=== PATIENT | female | born 1985 | race Caucasian/White ===

== ENCOUNTER 2023-03-20 12:17 | Observation (INO) | payer MEDICAID, SELFPAY ==
[2023-03-20 12:19] VITALS: BP 141/91; PULSE 113; RESP 18; TEMP 37.1; O2SAT 94; BMI 80.4
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
[2023-03-20] MEDS: HYDROmorphone 1 MG/ML Syringe IV (13:03)
[2023-03-20 13:26] LABS: Basophil# 0.07 X10^3/uL; Basophil% 0.7 % (0-1); Eosinophil# 0.31 X10^3/uL; Eosinophils% 3.2 % (0-5); Hematocrit 42.5 % (37-47); Hemoglobin 13.4 g/dL (12.0-15.0); Lymphocyte % 18.7 % (19-41); Mean Corp Hgb Conc 31.5 g/dL (32-36); Mean Corpuscular Hgb 28.8 pg (27.0-32.0); Mean Corpuscular Volume 91.4 fL (81-99); Mean Platelet Vol. 10.4 fl (6.2-12.0); Monocyte# 0.45 X10^3/uL; Monocyte% 4.7 % (0-10); NRBC Flagged by Analyzer 0 % (0-5); Neutrophil # 6.97 X10^3/uL (2.7-7.7); Neutrophil % 72.2 % (47-70); Platelet Count 312 K/mm3 (150-450); RBC Distribution Width CV 13.3 % (11.6-14.6); RBC Distribution Width SD 44.9 fl (35.1-43.9); Red Blood Count 4.65 M/mm3 (4.2-5.4); White Blood Count 9.7 K/mm3 (4.4-11.0)
[2023-03-20 13:42] LABS: Anion Gap 4 (5-15); BUN 17 mg/dL (7-18); BUN/Creat Ratio 20.4 RATIO (10-20); Chloride 105 mmol/L (98-107); Creatinine, Serum 0.83 mg/dL (0.55-1.02); EST Glomerular Filtration Rate 81 mL/min (>60); Est Glom Filt Rate - Afr Amer 98 mL/min (>60); Estimated Creatinine Clearance 81.89 ml/min; Glucose 127 mg/dL (74-106); Potassium 4.2 mmol/L (3.5-5.1); Sodium Level 137 mmol/L (136-145)
[2023-03-20 13:54] VITALS: BP 117/70; PULSE 68; RESP 18; O2SAT 99
--- NOTE | 2023-03-20 16:13 | CT_ITS ---
STUDY: CT LUMBAR SPINE WITHOUT CONTRAST REASON FOR EXAM: Female, 37 years old. pain TECHNIQUE: The patient was scanned in a multi detector CT scanner. High resolution transaxial imaging was performed. Images were obtained from T12 to S1. Sagittal and coronal images were reconstructed. Individualized dose optimization techniques were used for this CT. COMPARISON: None FINDINGS: Normal lumbar lordosis. There is no substantial scoliosis. Normal vertebrae of the lumbar spine. L1-2: There is bilateral facet arthropathy. Loss of intervertebral disc height. There is endplate spondylosis of the vertebral body. Unremarkable central canal. Posterior disc bulge. Narrowing of the bilateral Intervertebral neuroforamina. L2-3: There is bilateral facet arthropathy. Loss of intervertebral disc height. There is endplate spondylosis of the vertebral body. Unremarkable central canal. Posterior disc bulge. Narrowing of the bilateral Intervertebral neuroforamina. L3-4: There is bilateral facet arthropathy. Loss of intervertebral disc height. There is endplate spondylosis of the vertebral body. Unremarkable central canal. Posterior disc bulge. Narrowing of the bilateral Intervertebral neuroforamina. L4-5: There is bilateral facet arthropathy. Loss of intervertebral disc height. There is endplate spondylosis of the vertebral body. Unremarkable central canal. Posterior disc bulge. Narrowing of the bilateral Intervertebral neuroforamina. L5-S1: There is bilateral facet arthropathy. Loss of intervertebral disc height. There is endplate spondylosis of the vertebral body. Unremarkable central canal. Posterior disc bulge. Narrowing of the bilateral Intervertebral neuroforamina. Normal visualized paraspinous soft tissue structures. CT/Spine Lumbar without Contrast IMPRESSION: (NOT LISTED IN ORDER OF SIGNIFICANCE) Multilevel degenerative changes, as described above. Electronically Signed: Shane Veloz MD at 16:55 EDT ,
--- NOTE | 2023-03-20 16:40 | NURSING ---
MED SURG OBS [place] INTRACTABLE BACK PAIN
[2023-03-20] MEDS: Ketorolac 30 MG/ML Syringe IV (16:41)
[2023-03-20] MEDS: HYDROmorphone 0.5 MG/0.5 ML SYRINGE IV (16:41)
--- NOTE | 2023-03-20 16:47 | ED.RN ---
Hospitalist in room with patient.
[2023-03-20 17:14] VITALS: BP 117/90; PULSE 68; RESP 16; TEMP 36.6
--- NOTE | 2023-03-20 17:55 | PCM.HP.STD ---
HPI - General General Date of Admission: 03/20/23 HPI Narrative SHELTON RODRIGEZ, is a 37 F who presents to the hospital with right-sided sciatic back pain. She has a BMI of 80 so this is likely weight related she denies any episodes of trauma. She did have an issue this afternoon where her leg gave out and she fell. She and her boyfriend states that her mobility issues are becoming more significant over time. Unfortunately she is too large to fit in an MRI at our facility and we attempted to find another facility who would potentially have a bigger MRI but they were all of our size. She states that the pain shoots down her right leg on occasion and that nothing has really helped. She denies any incontinence of stool or urine. No fevers or chills. [facility] Medical History Anxiety Diabetes High cholesterol HTN (hypertension) Allergy/AdvReac Type Severity Reaction Status Date / Time Penicillins Allergy Unknown Other Verified 03/20/23 12:22 Family History (Updated 03/20/23 @ 17:[address] Riky Carvalho MD) Other Heart disease Surgical History no surgical history no surgical history Social History Smoking Status: Former smoker ROS Constitutional Constitutional: Denies chills, fatigue, fever(s) or malaise Eyes Eyes: Denies blurry vision ENT HEENT: Denies headache(s) or nasal discharge Cardiovascular Cardiovascular: Denies chest pain, dyspnea on exertion or syncope Respiratory/Chest Respiratory/Chest: Denies cough, shortness of breath at rest or shortness of breath with exertion Gastrointestinal Gastrointestinal: Denies constipation, diarrhea, nausea or vomiting Genitourinary Genitourinary: Denies dysuria Musculoskeletal Musculoskeletal: Reports back pain Neurologic Neurologic: Denies focal weakness, numbness or tremor(s) Psychiatric Psychiatric: Denies anxiety or depression Vital Signs Vital Signs Vital Signs: 03/20/23 12:19 03/20/23 13:54 03/20/23 17:14 Temperature 98.7 F 98 F Temperature Source Temporal Oral Pulse Rate 113 H 68 68 Respiratory Rate 18 18 16 Blood Pressure 141/91 H 117/70 117/90 H Blood Pressure Mean 107 85 99 Pulse Ox 94 99 Oxygen Delivery Method Room Air Room Air Weight Weight: 483 lb Body Mass Index (BMI) 80.4 Physical Exam Narrative General: Alert, Oriented x3, Cooperative, No apparent distress, morbidly obese HEENT: Atraumatic, PERRLA, EOMI, Normocephalic Oral: Moist Mucosa Neck: Supple, No JVD Lungs: Diminished, Normal air movement, No rhonchi, No wheeze, No rales Cardiovascular: Regular rate, Regular Rhythm, Normal S1, Normal S2, No murmurs Abdomen: Soft, Non Tender, Non-Distended, No Hepato-splenomegaly Extremities: No edema, Capillary Refill Less than 3 Seconds Skin: No rashes, No breakdown Musculoskeletal: No significant midline tenderness, straight leg raise is unremarkable Neurological: Motor Exam 5/5 strength throughout, Sensory exam intact to light touch and pain Psych/Mental Status: Normal Affect, Appropriate Results Lab / Micro Data 03/20/23 13:06 03/20/23 13:06 Labs: Laboratory Results - last 24 hr 03/20/23 13:06: WBC 9.7, RBC 4.65, Hgb 13.4, Hct 42.5, MCV 91.4, MCH 28.8, MCHC 31.5 L, RDW Std Deviation 44.9 H, RDW Coeff of Chantal 13.3, Plt Count 312, MPV 10.4, Immature Gran % (Auto) 0.500, Neut % (Auto) 72.2 H, Lymph % (Auto) 18.7 L, [place] % (Auto) 4.7, Eos % (Auto) 3.2, Baso % (Auto) 0.7, Absolute Neuts (auto) 7.0, Absolute Lymphs (auto) 1.80, Nucleated RBC % 0, Sodium 137, Potassium 4.2, Chloride 105, Carbon Dioxide 28.0, Anion Gap 4 L, BUN 17, Creatinine 0.83, Estim Creat Clear Calc 81.89, Est GFR (MDRD) Af Amer 98, Est GFR (MDRD) Non-Af 81, BUN/Creatinine Ratio 20.4 H, Glucose 127 H, Calcium 9.0 Radiology Impression Lumbar Spine CT 03/20/23 16:13 IMPRESSION: (NOT LISTED IN ORDER OF SIGNIFICANCE) Multilevel degenerative changes, as described above. Electronically Signed: Shane Veloz MD at 16:55 EDT , Assessment & Plan Assessment/Plan (1) Intractable back pain: (2) Sciatica: PLAN: Plan 1. Intractable back pain with right-sided sciatica ? CT of the back demonstrates multilevel degenerative changes but nothing obviously significant unfortunately she cannot fit in MRI ? PT/OT ? Consult case management for possible discharge planning may need SNF if ambulation is limited ? We will continue with multimodal analgesia 2. Morbid obesity/type 2 diabetes ? Had a 40-minute discussion on lifestyle modifications ? We will place on a sliding scale insulin Accu-Cheks ? We will make adjustments as necessary ? We will place her on an 1800-calorie diet please do not adjust for any circumstance DVT: Altaf 75 minutes was spent on direct patient care as well as chart review and collaboration with colleagues Charges/Coding Visit Charges Inpatient E&M: 15345 Init Hosp L3
[2023-03-20 18:30] VITALS: BMI 81.8
[2023-03-20 18:34] VITALS: BP 102/54; PULSE 103; RESP 18; TEMP 36.7; O2SAT 94
[2023-03-20 19:56] VITALS: BP 95/65; PULSE 114; RESP 18; TEMP 35.8; O2SAT 98
[2023-03-20] MEDS: Enoxaparin 40 MG/0.4 ML Syringe SC (21:37)
[2023-03-20] MEDS: Acetaminophen 500 MG Tablet 1000 MG PO (21:37)
[2023-03-20 23:03] LABS: Bedside Glucose 120 mg/dL (74-106)
[2023-03-20 23:59] VITALS: BP 94/54; PULSE 91; RESP 18; TEMP 36.8; O2SAT 96
[2023-03-21] MEDS: dexAMETHasone 4 MG Tablet PO ×2 (00:17→06:53)
[2023-03-21 05:51] LABS: Absolute Neutrophil Count 7.2 X10^3/uL (2.0-7.7); Basophil# 0.05 X10^3/uL; Basophil% 0.5 % (0-1); Eosinophil# 0.21 X10^3/uL; Eosinophils% 2.2 % (0-5); Hematocrit 41.5 % (37-47); Hemoglobin 13.3 g/dL (12.0-15.0); Mean Corpuscular Hgb 29.2 pg (27.0-32.0); Mean Corpuscular Volume 91.2 fL (81-99); Mean Platelet Vol. 10.4 fl (6.2-12.0); Monocyte# 0.28 X10^3/uL; NRBC Flagged by Analyzer 0 % (0-5); Neutrophil # 7.15 X10^3/uL (2.7-7.7); Platelet Count 319 K/mm3 (150-450); RBC Distribution Width CV 13.2 % (11.6-14.6); RBC Distribution Width SD 43.9 fl (35.1-43.9); Red Blood Count 4.55 M/mm3 (4.2-5.4); White Blood Count 9.4 K/mm3 (4.4-11.0)
[2023-03-21 06:29] LABS: Anion Gap 5 (5-15); BUN 23 mg/dL (7-18); BUN/Creat Ratio 30.5 RATIO (10-20); Calcium,Total 9.5 mg/dL (8.5-10.1); Chloride 104 mmol/L (98-107); Creatinine, Serum 0.76 mg/dL (0.55-1.02); EST Glomerular Filtration Rate 90 mL/min (>60); Est Glom Filt Rate - Afr Amer 109 mL/min (>60); Estimated Creatinine Clearance 89.43 ml/min; Glucose 143 mg/dL (74-106); Potassium 4.7 mmol/L (3.5-5.1); Sodium Level 135 mmol/L (136-145)
[2023-03-21] MEDS: Acetaminophen 500 MG Tablet 1000 MG PO ×3 (06:53→22:46)
[2023-03-21] MEDS: Insulin Lispro 100 UNIT/ML INSULN.PEN SC ×4 (06:53→21:11)
[2023-03-21 06:54] VITALS: BP 123/65; PULSE 93; RESP 18; TEMP 36.3; O2SAT 96
[2023-03-21] MEDS: Lidocaine 5% Patch 1 PATCH TOPICAL (08:40)
[2023-03-21] MEDS: oxyCODONE 5 MG Tablet PO ×4 (08:40→22:45)
[2023-03-21] MEDS: Enoxaparin 40 MG/0.4 ML Syringe SC ×2 (08:40→21:14)
[2023-03-21 09:44] LABS: Bedside Glucose 153 mg/dL (74-106)
[2023-03-21 11:35] VITALS: BP 109/55; PULSE 78; RESP 16; TEMP 36.8; O2SAT 95
[2023-03-21] MEDS: busPIRone 15 MG TABLET 7.5 MG PO ×2 (11:43→21:13)
[2023-03-21] MEDS: Fluoxetine HCl 40 MG CAPSULE PO (11:43)
[2023-03-21] MEDS: Atorvastatin Calcium 10 MG Tablet PO (11:43)
[2023-03-21] MEDS: hydroCHLOROthiazide 25 MG Tablet PO (11:43)
[2023-03-21] MEDS: Lisinopril 40 MG Tablet PO (11:44)
[2023-03-21 12:12] LABS: Bedside Glucose 184 mg/dL (74-106)
[2023-03-21] MEDS: dexAMETHasone 4 MG/ML Vial IV ×3 (13:17→22:47)
[2023-03-21] MEDS: 0.9% Saline Lock 10 ML Syringe IV ×2 (13:18→18:21)
--- NOTE | 2023-03-21 15:04 | CASEMGMT ---
Discharge Planning HH list created and given to RN [place]. Rosina Thompson, Discharge Planning Asst.
[2023-03-21] MEDS: Gabapentin 400 MG Capsule PO ×2 (15:06→21:18)
--- NOTE | 2023-03-21 16:00 | CASEMGMT ---
ANASTASIIA OSBORNE NOTE: Per Nanda/PT, pt safe to discharge home and HHC recommended. WW and BSC also recommended. Pt has a bariatric shower chair and BF assists pt w/care. ANASTASIIA OSBORNE to room. Introduced self and role to pt and BF who is at bedside. Discussed d/c planning. Pt states initially she was told she may need to go to a SNF, but she does not want to, as she wishes to d/c home. ANASTASIIA OSBORNE informed her therapy feels she will be safe @ home and HHC recommended. Pt and BF both feel this is a good idea. A list of [facility] providers including quality and resource use data and consistent with the patient?s preferred geographic region, medical needs, and insurance network were provided from the [employer] Guide. Pt's 1st preference is [facility]. Call to Shelby @ [facility] and referral made for PT/OT. She was made aware anticipate d/c home tomorrow. She initially stated they are able to accept pt w/SOC Saturday, but then called back and stated they were informed they are not in-network. Per Shelby, they will look further into this. ANASTASIIA OSBORNE to f/u with [facility] tomorrow. Discussed therapy's recommendations for WW and BSC. Pt is interested in both. She denies having any preference of DME co. ANASTASIIA OSBORNE will obtain scripts and work on getting these for pt tomorrow. Pt and BF deny having any further d/c planning needs or concerns at this time. Rose Mary LOCO RN, CM
[2023-03-21 16:42] LABS: Bedside Glucose 186 mg/dL (74-106)
[2023-03-21 18:30] VITALS: BP 130/76; PULSE 96; RESP 16; TEMP 36.4; O2SAT 94
--- NOTE | 2023-03-21 20:26 | PCM.PN.HOSP ---
Reason for Visit Reason for Visit: Diagnoses Sciatica, unspecified side (03/20/23) Dorsalgia, unspecified (03/20/23) Subjective Subjective Patient was seen and examined today, she states her neuropathic pain in her right leg is improved somewhat from yesterday. I have changed her Decadron to IV today, have also increased her Neurontin dosage. Patient was seen by PT and OT today. I told the patient if she was able to ambulate and her significant other was able to help her at home, she would be able to go home without going to an extended care facility. I told her that due to her size, there is no way to get an MRI at this hospital and I did not think it was an emergency to send her out to another facility that was able to do an MRI on the patient. I told her that it is unlikely that she would be able to have an epidural injection due to her size and due to the fact that we do not have an MRI to verify that she has a disc rupture or impingement. Patient understood all this. I will reevaluate the patient tomorrow to see how mobile she is, currently patient is on a nonsteroidal agent, a corticosteroid, gabapentin, and narcotics for pain. Objective Data Objective Data Vital Signs: Vital Signs Temp Pulse Resp BP Pulse Ox O2 Del Method 97.6 F L 96 16 130/76 H 94 Room Air 03/21/23 18:30 03/21/23 18:30 03/21/23 18:30 03/21/23 18:30 03/21/23 18:30 03/21/23 18:30 Oxygen Delivery Method Room Air Weight: 222.9 kg Body Mass Index (BMI) 81.8 Intake & Output: Intake and Output for Last 24 Hours 03/19/23 03/20/23 03/21/23 23:59 23:59 23:59 Intake Total 1100 / 1100 Balance 1100 / 1100 Lab / Micro Data 03/21/23 05:10 03/21/23 05:10 Labs: Laboratory Results - last 24 hr 03/20/23 21:34: POC Glucose 120 H 03/21/23 05:10: WBC 9.4, RBC 4.55, Hgb 13.3, Hct 41.5, MCV 91.2, MCH 29.2, MCHC 32.0, RDW Std Deviation 43.9, RDW Coeff of Chantal 13.2, Plt Count 319, MPV 10.4, Immature Gran % (Auto) 0.300, Neut % (Auto) 76.0 H, Lymph % (Auto) 18.0 L, [place] % (Auto) 3.0, Eos % (Auto) 2.2, Baso % (Auto) 0.5, Absolute Neuts (auto) 7.2, Absolute Lymphs (auto) 1.70, Nucleated RBC % 0, Sodium 135 L, Potassium 4.7, Chloride 104, Carbon Dioxide 26.0, Anion Gap 5, BUN 23 H, Creatinine 0.76, Estim Creat Clear Calc 89.43, Est GFR (MDRD) Af Amer 109, Est GFR (MDRD) Non-Af 90, BUN/Creatinine Ratio 30.5 H, Glucose 143 H, Calcium 9.5 03/21/23 06:51: POC Glucose 153 H 03/21/23 11:40: POC Glucose 184 H 03/21/23 16:17: POC Glucose 186 H Physical Exam Const alert, oriented x3 and no apparent distress Constitutional Narrative: Patient is morbidly obese General Appearance: cooperative, well kempt and well developed Orientation / Consciousness: awake, oriented to person, oriented to place and oriented to time HEENT normocephalic, head/scalp atraumatic and moist oral mucous membranes Eyes PERRL, EOMs intact bilaterally and conjunctivae normal Neck supple, no JVD, thyroid normal and no carotid bruits General: trachea midline Resp normal respiratory effort, no retractions, no use of accessory muscles and clear to auscultation bilaterally Auscultation: Negative for rales, rhonchi or wheezes Cardio regular rate, regular rhythm, S1 normal heart sound, S2 normal heart sound, no murmurs, no rub and no gallops GI normal to inspection, nondistended, normoactive bowel sounds, soft to palpation, non-tender and non-distended Extremity no clubbing, cyanosis or edema Skin no rashes or lesions noted General Skin Exam: no breakdown Neuro oriented x3, CN's II-XII intact bilaterally, moves all extremities, no focal motor deficits and no sensory deficits noted Neuro Narrative: Patient was not ambulated during my exam Sensorium / Orientation: awake, alert, oriented to person, oriented to place and oriented to time Speech: speech normal Psych affect normal Assessment & Plan Assessment/Plan (1) Sciatica: PLAN: Plan 1. Acute right-sided sciatica-again we are not able to perform an MRI of the patient due to her size, continue present medical treatment, I have elected to increase her gabapentin. Physical therapy will work with patient #2 intractable back pain-continue pain medication and corticosteroid, PT and OT working with the patient #3 morbid obesity-complicates care, medical course, recovery, and prognosis #4 type 2 diabetes-blood sugars will be monitored, sliding scale insulin will be administered as needed #5 hypertension-patient remains on her home medication Total clinical time spent by myself addressing patient's medical issues, reviewing all of her data, and collaborating with patient's care team: 35 minutes Charges/Coding Visit Charges Inpatient E&M: 19415 Subs Hosp L2
[2023-03-22 00:14] VITALS: BP 141/62; PULSE 93; RESP 20; TEMP 36.1; O2SAT 96
[2023-03-22 01:11] LABS: Bedside Glucose 229 mg/dL (74-106)
[2023-03-22 04:31] VITALS: BP 130/74; PULSE 90; RESP 18; TEMP 36.6; O2SAT 95
[2023-03-22] MEDS: Gabapentin 400 MG Capsule PO ×2 (06:14→13:42)
[2023-03-22] MEDS: oxyCODONE 5 MG Tablet PO ×2 (06:14→10:09)
[2023-03-22] MEDS: Acetaminophen 500 MG Tablet 1000 MG PO ×2 (06:16→13:42)
[2023-03-22] MEDS: Insulin Lispro 100 UNIT/ML INSULN.PEN SC ×3 (06:18→15:28)
[2023-03-22] MEDS: dexAMETHasone 4 MG/ML Vial IV ×3 (06:19→16:41)
[2023-03-22] MEDS: 0.9% Saline Lock 10 ML Syringe IV ×3 (06:22→16:41)
[2023-03-22 07:22] LABS: Bedside Glucose 185 mg/dL (74-106)
--- NOTE | 2023-03-22 08:46 | CASEMGMT ---
Addendum entered by Amaury Crowell 03/22/23 20:08: 1800: BSC and WW have been delivered to pt's room. Addendum entered by Amaury Crowell 03/22/23 20:07: 1400: Pt made aware BSC and WW to be delivered to her room today. She voices appreciation. She is aware [facility]. Pt interested in baseball player consult. Order geeta and Sarah, baseball player, made aware. Pt interested in switching PCP's. 1800: Documentation supporting med necessity for BSC faxed to [facility] Phys directory provided to pt. She denies having any further d/c planning needs or concerns. Addendum entered by Amaury Crowell 03/22/23 12:50: Call received from Nicole @ [facility]. They have someone available to deliver the FWW to pt's room today and also can deliver the BSC to her room today. She asked for scripts to be faxed to them. Scripts obtained from Dr Ro and faxed to [facility] at this time. Will fax documentation re: medical necessity for DME when available. Original Note: ANASTASIIA OSBORNE NOTE: Per Shelby @ [facility], HH services will be covered @ 100%, they are able to accept pt, and SOC slated for 03/26. Call to Nicole @ [facility]. They have bariatric/heavy duty BSC's available and this can be delivered to pt's home. They also have heavy duty FWW available. She is unsure if they have a delivery crow available to deliver it to [facility] today. If not, this can be picked up @ [facility]'s office in [place], which is on [address], across from the [employer]. Awaiting call back from Nicole re: if FWW can be delivered. Rose Mary LOCO RN, CM
[2023-03-22 09:34] VITALS: BP 122/78; PULSE 65; RESP 16; TEMP 36.5; O2SAT 98
[2023-03-22] MEDS: hydroCHLOROthiazide 25 MG Tablet PO (10:06)
[2023-03-22] MEDS: Lidocaine 5% Patch 1 PATCH TOPICAL (10:06)
[2023-03-22] MEDS: Atorvastatin Calcium 10 MG Tablet PO (10:06)
[2023-03-22] MEDS: Fluoxetine HCl 40 MG CAPSULE PO (10:07)
[2023-03-22] MEDS: Lisinopril 40 MG Tablet PO (10:07)
[2023-03-22] MEDS: busPIRone 15 MG TABLET 7.5 MG PO (10:08)
[2023-03-22] MEDS: Enoxaparin 40 MG/0.4 ML Syringe SC (10:08)
--- NOTE | 2023-03-22 11:22 | NURSING ---
1122: Report given to ANASTASIIA Porras who is taking over patient care.
[2023-03-22 12:54] LABS: Bedside Glucose 203 mg/dL (74-106)
[2023-03-22 13:34] VITALS: PULSE 90
[2023-03-22 13:44] VITALS: BP 112/49; PULSE 88; RESP 18; TEMP 36.5; O2SAT 97
--- NOTE | 2023-03-22 15:44 | PCM.HOSP.N ---
Hospitalist Note She was given a prescription for a bedside commode as well as a walker, she is unable to climb to the second floor of her home and thus requires a bedside commode for use on the first floor, this is due to degenerative disc disease of the lumbar spine with presumed lumbar disc protrusion/rupture with right radiculopathy and right leg weakness.
[2023-03-22 15:48] LABS: Bedside Glucose 153 mg/dL (74-106)
--- NOTE | 2023-03-22 15:48 | DCINST_ITS ---
Discharge Instructions Diet Discharge Diet: 1800 Calorie Control Diet Activity Discharge Activity: - (No lifting above 10 pounds) Weight Bearing Status: Full weight bearing (Use walker if necessary) Follow Up Care Test Results: Test results from this visit will be discussed in further detail at your follow- up appointment, if applicable. Discharge Plan Admission Admit Date/Time: 03/20/23 16:58 Primary Reason for Your Visit: Right leg radiculopathy, intractable back pain Attending Provider: Riky Carvalho Primary Care Provider: Kenny Billy Instructions Additional Instructions / Restrictions: Do not take any ibuprofen or Aleve while you are taking prednisone, after your prednisone is finished, you may use 400 to 600 mg of ibuprofen 4 times a day as needed for back and leg pain Discharge Orders/Prescriptions Prescriptions: New gabapentin 400 mg Capsule 400 mg PO TID Qty: 90 0RF acetaminophen 500 mg Tablet 1,000 mg PO Q8 Qty: 0 0RF prednisone 20 mg tablet 40 mg PO UD Qty: 16 0RF Rx Instructions: 20 mg twice daily x3 days, then 1-1/2 tabs once a day x4 days, then 1 tab daily x4 days, then stop oxycodone 5 mg tablet 10 mg PO Q6H PRN (Reason: pain) 7 Days Qty: 50 0RF Rx Instructions: 5-10 mg every six hours prn back and leg pain Continued atorvastatin 10 mg tablet 10 mg PO DAILY Patient Comments: TAKE 1 TABLET BY MOUTH DAILY buspirone 7.5 mg tablet 7.5 mg PO BID Patient Comments: Take 1 tablet by mouth twice daily. cholecalciferol (vitamin D3) 25 mcg (1,000 unit) tablet 25 mcg PO DAILY Patient Comments: TAKE 1 TABLET BY MOUTH DAILY fluoxetine 40 mg capsule 40 mg PO DAILY Patient Comments: TAKE 1 CAPSULE BY MOUTH ONCE DAILY hydrochlorothiazide 25 mg tablet 25 mg PO DAILY Patient Comments: TAKE 1 TABLET BY MOUTH DAILY hydroxyzine HCl 25 mg tablet 12.5 mg PO TID PRN Patient Comments: Take 1 tablet by mouth three times daily as needed for anxiety. May take 1/2 tablet lisinopril 40 mg tablet 40 mg PO DAILY Patient Comments: TAKE 1 TABLET BY MOUTH DAILY metformin 1,000 mg tablet 1,000 mg PO BIDAC Patient Comments: TAKE 1 TABLET BY MOUTH TWICE DAILY WITH MEALS norethindrone (contraceptive) [Deblitane] 0.35 mg tablet 0.35 mg PO DAILY Patient Comments: Take 1 tablet orally once daily at the same time. Discontinued gabapentin 300 mg capsule 300 mg PO TID Patient Comments: TAKE 1 CAPSULE BY MOUTH THREE TIMES DAILY FOR 360 DAYS Referrals / Follow Up: Kenny Billy MD [Primary Care Provider] - Within 2 Weeks Kenny Billy MD [[facility]] - Disposition Disposition (needs filled in before D/C Order can be placed): Home Health Servic e
--- NOTE | 2023-03-22 15:58 | NS ---
Nutrition Services received consult from MD to provide weight loss diet education to patient this afternoon prior to d/c. This RD met with patient at the bedside to discuss Weight loss/weight Management. Provided written material on 1,800 kcal diet pattern, weight loss tips, and weight management information from the Nutrition Care Manual. Also provided written information on WhyWeight program. We discussed implementing portion control and more structure to her daily eating habits. I believe this patient would benefit from outpatient Dietitian Services, which she is open to. Expect good compliance based on patient's desire for improved quality of life.
--- NOTE | 2023-03-22 16:01 | PCM.DC.SUM ---
Providers Date of Admission: 03/20/23 Date of Discharge: 03/22/23 Primary Care Physician: Dr. Kenny Billy MD Reason For Visit: INTRACTABLE BACK PAIN Diagnosis Discharge Diagnosis (1) Sciatica: Status: Acute Code(s): M54.30 - Sciatica, unspecified side Plan 1. Acute right-sided sciatica-again we are not able to perform an MRI of the patient due to her size, continue present medical treatment, I have elected to increase her gabapentin. Physical therapy will work with patient #2 intractable back pain-continue pain medication and corticosteroid, PT and OT working with the patient #3 morbid obesity-complicates care, medical course, recovery, and prognosis #4 type 2 diabetes-blood sugars will be monitored, sliding scale insulin will be administered as needed #5 hypertension-patient remains on her home medication Total clinical time spent by myself addressing patient's medical issues, reviewing all of her data, and collaborating with patient's care team: 35 minutes Medications at Discharge Home Medications atorvastatin 10 mg tablet 10 mg PO DAILY cholesterol 03/20/23 buspirone 7.5 mg tablet 7.5 mg PO BID 03/20/23 cholecalciferol (vitamin D3) 25 mcg (1,000 unit) tablet 25 mcg PO DAILY 03/20/23 fluoxetine 40 mg capsule 40 mg PO DAILY 03/20/23 hydrochlorothiazide 25 mg tablet 25 mg PO DAILY 03/20/23 hydroxyzine HCl 25 mg tablet 12.5 mg PO TID PRN anxiety 03/20/23 lisinopril 40 mg tablet 40 mg PO DAILY 03/20/23 metformin 1,000 mg tablet 1,000 mg PO BIDAC diabetes 03/20/23 norethindrone (contraceptive) 0.35 mg tablet (Deblitane) 0.35 mg PO DAILY control 03/20/23 acetaminophen 500 mg tablet 1,000 mg (2 x 500 mg) PO Q8 #0 tabs 03/22/23 gabapentin 400 mg capsule 400 mg PO TID #90 caps 03/22/23 oxycodone 5 mg tablet 10 mg (2 x 5 mg) PO Q6H PRN pain 7 days #50 tabs 03/22/23 prednisone 20 mg tablet 40 mg (2 x 20 mg) PO UD #16 tabs 03/22/23 Hospital Course Operations None Procedures None Summary of Care Provided Minutes Spent on Discharge: 31 Hospital Course: This 37-year-old white female was seen in the emergency room at [facility] with chief complaint of low back pain with radicular pain from her right buttocks into her right leg. Patient has been treated several months worsening back pain as an outpatient, patient has had no recent trauma or injury to her back. Patient relates to outpatient x-rays performed which had shown disc base narrowing, she was given a diagnosis of degenerative disc disease with nerve impingement to her lower back by her outpatient physician. Patient stated that her pain had increased and she was unable to walk at home, she had been recently started on gabapentin. She came to the ER for evaluation. Evaluation in the ER revealed the patient's abdominal girth to be too large for her to undergo an MRI. Patient underwent a CT of the lumbar spine which showed multilevel degenerative changes. Patient was placed in observation status on PCU, she was placed on IV corticosteroids, gabapentin, narcotic pain medications, and Valium as needed for muscle spasm. She was seen by PT and OT, over the next 48 hours her back pain and leg pain improved such that she could be discharged home. She is encouraged to talk to her PCP about weight loss medications. On 03/22/2023, patient was seen and examined: On examination she appeared in good health and spirits, she does not appear to be in any distress at rest. Patient has severe morbid obesity. Vital signs as documented. Skin warm and dry and without overt rashes. Neck without JVD, thyroid appears normal, trachea is midline, neck is supple. Lungs clear, normal air movement was noted. Heart exam notable for regular rhythm, normal sounds and absence of murmurs, rubs or gallops. Abdomen unremarkable and without evidence of organomegaly, masses, or abdominal aortic enlargement, bowel sounds are present in all 4 quadrants, no abdominal tenderness was noted. Patient is morbidly obese. Extremities nonedematous, no cyanosis was noted, no clubbing was noted. Neuro: Cranial nerves II through XII are grossly intact, no focal motor deficits were noted, sensation to light touch and pinprick is intact, motor exam 5/5 throughout. Psych: Patient is alert and oriented x3, she does not appear anxious or depressed, she does not appear agitated. Patient was discharged home in stable condition on 03/22/2023 Weight / BMI Weight Weight: 222.9 kg Body Mass Index (BMI) 81.8 ABG / Lab / Microbiology Data 03/21/23 05:10 03/21/23 05:10 Laboratory: Laboratory Results - last 24 hr 03/21/23 16:17: POC Glucose 186 H 03/21/23 21:11: POC Glucose 229 H 03/22/23 06:18: POC Glucose 185 H 03/22/23 12:13: POC Glucose 203 H 03/22/23 15:25: POC Glucose 153 H D/C Instructions Discharge Diet: 1800 Calorie Control Diet Weight Bearing Status: Full weight bearing (Use walker if necessary) Meaningful Use Info Meaningful Use Diagnoses (Choose all that apply): None applicable Discharge Plan Admission Admit Date/Time: 03/20/23 16:58 Primary Reason for Your Visit: Right leg radiculopathy, intractable back pain Attending Provider: Riky Carvalho Primary Care Provider: Kenny Billy Instructions Additional Instructions / Restrictions: Do not take any ibuprofen or Aleve while you are taking prednisone, after your prednisone is finished, you may use 400 to 600 mg of ibuprofen 4 times a day as needed for back and leg pain Discharge Orders/Prescriptions Prescriptions: New gabapentin 400 mg Capsule 400 mg PO TID Qty: 90 0RF acetaminophen 500 mg Tablet 1,000 mg PO Q8 Qty: 0 0RF prednisone 20 mg tablet 40 mg PO UD Qty: 16 0RF Rx Instructions: 20 mg twice daily x3 days, then 1-1/2 tabs once a day x4 days, then 1 tab daily x4 days, then stop oxycodone 5 mg tablet 10 mg PO Q6H PRN (Reason: pain) 7 Days Qty: 50 0RF Rx Instructions: 5-10 mg every six hours prn back and leg pain Continued atorvastatin 10 mg tablet 10 mg PO DAILY Patient Comments: TAKE 1 TABLET BY MOUTH DAILY buspirone 7.5 mg tablet 7.5 mg PO BID Patient Comments: Take 1 tablet by mouth twice daily. cholecalciferol (vitamin D3) 25 mcg (1,000 unit) tablet 25 mcg PO DAILY Patient Comments: TAKE 1 TABLET BY MOUTH DAILY fluoxetine 40 mg capsule 40 mg PO DAILY Patient Comments: TAKE 1 CAPSULE BY MOUTH ONCE DAILY hydrochlorothiazide 25 mg tablet 25 mg PO DAILY Patient Comments: TAKE 1 TABLET BY MOUTH DAILY hydroxyzine HCl 25 mg tablet 12.5 mg PO TID PRN Patient Comments: Take 1 tablet by mouth three times daily as needed for anxiety. May take 1/2 tablet lisinopril 40 mg tablet 40 mg PO DAILY Patient Comments: TAKE 1 TABLET BY MOUTH DAILY metformin 1,000 mg tablet 1,000 mg PO BIDAC Patient Comments: TAKE 1 TABLET BY MOUTH TWICE DAILY WITH MEALS norethindrone (contraceptive) [Deblitane] 0.35 mg tablet 0.35 mg PO DAILY Patient Comments: Take 1 tablet orally once daily at the same time. Discontinued gabapentin 300 mg capsule 300 mg PO TID Patient Comments: TAKE 1 CAPSULE BY MOUTH THREE TIMES DAILY FOR 360 DAYS Referrals / Follow Up: Kenny Billy MD [Primary Care Provider] - Within 2 Weeks Kenny Billy MD [Outreach [facility]] - Disposition Disposition (needs filled in before D/C Order can be placed): Home Health Service Charges/Coding Visit Charges Inpatient E&M: 92176 Disch Hosp >30min
--- NOTE | 2023-03-26 09:50 | CASEMGMT ---
ANASTASIIA OSBORNE NOTE: Per Shelby @ [facility], pt's pcp declined to follow her HH and has cx'd her follow up appt. She does not have an active pcp at this time. She is working on establishing with a new pcp at [facility]. Once she has a pcp, if she still needs HH, Shelby will have them send a referral. Rose Mary LOCO RN, CM
== END 2023-03-22 18:12 | disposition home health service (06) ==
LOC: ED 16:19 → PCU 16:59
PROVIDERS: Admitting Provider Family Medicine; Emergency Provider Emergency Medicine; PCP Internal Medicine; Visit Provider Family Medicine
DX: M51.16 Intervertebral disc disorders with radiculopathy, lumbar region (principal); E66.01 Morbid (severe) obesity due to excess calories; Z68.45 Body mass index [BMI] 70 or greater, adult; E11.9 Type 2 diabetes mellitus without complications; E78.00 Pure hypercholesterolemia, unspecified; M47.819 Spondylosis without myelopathy or radiculopathy, site unspecified; Z87.891 Personal history of nicotine dependence; I10 Essential (primary) hypertension
CPT/HCPCS: 36415; 72131; 80048; 82962; 85025; 96372; 96374; 96375; 96376; 97162; 97166; 99221; 99285; A4216; G0378

== ENCOUNTER 2023-07-30 16:36 | Emergency (ER) | payer MEDICAID, SELFPAY ==
[2023-07-30 16:38] VITALS: BP 112/84; PULSE 108; RESP 18; TEMP 37.2; O2SAT 99
--- NOTE | 2023-07-30 19:25 | ED.VIS.DENTA ---
HPI History of Present Illness Chief Complaint: Dental Informant: patient Narrative Narrative: Patient is a 38-year-old female with history of hyperlipidemia, hypertension, diabetes mellitus and degenerative disc disease presenting with worsening left upper dental pain. Patient had her wisdom teeth extracted 1 week ago at [facility]. She notes over the past few days she has had increased pain of her left upper extraction sites and is now having bad breath and feels that there is drainage coming from that site. She describes as white. She feels that her cheek is more swollen intermittently on the left. She states it is sore in her throat when she tries to swallow but she still able to swallow. Denies any change in her speech. Denies any fever but her significant other know she does look more flushed. She states that she has tried all day to call her dentist but was not able to get through. She did not also do so she came to the ER. She states that she is on diclofenac twice daily and gabapentin 3 times daily at baseline has been taking Tylenol as well for breakthrough pain. She was not prescribed any antibiotics or stronger pain medication. No other complaints at this time. [facility] Medical History Anxiety Diabetes High cholesterol HTN (hypertension) Home Medications atorvastatin 10 mg tablet 10 mg PO DAILY cholesterol 03/20/23 [History Last Taken 03/20/23] buspirone 7.5 mg tablet 7.5 mg PO BID 03/20/23 [History Last Taken 03/20/23] cholecalciferol (vitamin D3) 25 mcg (1,000 unit) tablet 25 mcg PO DAILY 03/20/23 [History Last Taken 03/20/23] fluoxetine 40 mg capsule 40 mg PO DAILY 03/20/23 [History Last Taken 03/20/23] hydrochlorothiazide 25 mg tablet 25 mg PO DAILY 03/20/23 [History Last Taken 03/20/23] hydroxyzine HCl 25 mg tablet 12.5 mg PO TID PRN anxiety 03/20/23 [History Last Taken Unknown] lisinopril 40 mg tablet 40 mg PO DAILY 03/20/23 [History Last Taken Unknown] metformin 1,000 mg tablet 1,000 mg PO BIDAC diabetes 03/20/23 [History Last Taken Unknown] norethindrone (contraceptive) 0.35 mg tablet (Deblitane) 0.35 mg PO DAILY control 03/20/23 [History Last Taken 03/21/23] acetaminophen 500 mg tablet 1,000 mg (2 x 500 mg) PO Q8 #0 tabs 03/22/23 [Rx Last Taken Unknown] gabapentin 400 mg capsule 400 mg PO TID #90 caps 03/22/23 [Rx Last Taken Unknown] oxycodone 5 mg tablet 10 mg (2 x 5 mg) PO Q6H PRN pain 7 days #50 tabs 03/22/23 [Rx Last Taken Unknown] prednisone 20 mg tablet 40 mg (2 x 20 mg) PO UD #16 tabs 03/22/23 [Rx Last Taken Unknown] clindamycin HCl 150 mg capsule 450 mg (3 x 150 mg) PO TID 7 days #63 caps 07/30/23 [Rx Last Taken Unknown] oxycodone 5 mg tablet 5 mg PO Q6H PRN pain 3 days #12 tabs 07/30/23 [Rx Last Taken Unknown] Allergy/AdvReac Type Severity Reaction Status Date / Time Penicillins Allergy Unknown Other Verified 03/20/23 12:22 Family History Other Heart disease Social History Smoking Status: Former smoker ROS ROS ED Constitutional Constitutional ED: Denies chills or fever(s) Eyes Eyes: Denies change in vision ENT ENT ED: Reports other Details: Left-sided upper dental pain Cardiovascular Cardiovascular: Denies chest pain Respiratory/Chest Respiratory/Chest: Denies cough Gastrointestinal Gastrointestinal: Denies nausea or vomiting Musculoskeletal Musculoskeletal: Denies arthralgias or myalgias Integumentary Denies rash Neurologic Neurologic: Denies headache(s) Hematologic/Lymphatic Hematologic/Lymphatic: Denies easy bleeding or easy bruising EXAM Physical Exam Const Vital Signs: 07/30/23 16:38 07/30/23 19:49 Temperature 99.0 F Temperature Source Temporal Pulse Rate 108 H 85 Respiratory Rate 18 16 Blood Pressure 112/84 H Blood Pressure Mean 93 Pulse Ox 99 98 Oxygen Delivery Method Room Air Positive well nourished and well developed General Appearance ED: well developed and NAD HEENT Reports TM's clear HEENT Narrative: Patient is a slight area of ecchymosis noted on her posterior oropharynx, no active bleeding or hematoma appreciated. Uvula is midline. Evidence of dental extraction. On the left upper wisdom tooth sites there is mucosal edema and purulence in a cryptic formation. No well-defined abscess. Patient has some very mild trismus but this is more secondary to pain. Normal phonation. Sublingual mucosa is soft. No submental edema appreciated. Tympanic Membrane ED: Yes TM's clear Mouth ED: Yes lips normal and Yes tongue normal Mouth: lips normal and tongue normal Eyes PERRL and EOMs intact bilaterally Lymph Lymphatic: no lymphadenopathy noted Chest Wall inspection of chest normal Resp normal respiratory effort Cardio regular rhythm and no murmurs Rate: tachycardic Neuro oriented x3 and CN's II-XII intact bilaterally Sensorium / Orientation: alert Motor Exam: Negative for general weakness Psych mental status grossly normal Skin no rashes or lesions noted and no wounds MDM MDM MDM Narrative Medical decision making narrative: Patient is evaluated for worsening pain after dental extraction 1 week ago. Patient does have purulence coming from the left maxillary wisdom tooth site. I do not see an abscess amenable to drainage at this time. She does not have any airway obstruction at this time. I do not think she requires a CT of the area or IV antibiotics at this time. Low clinical suspicion for Shabana's angina based on my physical exam. We will start the patient on antibiotics (clindamycin as she is allergic to penicillin with unknown reaction) and give her a short course of oxycodone for pain control. Patient is counseled that she should go to her dentist office tomorrow if she cannot get hold of them through phone to be reevaluated. Is counseled that if her symptoms worsen she should return to our emergency room. Is counseled that we do not have consistent oral maxillofacial specialist here and might need to be transferred. Patient verbalizes agreement understand with this plan. Is given first dose of antibiotic and oxycodone in the emergency room. Discharged home in stable condition. Discharge Plan Triage Chief Complaint: Dental ED Provider: Allyn Lopez Dx/Rx/DC Orders Clinical Impression: Dental infection Instructions: ED Dental Abscess Prescriptions: New clindamycin HCl 150 mg capsule 450 mg PO TID 7 Days Qty: 63 0RF oxycodone 5 mg tablet 5 mg PO Q6H PRN (Reason: pain) 3 Days Qty: 12 0RF No Action atorvastatin 10 mg tablet 10 mg PO DAILY Patient Comments: TAKE 1 TABLET BY MOUTH DAILY buspirone 7.5 mg tablet 7.5 mg PO BID Patient Comments: Take 1 tablet by mouth twice daily. cholecalciferol (vitamin D3) 25 mcg (1,000 unit) tablet 25 mcg PO DAILY Patient Comments: TAKE 1 TABLET BY MOUTH DAILY fluoxetine 40 mg capsule 40 mg PO DAILY Patient Comments: TAKE 1 CAPSULE BY MOUTH ONCE DAILY hydrochlorothiazide 25 mg tablet 25 mg PO DAILY Patient Comments: TAKE 1 TABLET BY MOUTH DAILY hydroxyzine HCl 25 mg tablet 12.5 mg PO TID PRN Patient Comments: Take 1 tablet by mouth three times daily as needed for anxiety. May take 1/2 tablet lisinopril 40 mg tablet 40 mg PO DAILY Patient Comments: TAKE 1 TABLET BY MOUTH DAILY metformin 1,000 mg tablet 1,000 mg PO BIDAC Patient Comments: TAKE 1 TABLET BY MOUTH TWICE DAILY WITH MEALS norethindrone (contraceptive) [Deblitane] 0.35 mg tablet 0.35 mg PO DAILY Patient Comments: Take 1 tablet orally once daily at the same time. gabapentin 400 mg Capsule 400 mg PO TID Qty: 90 0RF acetaminophen 500 mg Tablet 1,000 mg PO Q8 Qty: 0 0RF prednisone 20 mg tablet 40 mg PO UD Qty: 16 0RF Rx Instructions: 20 mg twice daily x3 days, then 1-1/2 tabs once a day x4 days, then 1 tab daily x4 days, then stop oxycodone 5 mg tablet 10 mg PO Q6H PRN (Reason: pain) 7 Days Qty: 50 0RF Rx Instructions: 5-10 mg every six hours prn back and leg pain Primary Care Provider: Kavon Granda Referrals: All Boyd DDS [Med Staff - Active Staff] - As Needed Kenny Billy MD [Med Staff - Lay Out And Detail Drafter] - Activity Restrictions/Additional Instructions: Please come back to the emergency room if you are worsening. Please follow-up with your dentist tomorrow. If he cannot get a hold of them you might need to go to the office. You been given a local oral surgeon to follow-up within the area if you cannot follow-up with your oral surgeon/dentist. Continue taking your other medication as prescribed/we discussed. If needed you can hold off on taking her diclofenac and take 600 mg of dnto-lqi-[id number] ibuprofen every 6 hours instead for better pain control. Just do not take both at the same time. Disposition Disposition: Home, Self Care Discharge Date/Time: 07/30/23 19:50
[2023-07-30] MEDS: Clindamycin HCl 150 MG Capsule 450 MG PO (19:43)
[2023-07-30] MEDS: oxyCODONE 5 MG Tablet PO (19:43)
[2023-07-30 19:49] VITALS: PULSE 85; RESP 16; O2SAT 98
== END 2023-07-30 19:50 | disposition home or self-care (01) ==
PROVIDERS: Emergency Provider Emergency Medicine; PCP Internal Medicine; Visit Provider Emergency Medicine
DX: K04.7 Periapical abscess without sinus (principal); E11.9 Type 2 diabetes mellitus without complications; I10 Essential (primary) hypertension; E78.5 Hyperlipidemia, unspecified
CPT/HCPCS: 99283

== ENCOUNTER 2023-10-16 16:30 | Outpatient (RCR) | payer MEDICAID, SELFPAY ==
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
--- NOTE | 2023-07-29 17:28 | HP.PTREVAL ---
Re-Evaluation Intro: STARLA MOSS, It has been my pleasure to treat SHELTON RODRIGEZ over the last 9 visits for LUMBAR RADICULOPATHY, SPONDYLOSIS, STENOSIS AND NEUROGENIC CLAUDICATION. Please see the progress note below for an update on the physical therapy plan of care! Subjective Subjective: PATIENT REPORTS SHE HAS LESS PAIN AND MORE CONFIDENCE SHOWERING NOW. STILL SITS DOWN BUT SHOWERS WHEN no-one is home now. I CAN GET OUT OF BED EASIER, GET TO THE BATHROOM SAFELY WITH THE WALKER AND EVEN SOMEDAYS WITHOUT THE WALKER. NOW I CAN GO FROM THE FIRST AND SECOND FLOOR EASIER AND I HAVE EVEN MADE A TRIP TO THE BASEMENT. 2 HR'S TO BASEMENT AND ONE HR UPSTAIRS. PATIENT REPORTS SHE CAN SIT UP IN RECLINER OR ON COUCH FOR A COUPLE HOURS NOW TOO. CAR RIDES HAVE BEEN EASIER. I CAN VISIT MY MOM IN [place] NOW - 1.5 HRS. THE JOLTS, ZAPS AND LIN ARE LESS IN MY LEG. I FEEL MORE STABLE AND CAN STAND UP LONGER. PATIENT REPORTS SHE FEELS STRONGER AND IN LESS PAIN. ON BAD DAYS P/N/T TO R FOOT. USUALLY ONLY TO BUTTOCK/HIP. Objective Objective/Function: PATIENT WAS SEEN TODAY FOR RE-ASSESSMENT OF PROGRESS TOWARD THE SET PT GOALS AND THE NEED FOR FURTHER PHYSICAL THERAPY VS READINESS FOR DISCHARGE. PATIENT IS MAKING GOOD PROGRESS TOWARD ALL GOALS AND IS A GOOD CANDIDATE TO CONTINUE PT BASED ON PROGRESS MADE AND ROOM FOR FURTHER IMPROVEMENT. HER PAIN IS DECREASING AND HER FUNCTION IS INCREASING. UPON EXAM TODAY: Sensory deficit: DECREASED LIGHT TOUCH SENSATION R LATERAL THIGH COMPARED TO LEFT. ROM deficit: MILD BETTY HIP FLEXOR AND CALF TIGHTNESS (R CALF > LEFT). Motor deficit: L HIP 4+/5, KNEE 5/5, ANKLE 5/5. R HIP 4/5, KNEE 4+/5, ANKLE DORSIFLEXION 4/5. Dural Signs: NEGATIVE BETTY LE'S. Lumbar mvmt loss: flex - NIL ext - MOD - INCREASES L BUTTOCK PAIN R SG - MOD - INCREASES L BUTTOCK PAIN L SG - MIN REPEATED R SIDE GLIDE RESULTS IN DECREASED R BUTTOCK PAIN BUT STANDING STAMINA ON LAND IS VERY LIMITED AND LIMITS TESTING. EXTENSION AFTER R SG'ING IN STANDING NB BUT MIGHT BE DUE TO BEING ON LAND. OK TO CONTINUE TRYING IN THE POOL. Core strength: POOR TUG TIME: 18.14 WITH FWW STS TEST: X 6 WITHOUT UE ASSIST. Plan Plan Plan: CONTINUE 2X'S A WK X 5 WKS FOR AQUATIC THERAPY FOR DLS, R LATERAL AND EXTENSION PRINCIPLES TOLERATED. BETTY LE ROM, STRETCHING AND STRENGTHENING. HEP INSTRUCTION. Balance/Gait/Functional tests Balance/Special Test Scores Oswestry Low Back Score: 21 Goals Goals Goal 1:: DECREASE C/O LOW BACK AND BETTY LE SX'S BY 20% Goal Time Frame: 4-6 Weeks Goal Progress: Goal Met Goal 2:: PATIENT WILL BE ABLE TO AMBULATE X 30 FEET WITH WALKER WITH SUPERVISION ON LEVEL SURFACES. NEW GOAL: PATIENT WILL BE ABLE TO AMBULATE INDEP'LY SAFELY X 200 FT WITH ROLLATOR. Goal Time Frame: 4-6 Weeks Goal Progress: Goal Met Goal 3:: PATIENT WILL BE ABLE TO DEMONSTRATE 6 STS IN 30 SEC TO DEMONSTRATE IMPROVE LE FUNCTIONAL STRENGTH. NEW GOAL: PATIENT WILL BE ABLE TO DEMONSTRATE 8 STS IN 30 SEC TO DEMO IMPROVED LE FUNCTIONAL STRENGTH WITHOUT UE ASSIST. Goal Time Frame: 4-6 Weeks Goal Progress: Goal Met Goal 4:: PATIENT WILL BE INDEP WITH A POOL PROGRAM FOR CONTINUED IMPROVEMENT ONCE FORMAL PHYSICAL THERPAY CONCLUDES. Goal Time Frame: 4-6 Weeks Goal Progress: Progressing Anticipated Interventions Anticipated Interventions Patient/Client Instruction: Educate patient on: Condition, Plan of Care and Risk Factors For the Purpose of:: To improve self management Therapeutic Exercise to Include: Strength training, Body mechanics, Postural training, Gait and locomotor training, In an aquatic setting and Dynamic Lumbar Stabilization For the Purpose of:: To decrease pain, To improve muscle performance and motor function, To increase tolerance to activity/condition/position, To improve ability of physical actions for home/community/work/leisure and To improve gait and locomotor functions Re-Evaluation Ending Re-evaluation ending: Please do not hesitate to contact me at [phone] by phone or if you have questions or concerns regarding this new plan of care! Sincerely, Shelby Hadley, PT, Cert MDT
--- NOTE | 2023-09-23 18:09 | HP.PTREVAL_ITS ---
Re-Evaluation Intro: STARLA MOSS, It has been my pleasure to treat SHELTON RODRIGEZ over the last 20 visits for LUMBAR RADICULOPATHY, SPONDYLOSIS, STENOSIS AND NEUROGENIC CLAUDICATION. Please see the progress note below for an update on the physical therapy plan of care! Subjective Subjective: HAS BEEN WAKING UP WITH BACK PAIN AND RIGHT THIGH NUMBNESS FOR ABOUT 4 DAYS AND DRY HEAVING YESTERDAY SO WENT TO ED IN [place]. PATIENT DENIES HAVING ANY TESTING IN THE ED. STATES SHE WAS TREATED WITH TORODOL AND NORFLEX. PRESCRIBED PREDNISONE AND FLEXERIL. PATIENT REPORTS SHE STARTED THE PREDNISONE BUT NOT THE FLEXERIL. SLEPT BETTER LAST NIGHT. ITS SO MUCH BETTER THAN IT WAS YESTERDAY BUT NOT GOOD I WAS A WEEK AGO. PATIENT REPORTS HER SYMPROMS FLARED UP FOR NO APPARENT REASON. PAIN MGMT FOLLOW UP PENDING OCT 03 2023. PATIENT REPORTS SHE GOT A SCHEDULE FOR OUR OPEN POOL HOURS AND PLANS TO JOIN [email or web address] TO CONTINUE INDEP POOL EXERCISE AFTER FOLLOW UP WITH PAIN MGMT. PATIENT REPORTS IT IS FRUSTRATING THAT THIS FLARE UP HAPPENED BUT SHE FEELS LIKE SHE IS DEALING WITH IT BETTER THAN SHE HAS IN THE PAST AND SHE IS HOPEFUL SHE WILL COME OUT OF IT QUICKER THAN PAST FLARE UPS. PATIENT STATES SHE WOULD HAVE REPORTED 85% IMPROVEMENT LAST WEEK. PATIENT REPORTS SHE HAS PAIN GETTING IN AND OUT OF THEIR [facility] AND SHE WONDERS SOMETIMES IF THAT CONTRIBUTES TO FLARING UP. PATIENT ALSO REPORTS TAKING TRIPS TO [facility] TO SEE FAMILY CLOSE TOGETHER OVER THE [place]OL[place] WHICH IS THE FURTHEST SHE HAS BEEN ABLE TO RIDE IN THE CAR SINCE BEING IN THE HOSPITAL IN MARCH 2023. Objective Objective/Function: PATIENT WAS SEEN TODAY FOR RE-ASSESSMENT OF PROGRESS TOWARD THE SET PT GOALS AND THE NEED FOR FURTHER PHYSICAL THERAPY VS READINESS FOR DISCHARGE. DESPITE RECENT FLARE UP PATIENT HAS STILL SHOWN AND REPORTED IMPROVEMENT SINCE LAST RE-CHECK. SHE CONTINUES TO HAVE HYPOMOBILITY BUT IMPROVING. SHE IS INDEP WITH A POOL EX PROGRAM BUT WOULD BENEFIT FROM CONTINUED AQUATIC THERAPY DECREASING TO ONE TIME A WEEK FOR PROGRESSION TOLERATED. SHE PLANS TO GET A MEMBERSHIP HERE AT [email or web address] TO DO INDEP POOL EX 2X'S A WEEK IN ADDITION TO PT ONCE A WEEK. THE GOAL WOULD BE TO TRY TO PROGRESS PATIENT BACK TO [facility] PT EVENTUALLY AND PLOF. UPON EXAM TODAY: PATIENT REQUESTED TO BE BROUGHT BACK TO A PT TREATMENT ROOM FROM THE LOBBY IN A W/C AGAIN TODAY. SHE DEMONSTRATES INDEP AMBULATION FROM W/C TO TREATMENT ROOM X APPROX 40 FEET WITH FWW WITH EXCESSIVE TRUNK FLEXION. ABLE TO CORRECT POSTURE IN STANDING BUT NOT MAINTAIN. Sensory deficit: DECREASED LIGHT TOUCH SENSATION R LATERAL THIGH COMPARED TO LEFT. ROM deficit: BETTY HIP FLEXOR AND CALF TIGHTNESS (R CALF > LEFT). Motor deficit: L HIP 5/5, KNEE 5/5, ANKLE 5/5. R HIP 4/5, KNEE 5/5, ANKLE DORSIFLEXION 5/5. Core strength: POOR TUG TIME: 17.14 WITH FWW STS TEST: X 7 WITHOUT UE ASSIST. Plan Plan Plan: CONTINUE 1X A WK X 7 VISITS FOR AQUATIC THERAPY PROGRESSION TOLERATED FOR DLS, R LATERAL AND EXTENSION PRINCIPLES TOLERATED. BETTY LE ROM, STRETCHING AND STRENGTHENING. PATIENT AGREEABLE TO THIS POC. Balance/Gait/Functional tests Balance/Special Test Scores Oswestry Low Back Score: 23 Goals Goals Goal 1:: DECREASE C/O LOW BACK AND BETTY LE SX'S BY 20% Goal Time Frame: 4-6 Weeks Goal Progress: Goal Met Goal 2:: PATIENT WILL BE ABLE TO AMBULATE X 30 FEET WITH WALKER WITH SUPERVISION ON LEVEL SURFACES. NEW GOAL: PATIENT WILL BE ABLE TO AMBULATE INDEP'LY SAFELY X 200 FT WITH ROLLATOR. Goal Time Frame: 4-6 Weeks Goal Progress: Progressing Goal 3:: PATIENT WILL BE ABLE TO DEMONSTRATE 6 STS IN 30 SEC TO DEMONSTRATE IMPROVE LE FUNCTIONAL STRENGTH. NEW GOAL: PATIENT WILL BE ABLE TO DEMONSTRATE 8 STS IN 30 SEC TO DEMO IMPROVED LE FUNCTIONAL STRENGTH WITHOUT UE ASSIST. Goal Time Frame: 4-6 Weeks Goal Progress: Progressing Goal 4:: PATIENT WILL BE INDEP WITH A POOL PROGRAM FOR CONTINUED IMPROVEMENT ONCE FORMAL PHYSICAL THERPAY CONCLUDES. Goal Time Frame: 4-6 Weeks Goal Progress: Progressing Anticipated Interventions Anticipated Interventions Patient/Client Instruction: Educate patient on: Condition, Plan of Care and Risk Factors For the Purpose of:: To improve self management Therapeutic Exercise to Include: Strength training, Body mechanics, Postural training, Gait and locomotor training, In an aquatic setting and Dynamic Lumbar Stabilization For the Purpose of:: To decrease pain, To improve muscle performance and motor function, To increase tolerance to activity/condition/position, To improve ability of physical actions for home/community/work/leisure and To improve gait and locomotor functions Re-Evaluation Ending Re-evaluation ending: Please do not hesitate to contact me at [phone] by phone or if you have questions or concerns regarding this new plan of care! Sincerely, Shelby Hadley PT, Cert MDT
--- NOTE | 2023-12-23 19:45 | HP.PT.NRP ---
Patient Information Patient Information: SHELTON RODRIGEZ was seen in my office for initial evaluation on 06/24/23. The following Plan of Care was established for this patient: POC Established Initial Frequency: 2x /Week Initial Duration: 4-6 Weeks Anticipated Interventions Patient/Client Instruction: Educate patient on: Condition, Plan of Care and Risk Factors For the Purpose of:: To improve self management Therapeutic Exercise to Include: Strength training, Body mechanics, Postural training, Gait and locomotor training, In an aquatic setting and Dynamic Lumbar Stabilization For the Purpose of:: To decrease pain, To improve muscle performance and motor function, To increase tolerance to activity/condition/position, To improve ability of physical actions for home/community/work/leisure and To improve gait and locomotor functions Last Seen Last Seen: This patient was last seen in our office 10/16/23. Pertinent comments regarding their Physical therapy will appear below: This patient has not returned to Physical Therapy and is appropriate to return to MD for further follow-up as needed. At this point I will be discontinuing this patient from physical therapy. I would be happy to see this patient again in the future if found appropriate by the physician. Thank you! Shelby Hadley, PT, Cert MDT Balance/Gait/Functional tests Balance/Special Test Scores Oswestry Low Back Score: 23
== END 2023-10-16 19:00 | disposition home or self-care (01) ==
LOC: PT 16:30
PROVIDERS: PCP Internal Medicine
DX: M54.16 Radiculopathy, lumbar region (principal); M47.816 Spondylosis without myelopathy or radiculopathy, lumbar region; M48.062 Spinal stenosis, lumbar region with neurogenic claudication
CPT/HCPCS: 97110; 97113; 97162; 97164

== ENCOUNTER 2023-10-18 17:16 | Inpatient (IN) | payer MEDICAID, SELFPAY ==
[2023-10-18 17:17] VITALS: BP 181/101; PULSE 82; RESP 16; TEMP 36.5; O2SAT 98; BMI 87.7
[2023-10-18] MEDS: Ondansetron 4 MG/2 ML Vial IV (17:50)
[2023-10-18] MEDS: HYDROmorphone 1 MG/ML Syringe 0.5 MG IV (17:51)
--- NOTE | 2023-10-18 18:15 | EX.ED.DYSGE1 ---
HPI <AMANDA Rod - Last Filed: 10/18/23 20:04> History of Present Illness Chief Complaint: Back Narrative Narrative: Patient is a 38-year-old female with severe obesity with a 87.8 BMI, acute on chronic back pain who presents to the emergency department for worsening back pain. Patient does have known stenosis L3-L4 L5. Patient states that she was unable to get up to the bedside commode today. Patient states the pain has been significant over the last 48 hours. She is here for evaluation. Denies any fever or chills, denies any saddle paresthesia, urinary incontinence. No history of IV drug abuse. PFS <AMANDA Rod - Last Filed: 10/18/23 20:04> [facility] Medical History Anxiety Diabetes High cholesterol HTN (hypertension) Lumbar stenosis Morbid obesity HAILEY (obstructive sleep apnea) Home Medications atorvastatin 10 mg tablet 10 mg PO DAILY cholesterol 03/20/23 [History Last Taken 03/20/23] buspirone 7.5 mg tablet 7.5 mg PO BID 03/20/23 [History Last Taken 03/20/23] cholecalciferol (vitamin D3) 25 mcg (1,000 unit) tablet 25 mcg PO DAILY 03/20/23 [History Last Taken 03/20/23] fluoxetine 40 mg capsule 40 mg PO DAILY 03/20/23 [History Last Taken 03/20/23] hydrochlorothiazide 25 mg tablet 25 mg PO DAILY 03/20/23 [History Last Taken 03/20/23] hydroxyzine HCl 25 mg tablet 12.5 mg PO TID PRN anxiety 03/20/23 [History Last Taken Unknown] lisinopril 40 mg tablet 40 mg PO DAILY 03/20/23 [History Last Taken Unknown] metformin 1,000 mg tablet 1,000 mg PO BIDAC diabetes 03/20/23 [History Last Taken 10/17/23] norethindrone (contraceptive) 0.35 mg tablet (Deblitane) 0.35 mg PO DAILY control 03/20/23 [History Last Taken 03/21/23] acetaminophen 500 mg tablet 1,000 mg (2 x 500 mg) PO Q8 #0 tabs 03/22/23 [Rx Last Taken Unknown] baclofen 10 mg tablet 10 mg PO Q6H PRN muscle spasm 10/18/23 [History Last Taken Unknown] blood sugar diagnostic (True Metrix Glucose Test Strip) 10/18/23 [History Last Taken Unknown] diclofenac sodium 75 mg tablet,delayed release 75 mg PO Q12H 10/18/23 [History Last Taken Unknown] dulaglutide 0.75 mg/0.5 mL subcutaneous pen injector (Trulicity) 0.75 mg subcut .weekly 10/18/23 [History Last Taken 10/17/23] gabapentin 400 mg capsule 600 mg PO TID 10/18/23 [History Last Taken Unknown] Allergy/AdvReac Type Severity Reaction Status Date / Time Penicillins Allergy Unknown Other Verified 10/18/23 17:17 Family History Other Heart disease Surgical History (Updated 10/18/23 @ 21:21 by Luisito Guevara) [place] teeth extracted Social History (Updated 10/18/23 @ 21:[address] Kinsey Perez DO) household members: significant other housing: house Smoking Status: Former smoker alcohol intake: never substance use type: does not use ROS <AMANDA Rod - Last Filed: 10/18/23 20:04> ROS ED ROS Narrative Constitutional: Negative for fever, chills, weight loss, weakness Eyes: Negative for vision loss, vision change, double vision ENT: Negative for any sore throat, ear pain, congestion Cardiovascular: Negative for any chest pain, tightness, palpitations Respiratory: Negative for any cough, sputum production, hemoptysis, dyspnea, dyspnea on exertion, orthopnea Gastrointestinal: Negative for any abdominal pain, nausea, vomiting, diarrhea, constipation, blood in stool, blood in vomit : Negative for any urinary frequency, dysuria, retention, blood in urine Muscle skeletal: Negative for any myalgias, arthralgias, neck pain. Positive back pain, bilateral leg pain Neurological: Negative for any headache, syncope, paresthesias, dizziness Skin: Negative for any rashes, lumps, itching, abrasions, lacerations Psychiatric: Negative for any depression, anxiety, stress, suicidal ideation, homicidal ideation Hematologic: Negative for any easy bruising, excessive bruising, easy bleeding Allergies: Negative for any eczema, hives, rash EXAM <AMANDA Rod - Last Filed: 10/18/23 20:04> Physical Exam Narrative Exam Narrative: Vital signs reviewed. It is difficult to get a full exam, the patient's body habitus does make many things difficult during examination HEET: Head normocephalic atraumatic, TMs clear bilaterally. Posterior pharynx is clear, moist mucous membranes. Nares clear bilaterally. Neck: Supple with no lymphadenopathy or tenderness. No signs of meningismus. Cardiac: Regular rate and rhythm no murmurs gallops or rubs, equal peripheral pulses bilaterally. Respiratory: Lungs clear to auscultation bilaterally. No chest tenderness. Abdomen: Soft, nontender, nondistended. No abdominal bruit or pulsatile masses. No hepatosplenomegaly Extremities: No peripheral edema, no signs of gross trauma or deformity. Active full range of motion of all extremities. Patient able to plantarflex, dorsiflex against resistance. +2 pedal pulse. Worsening pain with movement. Neuro: Cranial nerves II through XII intact, no focal neurological deficits. Skin: Clean dry and intact with no rash, purpura, petechiae, vesicles or pustules. Backs/flank: No CVA tenderness, no midline spinal tenderness, no deformity. Psych: Normal mood and affect. No SI, HI or acute psychosis. Const Vital Signs: 10/18/23 17:17 10/18/23 18:37 Temperature 97.7 F L Temperature Source Temporal Pulse Rate 82 81 Respiratory Rate 16 Blood Pressure 181/101 H 112/61 Blood Pressure Mean 127 78 Pulse Ox 98 Oxygen Delivery Method Room Air Positive obese Nutritional Appearance: obese <Dr. Ramos Abarca MD - Last Filed: 10/18/23 23:15> Physical Exam Const Vital Signs: 10/18/23 17:17 10/18/23 18:37 Temperature 97.7 F L Temperature Source Temporal Pulse Rate 82 81 Respiratory Rate 16 Blood Pressure 181/101 H 112/61 Blood Pressure Mean 127 78 Pulse Ox 98 Oxygen Delivery Method Room Air MDM <AMANDA Rod - Last Filed: 10/18/23 20:04> MDM Treatment and Re-Evaluation :: Patient appears to be in mild distress secondary to back pain. Patient's vital signs are stable. Presenting to the emergency department complaints of lower back pain that is acute on chronic. Much worse over the last 48 hours. Differential diagnose includes cauda equina, acute on chronic back pain, back pain secondary to obesity, lumbar strain. I did look at the patient's MRI, patient does have some stenosis at L4-L5. This was done at [facility]. At this time, patient be treated for pain control. Patient had an IV established, IV Dilaudid, Zofran will be given. Patient will be reevaluated. On reevaluation, the patient felt slightly better, with a team of nurses, she did try to get up to ambulate, however when she let 1 leg off of the bed, the pain was too great in her lower back and she laid back down. At this time, patient will be redosed with IV Toradol, 0.5 mg of Dilaudid and will reevaluate. On reevaluation, after the second dosage of IV pain medicine was given. Patient was then tried again to ambulate, with multiple nurses, they were unable to get the patient's legs to the floor. Patient was in too much pain. At this time, I do believe the patient will need to be admitted to the hospital for intractable back pain, inability to ambulate. I spoke with Dr. Perez who is the attending hospitalist, she will come down and evaluate the patient. Patient be admitted to [facility] observation <Dr. Ramos Abarca MD - Last Filed: 10/18/23 23:15> [facility] Narrative Medical decision making narrative: I have personally performed a face to face assessment of the patient and have reviewed the MARIANA Note. I performed a substantive portion of the visit including all aspects of the following. My castellanos findings include: History: Patient presents with worsening back pain. She has been having this back pain for quite some time. She has not seen surgeon. She has been on water therapy. She had water therapy on Saturday. She did not acutely hurt herself. But later that evening the pain started to get worse. She notes it is worse when she stands. No bowel or bladder dysfunction. She does get pain that goes down occasionally both legs. But is not constant. She is headed down her right leg for a long time intermittently. Now she sometimes gets the left. But it is not constant and is not present now. Exam:No indication of neurologic deficit. I cannot get her up to walk and bear weight. But she has normal dorsi and plantarflexion. She can tell exactly which toe on touching. No sign of scale or insufficiency. Medical Decision Making:Patient is not able to ambulate at all. This is likely due to pain as well as limitations due to size. This note was generated with [employer] dictation software. It may contain incorrect words, spelling, and punctuation that were not noted in review of the chart prior to signing. Also, today, our computer system has significant slowing. Each Brief section of dictation requires 10 seconds to 2 minutes or more of time. This significantly delays entering orders, evaluating patients, flow of the department, and the ability or inability to review prior information. Discharge Plan Dx/Rx/DC Orders Clinical Impression: Morbid obesity, Intractable back pain, Inability to walk Disposition Disposition: Acute Care Hospital [facility] Discharge Date/Time: 10/18/23 21:03
--- OUTSIDE RECORDS SUMMARY | 2023-10-18 18:34 | XMS RPT_ITS | CCD ---
Author Name Unknown Address [address] [place] [address] Organization [facility] Care Team Providers Care Store Operations Specialist Name Role Phone Unavailable Primary Care Provider UnavailRamon Huitron Primary Care Provider UnavailAllison Mitchell MD Primary Care Provider Allison Robledo MD Primary Care Provider Allison Robledo MD Primary Care Provider Allison Robledo MD Primary Care Provider Kenny Billy MD Primary Care Provider Allison Robledo MD Primary Care Provider ALLISON ROBLEDO Attending Unavailable ALLISON ROBLEDO Primary Care Unavailable ALLISON ROBLEDO Primary Care Unavailable BIRGIT MONROE Attending Unavailable Unavailable Primary Care Provider UnavailLeonel Em Primary Care Provid er Emil Liang DO Primary Care Provider Agustina Jean MD Unavailable PHYSICIAN, NONE Attending Unavailable PHYSICIAN, NONE Primary Care Unavailable Agustina Jean MD Unavailable EMIL LIANG Primary Care Unavailable KEO COLÓN Attending Unavailable KEO COLÓN Referring Unavailable KEO COLÓN Attending Unavailable EMIL LIANG Primary Care Unavailable KEO COLÓN Referring Unavailable EMIL LIANG Primary Care Unavailable KEO COLÓN Attending Unavailable KEO COLÓN Referring Unavailable EMIL LIANG Primary Care Unavailable KEO COLÓN Attending Unavailable COLÓNKEO Referring Unavailable WIGGERS, EMIL B Primary Care Unavailable COLÓN, KEO R Attending Unavailable COLÓN, KEO R Referring Unavailable COLÓN, KEO R Attending Unavailable COLÓN, KEO R Referring Unavailable WIGGERS, EMIL B Primary Care Unavailable COLÓNKEO Attending Unavailable WIGGERS, EMIL B Primary Care Unavailable WIGGERS, EMIL B Primary Care Unavailable OLE, KEO Wiseman Attending Unavailable Kenny Billy MD Primary Care Provider LEONEL RODRIGUEZ Referring Maricruz vailable WIGGERS, EMIL B Primary Care Unavailable MALATHI MOLINA Attending Unavailable WIGGERS, EMIL B Primary Care Unavailable WIGGERS, EMIL B Primary Care Unavailable THOLE, KAITY Referring Unavailable JOHNNY GARCIA Attending Unavailable WIGGERS, EMIL B Primary Care Unavailable LUZ AUSTIN Attending Unavailable WIGGERS, EMIL B Primary Care Unavailable AGUSTINA JEAN Attending Unavailable WIGGERS, EMIL B Primary Care Unavailable THOLE, KAITY Attending Unavailable WIGGERS, EMIL B Primary Care Unavailable LUZ AUSTIN Attending Unavailable WIGGERS, EMIL B Primary Care Unavailable WIGGERS, EMIL B Referring Unavailable THOLE, KAITY Attending Unavailable WIGGERS, EMIL B Primary Care Unavailable WIGGERS, EMIL B Primary Care Unavailable AGUSTINA JEAN Attending Unavailable WIGGERS, EMIL B Primary Care Unavailable THOLE, KAITY Referring Unavailable THOLE, KAITY Referring Unavailable WIGGERS, EMIL B Primary Care Unavailable THOLE, KAITY Referring Unavailable WIGGERS, EMIL B Primary Care Unavailable WIGGERS, EMIL B Primary Care Unavailable THOLE, KAITY Referring Unavailable THOLE, KAITY Referring Unavailable WIGGERS, EMIL B Primary Care Unavailable THOLE, KAITY Referring Unavailable WIGGERS, EMIL B Primary Care Unavailable THOLE, KAITY Referring Unavailable WIGGERS, EMIL B Primary Care Unavailable THOLE, KAITY Referring Unavailable WIGGERS, EMIL B Primary Care Unavailable ELIN RENAE Attending Unavailable LEONEL RODRIGUEZ Primary Care Maricruz vailable ELIN RENAE Referring Unavailable ELIN RENAE Attending Unavailable EMIL LIANG Primary Care Unavailable ELIN RENAE Referring Unavailable ELIN RENAE Attending Unavailable EMIL LIANG Primary Care Unavailable ELIN RENAE Referring Unavailable EMIL LIANG Primary Care Unavailable ELIN RENAE Attending Unavailable ELIN RENAE Referring Unavailable SHANE JACOBSON Attending Unavailable KAITY LIND Referring Unavailable EMIL LIANG Primary Care Unavailable ANDREE, KENNY Marsh Primary Care Unavailable MARK DYSON Attending Unavailable BILLY, PRETTY Primary Care Unavailable ELISE OSHEA Attending Unavailable LEONEL RODRIGUEZ Referring Maricruz vailable BILLY, PRETTY Primary Care Unavailable JESSIKA UGALDE Attending Unavailable BILLY, PRETTY Referring Unavailable BILLY, PRETTY Primary Care Unavailable ARIELAATSLEONEL COLLINS MARLENA Referring Maricruz vailable BILLY, PRETTY Primary Care Unavailable BILLY, PRETTY Referring Unavailable BILLY, PRETTY Primary Care Unavailable GEOVANNA LUZ Westley Referring Unavailable EMIL LIANG Primary Care Unavailable Allergies Allergy Classification Reported Allergen(s) Allergy Type Date of Onset Reaction(s) Facility (20 sources) Penicillins; Translations: [PENICILLINS] Drug Allergy 02-14-2011 [facility] Medications Current Medications Medication Drug Class(es) Dates Sig (Normalized) Sig (Original) busPIRone hydrochloride 7.5 mg oral tablet (20 sources) Start: 01-31-2022 End: 09-22-2023 take 1 tablet by mouth twice daily busPIRone (BUSPAR) 7.5 mg tablet Indications: Generalized anxiety disorder Take 1 tablet by mouth twice daily. 180 tablet 1 03/26/2023 09/22/2023 Active Completed/Discontinued Medications Medication Drug Class(es) Dates Sig (Normalized) Sig (Original) acetaminophen 325 mg / HYDROcodone bitartrate 5 mg oral tablet (1 source) Opioid Agonist Start: 08-04-2017 End: 10-12-2020 take 2 tablets by mouth every eight hours as needed HYDROcodone-acetami nophen (NORCO) 5-325 mg per tablet Take 2 tablets by mouth every 8 hours as needed. 12 tablet 0 08/04/2017 10/12/2020 Discontinued (Course of therapy completed) Problems Active Problems Problem Classification Problem Date Documented Da te Episodic/Chronic Administrative/social admission (3 sources) Patient encounter status; Translations: [Dietary counseling and surveillance] Onset: 09-19-2023 06-27-2023 Episodic Anxiety disorders (20 sources) Anxiety; Translations: [Generalized anxiety disorder] Onset: 05-17-2022 Chronic Blindness and vision defects (1 source) Bilateral myopia of eyes; Translations: [Myopia, bilateral] Episodic Conditions associated with dizziness or vertigo (2 sources) Dizziness; Translations: [Dizziness] Episodic Diabetes mellitus with complications (8 sources) Type 2 diabetes mellitus; Translations: [Type 2 diabetes mellitus with other specified complication] Onset: 12-01-2020 Chronic Diabetes mellitus without complication (20 sources) Diabetes mellitus; Translations: [Type 2 diabetes mellitus without complications] Onset: 12-01-2020 12-01-2020 Chronic Disorders of lipid metabolism (20 sources) Hyperlipidemia; Translations: [Hyperlipidemia, unspecified] Onset: 05-17-2022 Chronic Essential hypertension (20 sources) Hypertensive disorder; Translations: [Essential (primary) hypertension] Onset: 12-01-2020 12-01-2020 Chronic Mood disorders (20 sources) Depressive disorder; Translations: [Depressive disorder] Onset: 11-14-2020 Chronic Nutritional deficiencies (20 sources) Vitamin D deficiency; Translations: [Vitamin D deficiency, unspecified] Onset: 05-17-2022 Chronic Osteoarthritis (20 sources) Arthritis; Translations: [Unspecified osteoarthritis, unspecified site] Onset: 10-29-2022 03-27-2023 Chronic Other connective tissue disease (1 source) Myalgia, other site; Translations: [Myofascial pain] Onset: 10-03-2023 Episodic Other ear and sense organ disorders (1 source) Ear sensations - finding; Translations: [Other specified disorders of left ear] Episodic Other nervous system disorders (2 sources) Other chronic pain; Translations: [Other chronic pain] Onset: 04-07-2023 Chronic Other nutritional; endocrine; and metabolic disorders (20 sources) Morbid obesity; Translations: [Morbid (severe) obesity due to excess calories] Onset: 10-18-2020 10-18-2020 Chronic Other nutritional; endocrine; and metabolic disorders (20 sources) Body mass index 40+ - severely obese; Translations: [Body mass index (BMI) 70 or greater, adult] Onset: 10-11-2022 Chronic Other nutritional; endocrine; and metabolic disorders (3 sources) Body mass index (BMI) 70 or greater, adult; Translations: [BMI 70 and over, adult (HCC)] Onset: 05-17-2022 Chronic Other nutritional; endocrine; and metabolic disorders (4 sources) Morbid (severe) obesity due to excess calories; Translations: [Morbid obesity (HCC)] Onset: 05-14-2022 Chronic Residual codes; unclassified (1 source) Sleep apnea; Translations: [Sleep apnea, unspecified type] Chronic Residual codes; unclassified (20 sources) Obstructive sleep apnea syndrome; Translations: [Obstructive sleep apnea (adult) (pediatric)] Onset: 12-01-2020 12-01-2020 Chronic Residual codes; unclassified (2 sources) Obstructive sleep apnea (adult) (pediatric); Translations: [Obstructive sleep apnea on CPAP] Onset: 03-27-2023 Chronic Spondylosis; intervertebral disc disorders; other back problems (20 sources) Lumbar spondylosis; Translations: [Spondylosis without myelopathy or radiculopathy, lumbar region] Onset: 04-25-2023 04-18-2023 Chronic Thyroid disorders (20 sources) Subclinical hypothyroidism; Translations: [Other specified hypothyroidism] Onset: 12-01-2020 12-01-2020 Chronic Unclassified (2 sources) Patient encounter status; Translations: [Encounter for screening for diabetes mellitus] Past or Other Problems Problem Classification Problem Date Documented Da te Episodic/Chronic Diabetes mellitus without complication (3 sources) Prediabetes; Translations: [Prediabetes] Onset: 03-27-2023 03-27-2023 Episodic Immunizations and screening for infectious disease (6 sources) Immunization due; Translations: [Encounter for immunization] Onset: 05-17-2022 Episodic Other ear and sense organ disorders (1 source) Other specified disorders of left ear; Translations: [Fullness in ear, left] Onset: 05-17-2022 Episodic Other eye disorders (20 sources) Disorder of lacrimal gland; Translations: [Dry eye syndrome of bilateral lacrimal glands] Onset: 07-25-2021 07-25-2021 Episodic Other gastrointestinal disorders (12 sources) Diarrhea; Translations: [Diarrhea, unspecified] Onset: 12-01-2020 12-01-2020 Episodic Other screening for suspected conditions (not mental disorders or infectious disease) (5 sources) Raised TSH level; Translations: [Cancer cervix - screening done] Onset: 05-17-2022 Episodic Residual codes; unclassified (1 source) Other specified personal risk factors, not elsewhere classified; Translations: [23-polyvalent pneumococcal polysaccharide vaccine indication of diabetes in patient 6 to 64 years of age ([facility])] Onset: 11-24-2022 Episodic Spondylosis; intervertebral disc disorders; other back problems (20 sources) Radiculopathy due to lumbar intervertebral disc disorder; Translations: [Intervertebral disc disorders with radiculopathy, lumbar region] Onset: 01-28-2023 Episodic Results Test Name Value Interpretation Reference Range Facil ity Vital Signs Date Time Vital Sign Value Performing Clinician Maddie hair 06-28-2023 08:54-0400 Body height 167.6 cm Luz Garciashiloh CAT SKINNER.HISTOPATHOLOGIST Work Phone: [facility] 06-28-2023 08:54-0400 Body weight 221.81 kg Luz Sewellochoa CAT SKINNER.HISTOPATHOLOGIST Work Phone: [facility] 06-25-2023 07:35-0400 Heart rate 89 /min Johnny Garcia MD Work Phone: [facility] 06-25-2023 07:35-0400 Respiratory rate 18 /min Johnny Garcia MD Work Phone: [facility] 06-25-2023 07:35-0400 SaO2% (BldA) [Mass fraction] 98 % Johnny Garcia MD Work Phone: [facility] 05-01-2023 10:23-0400 Body height 167.6 cm Agustina Jean MD Work Phone: [facility] 05-01-2023 10:23-0400 Body temperature 96.91 [degF] Agustina Jean MD Work Phone: [facility] 05-01-2023 10:23-0400 Body weight 221.81 kg Agustina Jean MD Work Phone: [facility] 05-01-2023 10:23-0400 Diastolic blood pressure 67 mm[Hg] Agustina Jean MD Work Phone: [facility] 05-01-2023 10:23-0400 Heart rate 91 /min Agustina Jean MD Work Phone: [facility] 05-01-2023 10:23-0400 Respiratory rate 20 /min Agustina Jean MD Work Phone: [facility] 05-01-2023 10:23-0400 SaO2% (BldA) [Mass fraction] 97 % Agustina Jean MD Work Phone: [facility] 05-01-2023 10:23-0400 Systolic blood pressure 115 mm[Hg] Agustina Jean MD Work Phone: [facility] 04-18-2023 10:55-0400 Heart rate 110 /min Kaity Thole PA-C Work Phone: [facility] 04-18-2023 10:55-0400 Respiratory rate 18 /min Kaity Thole PA-C Work Phone: [facility] 04-18-2023 10:55-0400 SaO2% (BldA) [Mass fraction] 97 % Kaity Thole PA-C Work Phone: [facility] 03-27-2023 10:29-0400 Body height 167.6 cm Agustina Jean MD Work Phone: [facility] 03-27-2023 10:29-0400 Body temperature 98.49 [degF] Agustina Jean MD Work Phone: [facility] 03-27-2023 10:29-0400 Body weight 219.09 kg Agustina Jean MD Work Phone: [facility] 03-27-2023 10:29-0400 Diastolic blood pressure 84 mm[Hg] Agustina Jean MD Work Phone: [facility] 03-27-2023 10:29-0400 Heart rate 95 /min Agustina Jean MD Work Phone: [facility] 03-27-2023 10:29-0400 Respiratory rate 18 /min Agustina Jean MD Work Phone: [facility] 03-27-2023 10:29-0400 SaO2% (BldA) [Mass fraction] 97 % Agustina Jean MD Work Phone: [facility] 03-27-2023 10:29-0400 Systolic blood pressure 127 mm[Hg] Agustina Jean MD Work Phone: [facility] 10-11-2022 17:11-0500 Diastolic blood pressure 80 mm[Hg] Kenny Billy MD Work Phone: [facility] 10-11-2022 17:11-0500 Heart rate 78 /min Kenny Billy MD Work Phone: [facility] 10-11-2022 17:11-0500 Systolic blood pressure 118 mm[Hg] Kenny Billy MD Work Phone: [facility] 10-11-2022 17:04-0500 Body height 166.4 cm Kenny Billy MD Work Phone: [facility] 10-11-2022 17:04-0500 Body temperature 98.01 [degF] Kenny Billy MD Work Phone: [facility] 10-11-2022 17:04-0500 Body weight 219.09 kg Kenny Billy MD Work Phone: [facility] 10-11-2022 17:04-0500 Respiratory rate 20 /min Kenny Billy MD Work Phone: [facility] 10-11-2022 17:04-0500 SaO2% (BldA) [Mass fraction] 98 % Kenny Billy MD Work Phone: [facility] 05-17-2022 13:05-0400 Body height 167.6 cm Allison Robledo MD Work Phone: [facility] 05-17-2022 13:05-0400 Body temperature 98.49 [degF] Allison Robledo MD Work Phone: [facility] 05-17-2022 13:05-0400 Body weight 212.47 kg Allison Robledo MD Work Phone: [facility] 05-17-2022 13:05-0400 Diastolic blood pressure 61 mm[Hg] Allison Robledo MD Work Phone: [facility] 05-17-2022 13:05-0400 Heart rate 59 /min Allison Robledo MD Work Phone: [facility] 05-17-2022 13:05-0400 Systolic blood pressure 130 mm[Hg] Allison Robledo MD Work Phone: [facility] Encounters Encounter Date Encounter Type Care Provider Facility Start: 10-08-2023 End: 10-08-2023 ambulatory EMIL Pulido [facility] Facility:[facility] Start: 10-03-2023 End: 10-03-2023 ambulatory KAITY LIND Facility:[facility] Start: 09-22-2023 End: 09-22-2023 Emergency department patient visit [facility] Facility:[facility] Start: 09-21-2023 End: 09-22-2023 ambulatory [facility] Facility:[facility] Start: 09-19-2023 End: 09-19-2023 ambulatory [facility] Facility:[facility] Start: 07-23-2023 End: 07-23-2023 ambulatory ELIN RNEAE Facility:[facility] Start: 07-17-2023 End: 07-17-2023 ambulatory [facility] Facility:[facility] Start: 07-17-2023 End: 07-17-2023 [facility] Keo Colón PhD Work Phone: Neurology Procedures Date Procedure Procedure Detail Performing Clinician Start: 06-25-2023 Follow-up visit Follow Up JOHNNY GARCIA Start: 03-27-2023 Hemoglobin A1c/Hemoglobin.total in Blood Agustina Jean MD Work Phone: Start: 01-28-2023 Radex spine lumbosac ral 2/3 views [facility] Start: 05-17-2022 Hemoglobin glycosyla yari a1c Mimi Garza MD Work Phone: Start: 05-17-2022 Hepatitis b surf ant ibody hbsab Mimi Garza MD Work Phone: Start: 05-17-2022 Adult depression scr eening assessment Allison Robledo MD Work Phone: Start: 03-05-2021 Adult depression scr eening assessment Elin Renae APRN.HISTOPATHOLOGIST Work Phone: Start: 11-14-2020 BASIC METABOLIC PNL [facility] Start: 11-14-2020 HbA1c (Bld) [Mass fraction] [facility] Start: 11-14-2020 HEP C AB IA W/CONF SCRN [facility] Start: 11-14-2020 LIPID PANEL, NONFASTING [facility] Start: 11-14-2020 T4 FREE/FREE THYROX [facility] Start: 11-14-2020 TSH BLD [facility] Provid er Plan of Treatment Date Care Activity Detail Author Start: 2033 Shingles (RZV) Vaccine (1 of 2) Shingles (RZV) Vaccine (1 of 2) [facility] Start: 10-18-2030 Urine microalbumin profile [facility] Start: 05-01-2024 ANNUAL PCP TEAM CHRONIC DISEASE VISIT ANNUAL PCP TEAM CHRONIC DISEASE VISIT [facility] Start: 05-01-2024 BP CONTROLLED (<130/80) BP CONTROLLED (<130/80) [facility] in Start: 03-27-2024 ANNUAL PCP TEAM CHRONIC DISEASE VISIT ANNUAL PCP TEAM CHRONIC DISEASE VISIT [facility] Start: 11-27-2023 Hepatitis C antibody, confirmatory test DILATED RETINAL EXAM [facility] Start: 11-25-2023 Hepatitis B surface antibody level LDL CHOLESTEROL [facility] Start: 10-11-2023 ANNUAL PCP TEAM CHRONIC DISEASE VISIT ANNUAL PCP TEAM CHRONIC DISEASE VISIT [facility] Start: 09-27-2023 Hemoglobin A1c/Hemoglobin.total in Blood HBA1C [facility] Start: 2023 Hemoglobin A1c/Hemoglobin.total in Blood HBA1C [facility] Start: 2023 Mammography Mammogram Screening [facility] Start: 05-17-2023 3 comp foot exam completed DIABETIC FOOT EXAM [facility] Start: 05-17-2023 Adult depression screening assessment DEPRESSION SCREENING [facility] Start: 05-17-2023 ANNUAL PCP TEAM CHRONIC DISEASE VISIT ANNUAL PCP TEAM CHRONIC DISEASE VISIT [facility] Start: 05-17-2023 BP CONTROLLED (<130/80) BP CONTROLLED (<130/80) [facility] Start: 05-17-2023 Covid-19 Vaccine ( season) Covid-19 Vaccine () [facility] Start: 05-17-2023 Influenza vaccination [facility] Start: 05-14-2023 Hepatitis B screening URINE ALBUMIN:CREATININE RATIO [facility] Start: 05-14-2023 Hepatitis B surface antibody level LDL CHOLESTEROL [facility] Start: 04-11-2023 HEPATITIS B (3 of 3 - 19+ 3-dose series) HEPATITIS B (3 of 3 - 19+ 3-dose series) [facility] Start: 04-10-2023 End: 06-10-2023 ALBUMIN/CREAT RATIO RND UR ALBUMIN/CREAT RATIO RND UR Lab Routine Type 2 diabetes mellitus with other specified complication, without long-term current use of insulin (HCC) Expected: 04/10/2023, Expires: 06/10/2023 [facility] Work Phone: Immunizations Immunization Date Immunization Notes Care Provider Philip foster 03-27-2023 Hepatitis B vaccine (recombinant), CpG adjuvanted Agustina Jean MD Work Phone: [facility] 11-12-2022 hepatitis B vaccine, adult dosage Ak Nurse Work Phone: [facility] Work Phone: 11-12-2022 hepatitis B vaccine, unspecified formulation Ak Nurse Work Phone: [facility] 10-11-2022 hepatitis B vaccine, adult dosage Kenny Billy MD Work Phone: [facility] Work Phone: 10-11-2022 hepatitis B vaccine, unspecified formulation Kenny Billy MD Work Phone: [facility] 06-15-2022 influenza, injectabl e, quadrivalent, preservative free Kenny Billy MD Work Phone: [facility] Work Phone: 06-15-2022 influenza virus vaccine, unspecified formulation Kelly Andrews DYNAMOMETER TUNER Work Phone: [facility] 12-24-2021 COVID-19 vaccine, booster dose (MODERNA) Elin Renae APRN.HISTOPATHOLOGIST Work Phone: [facility] 09-13-2021 pneumococcal polysaccharide vaccine, 23 valent Elin Renae APRN.HISTOPATHOLOGIST Work Phone: [facility] 07-11-2021 influenza, injectabl e, quadrivalent, preservative free Elin Renae APRN.HISTOPATHOLOGIST Work Phone: [facility] 01-06-2021 COVID-19 vaccine, fu ll dose (MODERNA) Elin Renae APRN.HISTOPATHOLOGIST Work Phone: [facility] 10-18-2020 influenza, injectabl e, quadrivalent, contains preservative Hugh [facility] 10-18-2020 tetanus toxoid, redu erika diphtheria toxoid, and acellular pertussis vaccine, adsorbed Hugh Al [facility] 06-30-2019 influenza, injectabl e, quadrivalent, preservative free Allison Robledo MD Work Phone: [facility] Work Phone: 07-29-2018 Influenza, injectabl e, Madin [place] [facility], preservative free, quadrivalent Mitch Cadena [facility] Work Phone: 07-20-2014 influenza nasal, unspecified formulation Agustina Jean MD Work Phone: [facility] Work Phone: 07-20-2014 influenza, seasonal, injectable, preservative free Allison Robledo MD Work Phone: [facility] Work Phone: NEGATED: Highlighted row has not occurred!05-14-2023 Hepatitis B vaccine (recombinant), CpG adjuvanted Elin Renae APRN.HISTOPATHOLOGIST Work Phone: [facility] Work Phone: Payers Date Payer Category Payer Self-pay 2022 Medicaid [id number] 2021 Medicaid [employer] [id number] 2021-Present [phone] [address] [place] [address] Medicaid [id number] 2021 Medicaid [id number] 2021 Medicaid [id number] 2018 Medicaid [employer] [id number] 2018-Present Medicaid [id number] 1985 Unknown [id number] Social History Date Type Detail Facility Start: 03-15-2019 End: 10-11-2022 Tobacco smoking status NHIS Former smoker [facility] Start: 03-15-2019 End: 11-26-2022 Alcohol intake Current drinker of alcohol (finding) [facility] Start: 12-02-2014 Alcohol Comment rare [facility] Start: 1985 Sex Assigned At Female [facility] Start: 05-04-2022 End: 05-14-2022 Exposure to SARS-CoV-2 (event) Not sure [facility] Start: 10-18-2020 End: 10-11-2022 Tobacco use and exposure Never used [facility] Start: 07-25-2021 End: 05-17-2022 Tobacco Comment smoked x 10 years - quit 2014 [facility] Start: 03-02-2022 End: 05-23-2022 Exposure to SARS-CoV-2 (event) Unable to assess [facility] End: 09-16-2014 History of tobacco use Current smoker [facility] End: 09-16-2014 History of tobacco use Cigarette Smoker [facility] Work Phone: Start: 10-11-2022 End: 04-18-2023 Cigarettes smoked current (pack per day) - Reported 0.5 [facility] Start: 10-10-2022 History SDOH Alcohol Frequency 3 [facility] Start: 10-10-2022 History SDOH Alcohol Std Drinks 1 [facility] Start: 10-10-2022 History SDOH Social Connections Phone 2 [facility] Start: 10-10-2022 History SDOH Social Connections Get Together 98 [facility] Start: 10-10-2022 History SDOH Social Connections Living 8 [facility] Start: 10-11-2022 Alcohol Comment 3 drinks per month. [facility] Tobacco smoking stat [facility] Tobacco smoking consumption unknown [facility] Start: 1985 Sex Assigned At Not on file [facility] Start: 10-10-2022 End: 04-18-2023 Gender identity Not on file [facility] How often do you get together with friends or relatives? Patient refused [facility] Do you belong to any clubs or organizations such as islam groups, unions, fraternal or athletic groups, or school groups? Yes [facility] [facility] Are you now , , , , never or living with a partner? Living with partner [facility] How often to you hav e a drink containing alcohol? 2-4 times a month [facility] How many standard dr inks containing alcohol do you have on a typical day? 1 or 2 [facility] How often do you hav e 6 or more drinks on 1 occasion? Never [facility] How hard is it for y ou to pay for the very basics like food, housing, medical care, and heating Somewhat hard [facility] Do you feel stress - tense, restless, nervous, or anxious, or unable to sleep at night because your mind is troubled all the time - these days [OSQ] Only a little [facility] (I/We) worried ирина er (my/our) food would run out before (I/we) got money to buy more. DK or Refused [facility] In the past 12 month s, was there a time when you were not able to pay the mortgage or rent on time? No [facility] Start: 10-11-2020 Gender identity Identifies as female gender (finding) [facility] Start: 10-11-2020 Sexual orientation Heterosexual (finding) [facility] Start: 06-25-2023 End: 06-28-2023 Alcohol intake Ex-drinker (finding) [facility] Medical Equipment Procedure Code Equipment Code Equipment Origin al Text Equipment Identifier Dates Test blood sugar (s) 1 times daily. Dx: Type 2 DM - Controlled E11.9 Insulin: No Start: 10-11-2022 Clinical Notes 12-01-2020 to 10-08-2023 Keo Colón, PhD - 07/21/2023 6:19 PM ESTTelephone Encounter - Geeta Whiteside - 07/16/2023 9:18 AM EDKeo Meeks, PhD - 07/13/2023 12:54 PM EDTPatient InstructionsPatient Instructions Note Date & Type Note Facility 10-08-2023 Note HNO ID: [id number] Author: ELIN RENAE APRN.HISTOPATHOLOGIST Service: ? Author Type: Nurse Practitioner Type: Progress Notes Filed: 10/08/2023 10:28 Note Text: FOLLOW-UP PSYCHIATRIC PROGRESS NOTE Visit Type:Virtual Visit utilizing two-way audio and video for at least a portion of the visit. Consent for virtual visit obtained verbally. Confidentiality limitations with virtual visits reviewed with the patient and guardian, if present, who have accepted the risk verbally prior to proceeding with encounter. I have communicated my name and active licensure. The patient's identity and physical location were verified at the time of this visit. Either the patient or their legal manufacturers service representative has been informed of the risks and benefits of -- and alternatives to -- treatment through a remote evaluation and consents to proceed with the evaluation remotely. Reason for Visit: Outpatient follow-up and safety monitoring of previously prescribed psychiatric medication, psychotherapy or other treatment CHIEF COMPLAINT: Follow up for medication management HPI: Has been going to the pool more which seems to be beneficial for her back pain Has a back injection scheduled for the beginning of October which she is hopeful will allow her to walk unassisted again Had started in the non-surgical bariatric program and was started on Topamax but it was just bad for me - felt that it was causing issues with her mood but I'm better now, feeling more stable Has since been switched to Trulicity which seems to be working better for her then the Topblasx Is also thinking of exploring the bariatric surgery route Says that she can get down about my medical stuff but overall I'm doing really well Her relationship with her boyfriend is going really well Feels her medications are working well with no complaints at this time Interval Progress since previous visit: same VITAL SIGNS: There were no vitals filed for this visit. ROS: MUSCULOSKELETAL: See HPI PSYCH: See HPI All other systems negative. PATIENT DATA: CHAYITO-7 CHAYITO-7 All Questions 06/26/2023 07/04/2023 07/17/2023 07/17/2023 10/01/2023 Nervous, anxious or on edge 1 1 - - 1 Not being able to stop or control worrying - 1 - - 0 Worrying too much 1 1 1 1 1 Trouble relaxing 1 1 1 1 0 Restless 1 0 1 1 0 Annoyed or irritable 1 1 1 1 1 Afraid something awful might happen 1 1 1 1 1 CHAYITO-7 Score - 6 - - 4 PHQ-9 PHQ-9 Scores 06/26/2023 07/04/2023 07/17/2023 07/17/2023 10/01/2023 Little interest or pleasure in doing things Several days Several days Several days Several days Not at all Feeling down, depressed, or hopeless Several days Several days Several days Several days Several days Trouble falling or staying asleep, or sleeping too much Several days Several days Several days Several days Several days Feeling tired or having little energy Several days Several days Several days Several days Several days Poor appetite or overeating Several days Several days Several days Several days Not at all Feeling bad about yourself - or that you are a failure or have let yourself or your family down Several days Several days Several days Several days Several days Trouble concentrating on things, such as reading the newspaper or watching television Several days Several days Several days Several days Not at all Moving or speaking so slowly that other people could have noticed. Or the opposite - being so fidgety or restless that you have been moving around a lot more than usual Several days Several days Several days Several days Not at all Thoughts that you would be better off , or of hurting yourself in some way Several days Several days Several days Several days Not at all PHQ-9 Score 9 9 9 9 4 MENTAL STATUS EXAM: CONSTITUTIONAL: Well groomed, Appropriately dressed, Casually dressed, Well developed, Well nourished ORIENTATION: Person, Place, Time and Situation MEMORY: No deficiencies noted CONCENTRATION: Normal MOOD: euthymic AFFECT: Full and appropriate to topic SPEECH : Clear AND distinct LANGUAGE : Normal ASSOCIATIONS: Intact THOUGHT PROCESS : Logical, Coherent, and Rational PROGRESSION : There was no evidence of disturbance in thought perception or progression. FUND OF KNOWLEDGE : Appropriate and Adequate SUICIDE: Denies suicidal thoughts, plan, or intent. HOMICIDE: Denies homicidal thoughts, plan, or intent. Labwork: CBC and Differential: WBC Date Value Ref Range Status 09/21/2023 9.02 3.70 - 11.00 k/uL Final RBC Date Value Ref Range Status 09/21/2023 4.65 3.90 - 5.20 m/uL Final Hematocrit Date Value Ref Range Status 09/21/2023 41.4 36.0 - 46.0 % Final MCV Date Value Ref Range Status 09/21/2023 89.0 80.0 - 100.0 fL Final MCH Date Value Ref Range Status 09/21/2023 28.8 26.0 - 34.0 pg Final MCHC Date Value Ref Range Status 09/21/2023 32.4 30.5 - 36.0 g/dL Final Platelet Count Date Value Ref R (more content not included)... [facility] 10-03-2023 Note HNO ID: [id number] Author: EVANGELINA BESS LPN Service: ? Author Type: LICENSED NURSE Type: Progress Notes Filed: 10/03/2023 10:44 Note Text: Review of Systems Constitutional: Negative for activity change, chills, fever and unexpected weight change. Genitourinary: Negative for difficulty urinating. Musculoskeletal: Positive for back pain, gait problem and myalgias. Negative for arthralgias, joint swelling, neck pain and neck stiffness. Neurological: Positive for weakness and numbness. Negative for headaches. Psychiatric/Behavioral: Positive for dysphoric mood and sleep disturbance. Negative for suicidal ideas. The patient is nervous/anxious. [facility] 10-03-2023 Note HNO ID: [id number] Author: KAITY LIND PA-C Service: ? Author Type: Physician Spider Assembler Type: Progress Notes Filed: 10/03/2023 10:44 Note Text: [facility] [place] Today's Date: 10/03/2023 Name: Shelton Rodrigez : 1985 Purpose: Follow-up Patient Evaluation - This is an established patient, returning today for continued evaluation and management of the chief complaint noted below Chief complaint: low back and right leg pain Referring Clinician: Pertinent Past Medical History: carpal tunnel syndrome, depression, diabetes, anxiety, hypertension, HAILEY, hypothyroidism, morbid obesity Pertinent Past Surgeries: None ___ Interval History: Overall pain and functional disability since last visit: Better New Complaints since last visit: No Her pain is significantly improved, aquatic physical therapy has been very beneficial. She is tolerating diclofenac without issue. She is tolerating gabapentin increased to 600 mg 3 times daily, though she does note occasional blurry vision that she is able to tolerate as she has seen such benefit from the medication. Of note she recently transition her aqua physical therapy care from a [facility] facility to an outside facility as it is more convenient to her home. Her pain relief has now plateaued and she had a recent flare up of pain that had her have to go to the ER. She is wondering what to do about this now. She is getting seen by bariatrics. Current Pain Medications: Neuropathics: Gabapentin 600 TID NSAIDS: Diclofenac Muscle Relaxants: Topicals: Other Prescription or OTC Pain Medications: Tylenol Opioids (when applicable): No question data found. Tolerating Medication: Yes Medications helping improve ADL's and Self-care: Yes Current Therapies Attended: Physical Therapy: >9 visits have been attended. Treatment dates: Between 04/25/23 and present. Studies Obtained (when obtained, relevant findings reported below): None Notable Events During Course of Treatment: 04/18/23 - Initial HPI (Obtained by OMERO Mcgrath). The pain is located primarily in the low back pain. This has been present since the end of December 2022. The patient denies to trauma that initiated their pain but feels that she threw out her back doing housework. The pain is constant and described as Burning;Numbness;Tightness;Tinglin g;Shooting. The patient admits the presence of radicular pain, numbness, and tingling down the right lower extremity, along the lateral aspect, to the middle 3 toes on the right that is intermittant. Exacerbating factors include standing and walking, especially going up the stairs. Relieving factors include medications, ice , repositioning, and massage. This interferes with physical activity, walking, cooking, household cleaning, lifting, and social activities. Treatments tried: completed one physical therapy appointment and then was advised to stop due to the worsening of symptoms, NSAIDs (for 6 weeks or longer), Other medications (see below), Provider directed home exercise program (at least 3-4 times per weeks for 6 weeks or greater), and TENS Unit. The patient reports difficulty with bowel or bladder control, unintentional weight loss, and fevers, chills, or night sweats. Data Reviewed: PAIN PROCEDURES: DATE PROCEDURE IMPROVEMENT To date, no interventional pain management procedures performed at this practice. MEDICATIONS Taken TO DATE (for the chief complaint(s)): Membrane Stabilizers: Neurontin (Gabapentin): Beneficial NSAIDS: Voltaren (Diclofenac): Beneficial Opioids: Oxycodone (eg Percocet): Discontinued, acute course after initial injury Muscle Relaxants: none Topicals: None Other Prescription or OTC Pain Medications: Tylenol (Acetaminophen): Beneficial Current Anti-depressants or Mood-Stabilizers: Prozac Current Anti-Coagulants: None Allergies: ALLERGIES Allergen Reactions Penicillins Hives INTAKE PAIN ASSESSMENT 10/01/2023 10/01/2023 Are you having pain associated with your visit today? Yes, Provider notified Yes, Provider notified Pain Scales - - Pain Level 3 3 Pain Location Back-Lower Back-Lower Description Aching;Burning;Numbness;Radiating; Sharp;Shooting;Throbbing Aching;Burning;Numbness;Radiating; Sharp;Shooting;Throbbing Duration Amount of Time 7 7 Duration Units Months Months Frequency Continuous Continuous Intervention/Comfort measure Medication;Reposition;Relaxation;C old;Exercise;Heat;Pillow support;Positioning Medication;Reposition;Relaxation;C old;Exercise;Heat;Pillow support;Positioning Comments - - Pain Assessment - - Breathing Independent of Vocalization - - Negative Vocalization - - Facial Expressi (more content not included)... [facility] 09-19-2023 Note HNO ID: [id number] Author: LUZ AUSTIN APRN.HISTOPATHOLOGIST Service: ? Author Type: Nurse Practitioner Type: Progress Notes Filed: 09/19/2023 13:00 Note Text: Obesity Medicine Followup Note 09/19/2023 Patient HPI: is 38 year old Female who presents with diagnosis of class III obesity severe with past medical history of intervertebral disc disorder with radiculopathy of lumbar region, sciatica, hypertension, mixed hyperlipidemia, radiculopathy lumbar region, obstructive sleep apnea on CPAP, diabetes mellitus (HCC), subclinical hypothyroidism, controlled type 2 diabetes mellitus without complication, without long-term current use of insulin, dry eye syndrome of bilateral lacrimal glands, arthritis, lumbar spondylosis, intractable back pain, general anxiety disorder, depressive disorder, major depressive disorder with single episode in remission, vitamin D deficiency, for follow-up evaluation of her obesity and related complications. In our previous visits we have outlined an individualized lifestyle intervention including a personalized nutrition recommendations and physical activity optimization. Shelton Rodrigez is here today for follow up evaluation for nonsurgical metabolic weight loss management. her last office visit was3 month(s) ago with advanced practice registered nurse. Weight loss since last visit: Today's weight:515.4 lbs Last weight:489 lbs BMI: 84.46 Today's concerns: Topiramate brain fog and fatigue Current Obesity Medications: Topamax 25 mg tablet at bedtime- not taking Mounjaro 2.5 mg weekly injection- not approved by insurance (Metformin 1000 mg tablet twice daily 2000 mg daily per pcp) Stopped topiramate and unable to get Mounjaro Exercise Freq- physical therapy with back Barriers- walker Work-related activity: Sedentary Diet Healthy food choices Meals 2 B - 9:30-10 protein drink - equate fruit- berries, banana, and yogurt - mauritian yogurt flavored; overnight oats L 1 pm - yogurt mauritian no sugar and granola protein Dinner 6 pm - chicken and mashed potato and chili or soup Snacking: graze during day-cottage cheese, crackers, hummus, fruit, smoothie, spinach - chips, cookies; ice cream Beverages: Water: 50-60 ounces Soda; diet soda Juice Structure ?Sleep Duration (<6hr)-poor 4 hours Quality- Stress Degree- high Cause- holiday and pain PAST MEDICAL HISTORY Diagnosis Date Carpal tunnel syndrome Depressive disorder 11/14/2020 Diabetes mellitus (HCC) 12/01/2020 Dry eye syndrome of bilateral lacrimal glands 07/25/2021 CHAYITO (generalized anxiety disorder) 10/11/2022 Hypertension Hypertension 12/01/2020 Obstructive sleep apnea 12/01/2020 Spinal stenosis at L4-L5 level Subclinical hypothyroidism 12/01/2020 Thyroid disease FUNCTIONAL STATUS: Walk indoors, such as around the house (1.75 METs) Limited most or all of the time (uses scooter, mobility device) Review of Systems: Review of Systems Constitutional: Positive for fatigue. HENT: Negative. Eyes: No hx of glaucoma Respiratory: Positive for shortness of breath. Exertional dyspnea Cardiovascular: Positive for leg swelling. Lymphedema Gastrointestinal: Negative. Endocrine: Reports hypothyroidism Genitourinary: No hx of renal stones Musculoskeletal: Positive for arthralgias, back pain, gait problem and myalgias. Skin: Negative. PAST SURGICAL HISTORY Procedure Laterality Date NONE Social History Tobacco Use Smoking status: Former Packs/day: 0.50 Years: 10.00 Additional pack years: 0.00 Total pack years: 5.00 Types: Cigarettes Quit date: 09/16/2014 Years since quittin.0 Smokeless tobacco: Never Tobacco comments: smoked x 10 years - quit 2014 Vaping Use Vaping Use: Never used Substance Use Topics Alcohol use: Not Currently Comment: 3 drinks per month. Drug use: No PE LMP 11/20/2022 (Approximate) Physical Exam Results No visits with results within 3 Month(s) from this visit. Latest known visit with results is: Office Visit on 03/27/2023 Component Date Value Ref Range Status Hemoglobin A1C (POCT) 03/27/2023 6.3 4.2 - 5.6 % Final Impression: 38 year old female with a diagnosis of severe class III obesity here for nonsurgical metabolic weight loss management Body mass index is 84.46 kg/m?. Assessment/Plan: ASSESSMENT/PLAN: 1. Obesity, Class III, BMI >= 40 - ICD9: 278.01, ICD10: E66.01 (primary diagnosis) Weight increasing - Behavioral and pharmacological intervention Discussed in depth with patient to follow-up with bariatric surgery and the impact of obesity on her overall health. We discussed that obesity is a disease as well as to follow through to determine and have questions answered regarding bariatric surgery. Provided patient support as well. Additionally, we reviewed low-carb low sugar foods we reviewed protein and discussed with patient some techniques to help manage maladaptive eating behav (more content not included)... [facility] 07-23-2023 Note HNO ID: [id number] Author: Elin Renae APRN.HISTOPATHOLOGIST Service: ? Author Type: Nurse Practitioner Type: Progress Notes Filed: 07/23/2023 10:46 AM Note Text: FOLLOW-UP PSYCHIATRIC PROGRESS NOTE Visit Type:Virtual Visit utilizing two-way audio and video for at least a portion of the visit. Consent for virtual visit obtained verbally. Confidentiality limitations with virtual visits reviewed with the patient and guardian, if present, who have accepted the risk verbally prior to proceeding with encounter. I have communicated my name and active licensure. The patient's identity and physical location were verified at the time of this visit. Either the patient or their legal manufacturers service representative has been informed of the risks and benefits of -- and alternatives to -- treatment through a remote evaluation and consents to proceed with the evaluation remotely. Reason for Visit: Outpatient follow-up and safety monitoring of previously prescribed psychiatric medication, psychotherapy or other treatment CHIEF COMPLAINT: Follow up for medication management HPI: Says that in ways I'm really good and in other ways I'm not so good Has continued to struggle with back issues with a severe bulging nerve that has been causing stress for months as she gets used to her assistive devices and dealing with her physical limitations - says that stuff is hard and it is still hard Recently completed the mind-body wellness group which she really enjoyed and felt was really beneficial Feels that outside of her physical issues things are the best they've ever been in my life Got engaged Has been watching scary movies with her fiance Has been making earring crafts which she has been enjoying and 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 ROS: MUSCULOSKELETAL: See HPI PSYCH: See HPI All other systems negative. PATIENT DATA: CHAYITO-7 CHAYITO-7 All Questions 06/18/2023 06/26/2023 07/04/2023 07/17/2023 07/17/2023 Nervous, anxious or on edge 1 1 1 - - Not being able to stop or control worrying 1 - 1 - - Worrying too much 1 1 1 1 1 Trouble relaxing 0 1 1 1 1 Restless 0 1 0 1 1 Annoyed or irritable 1 1 1 1 1 Afraid something awful might happen 0 1 1 1 1 CHAYITO-7 Score 4 - 6 - - PHQ-9 PHQ-9 Scores 06/18/2023 06/26/2023 07/04/2023 07/17/2023 07/17/2023 Little interest or pleasure in doing things Not at all Several days Several days Several days Several days Feeling down, depressed, or hopeless Several days Several days Several days Several days Several days Trouble falling or staying asleep, or sleeping too much Several days Several days Several days Several days Several days Feeling tired or having little energy Several days Several days Several days Several days Several days Poor appetite or overeating Not at all Several days Several days Several days Several days Feeling bad about yourself - or that you are a failure or have let yourself or your family down Several days Several days Several days Several days Several days Trouble concentrating on things, such as reading the newspaper or watching television Not at all Several days Several days Several days Several days Moving or speaking so slowly that other people could have noticed. Or the opposite - being so fidgety or restless that you have been moving around a lot more than usual Not at all Several days Several days Several days Several days Thoughts that you would be better off , or of hurting yourself in some way Not at all Several days Several days Several days Several days PHQ-9 Score 4 9 9 9 9 MENTAL STATUS EXAM: CONSTITUTIONAL: Well groomed, Appropriately dressed, Casually dressed, Well developed, Well nourished, Obese ORIENTATION: Person, Place, Time and Situation MEMORY: No deficiencies noted CONCENTRATION: Normal MOOD: euthymic AFFECT: Full and appropriate to topic SPEECH : Clear AND distinct LANGUAGE : Normal ASSOCIATIONS: Intact THOUGHT PROCESS : Logical, Coherent, and Rational PROGRESSION : There was no evidence of disturbance in thought perception or progression. FUND OF KNOWLEDGE : Appropriate and Adequate SUICIDE: Denies suicidal thoughts, plan, or intent. HOMICIDE: Denies homicidal thoughts, plan, or intent. Labwork: CBC and Differential: WBC Date Value Ref Range Status 05/14/2022 9.41 3.70 - 11.00 k/uL Final RBC Date Value Ref Range Status 05/14/2022 4.85 3.9 (more content not included)... [facility] 07-21-2023 Note HNO ID: [id number] Author: Keo Colón, PhD Service: ? Author Type: Psychologist Type: Progress Notes Filed: 07/21/2023 6:25 PM Note Text: [facility] Psychology MIND/BODY GROUP - SESSION 8 Shelton Rodrigez 07/17/2023 [id number] Provider: Keo Colón, PhD Setting: The patient consented to a virtual visit and their location was confirmed. Interventions: Group check-in with [employer]. Introduced and practiced [place] Kindness. Provided handouts on loving kindness meditation and walking meditation. Reviewed individual gains from this program and patients identified future goals. Completed Program Evaluation. The patient's participation was active and engaged. Patient reports friends have noticed she is more vocal and open, expressing her appreciation of others. She plans to keep working on being kind to herself, including recognizing her own value to others in relationships. She expressed to group members that they are valued in spaces you don't even realize. You are valued as a person because you exist. Diagnosis: CHAYITO MDD rec (mod) Treatment Plan: Patient completed 8 week Mind/Body Wellness Program. Patient will return to the referring provider to assess further treatment needs. Keo Colón, PhD [facility] 07-21-2023 History of Present illness Narrative [facility] MIND/BODY GROUP - SESSION 8 Shelton Westley Alex 07/17/2023 [id number] Provider: Keo Colón, PhD Setting: The patient consented to a virtual visit and their location was confirmed. Interventions: Group check-in with [employer]. Introduced and practiced [place] Kindness. Provided handouts on loving kindness meditation and walking meditation. Reviewed individual gains from this program and patients identified future goals. Completed Program Evaluation. The patient's participation was active and engaged. Patient reports friends have noticed she is more vocal and open, expressing her appreciation of others. She plans to keep working on being kind to herself, including recognizing her own value to others in relationships. She expressed to group members that they are valued in spaces you don't even realize. You are valued as a person because you exist. Diagnosis: CHAYITO MDD rec (mod) Treatment Plan: Patient completed 8 week Mind/Body Wellness Program. Patient will return to the referring provider to assess further treatment needs. Keo Colón, PhD documented in this encounter [facility] 07-16-2023 Miscellaneous Notes CALLED PATIENT LVM NEED INSURANCE CONTACT NUMBER documented in this encounter [facility] 07-13-2023 Note HNO ID: [id number] Author: Keo Colón, PhD Service: ? Author Type: Psychologist Type: Progress Notes Filed: 07/13/2023 1:15 PM Note Text: [facility] MIND/BODY GROUP - SESSION 7 Shelton Rodrigez 07/10/2023 [id number] Provider: Keo Colón, PhD Setting: The patient consented to a virtual visit and their location was confirmed. Interventions: Group check-in with News and Goods. Reviewed relaxation practice and mindfulness homework. Introduction and practice of Autogenic Phrases Exercise. [place]ons [place] from Acceptance and Commitment Therapy presentation and introduced Values Clarification Exercise and What is Meaningful and Important to Me exercise. The patient's participation was active and engaged. Patient notes appreciating group members' contributions. I am ok right now is a useful portable tool, especially for managing anxiety at medical appointments. Aware of more deliberate positive self-talk. Normalized her questioning herself around if she is good at meditation and/or doing it right. Current Medication from Chart: Current Outpatient Medications Medication Sig Dispense Refill topiramate (TOPAMAX) 25 mg tablet Take 1 tablet by mouth daily at bedtime. 90 tablet 0 tirzepatide (MOUNJARO) 2.5 mg/0.5 mL pen injector Inject 2.5 mg subcutaneously one time a week. 2 mL 0 gabapentin (NEURONTIN) 600 mg tablet Take 1 tablet by mouth three times daily for 180 days. Week 1: 400mg in the morning, 400mg in the afternoon and 600mg at bedtime Week 2: 400mg in the morning, 600mg in the afternoon and 600mg at bedtime Week 3: 600mg in the morning, 600mg in the afternoon and 600mg at bedtime 90 tablet 5 diclofenac, EC, (VOLTAREN) 75 mg EC tablet Take 1 tablet by mouth twice daily. 60 tablet 5 FLUoxetine (PROZAC) 40 mg capsule Take 1 capsule by mouth once daily. 90 capsule 3 busPIRone (BUSPAR) 7.5 mg tablet Take 1 tablet by mouth twice daily. 180 tablet 1 Blood-Glucose Meter monitoring kit Glucose Meter of Choice - Kit - Dx: Type 2 DM - Controlled E11.9 1 Each 0 blood sugar diagnostic (BLOOD GLUCOSE TEST) test strip Test blood sugar(s) 1 times daily. Dx: Type 2 DM - Controlled E11.9 Insulin: No 50 Strip 11 Lancets lancets Test blood sugar(s) 1 times daily. Dx: Type 2 DM - Controlled E11.9 Insulin: No 100 Each 11 cholecalciferol (VITAMIN D3) 1,000 unit tab tablet Take 1 tablet by mouth once daily. 30 tablet 3 metFORMIN (GLUCOPHAGE) 1,000 mg tablet Take 1 tablet by mouth twice daily with meals. 60 tablet 3 hydroCHLOROthiazide (HYDRODIURIL, ESIDRIX) 25 mg tablet Take 1 tablet by mouth once daily. 30 tablet 3 atorvastatin (LIPITOR) 10 mg tablet Take 1 tablet by mouth once daily. 30 tablet 3 lisinopril (ZESTRIL, PRINIVIL) 40 mg tablet Take 1 tablet by mouth once daily. 90 tablet 0 hydrOXYzine HCl (ATARAX) 25 mg tablet Take 1 tablet by mouth three times daily as needed for anxiety. May take 1/2 tablet 20 tablet 1 Cholecalciferol, Vitamin D3, (VITAMIN D) 25 mcg (1,000 unit) cap Take 1 capsule by mouth once daily. 30 capsule 2 Norethindrone, Contraceptive, 0.35 mg tablet Take 0.35 mg by mouth once daily. CPAP/BIPAP/OTHER autopap [id number] [employer] ([phone]) 1 Each 0 Blood Pressure Kit-Extra Large kit 1 Each once daily. 1 Kit 0 No current facility-administered medications for this visit. Diagnosis: CHAYITO MDD rec (mod) Homework: Practice relaxation response twice daily and mini-relaxers 's throughout the day. Monitor relaxation practice and symptoms with diary sheets. Daily entry in Appreciation Journal with New and Goods. Complete goal setting exercise. Keo Colón, PhD [facility] 07-13-2023 History of Present illness Narrative [facility] MIND/BODY GROUP - SESSION 7 Shelton Rodrgiez 07/10/2023 [id number] Provider: Keo Colón, PhD Setting: The patient consented to a virtual visit and their location was confirmed. Interventions: Group check-in with News and Goods. Reviewed relaxation practice and mindfulness homework. Introduction and practice of Autogenic Phrases Exercise. [employer] [place] from Acceptance and Commitment Therapy presentation and introduced Values Clarification Exercise and What is Meaningful and Important to Me exercise. The patient's participation was active and engaged. Patient notes appreciating group members' contributions. I am ok right now is a useful portable tool, especially for managing anxiety at medical appointments. Aware of more deliberate positive self-talk. Normalized her questioning herself around if she is good at meditation and/or doing it right. Current Medication from Chart: Current Outpatient Medications Medication Sig Dispense Refill topiramate (TOPAMAX) 25 mg tablet Take 1 tablet by mouth daily at bedtime. 90 tablet 0 tirzepatide (MOUNJARO) 2.5 mg/0.5 mL pen injector Inject 2.5 mg subcutaneously one time a week. 2 mL 0 gabapentin (NEURONTIN) 600 mg tablet Take 1 tablet by mouth three times daily for 180 days. Week 1: 400mg in the morning, 400mg in the afternoon and 600mg at bedtime Week 2: 400mg in the morning, 600mg in the afternoon and 600mg at bedtime Week 3: 600mg in the morning, 600mg in the afternoon and 600mg at bedtime 90 tablet 5 diclofenac, EC, (VOLTAREN) 75 mg EC tablet Take 1 tablet by mouth twice daily. 60 tablet 5 FLUoxetine (PROZAC) 40 mg capsule Take 1 capsule by mouth once daily. 90 capsule 3 busPIRone (BUSPAR) 7.5 mg tablet Take 1 tablet by mouth twice daily. 180 tablet 1 Blood-Glucose Meter monitoring kit Glucose Meter of Choice - Kit - Dx: Type 2 DM - Controlled E11.9 1 Each 0 blood sugar diagnostic (BLOOD GLUCOSE TEST) test strip Test blood sugar(s) 1 times daily. Dx: Type 2 DM - Controlled E11.9 Insulin: No 50 Strip 11 Lancets lancets Test blood sugar(s) 1 times daily. Dx: Type 2 DM - Controlled E11.9 Insulin: No 100 Each 11 cholecalciferol (VITAMIN D3) 1,000 unit tab tablet Take 1 tablet by mouth once daily. 30 tablet 3 metFORMIN (GLUCOPHAGE) 1,000 mg tablet Take 1 tablet by mouth twice daily with meals. 60 tablet 3 hydroCHLOROthiazide (HYDRODIURIL, ESIDRIX) 25 mg tablet Take 1 tablet by mouth once daily. 30 tablet 3 atorvastatin (LIPITOR) 10 mg tablet Take 1 tablet by mouth once daily. 30 tablet 3 lisinopril (ZESTRIL, PRINIVIL) 40 mg tablet Take 1 tablet by mouth once daily. 90 tablet 0 hydrOXYzine HCl (ATARAX) 25 mg tablet Take 1 tablet by mouth three times daily as needed for anxiety. May take 1/2 tablet 20 tablet 1 Cholecalciferol, Vitamin D3, (VITAMIN D) 25 mcg (1,000 unit) cap Take 1 capsule by mouth once daily. 30 capsule 2 Norethindrone, Contraceptive, 0.35 mg tablet Take 0.35 mg by mouth once daily. CPAP/BIPAP/OTHER [place]opap [id number] [facility] [place] [employer] ([phone]) 1 Each 0 Blood Pressure Kit-Extra Large kit 1 Each once daily. 1 Kit 0 No current facility-administered medications for this visit. Diagnosis: CHAYITO MDD rec (mod) Homework: Practice relaxation response twice daily and mini-relaxers 's throughout the day. Monitor relaxation practice and symptoms with diary sheets. Daily entry in Appreciation Journal with New and Goods. Complete goal setting exercise. Keo Colón, PhD documented in this encounter [facility] 07-01-2023 Miscellaneous Notes Mounlacy 2.5mg prior auth submitted cover my meds. Alejandra Lutz MA documented in this encounter [facility] 06-28-2023 Note HNO ID: [id number] Author: Luz Austin APRN.HISTOPATHOLOGIST Service: ? Author Type: Nurse Practitioner Type: Progress Notes Filed: 06/28/2023 4:35 PM Note Text: BMI Obesity Medicine Consult This Team Access Model visit is a virtual visit. It required patient-provider interaction for the medical decision making as documented below. Consent was obtained to complete today's [facility] visit. I have communicated my name and active licensure. The patient's identity and physical location were verified at the time of this visit. Either the patient or their legal manufacturers service representative has been informed of the risks and benefits of -- and alternatives to -- treatment through a remote evaluation and consents to proceed with the evaluation remotely. 06/28/[address] Emil Liang ref. provider found for an opinion regarding Obesity. My final recommendations will be communicated back to the requesting physician by way of shared Medical record or letter to requesting physician via US mail. Patient HPI summary: Shelton Rodrigez is a 38 year old female with obesity who presents to the [facility] for an initial evaluation of her obesity and past medical history of intervertebral disc disorder with radiculopathy of lumbar region, sciatica, hypertension, mixed hyperlipidemia, radiculopathy lumbar region, obstructive sleep apnea on CPAP, diabetes mellitus (HCC), subclinical hypothyroidism, controlled type 2 diabetes mellitus without complication, without long-term current use of insulin, dry eye syndrome of bilateral lacrimal glands, arthritis, lumbar spondylosis, intractable back pain, general anxiety disorder, depressive disorder, major depressive disorder with single episode in remission, vitamin D deficiency, and is interested in behavioral , pharmacological, and non-surgical weight loss approaches. Primary reason for wanting obesity treatment : challenges losing weight, past December bulging back disc and using a walker and wheelchair and in pain and using various alternate techniques to decrease pain and improve health and does not want to use walker, or wheelchair. Reports highest weight 580 -5 years ago; lowest weight 3 years ago 420 lbs. Reports 3 years ago GI illness where could not eat and lost 100 lbs. No determination of what caused the gi -stress? Overall goal: 400 lbs lose approximately 89 lbs to begin; Bariatric Surgery discussion: Consult placed Weight History: She reports a strong family history of obesity and childhood onset weight gain. She states her weight gain is related to the following factors, including trauma, unstable household, nutrition, picky eater, eating comfort. Weight Graph: (please see graph scanned in chart) Medications: Bupropion- for smoking and anxiety years ago helped with smoking cessation and no real benefit for anxiety /depression was on for 5 months; Metformin 1000 mg tablet 1 tablet by mouth twice daily with meals-Per PCP Diet: Food preparation and grocery shopping: patient and fianceNeck [employer]ie [employer] cooks Quality of diet: 24hr recall suggests combination of both healthy and unhealthy diet. Characterization of diet:Structured, Unstructured, unhealthy snacking, excessive cravings, evening snacking, and skip meals. 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 Recurrent episodes of binge eating. An episode is characterized by: 1. Eating a larger amount of food than normal during a short period of time (within any two hour period): y 2. Lack of control over eating during the binge episode (i.e. the feeling that one cannot stop eating): n B. Binge eating episodes are associated with three or more of the followin. Eating until feeling uncomfortably full: y 2. Eating large amounts of food when not physically hungry: n 3. Eating much more rapidly than normal: n 4. Eating alone because you are embarrassed by how much you're eating: n 5. Feeling disgusted, depressed, or guilty after overeating: y THREE ASSOCIATED SYMPTOMS MET? y=3 C. Marked distress regarding binge eating is present: n D. Binge eating occurs, on average, at least 1 days a week for three months: n E. The binge eating is not associated with the regular use of inappropriate compensatory behavior (i.e. purging, excessive exercise, etc.) and does not occur exclusively during the course of bulimia nervosa or anorexia nervosa.n PATIENT MEETS ABOVE CRITERIA FOR BINGE EATING DISORDER: y B: 9:30-10 am - protein drink - equate fruit- berries, banana, and yogurt - mauritian yogurt flavored; overnight oats L: skip or 1 pm - egg sandwich - bread bagel or wheat toast, cheese and ketchup ; sandwich- lettuce cheese and hummus bread wheat toast or white bread; D:6:30 pm - leyda, no meat of (more content not included)... [facility] 06-28-2023 Instructions Luz Austin APRN.HISTOPATHOLOGIST - 06/28/2023 10:06 AM EDT Images from the original note were not included. Dear Ms. Rodrigez: It was a pleasure to care for your today and begin your weight loss journey; here are today's highlights we discussed: Nutrition: Begin consistent meals and mealtimes. Example: B - 10 am Lunch 2 pm and Dinner 6:30 pm Avoid processed foods- examples packaged foods, noodles , fast foods, chips, Begin low-carb low sugar nutrition Do want whole grains, brown rice, quiona, chic pea pasta, caulflower rice Do want complex carbs -- fruits and veggies, veggies more colorful better 1/2 plate, fruits, berries, melon, apples, pears, grapes plums Protein 60 -90g daily Tofu, lentils, Water 60 to 80 ounces daily Intermittent fasting-you want 3 hours between meals and you want to avoid eating after 7:30 PM Examples of foods: Protein replacement shakes there are various brands including Premier, Aldi, ( equate, small carton) fair life, Each she has approximately 30 g of protein, 1 to 2 g of sugar and 4 to 7 g of carbs Other examples for breakfast include 2 eggs any style 2 strips of gardner or 2 sausage links, the meat can be either turkey based or chicken. Lunch consider a salad with a tuna packet and or hard-boiled eggs You can also do turkey with a low-carb wrap Dinner make sure you are having protein and vegetables If fresh fruits and vegetables are not available a frozen is a great choice. Avoid canned because many of the nutrients are washed out and it contains sodium.- Consider meal prepping you want to be able to grab and go Avoid soda pop it does not hydrate the body and decrease caffeine. Activity: Continue with aqua therapy follow therapy recommendations; chair exercises, Increase your activity, increase cardio walking 10 to 15 minutes with a goal of 30 minutes 3 times a week Consider adding some light arm weights while you are watching your favorite show Water aerobics is also greatly decreases gravity on the joints Medications: Try Mounjaro 2.5 mg subcutaneous weekly injection TIRZEPATIDE (MOUNJARO) Tirzepatide (Mounjaro) is a new combination drug (mimics 2 gut hormones, GLP1 and GIP) which has demonstrated superior weight loss >20% body wt loss after 72 week randomized controlled study. It's only approved for diabetes currently, but likely will have approval for weight/obesity next year. Below is more information on it as we discussed. Tirzepatide delays gastric emptying and has the potential to alter absorption of oral medications. This is important in patients taking narrow therapeutic index drugs or drugs that need a minimum blood level for efficacy. If you are taking oral contraceptives switch to a non-oral contraceptive method or add a barrier contraceptive method for 4 weeks after initiation of tirzepatide and for 4 weeks after each dose escalation. Video Instructions for Injecting Mounjaro: https://www.youClipMine.com/watch?v=nx nhBdyTSZ0 Savings Card: https://www.Catavolt/savings-r esources Link to Conduit Mechanic Website GeoPay Medication Guide: https://pi.Navera.Numascale/us/mounjaro-u s-mg.pdf?s=mg Written pen instructions: https://uspl.Navera.com/mounjaro/mo unjaro.html#ug0 Tirzepatide: Patient drug information What is Mounjaro? Mounjaro is an injectable prescription medicine that is used along with diet and exercise to improve blood sugar (glucose) in adults with type 2 diabetes mellitus. It is not known if Mounjaro can be used in people who have had inflammation of the pancreas (pancreatitis). Mounjaro is not for use in people with type 1 diabetes. It is not known if Mounjaro is safe and effective for use in children under 18 years of age. It works in multiple ways. It helps: - THE BODY RELEASE INSULIN WHEN BLOOD SUGAR IS HIGH - THE BODY REMOVE EXCESS SUGAR FROM THE BLOOD - STOP THE LIVER FROM MAKING AND RELEASING TOO MUCH SUGAR - REDUCE HOW MUCH FOOD IS EATEN - SLOW DOWN HOW QUICKLY FOOD LEAVES THE STOMACH. THIS LESSENS OVER TIME. You can learn about possible side effects of Mounjaro here. Select Safety Information Changes in vision. Tell your healthcare provider if you have changes in vision during treatment with Mounjaro PURPOSE AND SAFETY SUMMARY WITH WARNINGS Important Facts About Mounjaro ([id number]). It is also known as tirzepatide. Mounjaro is an injectable prescription medicine for adults with type 2 diabetes used along with diet and exercise to improve blood sugar (glucose). It is not known if Mounjaro can be used in people who have had inflammation of the pancreas (pancreatitis). Mounjaro is not for use in people with type 1 diabetes. It is not known if Mounjaro is safe and effective for use in children under 18 years of age. Warnings Mounjaro may cause tumors in the thyroid, including thyroid cancer. Watch for possible symptoms, such as a lump or swelling in the neck, hoarseness, trouble swallowing, or shortness of breath. If you have a symptom, tell your healthcare provider. Do not use Mounjaro if you or any of your family have ever had a type of thyroid cancer called medullary thyroid carcinoma (MTC). Do not use Mounjaro if you have Multiple Endocrine Neoplasia syndrome type 2 (MEN 2). Do not use Mounjaro if you are allergic to tirzepatide or any of the ingredients in Mounjaro. Mounjaro may cause serious side effects, including: Inflammation of the pancreas (pancreatitis). Stop using Mounjaro and call your healthcare provider right away if you have severe pain in your stomach area (abdomen) that will not go away, with or without vomiting. You may feel the pain from your abdomen to your back. Low blood sugar (hypoglycemia). Your risk for getting low blood sugar may be higher if you use Mounjaro with another medicine that can cause low blood sugar, such as a sulfonylurea or insulin. Signs and symptoms of low blood sugar may include dizziness or light-headedness, sweating, confusion or drowsiness, headache, blurred vision, slurred speech, shakiness, fast heartbeat, anxiety, irritability, or mood changes, hunger, weakness and feeling jittery. Serious allergic reactions. Stop using Mounjaro and get medical help right away if you have any symptoms of a serious allergic reaction, including swelling of your face, lips, tongue or throat, problems breathing or swallowing, severe rash or itching, fainting or feeling dizzy, and very rapid heartbeat. Kidney problems (kidney failure). In people who have kidney problems, diarrhea, nausea, and vomiting may cause a loss of fluids (dehydration), which may cause kidney problems to get worse. It is important for you to drink fluids to help reduce your chance of dehydration. Severe stomach problems. Stomach problems, sometimes severe, have been reported in people who use Mounjaro. Tell your healthcare provider if you have stomach problems that are severe or will not go away. Changes in vision. Tell your healthcare provider if you have changes in vision during treatment with Mounjaro. Gallbladder problems. Gallbladder problems have happened in some people who use Mounjaro. Tell your healthcare provider right away if you get symptoms of gallbladder problems, which may include pain in your upper stomach (abdomen), fever, yellowing of skin or eyes (jaundice), and zeus-colored stools. Common side effects The most common side effects of Mounjaro include nausea, diarrhea, decreased appetite, vomiting, constipation, indigestion, and stomach (abdominal) pain. These are not all the possible side effects of Mounjaro. Talk to your healthcare provider about any side effect that bothers you or doesn't go away. Tell your healthcare provider if you have any side effects. You can report side effects at 7-222-HPG-3085 or www.fda.gov/medwatch. Before using Your healthcare provider should show you how to use Mounjaro before you use it for the first time. Before you use Mounjaro, talk to your healthcare provider about low blood sugar and how to manage it. Review these questions with your healthcare provider: Do you have other medical conditions, including problems with your pancreas or kidneys, or severe problems with your stomach, such as slowed emptying of your stomach (gastroparesis) or problems digesting food? Do you take other diabetes medicines, such as insulin or sulfonylureas? Do you have a history of diabetic retinopathy? Are you or plan to become or or plan to breastfeed? It is not known if Mounjaro will harm your unborn baby. Do you take control pills by mouth? These may not work as well while using Mounjaro. Your healthcare provider may recommend another type of control when you start Mounjaro or when you increase your dose. Do you take any other prescription medicines or vmom-fxu-uhkvzoa drugs, vitamins, or herbal supplements? How to take Read the Instructions for Use that come with Mounjaro. Use Mounjaro exactly as your healthcare provider says. Mounjaro is injected under the skin (subcutaneously) of your stomach (abdomen), thigh, or upper arm. Use Mounjaro 1 time each week, at any time of the day. Do not mix insulin and Mounjaro together in the same injection. If you take too much Mounjaro, call your healthcare provider or seek medical advice promptly. Learn more For more information, call 4-742-KdvktPc ( ) or go to www.Wifinity Technology.Numascale. This information does not take the place of talking with your healthcare provider. Be sure to talk to your healthcare provider about Mounjaro and how to take it. Your healthcare provider is the best person to help you decide if Mounjaro is right for you. Mounjaro and its delivery device base are trademarks owned or licensed by [employer], its subsidiaries, or affiliates. AIDA LAWSON [employer] JANUARY2022 Access [employer] Online for additional drug information, tools, and databases. Copyright codetag. All rights reserved. Contributor Disclosures (For additional information see Tircassiepatide: Drug information ) You must carefully read the Consumer Information Use and Disclaimer below in order to understand and correctly use this information. Brand Names: US Mounjeffersonro Warning This drug has been shown to cause thyroid cancer in some animals. It is not known if this happens in humans. If thyroid cancer happens, it may be deadly if not found and treated early. Call your doctor right away if you have a neck mass, trouble breathing, trouble swallowing, or have hoarseness that will not go away. Do not use this drug if you have a health problem called Multiple Endocrine Neoplasia syndrome type 2 (MEN 2), or if you or a family member have had thyroid cancer. Have your blood work checked and thyroid ultrasounds as you have been told by your doctor. What is this drug used for? It is used to lower blood sugar in patients with high blood sugar (diabetes). What do I need to tell my doctor BEFORE I take this drug? If you are allergic to this drug; any part of this drug; or any other drugs, foods, or substances. Tell your doctor about the allergy and what signs you had. If you have type 1 diabetes. Do not use this drug to treat type 1 diabetes. If you have ever had pancreatitis. If you have stomach or bowel problems. This is not a list of all drugs or health problems that interact with this drug. Tell your doctor and pharmacist about all of your drugs (prescription or OTC, natural products, vitamins) and health problems. You must check to make sure that it is safe for you to take this drug with all of your drugs and health problems. Do not start, stop, or change the dose of any drug without checking with your doctor. What are some things I need to know or do while I take this drug? Tell all of your health care providers that you take this drug. This includes your doctors, nurses, pharmacists, and dentists. Wear disease medical alert ID (identification). Follow the diet and workout plan that your doctor told you about. Check your blood sugar as you have been told by your doctor. Do not drive if your blood sugar has been low. There is a greater chance of you having a crash. control pills may not work as well to prevent . If you take control pills, you may need to switch to another type of hormone-based control like a vaginal ring if your doctor tells you to. If another type of hormone-based control is not an option, use some other kind of control also, like a condom. Do this for 4 weeks after starting this drug and for 4 weeks each time the dose is raised. This drug may prevent other drugs taken by mouth from getting into the body. If you take other drugs by mouth, you may need to take them at some other time than this drug. Talk with your doctor. It may be harder to control blood sugar during times of stress such as fever, infection, injury, or surgery. A change in physical activity, exercise, or diet may also affect blood sugar. Talk with your doctor before you drink alcohol. Do not share with another person even if the needle has been changed. Sharing your tray or pen may pass infections from one person to another. This includes infections you may not know you have. If you cannot drink liquids by mouth or if you have upset stomach, throwing up, or diarrhea that does not go away; you need to avoid getting dehydrated. Contact your doctor to find out what to do. Dehydration may lead to new or worse kidney problems. A severe and sometimes deadly pancreas problem (pancreatitis) has happened with other drugs like this one. Tell your doctor if you are , plan on getting , or are breast-feeding. You will need to talk about the benefits and risks to you and the baby. What are some side effects that I need to call my doctor about right away? WARNING/CAUTION: Even though it may be rare, some people may have very bad and sometimes deadly side effects when taking a drug. Tell your doctor or get medical help right away if you have any of the following signs or symptoms that may be related to a very bad side effect: Signs of an allergic reaction, like rash; hives; itching; red, swollen, blistered, or peeling skin with or without fever; wheezing; tightness in the chest or throat; trouble breathing, swallowing, or talking; unusual hoarseness; or swelling of the mouth, face, lips, tongue, or throat. Signs of kidney problems like unable to pass urine, change in how much urine is passed, blood in the urine, or a big weight gain. Signs of gallbladder problems like pain in the upper right belly area, right shoulder area, or between the shoulder blades; yellow skin or eyes; fever with chills; bloating; or very upset stomach or throwing up. Signs of a pancreas problem (pancreatitis) like very bad stomach pain, very bad back pain, or very bad upset stomach or throwing up. Dizziness or passing out. A fast heartbeat. Change in eyesight. Low blood sugar can happen. The chance may be raised when this drug is used with other drugs for diabetes. Signs may be dizziness, headache, feeling sleepy or weak, shaking, fast heartbeat, confusion, hunger, or sweating. Call your doctor right away if you have any of these signs. Follow what you have been told to do for low blood sugar. This may include taking glucose tablets, liquid glucose, or some fruit juices. What are some other side effects of this drug? All drugs may cause side effects. However, many people have no side effects or only have minor side effects. Call your doctor or get medical help if any of these side effects or any other side effects bother you or do not go away: Constipation, diarrhea, stomach pain, upset stomach, throwing up, or feeling less hungry. Heartburn. These are not all of the side effects that may occur. If you have questions about side effects, call your doctor. Call your doctor for medical advice about side effects. You may report side effects to your national health agency. How is this drug best taken? Use this drug as ordered by your doctor. Read all information given to you. Follow all instructions closely. It is given as a shot into the fatty part of the skin on the top of the thigh, belly area, or upper arm. If you will be giving yourself the shot, your doctor or nurse will teach you how to give the shot. Keep taking this drug as you have been told by your doctor or other health care provider, even if you feel well. Take the same day each week. Move site where you give the shot each time. Take with or without food. Wash your hands before and after use. Do not use if the solution is leaking or has particles. This drug is colorless to a faint yellow. Do not use if the solution changes color. If you are also using insulin, you may inject this drug and the insulin in the same area of the body but not right next to each other. Do not mix this drug in the same syringe with insulin. Do not move this drug from the pen to a syringe. Each pen is for one use only. Throw away any part of the used pen after the dose is given. Throw away needles in a needle/sharp disposal box. Do not reuse needles or other items. When the box is full, follow all local rules for getting rid of it. Talk with a doctor or pharmacist if you have any questions. What do I do if I miss a dose? If it is within 4 days after the missed dose, take the missed dose and go back to your normal day. If it has been more than 4 days since the missed dose, skip the missed dose and go back to your normal day. Do not take 2 doses at the same time or extra doses. How do I store and/or throw out this drug? Store in a refrigerator. Do not freeze. Do not use if it has been frozen. If needed, each pen may be stored at room temperature for up to 21 days. If you store at room temperature, throw away any part not used after 21 days. Protect from heat. Store in the original container to protect from light. Keep all drugs in a safe place. Keep all drugs out of the reach of children and pets. Throw away unused or drugs. Do not flush down a toilet or pour down a drain unless you are told to do so. Check with your pharmacist if you have questions about the best way to throw out drugs. There may be drug take-back programs in your area. General drug facts If your symptoms or health problems do not get better or if they become worse, call your doctor. Do not share your drugs with others and do not take anyone else's drugs. Some drugs may have another patient information leaflet. If you have any questions about this drug, please talk with your doctor, nurse, pharmacist, or other health care provider. If you think there has been an overdose, call your poison control center or get medical care right away. Be ready to tell or show what was taken, how much, and when it happened. Last Reviewed [id number] Consumer Information Use and Disclaimer This generalized information is a limited summary of diagnosis, treatment, and/or medication information. It is not meant to be comprehensive and should be used as a tool to help the user understand and/or assess potential diagnostic and treatment options. It does NOT include all information about conditions, treatments, medications, side effects, or risks that may apply to a specific patient. It is not intended to be medical advice or a substitute for the medical advice, diagnosis, or treatment of a health care provider based on the health care provider's examination and assessment of a patient's specific and unique circumstances. Patients must speak with a health care provider for complete information about their health, medical questions, and treatment options, including any risks or benefits regarding use of medications. This information does not endorse any treatments or medications as safe, effective, or approved for treating a specific patient. [employer] and its affiliates disclaim any warranty or liability relating to this information or the use thereof. The use of this information is governed by the Terms of Use, available at https://[email or web address]/en/k now/emlbqufh-wngaotrhhfpfq-nymoe. My opinion 3 hour Rule: -last meal /snack 3 hours before sleeping ,but mostly try to be done by 7 pm --eat Rich Breakfast, high in protein hard boiled eggs/protein drinks - At least 3 hours break between each meals ,except water --sleep 7 hours at night , that means going to bed early -- drink only water ( no soda or juices) /no Alcohol consumption --cut down on coffee consumption if consuming high amounts Website :You can visit to web site for low carb recipe information as well as visual guide to low carb food: Https://www.dietdoctor.com/ ( visual guide for low carb diet) Limit carb consumption to 80- 100 grams per day. Goals: formal exercise 2-5 x/week as tolerated, start with 10 mins/day to goal of 30 minutes ( -- for exercise, you should shoot for a goal of >150 min per week initially. Depending at what level you are starting, that may seem like an unachievable task. However, the best plan is to just begin to walk or bike or do another activity that you like and track your steps per day. You do not need to pay attention to the time, but you do need to try to increase your exercise every 3 weeks. Other strength exercises, using light weights or training bands may also be useful, especially when combined with regular aerobic exercise. Studies have shown that >200min per week is best to maintain weight loss, so that would be the overall end goal.) Have 3 meals a day-protein source with each meal (structured meal planning) Food journal daily and bring it to all appointments If you want you can REPLACE one of your meals with a liquid meal or frozen meal. This is easy to start and may help with your weight. 1. Liquid meal replacement (Boost, Ensure) 2. Frozen meal (Healthy Choice, Lean Cuisine - sodium under 650mg, can always add veggies to the meal) 3. Powdered protein (Premier Protein) or meal replacement (I like a plant based meal replacement called [employer] Nutrition - can mix w froz berries and almond milk) -- IN GENERAL - suggestions based on important of our sleep cycle called circadian rhythm and its influence on our gut microbiota and overall health tragetory 1) EAT MOST OF YOUR FOOD IN AM AND EARLY PM 2) NO EATING AT NIGHT 3) EXERCISE DURING DAY 4) BE CONSISTENT WITH MEAL STRUCTURE ie Meals at same time during the day. -- keep record of your food intake - it is easier for us to understand your eating habits and food preferences, looking into the amounts of protein, carbs, and fat in your diet. Good examples of apps to track calories are [employer], LOSE IT. Some patient have found FOODUCATE to help with decisions around food, however choose apps that best suits you. A Beginner s Guide to Healthy Meal Prep How to set yourself up for healthy eating success [employer] Twitter Linkedin Pinterest Email If your plan to churn out healthy homemade dinners all week tends to come completely unraveled by , you re not alone. Healthy eating can easily fall by the wayside when you re juggling a busy schedule and lots of responsibilities. One trick that many healthy eaters swear by to save time and keep them on track? Meal prepping. If what immediately comes to mind is an image of bland chicken breast, rice and green beans perfectly portioned out into a week s worth of containers, try not to give up on the idea just yet. While that s one way to meal prep, it certainly isn t the only way. In fact, there s no one magic formula for meal prep -- and that s the beauty of it. It s a strategy that can be adapted to your unique schedule and lifestyle to help you become more efficient in the kitchen. How meal prep helps Meal prepping simply means preparing or batch-cooking meals, snacks or ingredients ahead of time, to make healthy eating easier during your busier days. For one person that might mean making a week s worth of breakfasts and lunches that they can reheat at work. For another, it might mean just chopping up some extra veggies and making a homemade salad dressing to use throughout the week. You can quickly make multiple days worth of food and then not worry about meals the rest of the week, explains registered dietitian Mirella Tom, MS, RDN, LD. And, knowing you have something waiting in the fridge might make you less likely to swing through the drive-thru for an emergency lunch or dinner. It s also a fantastic way to mix things up and get more variety in your diet, Vaishali says, because it forces you to plan ahead and brainstorm your meals in advance, rather than relying on your ldsxs-ofg-puca meals in a pinch. Whatever your meal prep style or reason, here s how to get started. Step 1: Think storage Before you even start thinking about what you re going to make, it s important think about how you re going to keep everything fresh and organized. My best recommendation is to get good-quality, airtight, microwave- and aboriginal ceremonial celebrant-safe containers, Vaishali says. Good-quality containers will not have to be replaced for a long time, so it s worth the money to get a good set you will love. Make sure that whatever you get includes a variety of sized containers, including some small ones to store sauces and dressing separately (because no one likes a soggy salad). Step 2: Make a game plan Next, Vaishali suggests picking a day and time that you will dedicate to preparing meals so that it becomes routine. Make sure it s a day where you have a few hours to spend, she says. Most of my patients love Saturday for this. If you re grimacing at the thought of giving up a good chunk of your jerry weekend to this cause, Vaishali recommends choosing a day earlier in the week to plan and do your grocery shopping. Step 3: Pick your recipes Now it s time to choose what you re going to make and write up a shopping list. Your meals can be specific recipes or just combinations of simple proteins, whole grains and vegetables. Vaishali offers these tips for making good picks: Make sure any recipes you pick are well-rounded and include vegetables, lean proteins and whole grains. If any of your recipes contain excessive amounts of fat, sugar and salt, plan to make substitutions or reduce the amount of salt, sugar or oil in the recipe. Start simple. Choose meals that are easy to prepare and don t contain a ton of ingredients. (Now s not the time to attempt Dustin Stoner.) Don t let yourself get overwhelmed with complicated recipes when you re just getting started, Vaishali says. Choose ingredients with a variety of colors and textures. Different textures will keep your palate interested, and different colors will give you a variety of micronutrients that will benefit your body. Consider meals where you can reuse ingredients. For example, make a batch of baked chicken, and then serve it one day with steamed broccoli and a sweet potato, and another day over greens with some whole-grain crackers. Look for recipes that can be cooked in a slow cooker or pressure cooker to save even more time. Avoid making the same meal two weeks in a row. Even your favorite recipe will get old if you eat it too often. Some healthy meal prep ideas for the week include: Peanut butter sandwich on 100% whole grain bread with a small bag of baby carrots. Chicken vegetable stir correa over brown rice. Burrito bowl with brown rice or cauliflower rice; black beans; tomatoes; saut ed peppers and onions; a few thin slice of avocado and a sprinkle of cheese. Lentil vegetable soup. Roasted chicken, sweet potato and cauliflower or [place]oh sprouts. Step 4: Ready, set, go! Ready to get to work? Make your time in the kitchen as enjoyable as possible by cranking up some tunes, or putting on an audiobook or podcast. Or, invite a family member or friend to join you. Once your food is made, cooled and transferred into airtight containers, it should last about three to four days in the refrigerator. But if a recipe makes more than you can eat in that time - or if you get sick of eating one of the meals you prepped - just pop the remaining servings into the freezer. In a week or two, it ll be a quick option when you don t feel like cooking, Vaishali says. Speaking of the freezer, Vaishali recommends keeping frozen berries and a variety of frozen vegetables on hand, too. They re pre-washed, pre-chopped and can be microwave-steamed in a pinch. Remember, meal prep isn t rea-fe-crzcksc, and there s no definitive right or wrong way to do it. So find what works for you, and don t worry about being perfect. A few small steps done in advance can go a long way [email or web address]-ejxihlria-[email or web address]-[email or web address]-ltimsap-[email or web address] -[email or web address]/ documented in this encounter [facility] 06-28-2023 History of Present illness Narrative BMI Obesity Medicine Consult This Team Access Model visit is a virtual visit. It required patient-provider interaction for the medical decision making as documented below. Consent was obtained to complete today's distance health visit. I have communicated my name and active licensure. The patient's identity and physical location were verified at the time of this visit. Either the patient or their legal manufacturers service representative has been informed of the risks and benefits of -- and alternatives to -- treatment through a remote evaluation and consents to proceed with the evaluation remotely. 06/28/[address] Emil Liang ref. provider found for an opinion regarding Obesity. My final recommendations will be communicated back to the requesting physician by way of shared Medical record or letter to requesting physician via US mail. Patient HPI summary: Shelton Rodrigez is a 38 year old female with obesity who presents to the [facility] for an initial evaluation of her obesity and past medical history of intervertebral disc disorder with radiculopathy of lumbar region, sciatica, hypertension, mixed hyperlipidemia, radiculopathy lumbar region, obstructive sleep apnea on CPAP, diabetes mellitus (HCC), subclinical hypothyroidism, controlled type 2 diabetes mellitus without complication, without long-term current use of insulin, dry eye syndrome of bilateral lacrimal glands, arthritis, lumbar spondylosis, intractable back pain, general anxiety disorder, depressive disorder, major depressive disorder with single episode in remission, vitamin D deficiency, and is interested in behavioral , pharmacological, and non-surgical weight loss approaches. Primary reason for wanting obesity treatment : challenges losing weight, past December bulging back disc and using a walker and wheelchair and in pain and using various alternate techniques to decrease pain and improve health and does not want to use walker, or wheelchair. Reports highest weight 580 -5 years ago; lowest weight 3 years ago 420 lbs. Reports 3 years ago GI illness where could not eat and lost 100 lbs. No determination of what caused the gi -stress? Overall goal: 400 lbs lose approximately 89 lbs to begin; Bariatric Surgery discussion: Consult placed Weight History: She reports a strong family history of obesity and childhood onset weight gain. She states her weight gain is related to the following factors, including trauma, unstable household, nutrition, picky eater, eating comfort. Weight Graph: (please see graph scanned in chart) Medications: Bupropion- for smoking and anxiety years ago helped with smoking cessation and no real benefit for anxiety /depression was on for 5 months; Metformin 1000 mg tablet 1 tablet by mouth twice daily with meals-Per PCP Diet: Food preparation and grocery shopping: patient and fiance' cooks Quality of diet: 24hr recall suggests combination of both healthy and unhealthy diet. Characterization of diet:Structured, Unstructured, unhealthy snacking, excessive cravings, evening snacking, and skip meals. 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 Recurrent episodes of binge eating. An episode is characterized by: 1. Eating a larger amount of food than normal during a short period of time (within any two hour period): y 2. Lack of control over eating during the binge episode (i.e. the feeling that one cannot stop eating): n B. Binge eating episodes are associated with three or more of the followin. Eating until feeling uncomfortably full: y 2. Eating large amounts of food when not physically hungry: n 3. Eating much more rapidly than normal: n 4. Eating alone because you are embarrassed by how much you're eating: n 5. Feeling disgusted, depressed, or guilty after overeating: y THREE ASSOCIATED SYMPTOMS MET? y=3 C. Marked distress regarding binge eating is present: n D. Binge eating occurs, on average, at least 1 days a week for three months: n E. The binge eating is not associated with the regular use of inappropriate compensatory behavior (i.e. purging, excessive exercise, etc.) and does not occur exclusively during the course of bulimia nervosa or anorexia nervosa.n PATIENT MEETS ABOVE CRITERIA FOR BINGE EATING DISORDER: y B: 9:30-10 am - protein drink - equate fruit- berries, banana, and yogurt - mauritian yogurt flavored; overnight oats L: skip or 1 pm - egg sandwich - bread bagel or wheat toast, cheese and ketchup ; sandwich- lettuce cheese and hummus bread wheat toast or white bread; D:6:30 pm - leyda, no meat of any kind, lettuce , tomato, beans, pasta, (beans, nuts protein shakes, yogurt,) Snacks: graze during day-cottage cheese, crackers, hummus, fruit, smoothie, spinach - chips, cookies; ice cream Beverages: Water:48 ounces Coffee/tea: Coffee: no Tea: diet ice tea - 16 ounces - 1 Alcohol: denies/no Soda: diet 1 can day apprx. 2 Diet History: Past weight loss attempts? commercial diets and self-directed. Exercise: Regular exercise: aqua therapy 1-2 weeks Strength/resistance exercise:No Barriers to regular exercise? Physical challenges, back pain, discouraged, depression Work-related activity:Sedentary. ?Sleep: Duration: 8 hours. HAILEY YES ; CPAP YES tested 2 years ago Quality:fair, Few awakenings :Sleep-wake cycle disruption:No ??Stress: Some, Cause:work, financial, personal and physical pain Obesity Related Comorbidities: Prior Weight Loss Surgery:No ACTIVE PROBLEM LIST Diabetes Mellitus (Hcc) Hypertension Morbid Obesity (Hcc) Subclinical Hypothyroidism Obstructive Sleep Apnea On Cpap Dry Eye Syndrome of Bilateral Lacrimal Glands Generalized Anxiety Disorder Obesity, Class III, BMI >= 40 Depressive Disorder Intervertebral Disc Disorder With Radiculopathy of Lumbar Region Arthritis Controlled Type 2 Diabetes Mellitus Without Complication, Without Long-Term Current Use of Insulin (Hcc) Intractable Back Pain Major Depressive Disorder With Single Episode, in Remission (Hcc) Sciatica Mixed Hyperlipidemia Vitamin D Deficiency Radiculopathy, Lumbar Region Lumbar Spondylosis PAST SURGICAL HISTORY Procedure Laterality Date NONE Obesity ROS/ FHx GEN: Fatigue:yes CV: h/o palpitations/cardiac arrhythmia, CP:hypertension PULM: Asthma:No GI: GERD:yes, ; Gallstones: No; Fatty liver disease:No; H/o hernia:No Pancreatitis: no MSK: Joint Pain:multiple sites and bulging back disc : Nephrolithiasis:No; Stress incontinence:No Symptoms of PCOS(women):No thyroid disorder, cold intolerance, heat intolerance, DM on oral agent, and Steroids for Chronic Problems NEURO: Migraines/DEY:yes, migraine; H/o seizures: No Glaucoma:No; Cataracts No Symptoms of pseudotumor cerebri:No Diabetes Yes, HTN: Yes, GI: Yes, and Thyroid: Yes Musculoskeletal: yes back problems Psychiatric history: depression and anxiety Medical marijuana: denies Substance use disorder: denies Tobacco: quit - 10 y ears ago, 1/2 ppd - smoked for 10 years; Vaping: no Alcohol: denies Family History Problem Relation Age of Onset Diabetes Father Hypertension Father other (Cancer) Father bladder Obesity Father other (agent [place] illnesses) Father Uterine Cancer Mother Fibromyalgia Mother Depression Mother Osteoporosis Mother Arthritis Mother Hypertension Sister Arthritis Sister No Known Problems Sister Diabetes Maternal Grandmother Uterine Cancer Maternal Grandmother Diabetes Paternal Grandmother Glaucoma No Family History Macular Degen No Family History PREV: PAP Not UTD, Mammogram Not UTD and Colonoscopy n/a Social History Social History Tobacco Use Smoking status: Former Packs/day: 0.50 Years: 10.00 Additional pack years: 0.00 Total pack years: 5.00 Types: Cigarettes Quit date: 09/16/2014 Years since quittin.7 Smokeless tobacco: Never Tobacco comments: smoked x 10 years - quit 2014 Vaping Use Vaping Use: Never used Substance Use Topics Alcohol use: Not Currently Comment: 3 drinks per month. 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 Latest known visit with results is: Office Visit on 03/27/2023 Component Date Value Ref Range Status Hemoglobin A1C (POCT) 03/27/2023 6.3 4.2 - 5.6 % Final Impression: Shelton Rodrigez is a 38 year old female with Class III obesity (Body mass index is 78.93 kg/m .) who has childhood onset obesity with gradual weight gain despite several weight loss attempts. The causes of her obesity are multifactorial, biological, psychological and social and environmental. Specific factors include a genetic component related to a strong family of obesity, exposure to weight gain promoting medication(s) , increased consumption of high calorie/process foods, irregular eating patterns , suboptimal physical activity, inadequate sleep duration, and smoking cessation. She has few weight-related medical comorbidities which increase her cardiovascular mortality risk. There are additional metabolic obesity complications including type 2 diabetes mellitus, hypertension, and obstructive sleep apnea. History of obstructive sleep apnea on CPAP. Other medical conditions as above. Regarding her lifestyle, as above, she has several behavioral contributors; her physical activity is non-existent. Overall, it is clear that her quality of life is severely compromised by her weight. It is likely a combination of weight loss therapies will be needed. She appears motivated today. Assessment and plan: ASSESSMENT/PLAN: 1. Obesity, Class III, BMI >= 40 - ICD9: 278.01, ICD10: E66.01 (primary diagnosis) Weight increasing - Behavioral and pharmacological intervention Counseled patient in length recommended begin more consistent meals and mealtimes when low carbohydrate low sugar nutrition and discussed techniques to manage maladaptive eating behaviors and adding resistance exercise. Discussed with patient to increase her protein at least 60 to 70 g daily we also discussed water at least 60 to 80 ounces daily we also provided examples of low-carb low sugar foods and discussed complex carbs increasing fruits and vegetables as well as the role of intermittent fasting. Discussed with patient to avoid processed foods and the effect on not just the metabolism and how it affects weight gain. Discussed with patient to increase cardio exercise add some weights and increase non- exercise activity thermogenesis. Recommended chair exercises, brisk walking, light arm weights, consider water aerobics, try to be up 10 minutes every hour with her walker and to move around. I have also reviewed the possibility using weight loss medications in effort to reduce patient's appetite. I reviewed the different therapeutic options available including phentermine, Qsymia, Contrave, Saxenda, topiramate, metformin, bupropion and Effexor which all been associated weight loss. At this time we agreed that the patient's best option at this point to be: We will see if insurance will cover Mounjaro begin with 2.5 mg subcutaneous weekly injection. - CONSULT TO BARIATRIC SURGERY Education included discussing thyroid C-cell tumor risk including Medullary Thyroid Carcinoma (MTC).Though studies have shown increased risk of medullary cell cancers only in rats. Patient denies family history of MTC and Multiple Endocrine Neoplasia Syndrome type 2 (MEN 2). I discussed that this medication is associated with acute pancreatitis, including fatal and non-fatal hemorrhagic or necrotizing pancreatitis. Pt does not have a hx of pancreatitis. Educated patient to monitor for signs such as persistent severe abdominal pain, sometimes radiating to the back, with or without vomiting. If this occurs, stop medication immediately and go to ER. The most common adverse reactions include nausea, vomiting, diarrhea, constipation and injection site erythema. These may dissipate over time. Helpful tip GLP-1 RA increases beta cell proliferation. Discussed with patient setting 3 small goals that are SMART (Specific, Measurable, Achievable, Relevant, and Time-Bound), to be evaluated at her next visit. I reviewed with the patient the pros and cons of taking these medications. In addition discussed with patient to have at least 60 g of protein daily and at least 60-80 ounces of water daily. We also discussed monitoring blood pressure and reporting anything over 140/90 or greater. Patient verbalized understanding all questions and concerns addressed. 2. Major depressive disorder with single episode, in remission (HCC) - ICD9: 296.25, ICD10: F32.5 New current medications and follow-up with primary care - CONSULT TO BARIATRIC SURGERY 3. Vitamin D deficiency - ICD9: 268.9, ICD10: E55.9 Foods rich in vitamin D - CONSULT TO BARIATRIC SURGERY - TIRZEPATIDE 2.5 MG/0.5 ML SUBCUTANEOUS PEN INJECTOR 4. Subclinical hypothyroidism - ICD9: 244.8, ICD10: E03.8 - Instructed patient on importance of taking on an empty stomach either first thing in the morning or at bedtime. - CONSULT TO BARIATRIC SURGERY 5. Obstructive sleep apnea on CPAP - ICD9: 327.23, ICD10: G47.33 Continue using CPAP nightly - CONSULT TO BARIATRIC SURGERY 6. Mixed hyperlipidemia - ICD9: 272.2, ICD10: E78.2 - Controlled - Counseled on healthy diet and regular exercise - Discussed need for and benefit of weight loss. BMI 78.93 kg/(m^2) - CONSULT TO BARIATRIC SURGERY - TIRZEPATIDE 2.5 MG/0.5 ML SUBCUTANEOUS PEN INJECTOR 7. Primary hypertension - ICD9: 401.9, ICD10: I10 - Controlled - Recommend home blood pressure monitoring, to bring results to next visit - Encouraged sodium restriction, DASH or Mediterranean diet - Recommend regular aerobic exercise - Discussed need for and benefit of weight loss. BMI 78.93 kg/(m^2) - Reviewed risks of hypertension and principles of treatment - CONSULT TO BARIATRIC SURGERY - TIRZEPATIDE 2.5 MG/0.5 ML SUBCUTANEOUS PEN INJECTOR 8. Dietary counseling and surveillance - ICD9: V65.3, ICD10: Z71.3 Reviewed principles of energy metabolism caloric intake and expenditure and rationale for treatment program. Also reinforced need for reduced calorie low-fat nutrition and increase physical activity. - CONSULT TO BARIATRIC SURGERY 9. BMI 70 and over, adult (HCC) - ICD9: V85.45, ICD10: Z68.45 Weight increasing Begin pharmacological behavioral intervention Today's BMI 78.93 - CONSULT TO BARIATRIC SURGERY - TIRZEPATIDE 2.5 MG/0.5 ML SUBCUTANEOUS PEN INJECTOR 10. Type 2 diabetes mellitus with other specified complication, without long-term current use of insulin (HCC) - ICD9: 250.80, ICD10: E11.69 - Uncontrolled - Counseled on healthy diet and regular exercise - Discussed need for and benefit of weight loss. BMI 78.93 kg/(m^2) - TIRZEPATIDE 2.5 MG/0.5 ML SUBCUTANEOUS PEN INJECTOR This note was partially generated using [employer] voice recognition system, and there may be some incorrect words, spellings, and punctuation that were not noted in checking the note before saving. Plan: -- Based on the severity and resistance of the obesity to more conservative weight loss approaches, I believe a open to all options intervention is the best and most appropriate technician terminal and repeater therapeutic option. -- We discussed several strategies to track food intake and increase mindfulness around eating. She was counseled on Food records, Meal replacements, Time restricted feeding, Intermittent fasting, Low carbohydrate diet, and Ketogenic diet -- Encouraged the patient to improve her physical activity. Although cardiovascular exercise is most beneficial for weight loss initially, we discussed healthy muscle from a combination of resistance training and cardiovascular exercise is the best technician terminal and repeater plan. An overall goal of 200 minutes per week of exercise has been effective in weight loss and maintenance. -- follow-up visit for management of above interventions 5A's- Assess: I assessed behavioral health risk/factors affecting --- Asked about/assess behavioral health risk(s) and factors affecting choice of behavior change goals --- somewhat sedentry lifestyle ---?snacking ---Lack of exercise Advise: clear, specific, personalized behavior change advice. ---I gave very clear, specific, and personalized behavior change adviced, including information about personal health harms and benefits. Agree: Patient agrees with selected appropriate treatment goals and methods to change behavior Assist: Provided IBT w self-help, handouts, teaching skills and support Using behavior change techniques with self-help and Counseling in achieving Goals. Also discussed supplementing with adjunctive medical treatments when appropriate. Arrange: follow up scheduled, handouts given to patient. Luz Austin APRN, DNP I spent a total of 70 minutes on the date of the service which included preparing to see the patient, [id number] patient care, completing clinical documentation, obtaining and/or reviewing separately obtained history, performing a medically appropriate examination, counseling and educating the patient/family/caregiver, ordering medications, tests, or procedures, communicating with other HCPs (not separately reported), independently interpreting results (not separately reported), communicating results to the patient/family/caregiver, and care coordination (not separately reported). documented in this encounter [facility] 06-26-2023 Note HNO ID: [id number] Author: Keo Colón, PhD Service: ? Author Type: Physician Type: Progress Notes Filed: 06/26/2023 10:00 PM Note Text: [facility] MIND/BODY GROUP - SESSION 6 Shelton Rodrigez 06/26/2023 [id number] Provider: Keo Colón, PhD Setting: The patient consented to a virtual visit and their location was confirmed. Interventions: Group check-in with [employer]. Reviewed Relaxation practice over the week. Reviewed Cognitive Restructuring homework. Introduction to Mindfulness. Practiced mindfulness meditation. Practiced mindfulness eating exercise. The patient's participation was engaged. Patient notes feelings of gratitude during mindful eating exercise as boy friend cut up an orange for her. She is aware of telling herself to remain in her body when experiencing overwhelm. Current Medication from Chart: Current Outpatient Medications Medication Sig Dispense Refill atorvastatin (LIPITOR) 10 mg tablet Take 1 tablet by mouth once daily. 30 tablet 3 Blood Pressure Kit-Extra Large kit 1 Each once daily. 1 Kit 0 blood sugar diagnostic (BLOOD GLUCOSE TEST) test strip Test blood sugar(s) 1 times daily. Dx: Type 2 DM - Controlled E11.9 Insulin: No 50 Strip 11 Blood-Glucose Meter monitoring kit Glucose Meter of Choice - Kit - Dx: Type 2 DM - Controlled E11.9 1 Each 0 busPIRone (BUSPAR) 7.5 mg tablet Take 1 tablet by mouth twice daily. 180 tablet 1 cholecalciferol (VITAMIN D3) 1,000 unit tab tablet Take 1 tablet by mouth once daily. 30 tablet 3 Cholecalciferol, Vitamin D3, (VITAMIN D) 25 mcg (1,000 unit) cap Take 1 capsule by mouth once daily. 30 capsule 2 CPAP/BIPAP/OTHER [place]opap [id number] [facility] [place] [employer] [place] [employer] [place] ([phone]) 1 Each 0 diclofenac, EC, (VOLTAREN) 75 mg EC tablet Take 1 tablet by mouth twice daily. 60 tablet 5 FLUoxetine (PROZAC) 40 mg capsule Take 1 capsule by mouth once daily. 90 capsule 3 gabapentin (NEURONTIN) 600 mg tablet Take 1 tablet by mouth three times daily for 180 days. Week 1: 400mg in the morning, 400mg in the afternoon and 600mg at bedtime Week 2: 400mg in the morning, 600mg in the afternoon and 600mg at bedtime Week 3: 600mg in the morning, 600mg in the afternoon and 600mg at bedtime 90 tablet 5 hydroCHLOROthiazide (HYDRODIURIL, ESIDRIX) 25 mg tablet Take 1 tablet by mouth once daily. 30 tablet 3 hydrOXYzine HCl (ATARAX) 25 mg tablet Take 1 tablet by mouth three times daily as needed for anxiety. May take 1/2 tablet 20 tablet 1 Lancets lancets Test blood sugar(s) 1 times daily. Dx: Type 2 DM - Controlled E11.9 Insulin: No 100 Each 11 lisinopril (ZESTRIL, PRINIVIL) 40 mg tablet Take 1 tablet by mouth once daily. 90 tablet 0 metFORMIN (GLUCOPHAGE) 1,000 mg tablet Take 1 tablet by mouth twice daily with meals. 60 tablet 3 Norethindrone, Contraceptive, 0.35 mg tablet Take 0.35 mg by mouth once daily. No current facility-administered medications for this visit. Diagnosis: CHAYITO MDD rec (mod) Homework: Practice relaxation response twice daily and mini-relaxers 's throughout the day. Monitor relaxation practice and symptoms with diary sheets. Daily entry in Appreciation Journal with [employer]. Practice 3 activities mindfully including eating 1 meal mindfully and record in Appreciation Journal. Read literature provided regarding Mindfulness. Keo Colón, PhD [facility] 06-26-2023 History of Present illness Narrative [facility] MIND/BODY GROUP - SESSION 6 Shelton Rodrigez 06/26/2023 [id number] Provider: Keo Colón, PhD Setting: The patient consented to a virtual visit and their location was confirmed. Interventions: Group check-in with [employer]. Reviewed Relaxation practice over the week. Reviewed Cognitive Restructuring homework. Introduction to Mindfulness. Practiced mindfulness meditation. Practiced mindfulness eating exercise. The patient's participation was engaged. Patient notes feelings of gratitude during mindful eating exercise as boy friend cut up an orange for her. She is aware of telling herself to remain in her body when experiencing overwhelm. Current Medication from Chart: Current Outpatient Medications Medication Sig Dispense Refill atorvastatin (LIPITOR) 10 mg tablet Take 1 tablet by mouth once daily. 30 tablet 3 Blood Pressure Kit-Extra Large kit 1 Each once daily. 1 Kit 0 blood sugar diagnostic (BLOOD GLUCOSE TEST) test strip Test blood sugar(s) 1 times daily. Dx: Type 2 DM - Controlled E11.9 Insulin: No 50 Strip 11 Blood-Glucose Meter monitoring kit Glucose Meter of Choice - Kit - Dx: Type 2 DM - Controlled E11.9 1 Each 0 busPIRone (BUSPAR) 7.5 mg tablet Take 1 tablet by mouth twice daily. 180 tablet 1 cholecalciferol (VITAMIN D3) 1,000 unit tab tablet Take 1 tablet by mouth once daily. 30 tablet 3 Cholecalciferol, Vitamin D3, (VITAMIN D) 25 mcg (1,000 unit) cap Take 1 capsule by mouth once daily. 30 capsule 2 CPAP/BIPAP/OTHER [place]opap [id number] [facility] [place] [employer] rentals ([phone]) 1 Each 0 diclofenac, EC, (VOLTAREN) 75 mg EC tablet Take 1 tablet by mouth twice daily. 60 tablet 5 FLUoxetine (PROZAC) 40 mg capsule Take 1 capsule by mouth once daily. 90 capsule 3 gabapentin (NEURONTIN) 600 mg tablet Take 1 tablet by mouth three times daily for 180 days. Week 1: 400mg in the morning, 400mg in the afternoon and 600mg at bedtime Week 2: 400mg in the morning, 600mg in the afternoon and 600mg at bedtime Week 3: 600mg in the morning, 600mg in the afternoon and 600mg at bedtime 90 tablet 5 hydroCHLOROthiazide (HYDRODIURIL, ESIDRIX) 25 mg tablet Take 1 tablet by mouth once daily. 30 tablet 3 hydrOXYzine HCl (ATARAX) 25 mg tablet Take 1 tablet by mouth three times daily as needed for anxiety. May take 1/2 tablet 20 tablet 1 Lancets lancets Test blood sugar(s) 1 times daily. Dx: Type 2 DM - Controlled E11.9 Insulin: No 100 Each 11 lisinopril (ZESTRIL, PRINIVIL) 40 mg tablet Take 1 tablet by mouth once daily. 90 tablet 0 metFORMIN (GLUCOPHAGE) 1,000 mg tablet Take 1 tablet by mouth twice daily with meals. 60 tablet 3 Norethindrone, Contraceptive, 0.35 mg tablet Take 0.35 mg by mouth once daily. No current facility-administered medications for this visit. Diagnosis: CHAYITO MDD rec (mod) Homework: Practice relaxation response twice daily and mini-relaxers 's throughout the day. Monitor relaxation practice and symptoms with diary sheets. Daily entry in Appreciation Journal with [employer]. Practice 3 activities mindfully including eating 1 meal mindfully and record in Appreciation Journal. Read literature provided regarding Mindfulness. Keo Colón, PhD documented in this encounter [facility] 06-25-2023 Note HNO ID: [id number] Author: Evangelina Bess LPN Service: ? Author Type: LICENSED NURSE Type: Progress Notes Filed: 06/25/2023 9:18 AM Note Text: Review of Systems Constitutional: Negative for activity change, chills, fever and unexpected weight change. Genitourinary: Negative for difficulty urinating. Musculoskeletal: Positive for back pain, gait problem and myalgias. Negative for arthralgias, joint swelling, neck pain and neck stiffness. Neurological: Positive for weakness and numbness. Negative for headaches. Psychiatric/Behavioral: Positive for dysphoric mood and sleep disturbance. Negative for suicidal ideas. The patient is nervous/anxious. [facility] 06-25-2023 Note HNO ID: [id number] Author: Johnny Garcia MD Service: ? Author Type: Physician Type: Progress Notes Filed: 06/25/2023 9:18 AM Note Text: [facility] Today's Date: 06/25/2023 Last Visit: 04/18/23 Name: Shelton Rodrigez : 1985 Purpose: Follow-up Patient Evaluation - This is an established patient, returning today for continued evaluation and management of the chief complaint noted below Chief complaint: low back and right leg pain Referring Clinician: Pertinent Past Medical History: carpal tunnel syndrome, depression, diabetes, anxiety, hypertension, HAILEY, hypothyroidism, morbid obesity Pertinent Past Surgeries: None Plan at last visit: Increase gabapentin from 400 TID to 600 TID - Stop motrin, start diclofenac - Continue Tylenol 1000mg TID PRN for breakthrough Interval History: Overall pain and functional disability since last visit: Better New Complaints since last visit: No Her pain is significantly improved since her last visit, aquatic physical therapy has been very beneficial. Patient states it is a different world . She is tolerating diclofenac without issue. She is tolerating gabapentin increased to 600 mg 3 times daily, though she does note occasional blurry vision that she is able to tolerate as she has seen such benefit from the medication. Of note she recently transition her aqua physical therapy care from a [facility] facility to an outside facility as it is more convenient to her home. Current Pain Medications: Neuropathics: Gabapentin 600 TID NSAIDS: Diclofenac Opioids (when applicable): Date last refilled: Quantity supplied: Quantity remaining: Last taken: Muscle Relaxants: Topicals: Other Prescription or OTC Pain Medications: Tylenol Tolerating Medication: Yes Medications helping improve ADL's and Self-care: Yes Current Therapies Attended: Physical Therapy: 9 visits have been attended. Treatment dates: Between 04/25/23 and present. Studies Obtained (when obtained, relevant findings reported below): None Notable Events During Course of Treatment: 04/18/23 - Initial HPI (Obtained by OMERO Mcgrath). The pain is located primarily in the low back pain. This has been present since the end of December 2022. The patient denies to trauma that initiated their pain but feels that she threw out her back doing housework. The pain is constant and described as Burning;Numbness;Tightness;Tinglin g;Shooting. The patient admits the presence of radicular pain, numbness, and tingling down the right lower extremity, along the lateral aspect, to the middle 3 toes on the right that is intermittant. Exacerbating factors include standing and walking, especially going up the stairs. Relieving factors include medications, ice , repositioning, and massage. This interferes with physical activity, walking, cooking, household cleaning, lifting, and social activities. Treatments tried: completed one physical therapy appointment and then was advised to stop due to the worsening of symptoms, NSAIDs (for 6 weeks or longer), Other medications (see below), Provider directed home exercise program (at least 3-4 times per weeks for 6 weeks or greater), and TENS Unit. The patient reports difficulty with bowel or bladder control, unintentional weight loss, and fevers, chills, or night sweats. Data Reviewed: PAIN PROCEDURES: DATE PROCEDURE IMPROVEMENT To date, no interventional pain management procedures performed at this practice. MEDICATIONS Taken TO DATE (for the chief complaint(s)): Membrane Stabilizers: Neurontin (Gabapentin): Beneficial NSAIDS: Voltaren (Diclofenac): Beneficial Opioids: Oxycodone (eg Percocet): Discontinued, acute course after initial injury Muscle Relaxants: none Topicals: None Other Prescription or OTC Pain Medications: Tylenol (Acetaminophen): Beneficial Current Anti-depressants or Mood-Stabilizers: Prozac Current Anti-Coagulants: None Allergies: ALLERGIES Allergen Reactions Penicillins Hives INTAKE PAIN ASSESSMENT 06/18/2023 06/18/2023 Are you having pain associated with your visit today? Yes, Provider notified No Pain Scales Verbal (Numeric Rating or Visual Analog Scale) - Pain Level 0 - Pain Location Back-Lower - Description Aching;Shooting;Burning - Duration Amount of Time - - Duration Units Months - Frequency Intermittent - Intervention/Comfort measure Reposition;Relaxation;Medication - Comments - - Pain Assessment - - Compliance: PDMP website checked and validated on 06/25/2023 by Johnny Garcia MD All prescriptions have (more content not included)... [facility] 06-25-2023 History of Present illness Narrative Review of Systems Constitutional: Negative for activity change, chills, fever and unexpected weight change. Genitourinary: Negative for difficulty urinating. Musculoskeletal: Positive for back pain, gait problem and myalgias. Negative for arthralgias, joint swelling, neck pain and neck stiffness. Neurological: Positive for weakness and numbness. Negative for headaches. Psychiatric/Behavioral: Positive for dysphoric mood and sleep disturbance. Negative for suicidal ideas. The patient is nervous/anxious. Images from the original note were not included. [facility] Today's Date: 06/25/2023 Last Visit: 04/18/23 Name: Shelton Rodrigez : 1985 Purpose: Follow-up Patient Evaluation - This is an established patient, returning today for continued evaluation and management of the chief complaint noted below Chief complaint: low back and right leg pain Referring Clinician: Pertinent Past Medical History: carpal tunnel syndrome, depression, diabetes, anxiety, hypertension, HAILEY, hypothyroidism, morbid obesity Pertinent Past Surgeries: None Plan at last visit: Increase gabapentin from 400 TID to 600 TID - Stop motrin, start diclofenac - Continue Tylenol 1000mg TID PRN for breakthrough Interval History: Overall pain and functional disability since last visit: Better New Complaints since last visit: No Her pain is significantly improved since her last visit, aquatic physical therapy has been very beneficial. Patient states it is a different world . She is tolerating diclofenac without issue. She is tolerating gabapentin increased to 600 mg 3 times daily, though she does note occasional blurry vision that she is able to tolerate as she has seen such benefit from the medication. Of note she recently transition [facility] care from a [facility] facility to an outside facility as it is more convenient to her home. Current Pain Medications: Neuropathics: Gabapentin 600 TID NSAIDS: Diclofenac Opioids (when applicable): Date last refilled: Quantity supplied: Quantity remaining: Last taken: Muscle Relaxants: Topicals: Other Prescription or OTC Pain Medications: Tylenol Tolerating Medication: Yes Medications helping improve ADL's and Self-care: Yes Current Therapies Attended: Physical Therapy: 9 visits have been attended. Treatment dates: Between 04/25/23 and present. Studies Obtained (when obtained, relevant findings reported below): None Notable Events During Course of Treatment: 04/18/23 - Initial HPI (Obtained by OMERO Mcgrath). The pain is located primarily in the low back pain. This has been present since the end of December 2022. The patient denies to trauma that initiated their pain but feels that she threw out her back doing housework. The pain is constant and described as Burning;Numbness;Tightness;Tinglin g;Shooting. The patient admits the presence of radicular pain, numbness, and tingling down the right lower extremity, along the lateral aspect, to the middle 3 toes on the right that is intermittant. Exacerbating factors include standing and walking, especially going up the stairs. Relieving factors include medications, ice , repositioning, and massage. This interferes with physical activity, walking, cooking, household cleaning, lifting, and social activities. Treatments tried: completed one physical therapy appointment and then was advised to stop due to the worsening of symptoms, NSAIDs (for 6 weeks or longer), Other medications (see below), Provider directed home exercise program (at least 3-4 times per weeks for 6 weeks or greater), and TENS Unit. The patient reports difficulty with bowel or bladder control, unintentional weight loss, and fevers, chills, or night sweats. Data Reviewed: PAIN PROCEDURES: DATE PROCEDURE IMPROVEMENT To date, no interventional pain management procedures performed at this practice. MEDICATIONS Taken TO DATE (for the chief complaint(s)): Membrane Stabilizers: Neurontin (Gabapentin): Beneficial NSAIDS: Voltaren (Diclofenac): Beneficial Opioids: Oxycodone (eg Percocet): Discontinued, acute course after initial injury Muscle Relaxants: none Topicals: None Other Prescription or OTC Pain Medications: Tylenol (Acetaminophen): Beneficial Current Anti-depressants or Mood-Stabilizers: Prozac Current Anti-Coagulants: None Allergies: ALLERGIES Allergen Reactions Penicillins Hives INTAKE PAIN ASSESSMENT 06/18/2023 06/18/2023 Are you having pain associated with your visit today? Yes, Provider notified No Pain Scales Verbal (Numeric Rating or Visual Analog Scale) - Pain Level 0 - Pain Location Back-Lower - Description Aching;Shooting;Burning - Duration Amount of Time - - Duration Units Months - Frequency Intermittent - Intervention/Comfort measure Reposition;Relaxation;Medication - Comments - - Pain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 30 tablet 3 metFORMIN (GLUCOPHAGE) 1,000 mg tablet Take 1 tablet by mouth twice daily with meals. 60 tablet 3 hydroCHLOROthiazide (HYDRODIURIL, ESIDRIX) 25 mg tablet Take 1 tablet by mouth once daily. 30 tablet 3 atorvastatin (LIPITOR) 10 mg tablet Take 1 tablet by mouth once daily. 30 tablet 3 lisinopril (ZESTRIL, PRINIVIL) 40 mg tablet Take 1 tablet by mouth once daily. 90 tablet 0 hydrOXYzine HCl (ATARAX) 25 mg tablet Take 1 tablet by mouth three times daily as needed for anxiety. May take 1/2 tablet 20 tablet 1 Cholecalciferol, Vitamin D3, (VITAMIN D) 25 mcg (1,000 unit) cap Take 1 capsule by mouth once daily. 30 capsule 2 Norethindrone, Contraceptive, 0.35 mg tablet Take 0.35 mg by mouth once daily. CPAP/BIPAP/OTHER autopap [id number] Konjekt ([phone]) 1 Each 0 Blood Pressure Kit-Extra Large kit 1 Each once daily. 1 Kit 0 No current facility-administered medications for this visit. Diagnosis: CHAYITO MDD, rec (mod) Homework: Practice relaxation response twice daily (10-20 minutes) and mini 's throughout the day. Monitor relaxation practice and symptoms with diary sheets. Daily entry in appreciation journal with New and Goods. Identify sleep hygiene changes (as needed). Keo Colón, PhD [facility] 06-03-2023 Note HNO ID: [id number] Author: Kelly Andrews PTA Service: ? Author Type: Rig Supervisor Type: Progress Notes Filed: 06/03/2023 7:15 PM Note Text: Episode Visit Count: 8 Therapist That Will Accept/Oversee The Plan Of Care: Sam Garcia Start of Care Date: 04/25/23 Onset Date: 12/15/22 Plan of Care Certification Date: 04/25/23 Next Certification Due Date: 06/25/23 Patient Identified by Name and Date of : Yes REHABILITATION AND SPORTS THERAPY PHYSICAL THERAPY TREATMENT NOTE ASSESSMENT: Shelton Rodrigez tolerated the session with no issues. She demonstrated good control over noodle with added LE noodle pushdown, but did aggravate R glut. Pt to transfer to [place]. She will call to see how quickly she can get started. Will continue here until can get started so there is no lapse in treatment. The patient will continue to benefit from ongoing skilled physical therapy to progress toward set goals. PLAN FOR NEXT VISIT: aquatic therapy for lumbar mobility and LE/core strength SUBJECTIVE: Doing new HEP that was given last week. Does want to transfer to [place] [facility]. Looks forward to coming to [place] knowing she will feel better for a couple of days after Pain: Pain Additional Pain Information : Specific pain level not discussed in order to focus on movement/functional goals OBJECTIVE MEASURES WITH LEVEL OF FUNCTION: TREATMENT: Aquatic Therapy: Entered the pool: Forward on stairs Entered the pool assist level: Supervision, With rail, [place] Entered the pool step pattern: Step to step Exited the pool: Forward on stairs Exited the pool assist level: Supervision, With rail, [place] Exited the pool step pattern: Step to step Aquatic Therapy (81932): Step Activities Water Depth: 4ft Backward Walking: x1 Lateral/Side Stepping: x3 w shlds abd/add Step Activities Water Depth: 4 ft Forward Step Up: x15 4 step Abdominal Stabalization Push Downs : 3x10 lg noodle 1: Oblique pd x 15 ea lg noodle Shoulder Flexion/Extension: x30 paddles Shoulder Horizontal Abduction/Adduction: x30 paddles Rowing: x30 paddles Squats: x20 / sit/stands x10 high bench Hip Abduction: x20 on R x10 on L Water Jo' x 2 with sm BB punches varying speed of UE Hip Abduction/Adduction: 2x1' 3# Hip Flexion/Extension: 2x1' 3# Vertical Unloading: x10' 3# (not included in billable time) Abbreviation Starr: BA = buoyancy assisted BR = buoyancy resisted BS = buoyancy supported reps = repetitions HEP = home exercise program Skilled Intervention: Skilled judgment was provided in selection of appropriate interventions. Billing Aquatic Therapy Treatment Minutes: 50 Skilled Treatment Time Minutes (timed and untimed codes): 60 Total Session Time (minutes): 60 Session Start Time : 1700 Session Stop Time : 1800 Kelly Andrews PTA [facility] 06-03-2023 History of Present illness Narrative Episode Visit Count: 8 Therapist That Will Accept/Oversee The Plan Of Care: Sam Garcia Start of Care Date: 04/25/23 Onset Date: 12/15/22 Plan of Care Certification Date: 04/25/23 Next Certification Due Date: 06/25/23 Patient Identified by Name and Date of : Yes REHABILITATION AND SPORTS THERAPY PHYSICAL THERAPY TREATMENT NOTE ASSESSMENT: Shelton Christy Alex tolerated the session with no issues. She demonstrated good control over noodle with added LE noodle pushdown, but did aggravate R glut. Pt to transfer to [place]. She will call to see how quickly she can get started. Will continue here until can get started so there is no lapse in treatment. The patient will continue to benefit from ongoing skilled physical therapy to progress toward set goals. PLAN FOR NEXT VISIT: aquatic therapy for lumbar mobility and LE/core strength SUBJECTIVE: Doing new HEP that was given last week. Does want to transfer to [facility]. Looks forward to coming to [place] knowing she will feel better for a couple of days after Pain: Pain Additional Pain Information : Specific pain level not discussed in order to focus on movement/functional goals OBJECTIVE MEASURES WITH LEVEL OF FUNCTION: TREATMENT: Aquatic Therapy: Entered the pool: Forward on stairs Entered the pool assist level: Supervision, With rail, [place] Entered the pool step pattern: Step to step Exited the pool: Forward on stairs Exited the pool assist level: Supervision, With rail, [place] Exited the pool step pattern: Step to step Aquatic Therapy (48180): Step Activities Water Depth: 4ft Backward Walking: x1 Lateral/Side Stepping: x3 w shlds abd/add Step Activities Water Depth: 4 ft Forward Step Up: x15 4 step Abdominal Stabalization Push Downs : 3x10 lg noodle 1: Oblique pd x 15 ea lg noodle Shoulder Flexion/Extension: x30 paddles Shoulder Horizontal Abduction/Adduction: x30 paddles Rowing: x30 paddles Squats: x20 / sit/stands x10 high bench Hip Abduction: x20 on R x10 on L Water Jo' x 2 with sm BB punches varying speed of UE Hip Abduction/Adduction: 2x1' 3# Hip Flexion/Extension: 2x1' 3# Vertical Unloading: x10' 3# (not included in billable time) Abbreviation Starr: BA = buoyancy assisted BR = buoyancy resisted BS = buoyancy supported reps = repetitions HEP = home exercise program Skilled Intervention: Skilled judgment was provided in selection of appropriate interventions. Billing Aquatic Therapy Treatment Minutes: 50 Skilled Treatment Time Minutes (timed and untimed codes): 60 Total Session Time (minutes): 60 Session Start Time : 1700 Session Stop Time : 1800 Kelly Andrews PTA documented in this encounter [facility] 05-30-2023 Note HNO ID: [id number] Author: Keo Colón, PhD Service: ? Author Type: Physician Type: Progress Notes Filed: 05/30/2023 6:07 PM Note Text: [facility] MIND/BODY GROUP - SESSION 2 Shelton Rodrigez 05/29/2023 [id number] Provider: Keo Colón, PhD CPT Code: 75371 group psychotherapy Setting: The patient consented to a virtual visit and their location was confirmed. Interventions: Review of the stress and relaxation response and practice of mindful breathing. Introduction of mini relaxation exercises with practice. Introduction to Imagery and practice The patient's participation was active. Pt reported practicing 5/7 days and was hard on herself about not doing more. Focus is more challenging with pain high. Check in with her next session about CPAP and focus on breath if working for her. Positive news - she as proposed to and celebrated her 38th birthday - using a walker and experienced acceptance and a swell of love contrasted with often feeling life a burden. Focus on learning to manage self-expectations. Current Medication from Chart: Current Outpatient Medications Medication Sig Dispense Refill gabapentin (NEURONTIN) 400 mg capsule Take 1 capsule by mouth as directed for 14 days. Week 1: 400mg in the morning, 400mg in the afternoon and 600mg at bedtime Week 2: 400mg in the morning, 600mg in the afternoon and 600mg at bedtime Week 3: 600mg in the morning, 600mg in the afternoon and 600mg at bedtime (Patient not taking: Reported on 05/01/2023) 15 capsule 0 gabapentin (NEURONTIN) 600 mg tablet Take 1 tablet by mouth three times daily for 180 days. Week 1: 400mg in the morning, 400mg in the afternoon and 600mg at bedtime Week 2: 400mg in the morning, 600mg in the afternoon and 600mg at bedtime Week 3: 600mg in the morning, 600mg in the afternoon and 600mg at bedtime 90 tablet 5 diclofenac, EC, (VOLTAREN) 75 mg EC tablet Take 1 tablet by mouth twice daily. 60 tablet 5 FLUoxetine (PROZAC) 40 mg capsule Take 1 capsule by mouth once daily. 90 capsule 3 busPIRone (BUSPAR) 7.5 mg tablet Take 1 tablet by mouth twice daily. 180 tablet 1 Blood-Glucose Meter monitoring kit Glucose Meter of Choice - Kit - Dx: Type 2 DM - Controlled E11.9 1 Each 0 blood sugar diagnostic (BLOOD GLUCOSE TEST) test strip Test blood sugar(s) 1 times daily. Dx: Type 2 DM - Controlled E11.9 Insulin: No 50 Strip 11 Lancets lancets Test blood sugar(s) 1 times daily. Dx: Type 2 DM - Controlled E11.9 Insulin: No 100 Each 11 cholecalciferol (VITAMIN D3) 1,000 unit tab tablet Take 1 tablet by mouth once daily. 30 tablet 3 metFORMIN (GLUCOPHAGE) 1,000 mg tablet Take 1 tablet by mouth twice daily with meals. 60 tablet 3 hydroCHLOROthiazide (HYDRODIURIL, ESIDRIX) 25 mg tablet Take 1 tablet by mouth once daily. 30 tablet 3 atorvastatin (LIPITOR) 10 mg tablet Take 1 tablet by mouth once daily. 30 tablet 3 lisinopril (ZESTRIL, PRINIVIL) 40 mg tablet Take 1 tablet by mouth once daily. 90 tablet 0 hydrOXYzine HCl (ATARAX) 25 mg tablet Take 1 tablet by mouth three times daily as needed for anxiety. May take 1/2 tablet 20 tablet 1 Cholecalciferol, Vitamin D3, (VITAMIN D) 25 mcg (1,000 unit) cap Take 1 capsule by mouth once daily. 30 capsule 2 Norethindrone, Contraceptive, 0.35 mg tablet Take 0.35 mg by mouth once daily. CPAP/BIPAP/[place]opap [id number] [facility] [place] supplies & rentals ([phone]) 1 Each 0 Blood Pressure Kit-Extra Large kit 1 Each once daily. 1 Kit 0 No current facility-administered medications for this visit. Diagnosis: CHAYITO MDD, rec (mod) Homework: Practice relaxation response twice daily; use reminder stickers and practice mini relaxers. Daily entry in Appreciation Journal with New and Goods. Monitor symptoms with diary sheet. Keo Colón, PhD [facility] 05-30-2023 Note HNO ID: [id number] Author: Sam Garcia, PT, DPT Service: ? Author Type: Physical Therapist Type: Progress Notes Filed: 05/30/2023 6:35 PM Note Text: Episode Visit Count: 7 Therapist That Will Accept/Oversee The Plan Of Care: Sam Garcia Start of Care Date: 04/25/23 Onset Date: 12/15/22 Plan of Care Certification Date: 04/25/23 Next Certification Due Date: 06/25/23 REHABILITATION AND SPORTS THERAPY PHYSICAL THERAPY PROGRESS REPORT PLAN OF CARE UPDATE: Assessment: Shelton Rodrigez presents with chronic low back pain and right lumbar radiculopathy, significant limitation in walking/standing, morbid obesity slowing progress. She demonstrates minimal improvement in right ankle strength, decreased pain. She has progressed toward goals. Patient continues to present with impairments in ADL's, balance, gait, overall function, range of motion, strength, and symptom management that interfere with standing, walking, rising from a chair, walking in the house, walking in the community, stair negotiation, lifting, bending . Current prognosis is Fair due to: clinical presentation, multiple co- morbidities . She will benefit from continued skilled therapy services to meet the updated goals for this plan of care as noted below. Pt considering transfer of care to [place]-closer to home Goals for Episode of Care: created on 04/25/23 through 06/25/23 Updated 05/30/23 Compliance with home exercise program.-NOT MET Patient will report less than 4/10 low back pain with ADLs.-NOT MET Perform supine to sit and sit to stand with minimal pain/difficulty.-NOT MET Increased strength of right ankle Eversion to 4/5 MMT.-MET Patient will ambulate 200 ft with walker by 05/26/23.-NOT MET Pt will ambulate safely without walker by 06/25/23.-NOT MET Patient Goals: eliminate use of w/c and walker, be normal again, avoid surgery Planned Interventions, Frequency, and Duration: 1x/week, 4 weeks Total Number of Visits Planned: 4 Patient to be seen for Therapeutic exercise (22564), Neuromuscular re-education (05669), Therapeutic activities (34768), Self-senior living management (11556), Gait Training (78073), Aquatic PT (78666), Patient/Family/Caregiver Education, Body Mechanics Training, Functional training PLAN FOR NEXT VISIT: continue aquatic PT for strengthening, mobility SUBJECTIVE: . doing well with pool, on days she had aquatic feels better and stronger for a couple days Chief complaint: low back and right leg pain Current right leg 1/10, worst day this week was 10/10 (after doing a lot of upright activities, with bday) Improved standing tolerance Working on lying HEP consistently, not as consistent with sit to stand Using walker for ambulation Functional Limitations: standing, walking, rising from a chair, walking in the house, walking in the community, stair negotiation, lifting, bending Pain: Pain Pain Level: 1 Pain Location: Leg - Right Description: Aching Frequency: Continuous PROMIS Scales Higher is Better 05/20/2023 04/23/2023 02/04/2023 Phys Func - Score 29 (severe dysfunction) 30 (moderate dysfunction) 37 (moderate dysfunction) Phys Func - Percentile 2 % 2 % 10 % Self-Eff Symptom - Score 40 (Average) 37 (Low) 38 (Low) Self-Eff Symptom - Percentile 16 % 10 % 12 % T-scores: mean of general population = 50. 5 points is clinically meaningfully difference Percentiles provide an indication of how the patient's score ranks in relation to the general population. Higher percentile rankings indicate better function/quality of life. 50th percentile is the average of the general population and indicates half of respondents had a worse score. OBJECTIVE MEASURES WITH LEVEL OF FUNCTION: Lumbar Spine AROM Lumbar Flexion: Moderate limitation Lumbar Extension: Major limitation (increased pain) LE Strength R Ankle Dorsiflexion (L4): 5/5 R Ankle Eversion: 4/5 L Ankle Dorsiflexion (L4): 5/5 L Ankle Eversion: 5/5 Gait Gait Observation: FWW: slow gait, forward lean-limited walking tolerance Functional Performance Test Results 6 Minute Walk Test (ft): 100 ft (FWW 70 seconds, stopped due to low back pain) 6 Minute Walk Test Gait Speed (calculated): 0.08 m/s TREATMENT: Therapeutic Exercise: 1: recheck 2: reviewed HEP 3: *seated marches with ab brace 10 x 2 sets 4: FWW 70 seconds Skilled Intervention: Patient was educated in proper exercise technique and purpose for exercises. Reviewed and educated patient on additions/changes for home exercise program as above (*). Self-[facility] Management: 1: education about PNE, 2: emailed videos about chronic pain, pain neuroscience 3: education about importance of walking, advised at least 1 min 3 times per day with walker Skilled Intervention: Reviewed patient specific diagnosis in relation to activities of daily living/home management. Access Code: [email or web address] URL: [email or web address] Date: 05/17 (more content not included)... [facility] 05-30-2023 History of Present illness Narrative [facility] MIND/BODY GROUP - SESSION 2 Shelton Rodrigez 05/29/2023 [id number] Provider: Keo Colón, PhD CPT Code: 07881 group psychotherapy Setting: The patient consented to a virtual visit and their location was confirmed. Interventions: Review of the stress and relaxation response and practice of mindful breathing. Introduction of mini relaxation exercises with practice. Introduction to Imagery and practice The patient's participation was active. Pt reported practicing 5/7 days and was hard on herself about not doing more. Focus is more challenging with pain high. Check in with her next session about CPAP and focus on breath if working for her. Positive news - she as proposed to and celebrated her 38th birthday - using a walker and experienced acceptance and a swell of love contrasted with often feeling life a burden. Focus on learning to manage self-expectations. Current Medication from Chart: Current Outpatient Medications Medication Sig Dispense Refill gabapentin (NEURONTIN) 400 mg capsule Take 1 capsule by mouth as directed for 14 days. Week 1: 400mg in the morning, 400mg in the afternoon and 600mg at bedtime Week 2: 400mg in the morning, 600mg in the afternoon and 600mg at bedtime Week 3: 600mg in the morning, 600mg in the afternoon and 600mg at bedtime (Patient not taking: Reported on 05/01/2023) 15 capsule 0 gabapentin (NEURONTIN) 600 mg tablet Take 1 tablet by mouth three times daily for 180 days. Week 1: 400mg in the morning, 400mg in the afternoon and 600mg at bedtime Week 2: 400mg in the morning, 600mg in the afternoon and 600mg at bedtime Week 3: 600mg in the morning, 600mg in the afternoon and 600mg at bedtime 90 tablet 5 diclofenac, EC, (VOLTAREN) 75 mg EC tablet Take 1 tablet by mouth twice daily. 60 tablet 5 FLUoxetine (PROZAC) 40 mg capsule Take 1 capsule by mouth once daily. 90 capsule 3 busPIRone (BUSPAR) 7.5 mg tablet Take 1 tablet by mouth twice daily. 180 tablet 1 Blood-Glucose Meter monitoring kit Glucose Meter of Choice - Kit - Dx: Type 2 DM - Controlled E11.9 1 Each 0 blood sugar diagnostic (BLOOD GLUCOSE TEST) test strip Test blood sugar(s) 1 times daily. Dx: Type 2 DM - Controlled E11.9 Insulin: No 50 Strip 11 Lancets lancets Test blood sugar(s) 1 times daily. Dx: Type 2 DM - Controlled E11.9 Insulin: No 100 Each 11 cholecalciferol (VITAMIN D3) 1,000 unit tab tablet Take 1 tablet by mouth once daily. 30 tablet 3 metFORMIN (GLUCOPHAGE) 1,000 mg tablet Take 1 tablet by mouth twice daily with meals. 60 tablet 3 hydroCHLOROthiazide (HYDRODIURIL, ESIDRIX) 25 mg tablet Take 1 tablet by mouth once daily. 30 tablet 3 atorvastatin (LIPITOR) 10 mg tablet Take 1 tablet by mouth once daily. 30 tablet 3 lisinopril (ZESTRIL, PRINIVIL) 40 mg tablet Take 1 tablet by mouth once daily. 90 tablet 0 hydrOXYzine HCl (ATARAX) 25 mg tablet Take 1 tablet by mouth three times daily as needed for anxiety. May take 1/2 tablet 20 tablet 1 Cholecalciferol, Vitamin D3, (VITAMIN D) 25 mcg (1,000 unit) cap Take 1 capsule by mouth once daily. 30 capsule 2 Norethindrone, Contraceptive, 0.35 mg tablet Take 0.35 mg by mouth once daily. CPAP/BIPAP/OTHER [place]opap [id number] [facility] [place] party supplies & rentals ([phone]) 1 Each 0 Blood Pressure Kit-Extra Large kit 1 Each once daily. 1 Kit 0 No current facility-administered medications for this visit. Diagnosis: CHAYITO MDD, rec (mod) Homework: Practice relaxation response twice daily; use reminder stickers and practice mini relaxers. Daily entry in Appreciation Journal with New and Goods. Monitor symptoms with diary sheet. Keo Colón, PhD documented in this encounter [facility] 05-29-2023 Note HNO ID: [id number] Author: Kelly Andrews PTA Service: ? Author Type: Rig Supervisor Type: Progress Notes Filed: 05/29/2023 7:13 PM Note Text: Episode Visit Count: 6 Therapist That Will Accept/Oversee The Plan Of Care: Sam Garcia Start of Care Date: 04/25/23 Onset Date: 12/15/22 Plan of Care Certification Date: 04/25/23 Next Certification Due Date: 06/25/23 Patient Identified by Name and Date of : Yes REHABILITATION AND SPORTS THERAPY PHYSICAL THERAPY TREATMENT NOTE ASSESSMENT: Shelton Rodrigez tolerated the session with no issues. She demonstrated improvements in exercise tolerance with added ex. Step-up leading with L caused increase back pain The patient will continue to benefit from ongoing skilled physical therapy for reassessment by supervising therapist. PLAN FOR NEXT VISIT: aquatic therapy for lumbar mobility and LE/core strength SUBJECTIVE: Able to schedule additional appointments. Re-eval this week. Pain: Pain Additional Pain Information : Specific pain level not discussed in order to focus on movement/functional goals OBJECTIVE MEASURES WITH LEVEL OF FUNCTION: TREATMENT: Aquatic Therapy: Entered the pool: Forward on stairs Entered the pool assist level: Supervision, With rail, [place] Entered the pool step pattern: Step to step Exited the pool: Forward on stairs Exited the pool assist level: Supervision, With rail, [place] Exited the pool step pattern: Step to step Aquatic Therapy ([id number]): Step Activities Walking: Backward Walking Water Depth: 4 ft Backward Walking: x1 Lateral/Side Stepping: x3 w shlds abd/add Step Activities Water Depth: 4 ft Forward Step Up: x15 4 step Abdominal Stabalization Push Downs : 3x10 lg noodle 1: Oblique pd x 10 ea lg noodle Shoulder Flexion/Extension: x30 paddles Shoulder Horizontal Abduction/Adduction: x30 paddles Rowing: x30 paddles Lower Extremity: Hip Abduction Squats: x15 Hip Abduction: x10 Heel Raises: x12 Hip Abduction/Adduction: 2x1' 3# Hip Flexion/Extension: 2x1' 3# Vertical Unloading: x10' 3# (not included in billable time) Abbreviation Starr: BA = buoyancy assisted BR = buoyancy resisted BS = buoyancy supported reps = repetitions HEP = home exercise program Skilled Intervention: Skilled judgment was provided in selection of appropriate interventions. Billing Aquatic Therapy Treatment Minutes: 50 Skilled Treatment Time Minutes (timed and untimed codes): 50 Total Session Time (minutes): 60 Session Start Time : 1700 Session Stop Time : 1800 Kelly Andrews PTA [facility] 05-29-2023 History of Present illness Narrative Episode Visit Count: 6 Therapist That Will Accept/Oversee The Plan Of Care: Sam Garcia Start of Care Date: 04/25/23 Onset Date: 12/15/22 Plan of Care Certification Date: 04/25/23 Next Certification Due Date: 06/25/23 Patient Identified by Name and Date of : Yes REHABILITATION AND SPORTS THERAPY PHYSICAL THERAPY TREATMENT NOTE ASSESSMENT: Shelton Rodrigez tolerated the session with no issues. She demonstrated improvements in exercise tolerance with added ex. Step-up leading with L caused increase back pain The patient will continue to benefit from ongoing skilled physical therapy for reassessment by supervising therapist. PLAN FOR NEXT VISIT: aquatic therapy for lumbar mobility and LE/core strength SUBJECTIVE: Able to schedule additional appointments. Re-eval this week. Pain: Pain Additional Pain Information : Specific pain level not discussed in order to focus on movement/functional goals OBJECTIVE MEASURES WITH LEVEL OF FUNCTION: TREATMENT: Aquatic Therapy: Entered the pool: Forward on stairs Entered the pool assist level: Supervision, With rail, [place] Entered the pool step pattern: Step to step Exited the pool: Forward on stairs Exited the pool assist level: Supervision, With rail, [place] Exited the pool step pattern: Step to step Aquatic Therapy ([id number]): Step Activities Walking: Backward Walking Water Depth: 4 ft Backward Walking: x1 Lateral/Side Stepping: x3 w shlds abd/add Step Activities Water Depth: 4 ft Forward Step Up: x15 4 step Abdominal Stabalization Push Downs : 3x10 lg noodle 1: Oblique pd x 10 ea lg noodle Shoulder Flexion/Extension: x30 paddles Shoulder Horizontal Abduction/Adduction: x30 paddles Rowing: x30 paddles Lower Extremity: Hip Abduction Squats: x15 Hip Abduction: x10 Heel Raises: x12 Hip Abduction/Adduction: 2x1' 3# Hip Flexion/Extension: 2x1' 3# Vertical Unloading: x10' 3# (not included in billable time) Abbreviation Starr: BA = buoyancy assisted BR = buoyancy resisted BS = buoyancy supported reps = repetitions HEP = home exercise program Skilled Intervention: Skilled judgment was provided in selection of appropriate interventions. Billing Aquatic Therapy Treatment Minutes: 50 Skilled Treatment Time Minutes (timed and untimed codes): 50 Total Session Time (minutes): 60 Session Start Time : 1700 Session Stop Time : 1800 Kelly Andrews PTA documented in this encounter [facility] 05-26-2023 Note HNO ID: [id number] Author: Keo Colón, PhD Service: ? Author Type: Physician Type: Progress Notes Filed: 05/26/2023 5:09 PM Note Text: [facility] MIND/BODY GROUP - SESSION I Shelton Rodrigez 05/22/2023 [id number] Provider: Keo Colón, PhD Time: 10:30AM-12:00PM Setting: The patient consented to a virtual visit and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 curvature of the lumbar spine with straightening of the normal lumbar lordosis. There is minimal retrolisthesis of L4 on L5. Vertebral body heights are preserved. Minimal disc height loss L2-L3 and L3-L4. Disc heights otherwise maintained. Marrow signal is heterogeneous with a few scattered hemangiomata, the largest seen at L1. The distal spinal cord is normal in volume, contour, and signal. The conus medullaris terminates at L1, in proper position. A congenitally small spinal canal is noted. T12-L1: Evaluated only on the sagittal images. Negative. L1-L2: Evaluated only on the sagittal images. Minimal annular bulge. Borderline spinal canal dimensions without stenosis. Mild right neural foraminal narrowing. L2-L3: Minimal annular bulge. There is resultant mild spinal canal stenosis at this level with residual AP diameter of the thecal sac measuring 9 mm. No neural foraminal narrowing. L3-L4: Minimal annular bulge. There is resultant mild spinal canal stenosis at this level with residual AP diameter of the thecal sac measuring 9 mm. Mild left facet arthropathy. Mild to moderate left neural foraminal narrowing. The disc contacts the exited left L3 nerve root far laterally. L4-L5: Moderate to large right central/subarticular disc extrusion with caudal migration of disc material. There is resultant moderate to severe spinal canal stenosis at this level with AP diameter of the thecal sac measuring 5 mm at midline. There is effacement of the right lateral recess with mass effect upon the descending right L5 nerve root (image 19, series 7). No neural foraminal narrowing. Minimal bilateral facet arthropathy. L5-S1: Minimal annular bulge. Mild right and minimal left facet arthropathy. No neural foraminal or spinal canal stenosis. The visualized portions of the sacroiliac joints are unremarkable, bilaterally. The imaged paraspinal soft tissues are unremarkable. Impression: IMPRESSION: 1. 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 Findings are most focal at the L4-L5 level where a right-sided disc extrusion contributes to moderate to severe spinal canal stenosis and effacement of the right lateral recess with mass effect upon the descending right L5 nerve root. Correlate with distribution of lower extremity radicular symptoms. 2. Mild spinal canal stenosis at L2-L3 and L3-L4 with underlying congenital component. 3. Additional multilevel degenerative changes, as described. Digital Service Engineer: MARILYN Transcribe Date/Time: Apr 07 2023 9:05A Dictated by : JOHNNY MENDOZA MD This examination was interpreted and the report reviewed and electronically signed by: JOHNNY MENDOZA MD on Apr 07 2023 9:10AM EST Medications Discontinued During This Encounter Medication Reason oxyCODONE IR (ROXICODONE) 10 mg tab Course of therapy completed Return in about 15 weeks (around 08/14/2023). Discussed the above with the patient and my preceptor using shared decision-making. The patient is in agreement with the diagnostic and treatment plans. Agustina Jean MD, signed on May 01, 2023 10:13 AM documented in this encounter [facility] 05-14-2023 Note HNO ID: [id number] Author: Elin Renae APRN.HISTOPATHOLOGIST Service: ? Author Type: Nurse Practitioner Type: Progress Notes Filed: 05/14/2023 9:00 AM Note Text: FOLLOW-UP PSYCHIATRIC PROGRESS NOTE Visit Type:Virtual Visit utilizing two-way audio and video for at least a portion of the visit. Consent for virtual visit obtained verbally. Confidentiality limitations with virtual visits reviewed with the patient and guardian, if present, who have accepted the risk verbally prior to proceeding with encounter. I have communicated my name and active licensure. The patient's identity and physical location were verified at the time of this visit. Either the patient or their legal manufacturers service representative has been informed of the risks and benefits of -- and alternatives to -- treatment through a remote evaluation and consents to proceed with the evaluation remotely. Reason for Visit: Outpatient follow-up and safety monitoring of previously prescribed psychiatric medication, psychotherapy or other treatment CHIEF COMPLAINT: Follow up for medication management HPI: Says that it's been a weird month Had a friend staying with her who is going through a divorce but realized that the friend had worse mental health issues then I thought but now that friend is getting appropriately helped - describes that her friend was up for many days in a row and hallucinating and paranoid Is still working on getting her back rehabbed following her injury - has been doing aqua therapy and feels her current medications are more helpful Has been still working on processing the temporary change in her abilities such as needing to use a walker or wheelchair Feels her anxiety has been good Does experience some frustration and low days since her back injury but feels that these are situational Discussed the mind-body wellness group - she is open to a referral for this Is planning a [employer] themed 38 birthday constitution party in a couple weeks which she is looking forward to Is open to continuing current medications without changes at this time Interval Progress since previous visit: slightly improved VITAL SIGNS: There were no vitals filed for this visit. ROS: MUSCULOSKELETAL: See HPI PSYCH: See HPI All other systems negative. PATIENT DATA: CHAYITO-7 CHAYITO-7 All Questions 03/25/2023 04/18/2023 05/13/2023 Nervous, anxious or on edge 3 1 1 Not being able to stop or control worrying 3 0 0 Worrying too much 3 0 1 Trouble relaxing 3 1 1 Restless 0 0 0 Annoyed or irritable 1 1 2 Afraid something awful might happen 3 0 1 CHAYITO-7 Score 16 3 6 PHQ-9 PHQ-9 Scores 10/10/2022 10/11/2022 03/25/2023 04/18/2023 05/13/2023 Little interest or pleasure in doing things Not at all Not at all Several days Several days Several days Feeling down, depressed, or hopeless More than half the days More than half the days Several days More than half the days Several days Trouble falling or staying asleep, or sleeping too much Nearly every day - Several days Several days Several days Feeling tired or having little energy Several days - Several days More than half the days Several days Poor appetite or overeating Not at all - Not at all Not at all Not at all Feeling bad about yourself - or that you are a failure or have let yourself or your family down Several days - Several days Several days Several days Trouble concentrating on things, such as reading the newspaper or watching television More than half the days - Several days Several days Several days Moving or speaking so slowly that other people could have noticed. Or the opposite - being so fidgety or restless that you have been moving around a lot more than usual Not at all - Not at all Several days Not at all Thoughts that you would be better off , or of hurting yourself in some way Not at all - Not at all Not at all Not at all PHQ-9 Score 9 - 6 9 6 MENTAL STATUS EXAM: CONSTITUTIONAL: Well groomed, Appropriately dressed, Casually dressed, Well developed, Well nourished ORIENTATION: Person, Place, Time and Situation MEMORY: No deficiencies noted CONCENTRATION: Normal MOOD: euthymic AFFECT: Full and appropriate to topic SPEECH : Clear AND distinct LANGUAGE : Normal ASSOCIATIONS: Intact THOUGHT PROCESS : Logical, Coherent, and Rational PROGRESSION : There was no evidence of disturbance in thought perception or progression. FUND OF KNOWLEDGE : Appropriate and Adequate SUICIDE: Denies suicidal thoughts, plan, or intent. HOMICIDE: Denies homicidal thoughts, plan, or intent. Labwork: CBC and Differential: WBC Date Value Ref Range Status 05/14/2022 9.41 3.70 - 11.00 k/uL Final RBC Date Value Ref Range Status 05/14/2022 4.85 3.90 - 5.20 m/uL Final Hematocrit Date Value Ref Range Status 05/14/2022 43.2 36.0 - 46.0 % Final MCV Date Value Ref Range Status 05/14/2022 89.1 80.0 - 100.0 fL Final MCH Date Value Ref Range Status 05/14/2022 28.2 (more content not included)... [facility] 05-14-2023 History of Present illness Narrative Images from the original note were not included. FOLLOW-UP PSYCHIATRIC PROGRESS NOTE Visit Type:Virtual Visit utilizing two-way audio and video for at least a portion of the visit. Consent for virtual visit obtained verbally. Confidentiality limitations with virtual visits reviewed with the patient and guardian, if present, who have accepted the risk verbally prior to proceeding with encounter. I have communicated my name and active licensure. The patient's identity and physical location were verified at the time of this visit. Either the patient or their legal manufacturers service representative has been informed of the risks and benefits of -- and alternatives to -- treatment through a remote evaluation and consents to proceed with the evaluation remotely. Reason for Visit: Outpatient follow-up and safety monitoring of previously prescribed psychiatric medication, psychotherapy or other treatment CHIEF COMPLAINT: Follow up for medication management HPI: Says that it's been a weird month Had a friend staying with her who is going through a divorce but realized that the friend had worse mental health issues then I thought but now that friend is getting appropriately helped - describes that her friend was up for many days in a row and hallucinating and paranoid Is still working on getting her back rehabbed following her injury - has been doing aqua therapy and feels her current medications are more helpful Has been still working on processing the temporary change in her abilities such as needing to use a walker or wheelchair Feels her anxiety has been good Does experience some frustration and low days since her back injury but feels that these are situational Discussed the mind-body wellness group - she is open to a referral for this Is planning a [place] 38 birthday constitution party in a couple weeks which she is looking forward to Is open to continuing current medications without changes at this time Interval Progress since previous visit: slightly improved VITAL SIGNS: There were no vitals filed for this visit. ROS: MUSCULOSKELETAL: See HPI PSYCH: See HPI All other systems negative. PATIENT DATA: CHAYITO-7 CHAYITO-7 All Questions 03/25/2023 04/18/2023 05/13/2023 Nervous, anxious or on edge 3 1 1 Not being able to stop or control worrying 3 0 0 Worrying too much 3 0 1 Trouble relaxing 3 1 1 Restless 0 0 0 Annoyed or irritable 1 1 2 Afraid something awful might happen 3 0 1 CHAYITO-7 Score 16 3 6 PHQ-9 PHQ-9 Scores 10/10/2022 10/11/2022 03/25/2023 04/18/2023 05/13/2023 Little interest or pleasure in doing things Not at all Not at all Several days Several days Several days Feeling down, depressed, or hopeless More than half the days More than half the days Several days More than half the days Several days Trouble falling or staying asleep, or sleeping too much Nearly every day - Several days Several days Several days Feeling tired or having little energy Several days - Several days More than half the days Several days Poor appetite or overeating Not at all - Not at all Not at all Not at all Feeling bad about yourself - or that you are a failure or have let yourself or your family down Several days - Several days Several days Several days Trouble concentrating on things, such as reading the newspaper or watching television More than half the days - Several days Several days Several days Moving or speaking so slowly that other people could have noticed. Or the opposite - being so fidgety or restless that you have been moving around a lot more than usual Not at all - Not at all Several days Not at all Thoughts that you would be better off , or of hurting yourself in some way Not at all - Not at all Not at all Not at all PHQ-9 Score 9 - 6 9 6 MENTAL STATUS EXAM: CONSTITUTIONAL: Well groomed, Appropriately dressed, Casually dressed, Well developed, Well nourished ORIENTATION: Person, Place, Time and Situation MEMORY: No deficiencies noted CONCENTRATION: Normal MOOD: euthymic AFFECT: Full and appropriate to topic SPEECH : Clear & distinct LANGUAGE : Normal ASSOCIATIONS: Intact THOUGHT PROCESS : Logical, Coherent, and Rational PROGRESSION : There was no evidence of disturbance in thought perception or progression. FUND OF KNOWLEDGE : Appropriate and Adequate SUICIDE: Denies suicidal thoughts, plan, or intent. HOMICIDE: Denies homicidal thoughts, plan, or intent. Labwork: CBC and Differential: WBC Date Value Ref Range Status 05/14/2022 9.41 3.70 - 11.00 k/uL Final RBC Date Value Ref Range Status 05/14/2022 4.85 3.90 - 5.20 m/uL Final Hematocrit Date Value Ref Range Status 05/14/2022 43.2 36.0 - 46.0 % Final MCV Date Value Ref Range Status 05/14/2022 89.1 80.0 - 100.0 fL Final MCH Date Value Ref Range Status 05/14/2022 28.2 26.0 - 34.0 pg Final MCHC Date Value Ref Range Status 05/14/2022 31.7 30.5 - 36.0 g/dL Final Platelet Count Date Value Ref Range Status 05/14/2022 329 150 - 400 k/uL Final MPV Date Value Ref Range Status 05/14/2022 10.6 9.0 - 12.7 fL Final Comprehensive Metabolic Panel: BUN Date Value Ref Range Status 11/24/2022 14 7 - 21 mg/dL Final Creatinine Date Value Ref Range Status 11/24/2022 0.71 0.58 - 0.96 mg/dL Final Sodium Date Value Ref Range Status 11/24/2022 137 136 - 144 mmol/L Final Potassium Date Value Ref Range Status 11/24/2022 4.2 3.7 - 5.1 mmol/L Final CO2 Date Value Ref Range Status 11/24/2022 27 22 - 30 mmol/L Final Albumin Date Value Ref Range Status 05/14/2022 4.1 3.9 - 4.9 g/dL Final ALT Date Value Ref Range Status 05/14/2022 17 7 - 38 U/L Final AST Date Value Ref Range Status 05/14/2022 16 13 - 35 U/L Final Gamma-Glutamyltransferase (GGT), Serum: No results found for: GGT Vitamin B12: No components found for: [id number] Vitamin D, Total: No results found for: VITD Thyroid Stimulating Hormone (TSH): TSH Date Value Ref Range Status 05/14/2022 3.240 0.270 - 4.200 mIU/L Final Comment: If the patient is , TSH reference range varies by gestational period: First Trimester (weeks 9-12): 0.180-2.990 mIU/L Second Trimester: 0.110-3.980 mIU/L Third Trimester: 0.480-4.710 mIU/L Danny Barrientos et al. A Practical Approach for the Verifications and Determination of Site- and Trimester-Specific Reference Intervals for Thyroid Function tests in . Thyroid, 2019:29:3:412-420. Alex E, et al. 2017 Guidelines of the [place] [employer] for the Diagnosis and Management of Thyroid Disease during and the . Thyroid, 2017:27:3:315-389. Hemoglobin A1C: No results found for: HGBA1C Lipid Panel: Cholesterol, Total Date Value Ref Range Status 11/24/2022 141 <200 mg/dL Final Comment: <200 mg/dL, Desirable 200-239 mg/dL, Borderline high >239 mg/dL, High HDL Cholesterol Date Value Ref Range Status 11/24/2022 49 >39 mg/dL Final Comment: 40-59 mg/dL, Acceptable >59 mg/dL, High: Negative risk factor for coronary heart disease <40 mg/dL, Low: Positive risk factor for coronary heart disease LDL Cholesterol Date Value Ref Range Status 11/24/2022 71 <100 mg/dL Final Comment: <100 mg/dL, Optimal 100-129 mg/dL, Near optimal/above optimal 130-159 mg/dL, Borderline high 160-189 mg/dL, High >189 mg/dL, Very high Secondary prevention optimal LDL Cholesterol levels are recommended to be < 70 mg/dL DATA REVIEWED: Electronic medical record DIAGNOSIS: PRIMARY: Anxiety Disorder Generalized Anxiety Disorder SECONDARY: Mood Disorder Major Depressive Disorder, Recurrent, Moderate TREATMENT PLAN: Reviewed symptoms, medications and their side effects, labs, and progress being made. Discussed life situations and coping skills Support and encouragement provided PLAN AND FOLLOW UP: Medications: Continue: --Prozac (fluoxetine) 40 mg once daily --hydroxyzine 25 mg up to three times daily as needed for anxiety --Buspar 7.5 mg twice daily Other: --will send referral for mind-body wellness group Next appointment: --Schedule in 2-3 months or sooner if needed --To call the office call [phone] option 3 (for any questions or concerns) or you may call the department appointment line at [phone] --Message in [email or web address] any questions or concerns. For those experiencing a suicidal crisis: --call the National Suicide Prevention Lifeline at 988 (891.414.8685) --text the Crisis Text Line (text HOME to 568301) --call 811 and let them know you are having a mental health crisis or go to your nearest Emergency Room for stabilization. --You can also call Mobile Crisis at [phone]. Discussed side effects including any black box warnings, risks and benefits of medications, and alternatives. MEDICATION CHANGES: See above for changes Follow Up: 2-3 months I spent a total of 32 minutes on the date of the service which included preparing to see the patient, [id number] patient care, completing clinical documentation, performing a medically appropriate examination, counseling and educating the patient/family/caregiver, ordering medications, tests, or procedures, and communicating with other HCPs (not separately reported). ADD ON PSYCHOTHERAPY CODE : No SIGNATURE: Elin Renae APRN.CNP PATIENT NAME: Shelton Rodrigez DATE: 05/14/2023 TIME: 8:27 AM documented in this encounter [facility] 05-06-2023 Note HNO ID: [id number] Author: Kelly Andrews PTA Service: ? Author Type: Rig Supervisor Type: Progress Notes Filed: 05/06/2023 7:34 PM Note Text: Episode Visit Count: 3 Therapist That Will Accept/Oversee The Plan Of Care: Sam Garcia Start of Care Date: 04/25/23 Onset Date: 12/15/22 Plan of Care Certification Date: 04/25/23 Next Certification Due Date: 06/25/23 Patient Identified by Name and Date of : Yes REHABILITATION AND SPORTS THERAPY PHYSICAL THERAPY TREATMENT NOTE ASSESSMENT: Shelton Rodrigez tolerated the session with increased symptoms. She demonstrated difficulty with initial decrease in sx's with unloading, but then was able to get some relief in radicular sx's. Moved to 4 ft depth to maintain stability with noodle push downs The patient will continue to benefit from ongoing skilled physical therapy to progress toward set goals. PLAN FOR NEXT VISIT: aquatic therapy for lumbar mobility and LE/core strength SUBJECTIVE: Did not get sore after last session. Did not get the pain relief she was hoping for by being in the water. Pain: Pain Pain Level: 5 Pain Location: Buttocks - Right Description: Shooting Frequency: Continuous OBJECTIVE MEASURES WITH LEVEL OF FUNCTION: TREATMENT: Aquatic Therapy: Entered the pool: Forward on stairs Entered the pool assist level: Supervision, With rail, [place] Entered the pool step pattern: Step to step Exited the pool: Forward on stairs Exited the pool assist level: Supervision, With rail, [place] Exited the pool step pattern: Step to step Aquatic Therapy ([id number]): Posture / Trunk Exercise, Lower Extremity Forward Walking: x2 Abdominal Stabalization Push Downs : 2x10 reg noodle Water Depth: chest Water Turbulence: paddles Shoulder Horizontal Abduction/Adduction: x20 Rowing: x20 Lower Extremity: Heel Raises Heel Raises: x10 Hip Abduction/Adduction: x20 Hip Flexion/Extension: x20 Abbreviation Starr: BA = buoyancy assisted BR = buoyancy resisted BS = buoyancy supported reps = repetitions HEP = home exercise program Skilled Intervention: Skilled judgment was provided in selection of appropriate interventions. Group Therapy: 1: PRE DW traction x 10' 3# wts 2: POST DW traction x 10' 3# Skilled Intervention: Billing Aquatic Therapy Treatment Minutes: 30 * Group Therapy: 1 unit Total Treatment Time Minutes (timed/untimed): 50 Session Start Time : 1700 Session Stop Time : 1750 Kelly Andrews PTA [facility] 05-06-2023 History of Present illness Narrative Episode Visit Count: 3 Therapist That Will Accept/Oversee The Plan Of Care: Sam Garcia Start of Care Date: 04/25/23 Onset Date: 12/15/22 Plan of Care Certification Date: 04/25/23 Next Certification Due Date: 06/25/23 Patient Identified by Name and Date of : Yes REHABILITATION AND SPORTS THERAPY PHYSICAL THERAPY TREATMENT NOTE ASSESSMENT: Shelton Rodrigez tolerated the session with increased symptoms. She demonstrated difficulty with initial decrease in sx's with unloading, but then was able to get some relief in radicular sx's. Moved to 4 ft depth to maintain stability with noodle push downs The patient will continue to benefit from ongoing skilled physical therapy to progress toward set goals. PLAN FOR NEXT VISIT: aquatic therapy for lumbar mobility and LE/core strength SUBJECTIVE: Did not get sore after last session. Did not get the pain relief she was hoping for by being in the water. Pain: Pain Pain Level: 5 Pain Location: Buttocks - Right Description: Shooting Frequency: Continuous OBJECTIVE MEASURES WITH LEVEL OF FUNCTION: TREATMENT: Aquatic Therapy: Entered the pool: Forward on stairs Entered the pool assist level: Supervision, With rail, [place] Entered the pool step pattern: Step to step Exited the pool: Forward on stairs Exited the pool assist level: Supervision, With rail, [place] Exited the pool step pattern: Step to step Aquatic Therapy (03911): Posture / Trunk Exercise, Lower Extremity Forward Walking: x2 Abdominal Stabalization Push Downs : 2x10 reg noodle Water Depth: chest Water Turbulence: paddles Shoulder Horizontal Abduction/Adduction: x20 Rowing: x20 Lower Extremity: Heel Raises Heel Raises: x10 Hip Abduction/Adduction: x20 Hip Flexion/Extension: x20 Abbreviation Starr: BA = buoyancy assisted BR = buoyancy resisted BS = buoyancy supported reps = repetitions HEP = home exercise program Skilled Intervention: Skilled judgment was provided in selection of appropriate interventions. Group Therapy: 1: PRE DW traction x 10' 3# wts 2: POST DW traction x 10' 3# Skilled Intervention: Billing Aquatic Therapy Treatment Minutes: 30 * Group Therapy: 1 unit Total Treatment Time Minutes (timed/untimed): 50 Session Start Time : 1700 Session Stop Time : 1750 Kelly Andrews PTA documented in this encounter [facility] 05-03-2023 Miscellaneous Notes Forms completed and faxed to [facility] at [phone]. Luz Maria Bundy, Packing Machine Tender May 03, 2023 10:08 AM Please route telephone encounter to the Clerical Pool ([facility] Clerical Pool) Lye Boiler from [facility] dropped off forms at the office to be completed for the patient's power wheelchair. The rep left instructions of what is to be completed inside of the folder he brought, along with red tabs on the areas that require signatures. He is asking if these forms can be completed and faxed back to [phone] to process the patient's order. Forms are in PCP's mailbox for review and completion. Luz Maria Bundy, Packing Machine Tender May 02, 2023 2:12 PM documented in this encounter [facility] 05-01-2023 Note HNO ID: [id number] Author: Agustina Jean MD Service: ? Author Type: Resident Type: Progress Notes Filed: 05/14/2023 1:04 PM Note Text: [facility] Agustina Jean MD ASSESSMENT/PLAN: 1. Chronic radicular lumbar pain - ICD9: 724.4, 338.29, ICD10: M54.16, G89.29 (primary diagnosis) Symptoms consistent with herniated disc; patient is following with pain management and is aware of her options currently she is undergoing physical therapy - HEP B VACCINE, 2-DOSE (HEPLISAV-B) 2. Need for vaccination - ICD9: V05.9, ICD10: Z23 -Hep B 3. Prediabetes - ICD9: 790.29, ICD10: R73.03 -Patient was told to make a list of all the food she eats daily for at least a week - Patient was asked to change her breakfast to a protein supplement drink - Patient will see bariatric medicine in June 2023 - Patient would likely benefit from bariatric surgery however she is trying to improve mobility and weight loss - Patient was advised to reduce his soda intake before next visit - Patient was advised to increase water intake despite concerns regarding getting to the bathroom and urinating Follow-up with me, Dr. Jean in 15 weeks to discuss weight loss. Agustina Jean MD SUBJECTIVE: Shelton Rodrigez is a 37 year old female here with a past medical history of the following: - Prediabetes, A1c 6.3 - HAILEY, on BiPAP - Generalized anxiety and depression [fluoxetine, BuSpar, Atarax] - Hypertension [hydrochlorothiazide and lisinopril] - Morbid obesity, Body mass index is 78.93 kg/m?. - Sciatic nerve pain -- Subclinical Hypothyroidism Who is here for a follow up visit to discuss weight loss and back pain. Back Pain: Patient was seen by pain management who increased her Gabapentin to 600 mg TID, also changed her changed ibuprofen to Diclfenac twice daily. MRI of the spine showed degenerative changed L4-L5 level with right sided disc extrusion contributes to moderate to severe spinal canal stenosis. changed in the Intralaminar epidural injection at L4-L5 or S1. She used walker for mobilization to the bathroom. Patient has not had her wheelchair come in yet. Patient will be seeing bariatric medicine in June 2023. Patient continues to limit water intake as she does not want to ambulate to the bathroom to urinate. Prediabetes/morbid obesity: Patient will be seen by bariatric medicine in June 2023. Patient explained that she mostly eats convenience foods like condensed soup and crackers. For breakfast she eats fruit granola bars bars and yogurts. Patient is a vegetarian so she eats vegan chili, meat less Posta, pale positive eggs, relatively. Patient does endorse frequent soda usage. Patient also eats pizza every Nick. Patient is currently going to water aerobics through physical therapy and is enjoying it immensely. Patient is waiting on her wheelchair paperwork. PAST MEDICAL HISTORY Diagnosis Date Carpal tunnel syndrome Depressive disorder 11/14/2020 Diabetes mellitus (HCC) 12/01/2020 Dry eye syndrome of bilateral lacrimal glands 07/25/2021 CHAYITO (generalized anxiety disorder) 10/11/2022 Hypertension Hypertension 12/01/2020 Obstructive sleep apnea 12/01/2020 Spinal stenosis at L4-L5 level Subclinical hypothyroidism 12/01/2020 Thyroid disease PAST SURGICAL HISTORY Procedure Laterality Date NONE Social History Tobacco Use Smoking status: Former Packs/day: 0.50 Years: 10.00 Additional pack years: 0.00 Total pack years: 5.00 Types: Cigarettes Quit date: 09/16/2014 Years since quittin.6 Smokeless tobacco: Never Tobacco comments: smoked x 10 years - quit 2014 Vaping Use Vaping Use: Never used Substance Use Topics Alcohol use: Yes Comment: 3 drinks per month. Drug use: No FAMILY HISTORY Problem Relation Age of Onset Diabetes Father Hypertension Father other (Cancer) Father bladder Obesity Father other (agent [place] illnesses) Father Uterine Cancer Mother Fibromyalgia Mother Depression Mother Osteoporosis Mother Arthritis Mother Hypertension Sister Arthritis Sister No Known Problems Sister Diabetes Maternal Grandmother Uterine Cancer Maternal Grandmother Diabetes Paternal Grandmother Glaucoma No Family History Macular Degen No Family History PAIN EVALUATION 05/01/2023 1020 Pain Level: 4 Pain Location: Other: See Comment Back and R leg Description: Aching;Radiating Frequency: Continuous ALLERGIES Allergen Reactions Penicillins Hives Medication List prior to visit Current Outpatient Medications Medication Sig gabapentin (NEURONTIN) 600 mg tablet Take 1 tablet by mouth three times daily for 180 days. Week 1: 400mg in the morning, 400mg in the afternoon and 600mg at bedtime Week 2: 400mg in the morning, 600mg in the afternoon and 600mg at bedtime Week 3: 600mg in the morning, 600mg in the afternoon and 600mg at bedtime diclofenac, EC, (VOLTAREN) 75 mg EC tablet Take 1 tablet by mout (more content not included)... [facility] 05-01-2023 Agustina Doe MD - 05/01/2023 11:24 AM EDT Three goals for our next visit: Remove Soda; Increase water intake for 1 galloon Try Protein Shakes in the morning Food Diary; Send me the diary after a week through Alvin Jean MD CHOOSING PROTEIN Basic protein needs each day. (1 gm/kg) If competing in sports you can increase this: 100 grams of protein each day (1.2-1.7 grams/kg) Protein foods include both animal (meat, poultry, seafood, and eggs) and plant (beans, peas, soy products, nuts, and seeds) sources. We all need protein to build lean muscle mass -- and there is some evidence that eating protein several times a day will make amino acids available during your workout. Vary your protein food choices: Eat a variety of foods from the protein group each week. [place] with main dishes made with beans or peas, nuts, soy and seafood. Eat seafood in place of meat or poultry twice a week. Include some fish that are higher in oils and low in mercury, such as salmon, trout and ureña. Milk (8 grams), yogurt (12 grams) and Latvian yogurt (18 grams) contain protein. Choose lean or low-fat cuts of meat like round or sirloin and ground beef that is at least 90% lean. Trim or drain fat from meat and remove poultry skin. 3 ounces of meat, fish, poultry (about the size of a deck of cards) contains about 24 grams of protein. Have an egg: One egg a day, on average doesn't increase risk for heart disease, so make eggs a part of your weekly choices. One medium egg contains 6 grams of protein. Only the egg yolk contains cholesterol and satruated fat, so have as many egg whites as you want. Eating a healthy breakfast, especially one high in protein, increases satiety and reduces hunger throughout the day. Try a hard-boiled egg, peanut butter on whole grain toast, or add some nuts to your oatmeal or cereal. (2 tbsp of peanut butter is about 8 grams of protein) Eat plant protein foods more often. Try beans and peas (kidney, navy, black, woods, or white beans; splt peas; chickpeas; hummus), soy products (tofu, tempeh, veggie burgers), nuts and seeds. They are naturally low in saturated fat and high in fiber. (1/2 cup of beans is about 8 grams of protein) Choose unsalted nuts and seeds as a snack, on salads or in main dished to replace meat or poultry. Small portions of nuts will do - they are a concentrated source of calories. 1/2 cup nuts/seeds is about 15 grams of protein. Try grilling, broiling, roasting, or baking -- they don't add extra fat. Avoid breading meat, poultry or fish as this adds calories. Make a healthy sandwich: Choose turkey, roast beef, canned tuna or salmon, or peanut butter for sandwiches. Many deli meats, such as regular bologna or salami, are high in fat and sodium Make these occasional treats only. [place] Instant Breakfast, mixed with milk, contains 13 grams of protein a serving. documented in this encounter [facility] 05-01-2023 Nurse Note Immunizations were given as ordered. Vaccination information sheet(s) given. Charlene Robbins LPN documented in this encounter [facility] 04-29-2023 Note HNO ID: [id number] Author: Kelly Andrews PTA Service: ? Author Type: Rig Supervisor Type: Progress Notes Filed: 04/29/2023 5:52 PM Note Text: Episode Visit Count: 2 Therapist That Will Accept/Oversee The Plan Of Care: Sam Garcia Start of Care Date: 04/25/23 Onset Date: 12/15/22 Plan of Care Certification Date: 04/25/23 Next Certification Due Date: 06/25/23 Patient Identified by Name and Date of : Yes REHABILITATION AND SPORTS THERAPY PHYSICAL THERAPY TREATMENT NOTE ASSESSMENT: Shelton Rodirgez tolerated the session with decreased symptoms. She demonstrated improvements in pain level with unloading in 5 ft. Pain decrease in intensity and radicular sx's to AK. Pt in WC to entrance steps, then able to do independently. Walking in 4 ft depth increased LBP. The patient will continue to benefit from ongoing skilled physical therapy to progress toward set goals. PLAN FOR NEXT VISIT: assess response to aquatics. Completed 35' of exercise last session, progress as tolerated SUBJECTIVE: Has been anxious about doing steps to get in and out of pool. Compliant with HEP; notices no difference in sx's with exercises. Pain: Pain Pain Level: 4 Pain Location: Buttocks - Right Description: Shooting Frequency: Continuous OBJECTIVE MEASURES WITH LEVEL OF FUNCTION: TREATMENT: Aquatic Therapy: Entered the pool: Forward on stairs Entered the pool assist level: Supervision, With rail, [place] Entered the pool step pattern: Step to step Exited the pool: Forward on stairs Exited the pool assist level: Supervision, With rail, [place] Exited the pool step pattern: Step to step Walking: Forward Walking Forward Walking: x1 Water Depth: chest Water Turbulence: paddles Shoulder Horizontal Abduction/Adduction: x20 Rowing: x20 Hip Abduction/Adduction: x20 Hip Flexion/Extension: x20 Vertical Unloading: Pre and Post Rx x 10' ea Abbreviation Starr: BA = buoyancy assisted BR = buoyancy resisted BS = buoyancy supported reps = repetitions HEP = home exercise program Skilled Intervention: Skilled judgment was provided in selection of appropriate interventions. Patient education: Weight bearing effects of immersion Expectation of fatigue/discomfort with exercise progressions and normal response. Billing Aquatic Therapy Treatment Minutes: 35 Total Treatment Time Minutes (timed/untimed): 35 Session Start Time : 1700 Session Stop Time : [address] [facility] 04-29-2023 History of Present illness Narrative Episode Visit Count: 2 Therapist That Will Accept/Oversee The Plan Of Care: Sam Garcia Start of Care Date: 04/25/23 Onset Date: 12/15/22 Plan of Care Certification Date: 04/25/23 Next Certification Due Date: 06/25/23 Patient Identified by Name and Date of : Yes REHABILITATION AND SPORTS THERAPY PHYSICAL THERAPY TREATMENT NOTE ASSESSMENT: Shelton Rodrigez tolerated the session with decreased symptoms. She demonstrated improvements in pain level with unloading in 5 ft. Pain decrease in intensity and radicular sx's to AK. Pt in WC to entrance steps, then able to do independently. Walking in 4 ft depth increased LBP. The patient will continue to benefit from ongoing skilled physical therapy to progress toward set goals. PLAN FOR NEXT VISIT: assess response to aquatics. Completed 35' of exercise last session, progress as tolerated SUBJECTIVE: Has been anxious about doing steps to get in and out of pool. Compliant with HEP; notices no difference in sx's with exercises. Pain: Pain Pain Level: 4 Pain Location: Buttocks - Right Description: Shooting Frequency: Continuous OBJECTIVE MEASURES WITH LEVEL OF FUNCTION: TREATMENT: Aquatic Therapy: Entered the pool: Forward on stairs Entered the pool assist level: Supervision, With rail, [place] Entered the pool step pattern: Step to step Exited the pool: Forward on stairs Exited the pool assist level: Supervision, With rail, [place] Exited the pool step pattern: Step to step Walking: Forward Walking Forward Walking: x1 Water Depth: chest Water Turbulence: paddles Shoulder Horizontal Abduction/Adduction: x20 Rowing: x20 Hip Abduction/Adduction: x20 Hip Flexion/Extension: x20 Vertical Unloading: Pre and Post Rx x 10' ea Abbreviation Starr: BA = buoyancy assisted BR = buoyancy resisted BS = buoyancy supported reps = repetitions HEP = home exercise program Skilled Intervention: Skilled judgment was provided in selection of appropriate interventions. Patient education: Weight bearing effects of immersion Expectation of fatigue/discomfort with exercise progressions and normal response. Billing Aquatic Therapy Treatment Minutes: 35 Total Treatment Time Minutes (timed/untimed): 35 Session Start Time : 1700 Session Stop Time : 1735 Kelly Andrews PTA documented in this encounter [facility] 04-25-2023 Note HNO ID: [id number] Author: Sam Garcia, PT, DPT Service: ? Author Type: Physical Therapist Type: Progress Notes Filed: 04/26/2023 8:39 AM Note Text: Episode Visit Count: 1 Therapist That Will Accept/Oversee The Plan Of Care: Sam Garcia Start of Care Date: 04/25/23 Onset Date: 12/15/22 Plan of Care Certification Date: 04/25/23 Next Certification Due Date: 06/25/23 Patient Identified by Name and Date of : Yes REHABILITATION AND SPORTS THERAPY PHYSICAL THERAPY EVALUATION PLAN OF CARE: Assessment: Shelton Rodrigez presents with diagnosis of RIGHT lumbar radiculopathy that interferes with standing, walking, rising from a chair, walking in the house, walking in the community, stair negotiation, lifting, bending . She presents with impairments in ADL's, balance, gait, independence in exercise, overall function, posture, range of motion, strength, and symptom management. PROMIS? (Patient-Reported Outcomes Measurement Information System) scores were reviewed and physical function domain and self efficacy domain identified as a rehabilitation concern. Prognosis for therapy is Fair due to: clinical presentation, multiple co- morbidities . She will benefit from skilled therapy services to meet the goals established for this plan of care as noted below. Goals for Episode of Care: created on 04/25/23 through 06/25/23 Compliance with home exercise program. Patient will report less than 4/10 low back pain with ADLs. Perform supine to sit and sit to stand with minimal pain/difficulty.. Increased strength of right ankle Eversion to 4/5 MMT. Patient will ambulate 200 ft with walker by 05/26/23. Pt will ambulate safely without walker by 06/25/23. Patient Goals: eliminate use of w/c and walker, be normal again, avoid surgery Planned Interventions, Frequency, and Duration: Current Frequency: 1x/week Duration: 8 weeks Total Number of Visits Planned: 8 Planned Treatment Interventions: Therapeutic exercise (31672), Neuromuscular re-education (54794), Therapeutic activities (90598), Self-senior living management (08722), Gait Training (38341), Aquatic PT (88002), Patient/Family/Caregiver Education, Body Mechanics Training, Functional training PLAN FOR NEXT VISIT: initiate aquatic therapy for lumbar mobility and LE/core strength Patient demonstrates good understanding of plan of care and treatment. The above goals and plan of care were discussed and agreed upon by patient/family. SUBJECTIVE: MECHANISM OF INJURY: bulging disc L5 sending pain down right leg, onset December 2022. Doing laundry and lifting blankets, felt back pain, eventually started radiating down right leg a couple weeks later. In March (03/20) fell due to right leg weakness and was in hospital for a couple days (was using laundry hamper as walker) Prior to December no significant ongoing low back pain, had gone to ED years ago for back pain. -has been using walker since got out of the hospital in March. -has been in bed a lot over past couple months. Did one visit with outpatient PT who gave her standing back extension and prone press ups, may have been making her worse so stopped Pain management physician--adjusting gabapentin, Chief complaint: less than 1/10 current low back pain central and right leg to foot, worst 8/10 in past couple days. 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 Cancer Clinical Reasoning: No identified risk factors. Infection Clinical Reasoning: No identified risk factors. Cauda Equina Syndrome Clinical Reasoning: No identified risk factors. Red Flags - Cervical Cancer Clinical Reasoning: No identified risk factors. Infection Clinical Reasoning: No identified risk factors. Pain: Post Treatment Pain Post Treatment Pain Level: No Change PROMIS Scales Higher is Better (more content not included)... [facility] 04-25-2023 History of Present illness Narrative Episode Visit Count: 1 Therapist That Will Accept/Oversee The Plan Of Care: Sam Garcia Start of Care Date: 04/25/23 Onset Date: 12/15/22 Plan of Care Certification Date: 04/25/23 Next Certification Due Date: 06/25/23 Patient Identified by Name and Date of : Yes REHABILITATION AND SPORTS THERAPY PHYSICAL THERAPY EVALUATION PLAN OF CARE: Assessment: Shelton Rodrigez presents with diagnosis of RIGHT lumbar radiculopathy that interferes with standing, walking, rising from a chair, walking in the house, walking in the community, stair negotiation, lifting, bending . She presents with impairments in ADL's, balance, gait, independence in exercise, overall function, posture, range of motion, strength, and symptom management. PROMIS (Patient-Reported Outcomes Measurement Information System) scores were reviewed and physical function domain and self efficacy domain identified as a rehabilitation concern. Prognosis for therapy is Fair due to: clinical presentation, multiple co- morbidities . She will benefit from skilled therapy services to meet the goals established for this plan of care as noted below. Goals for Episode of Care: created on 04/25/23 through 06/25/23 Compliance with home exercise program. Patient will report less than 4/10 low back pain with ADLs. Perform supine to sit and sit to stand with minimal pain/difficulty.. Increased strength of right ankle Eversion to 4/5 MMT. Patient will ambulate 200 ft with walker by 05/26/23. Pt will ambulate safely without walker by 06/25/23. Patient Goals: eliminate use of w/c and walker, be normal again, avoid surgery Planned Interventions, Frequency, and Duration: Current Frequency: 1x/week Duration: 8 weeks Total Number of Visits Planned: 8 Planned Treatment Interventions: Therapeutic exercise (17741), Neuromuscular re-education (11490), Therapeutic activities (80953), Self-senior living management (77968), Gait Training (19257), Aquatic PT (31210), Patient/Family/Caregiver Education, Body Mechanics Training, Functional training PLAN FOR NEXT VISIT: initiate aquatic therapy for lumbar mobility and LE/core strength Patient demonstrates good understanding of plan of care and treatment. The above goals and plan of care were discussed and agreed upon by patient/family. SUBJECTIVE: MECHANISM OF INJURY: bulging disc L5 sending pain down right leg, onset December 2022. Doing laundry and lifting blankets, felt back pain, eventually started radiating down right leg a couple weeks later. In March (03/20) fell due to right leg weakness and was in hospital for a couple days (was using laundry hamper as walker) Prior to December no significant ongoing low back pain, had gone to ED years ago for back pain. -has been using walker since got out of the hospital in March. -has been in bed a lot over past couple months. Did one visit with outpatient PT who gave her standing back extension and prone press ups, may have been making her worse so stopped Pain management physician--adjusting gabapentin, Chief complaint: less than 1/10 current low back pain central and right leg to foot, worst 8/10 in past couple days. 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 Cancer Clinical Reasoning: No identified risk factors. Infection Clinical Reasoning: No identified risk factors. Cauda Equina Syndrome Clinical Reasoning: No identified risk factors. Red Flags - Cervical Cancer Clinical Reasoning: No identified risk factors. Infection Clinical Reasoning: No identified risk factors. Pain: Post Treatment Pain Post Treatment Pain Level: No Change PROMIS Scales Higher is Better 04/23/2023 02/04/2023 Phys Func - Score 30 (moderate dysfunction) 37 (moderate dysfunction) Phys Func - Percentile 2 % 10 % Self-Eff Symptom - Score 37 (Low) 38 (Low) Self-Eff Symptom - Percentile 10 % 12 % T-scores: mean of general population = 50. 5 points is clinically meaningfully difference Percentiles provide an indication of how the patient's score ranks in relation to the general population. Higher percentile rankings indicate better function/quality of life. 50th percentile is the average of the general population and indicates half of respondents had a worse score. OBJECTIVE MEASURES WITH LEVEL OF FUNCTION: Sensation - Lumbar Sensation: (right L4-S1 dermatomes decreased sensation to light touch) Lumbar Spine AROM Lumbar Flexion: Major limitation Lumbar Extension: Major limitation LE Strength R Knee Extension (L3): 5/5 R Ankle Dorsiflexion (L4): 5/5 R Ankle Eversion: 3+/5 L Knee Extension (L3): 5/5 L Ankle Dorsiflexion (L4): 5/5 L Ankle Eversion: 5/5 Gait Gait Observation: FWW: slow gait, forward lean-limited walking tolerance (waiting room to treatment room was longest she has walked in months) Balance Static Standing Balance: Comments Static Standing Balance Comments: unstable standing > 5 seconds without UE support Functional Performance Test Results 30 Second Chair Stand Test: 0 reps Education: Education Learning Preferences: Demonstration, Explanation, Performance, Printed Materials Barriers: None Learning/educational needs: Health promotion, Safety, Home exercise program, Plan of Care, Changes in Plan of Care Education Provided: Yes, see treatment interventions for education provided Education Provided To: Patient Education Mode/Type: Demonstration, Explanation/Discussion, Performance Response to Education/Teach Back: States/Identifies, Return Demonstration TREATMENT: PT Treatment Interventions: Therapeutic Exercise, Self-[facility] Management Evaluation Evaluation Therapeutic Exercise: 1: *LTR 10 x 2: *hooklying pelvic tilts 10 x 3: *sit to stand 3 x 4: education about HEP, POC, exam findings Skilled Intervention: Patient was educated in proper exercise technique and purpose for exercises. Provided written instruction for home exercise program to facilitate proper performance and compliance. Self-M[facility] Management: 1: education about staying as active as possible without overdoing pain 2: education about treatment options conservative care, aquatic therapy, injections vs surgery 3: education about lumbar anatomy Skilled Intervention: Reviewed patient specific diagnosis in relation to activities of daily living/home management. Billing * Evaluation Low Complexity: 1 Unit Therapeutic Exercise Treatment Minutes: 10 Self-Care/Home Management Treatment Minutes: 15 Total Treatment Time Minutes (timed/untimed): 47 Session Start Time : 1701 Session Stop Time : 1748 Sam Garcia PT DPT documented in this encounter [facility] 04-18-2023 Note HNO ID: [id number] Author: Kaity Lind PA-C Service: ? Author Type: Physician Spider Assembler Type: Progress Notes Filed: 04/18/2023 12:37 PM Note Text: [facility] [place] [facility] Today's Date: 04/18/2023 Last Visit: N/A Name: Shelton Rodrigez : 1985 Chief complaint/Reason: New Patient Visit regarding low back pain with radicular symptoms Interval History: N/A HPI: 37 year old female; PMH significant for carpal tunnel syndrome, depression, diabetes, anxiety, hypertension, HAILEY,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 Exam(s) Completed: Spine X-Ray(s): Lumbar AP / LAT / L5-S1 PERIPHERAL IV DATA: Not applicable SIGNED BY: RT Almita(R) January 28, 2023 4:27 PM [facility] 01-28-2023 History of Present illness Narrative Radiology Service Progress Note PATIENT NAME: Shelton Rodrigez DATE OF SERVICE: January 28, 2023 TIME: 4:27 PM PATIENT IDENTITY VERIFICATION COMPLETED USING TWO (2) IDENTIFIERS: Name and Date of confirmed by patient verbally. FALL SCREENING: Has the patient had 2 falls in the last year or 1 fall with injury or currently using an Ambulatory Assistive Device (Walker, Cane, Wheelchair, Crutches, etc.)? No PATIENT GENDER DATA: Female. status: : No status: NO. PATIENT RELEVANT IMPLANT DATA REVIEWED: Yes RADIOLOGY DEPARTMENT: General X-ray: Exam(s) Completed: Spine X-Ray(s): Lumbar AP / LAT / L5-S1 PERIPHERAL IV DATA: Not applicable SIGNED BY: RT Almita(R) January 28, 2023 4:27 PM documented in this encounter [facility] 11-26-2022 Note HNO ID: [id number] Author: Jessika Ugalde OD Service: ? Author Type: MILL OPERATOR Type: Progress Notes Filed: 11/26/2022 9:08 AM Note Text: 1. Type 2 diabetes mellitus without retinopathy (HCC) Risk of diabetic changes and vision loss can be minimized by tight control of blood sugar, blood pressure, and cholesterol levels. Educated patient to continue care with primary care doctor and/or candy bar attendant to maintain optimum levels as they are important to avoid ocular complications. Encouraged patient to call the office immediately with any changes to vision or visual concerns. Advised to not wait until the next scheduled exam. 2. Myopia, bilateral Finalized spec rx Monitor yearly Jessika Ugalde OD November 26, 2022 9:07 AM [facility] 11-26-2022 History of Present illness Narrative 1. Type 2 diabetes mellitus without retinopathy (HCC) Risk of diabetic changes and vision loss can be minimized by tight control of blood sugar, blood pressure, and cholesterol levels. Educated patient to continue care with primary care doctor and/or candy bar attendant to maintain optimum levels as they are important to avoid ocular complications. Encouraged patient to call the office immediately with any changes to vision or visual concerns. Advised to not wait until the next scheduled exam. 2. Myopia, bilateral Finalized spec rx Monitor yearly Jessika Ugalde, OD November 26, 2022 9:07 AM documented in this encounter [facility] 11-12-2022 Note HNO ID: [id number] Author: Chiquita Dewey LPN Service: ? Author Type: ? Type: Progress Notes Filed: 11/12/2022 3:58 PM Note Text: Patient presents for Hepatitis B vaccine. Denies any problems at this time. Tolerated injection well. Chiquita Dewey LPN [facility] 11-12-2022 History of Present illness Narrative Patient presents for Hepatitis B vaccine. Denies any problems at this time. Tolerated injection well. Chiquita Dewey LPN documented in this encounter [facility] 10-29-2022 Miscellaneous Notes Patient scheduled for nurse visit 11/12/22 to receive Hepatitis B vaccine. Please place order at this time. Chiquita Dewey LPN documented in this encounter [facility] 10-11-2022 Instructions Kenny Billy MD - 10/11/2022 5:52 PM EST Counseling and Psychiatry Services [facility] [address] [place] [address] *counseling [facility] [address] [facility] [id number] *counseling [address] [id number] *counseling [facility] [address] [place] [address] *counseling and psychiatry [address] [address] *counseling [address] [address] *counseling [place] [facility] [phone] *counseling [place] [address] [place] [phone] *counseling [facility] [address] [place] [address] [facility] [address] [facility], [address] [place] [address] *counseling [facility] [address] [place], [place] [id number] [facility] [address] [place], [place] [address] *counseling [facility] [address] [facility] [address] [place], [place] [phone] [facility] [address] [place] [address] *counseling [employer] [facility] [address] [place], [place] [address] *counseling [facility] [address] [place] [address] *counseling and psychiatry [facility], [address] [place], [place] [address] *psychiatry [facility] [phone] *grief counseling, individual and groups *If you ever experience a mental health crisis please call [phone], 911, Please verify with insurance provider for coverage TEST BLOOD GLUCOSE PERIODICALLY. FASTING GOAL IS <130. AFTER MEAL GOAL (2 HOURS POST MEAL) <180. documented in this encounter [facility] 10-11-2022 History of Present illness Narrative This note was created using [employer]. Subjective Patient presents with: Establish Care: From PCP Allison Robledo MD. She moved here from the [facility]. Shelton Rodrigez was here to establish. She had no new concerns. Medication refills were still current. Her diabetes mellitus, hypertension, and obstructive sleep apnea were well controlled. She was seeing mental health in [facility] and she was fine with that. Her depression and anxiety were controlled. The history is provided by the patient and medical records. PAST MEDICAL HISTORY Diagnosis Date Carpal tunnel syndrome Depressive disorder 11/14/2020 Diabetes mellitus (HCC) 12/01/2020 Dry eye syndrome of bilateral lacrimal glands 07/25/2021 CHAYITO (generalized anxiety disorder) 10/11/2022 Hypertension Hypertension 12/01/2020 Obstructive sleep apnea 12/01/2020 Subclinical hypothyroidism 12/01/2020 Thyroid disease PAST SURGICAL HISTORY Procedure Laterality Date NONE FAMILY HISTORY Problem Relation Age of Onset Uterine Cancer Mother Fibromyalgia Mother Depression Mother Osteoporosis Mother Arthritis Mother Diabetes Father Hypertension Father other (Cancer) Father bladder Obesity Father other (agent [place] illnesses) Father Hypertension Sister Arthritis Sister No Known Problems Sister Diabetes Maternal Grandmother Uterine Cancer Maternal Grandmother Diabetes Paternal Grandmother Social History Tobacco Use Smoking status: Former Packs/day: 0.50 Years: 10.00 Pack years: 5.00 Types: Cigarettes Quit date: 09/16/2014 Years since quittin.0 Smokeless tobacco: Never Tobacco comments: smoked x 10 years - quit 2014 Vaping Use Vaping Use: Never used Substance Use Topics Alcohol use: Yes Comment: 3 drinks per month. Drug use: No Immunization History Administered Date(s) Administered COVID-19 booster vaccine, age 12+ yr, bivalent (MODERNA) 06/15/2022 COVID-19 original vaccine, booster dose, monovalent (MODERNA) 12/24/2021 COVID-19 original vaccine, full dose, monovalent (MODERNA) 12/09/2020 01/06/2021 07/10/2021 Influenza Seasonal Inj Quad Age 6 Mo - 64 Yrs 10/18/2020 Influenza Seasonal Inj Quad Age 6 Mo-64 Yrs Pres Free 06/30/2019 07/11/2021 06/15/2022 Influenza Seasonal Trivalent Inj Pres Free 07/20/2014 Pneumovax 09/13/2021 Tdap (Age 7+) 10/18/2020 influenza (ccIIV4) vaccine, age 6+ mo, quadrivalent, PF (FLUCELVAX) 07/29/2018 ALLERGIES Allergen Reactions Penicillins Hives Current Outpatient Medications Medication Sig cholecalciferol (VITAMIN D3) 1,000 unit tab tablet Take 1 tablet by mouth once daily. metFORMIN (GLUCOPHAGE) 1,000 mg tablet Take 1 tablet by mouth twice daily with meals. hydroCHLOROthiazide (HYDRODIURIL, ESIDRIX) 25 mg tablet Take 1 tablet by mouth once daily. atorvastatin (LIPITOR) 10 mg tablet Take 1 tablet by mouth once daily. lisinopril (ZESTRIL, PRINIVIL) 40 mg tablet Take 1 tablet by mouth once daily. busPIRone (BUSPAR) 7.5 mg tablet Take 1 tablet by mouth twice daily. hydrOXYzine HCl (ATARAX) 25 mg tablet Take 1 tablet by mouth three times daily as needed for anxiety. May take 1/2 tablet FLUoxetine (PROZAC) 40 mg capsule Take 1 capsule by mouth once daily. Norethindrone, Contraceptive, 0.35 mg tablet Take 0.35 mg by mouth once daily. CPAP/BIPAP/OTHER autopap [id number] [employer] ([phone]) Blood Pressure Kit-Extra Large kit 1 Each once daily. Blood-Glucose Meter monitoring kit Glucose Meter of Choice - Kit - Dx: Type 2 DM - Controlled E11.9 blood sugar diagnostic (BLOOD GLUCOSE TEST) test strip Test blood sugar(s) 1 times daily. Dx: Type 2 DM - Controlled E11.9 Insulin: No Lancets lancets Test blood sugar(s) 1 times daily. Dx: Type 2 DM - Controlled E11.9 Insulin: No Cholecalciferol, Vitamin D3, (VITAMIN D) 25 mcg (1,000 unit) cap Take 1 capsule by mouth once daily. No current facility-administered medications for this visit. Review of Systems Constitutional: Negative. HENT: Negative. Respiratory: Negative. Cardiovascular: Negative. Gastrointestinal: Negative. Genitourinary: Negative. Musculoskeletal: Negative. Skin: Negative. Neurological: Negative. Psychiatric/Behavioral: Negative. Objective BP 118/80 Pulse 78 Temp 36.7 C (98 F) Resp 20 Ht 166.4 cm (5' 5.5 ) Wt (!) 219.1 kg (483 lb) LMP 02/24/2019 (Approximate) SpO2 98% BMI 79.15 kg/m Physical Exam Constitutional: Appearance: She is obese. She is not ill-appearing. HENT: Head: Normocephalic. Eyes: Extraocular Movements: Extraocular movements intact. Conjunctiva/sclera: Conjunctivae normal. Cardiovascular: Rate and Rhythm: Normal rate and regular rhythm. Heart sounds: No murmur heard. No gallop. Pulmonary: Effort: Pulmonary effort is normal. Breath sounds: Normal breath sounds. No wheezing or rales. Abdominal: Palpations: Abdomen is soft. Tenderness: There is no abdominal tenderness. Musculoskeletal: Right lower leg: No edema. Left lower leg: No edema. Lymphadenopathy: Cervical: No cervical adenopathy. Neurological: General: No focal deficit present. Mental Status: She is alert. Gait: Gait normal. Psychiatric: Attention and Perception: Attention normal. Mood and Affect: Mood is anxious. Speech: Speech normal. Behavior: Behavior normal. Thought Content: Thought content normal. Assessment and Plan 1. CHAYITO (generalized anxiety disorder) - ICD9: 300.02, ICD10: F41.1 (primary diagnosis) List of local counselors provided. She will continue with Da Renae APRN, CNP for mental health care. 2. Type 2 diabetes mellitus with other specified complication, without long-term current use of insulin (HCC) - ICD9: 250.80, ICD10: E11.69 Controlled. - Continue current medications - CONSULT TO OPHTHALMOLOGY - COMP METABOLIC PANEL - LIPID PANEL BASIC - HGB A1C - ALBUMIN/CREAT RATIO RND UR - BLOOD-GLUCOSE METER KIT - BLOOD GLUCOSE TEST STRIPS - LANCETS - We discussed more novel therapies for diabetes like GLP1a, with metabolic benefits like weight loss. She was not interested in injections at this time. 3. Primary hypertension - ICD9: 401.9, ICD10: I10 - good control 4. Obstructive sleep apnea - ICD9: 327.23, ICD10: G47.33 Controlled. 5. Screening for cervical cancer - ICD9: V76.2, ICD10: Z12.4 - CONSULT TO GYNECOLOGY 6. Need for vaccination - ICD9: V05.9, ICD10: Z23 - HEPATITIS B VACCINE, ADULT AGE 20+, IM 7. Subclinical hypothyroidism - ICD9: 244.8, ICD10: E03.8 Monitored. - TSH BLD 8. Obesity, Class III, BMI >= 40 - ICD9: 278.01, ICD10: E66.01 Newly diagnosed 9. Depressive disorder - ICD9: 311, ICD10: F32.A Controlled. Kenny Billy MD documented in this encounter [facility] 08-22-2022 History of Present illness Narrative Images from the original note were not included. PSYC FOLLOW UP - PSYCHIATRIC PROGRESS NOTE CC: Follow up for medication management for depression and anxiety With the patient consent, visit was performed virtually. HPI: -feels things are good -has good days and bad days but mostly good days -is still feeling good with the medications -feels that the Prozac has helped to manage her anxiety and I don't have phobias anymore that I used to have -has been spending time with friends -continues to date her boyfriend and is still kind of adjusting to being in a healthy relationship -feels that this has been a process of unraveling in a good way how bad my previous relationship was -feels this is the healthiest and best that I've felt -feels that she can have a good outlook even on my bad days -will be visiting her sister for the holidays and they stayed home for Thanksgiving -this is most enjoyment she has had over the holidays because in the past this had been a hard time of year for her -has been able to remember to take the Buspar more regularly Risks and benefits of the medication, including any black box warnings, were discussed with the patient. Interval Progress: Same PATIENT DATA: Generalized Anxiety Disorder Scale (CHAYITO-7) No flowsheet data found.(0-4) minimal anxiety, (5-9) mild anxiety, (10-14) moderate anxiety, (15-21) severe anxiety Patient Health Questionnaire (PHQ-9) PHQ-9 03/05/2021 Score 15 (0-4) minimal depression, (5-9) mild depression, (10-14) moderate depression, (15-19) moderately severe depression, (20-27) severe depression PROMIS Global Health PROMIS Global Health - (T-Scores - the mean of general population = 50. Five points is a clinically meaningful difference.) 03/05/2021 Physical T-Score 32.4 Mental T-Score 33.8 PAST MEDICAL HISTORY Diagnosis Date Anxiety Carpal tunnel syndrome Diabetes (HCC) Hypertension HAILEY (obstructive sleep apnea) Thyroid disease No past surgical history on file. Current Outpatient Medications Medication Sig Dispense Refill lisinopril (ZESTRIL, PRINIVIL) 40 mg tablet Take 1 tablet by mouth once daily. 90 tablet 0 cholecalciferol (VITAMIN D3) 1,000 unit tab tablet Take 1 tablet by mouth once daily. 30 tablet 3 metFORMIN (GLUCOPHAGE) 1,000 mg tablet Take 1 tablet by mouth twice daily with meals. 60 tablet 3 hydroCHLOROthiazide (HYDRODIURIL, ESIDRIX) 25 mg tablet Take 1 tablet by mouth once daily. 30 tablet 3 FLUoxetine (PROZAC) 40 mg capsule Take 1 capsule by mouth once daily. 90 capsule 3 busPIRone (BUSPAR) 7.5 mg tablet Take 1 tablet by mouth twice daily. 60 tablet 3 semaglutide (OZEMPIC) 0.25 mg or 0.5 mg(2 mg/1.5 mL) pen Inject 0.25 mg subcutaneously one time a week. 4 Each 0 atorvastatin (LIPITOR) 10 mg tablet Take 1 tablet by mouth once daily. 30 tablet 3 hydrOXYzine HCl (ATARAX) 25 mg tablet Take 1 tablet by mouth three times daily as needed for anxiety. May take 1/2 tablet 20 tablet 3 Minoxidil 5 % foam Apply to affected area once daily. 60 g 2 Cholecalciferol, Vitamin D3, (VITAMIN D) 25 mcg (1,000 unit) cap Take 1 capsule by mouth once daily. 30 capsule 2 Norethindrone, Contraceptive, 0.35 mg tablet Take 0.35 mg by mouth once daily. CPAP/BIPAP/OTHER autopap [id number] [facility] [place] [employer] ([phone]) 1 Each 0 fluticasone (FLONASE ALLERGY RELIEF) 50 mcg/actuation nasal spray Use 1 [place] in each nostril once daily. 1 Bottle 4 Blood Pressure Kit-Extra Large kit 1 Each once daily. 1 Kit 0 No current facility-administered medications for this visit. ROS: PSYCH: See HPI All other systems negative. PFSH: See HPI VITAL SIGNS: There were no vitals filed for this visit. MENTAL STATUS EXAM: CONSTITUTIONAL: Well groomed, Appropriately dressed, Casually dressed, Well developed, Well nourished ORIENTATION: Person, Place, Time and Situation MEMORY: No deficiencies noted CONCENTRATION: Normal MOOD: euthymic AFFECT: Full and appropriate to topic SPEECH : Clear & distinct LANGUAGE : Normal ASSOCIATIONS: Intact THOUGHT PROCESS : Logical, Coherent, and Rational PROGRESSION : There was no evidence of disturbance in thought perception or progression. FUND OF KNOWLEDGE : Appropriate and Adequate SUICIDE: Denies suicidal thoughts, plan, or intent. HOMICIDE: Denies homicidal thoughts, plan, or intent. DATA REVIEWED: Electronic medical record DIAGNOSIS: PRIMARY: Anxiety Disorder Generalized Anxiety Disorder SECONDARY: Mood Disorder Major Depressive Disorder, Recurrent, Moderate Other : R/O OCD GAF: 65 -70-61 Some mild symptoms or some difficulty in social, occupational, or school functioning, but generally functioning pretty well. TREATMENT PLAN: Reviewed symptoms, medications and their side effects, labs, and progress being made. Discussed life situations and coping skills Support and encouragement provided PLAN AND FOLLOW UP: If any acute concerns arise please call 911 or go to the nearest Emergency Department. Medications: Continue: --Prozac (fluoxetine) 40 mg once daily --hydroxyzine 25 mg up to three times daily as needed for anxiety --Buspar 7.5 mg twice daily Lab work: --last done 05/17/22, will reorder as needed Next appointment: --Schedule in 3 months or sooner if needed --To call the office call [phone] option 3 (for any questions or concerns) or you may call the department appointment line at [phone] --Message in Concurrent Inchart any questions or concerns. MEDICATION CHANGES: Current medication regimen unchanged. Prescriptions given Follow Up: 3 months I spent a total of 25 minutes on the date of the service which included preparing to see the patient, [id number] patient care, completing clinical documentation, performing a medically appropriate examination, counseling and educating the patient/family/caregiver and ordering medications, tests, or procedures. ADD ON PSYCHOTHERAPY CODE : No SIGNATURE: Elin Renae APRN.CNP PATIENT NAME: Shelton Rodrigez DATE: August 22, 2022 TIME: 9:18 AM PAGER: documented in this encounter [facility] 06-26-2022 Miscellaneous Notes Patient called back regarding her lisinopril. She has been taking a total of 40 mg Lisinopril (2 pills of her 20 mg ) since the last 2 weeks. She has been off her metoprolol since the last 2 weeks.Her BP reading are all <130/90 mmHg.Refill for Lisinopril 40 mg provided. Will see patient in 1 month. Rhett Ken MD June 26, 2022 3:19 PM documented in this encounter [facility] 06-26-2022 Miscellaneous Notes Pt left message stating she has questions about her lisinopril medication. Lila Deleon Ma documented in this encounter [facility] 05-23-2022 History of Present illness Narrative Images from the original note were not included. PSYC FOLLOW UP - PSYCHIATRIC PROGRESS NOTE CC: Follow up for medication management for depression and anxiety With the patient consent, visit was performed virtually. HPI: She has been doing good . She is in the middle of moving to [place] with her boyfriend. She feels that this is a low pressure move and has been going well. She is moving out of her mom's house so she can take my time . She has been feeling more motivated and has picked back up with crafting, which she hasn't felt like doing in a long time. She has also picked up a fun hobby of collecting VHS tapes and VCR player. She feels like there have been some ups and downs but that the overall trajectory of her mood is in the positive direction . She is going to be having a not so surprise birthday surprise this weekend. Her boyfriend is planning a surprise which she found out about but still doesn't know what it is. She feels that her medications are working well and is happy with they are currently. Risks and benefits of the medication, including any black box warnings, were discussed with the patient. Interval Progress: Slightly improved PATIENT DATA: Generalized Anxiety Disorder Scale (CHAYITO-7) No flowsheet data found.(0-4) minimal anxiety, (5-9) mild anxiety, (10-14) moderate anxiety, (15-21) severe anxiety Patient Health Questionnaire (PHQ-9) PHQ-9 03/05/2021 Score 15 (0-4) minimal depression, (5-9) mild depression, (10-14) moderate depression, (15-19) moderately severe depression, (20-27) severe depression PROMIS Global Health PROMIS Global Health - (T-Scores - the mean of general population = 50. Five points is a clinically meaningful difference.) 03/05/2021 Physical T-Score 32.4 Mental T-Score 33.8 PAST MEDICAL HISTORY Diagnosis Date Anxiety Carpal tunnel syndrome Diabetes (HCC) Hypertension HAILEY (obstructive sleep apnea) Thyroid disease No past surgical history on file. Current Outpatient Medications Medication Sig Dispense Refill cholecalciferol (VITAMIN D3) 1,000 unit tab tablet Take 1 tablet by mouth once daily. 30 tablet 3 metFORMIN (GLUCOPHAGE) 1,000 mg tablet Take 1 tablet by mouth twice daily with meals. 60 tablet 3 hydroCHLOROthiazide (HYDRODIURIL, ESIDRIX) 25 mg tablet Take 1 tablet by mouth once daily. 30 tablet 3 FLUoxetine (PROZAC) 40 mg capsule Take 1 capsule by mouth once daily. 90 capsule 3 busPIRone (BUSPAR) 7.5 mg tablet Take 1 tablet by mouth twice daily. 60 tablet 3 lisinopril (ZESTRIL, PRINIVIL) 20 mg tablet Take 1.5 tablets by mouth once daily. Take 1.5 tablets at home for 2 weeks and increase to 2 tablets when off of Metoprolol 30 tablet 4 metoprolol succinate ER (TOPROL XL) 25 mg 24 hr tablet Take 0.5 tablets by mouth once daily. Take half a tablet for 2 weeks and if no withdrawal stop 30 tablet 0 semaglutide (OZEMPIC) 0.25 mg or 0.5 mg(2 mg/1.5 mL) pen Inject 0.25 mg subcutaneously one time a week. 4 Each 0 atorvastatin (LIPITOR) 10 mg tablet Take 1 tablet by mouth once daily. 30 tablet 3 hydrOXYzine HCl (ATARAX) 25 mg tablet Take 1 tablet by mouth three times daily as needed for anxiety. May take 1/2 tablet 20 tablet 3 Minoxidil 5 % foam Apply to affected area once daily. 60 g 2 Cholecalciferol, Vitamin D3, (VITAMIN D) 25 mcg (1,000 unit) cap Take 1 capsule by mouth once daily. 30 capsule 2 Norethindrone, Contraceptive, 0.35 mg tablet Take 0.35 mg by mouth once daily. CPAP/BIPAP/OTHER [place] [id number] [facility] [place] [employer] [place][phone]) 1 Each 0 fluticasone (FLONASE ALLERGY RELIEF) 50 mcg/actuation nasal spray Use 1 [place] in each nostril once daily. 1 Bottle 4 Blood Pressure Kit-Extra Large kit 1 Each once daily. 1 Kit 0 No current facility-administered medications for this visit. ROS: PSYCH: See HPI All other systems negative. PFSH: See HPI VITAL SIGNS: There were no vitals filed for this visit. MENTAL STATUS EXAM: CONSTITUTIONAL: Well groomed, Appropriately dressed, Casually dressed, Well developed, Well nourished ORIENTATION: Person, Place, Time and Situation MEMORY: No deficiencies noted CONCENTRATION: Normal MOOD: euthymic AFFECT: Full and appropriate to topic SPEECH : Clear & distinct LANGUAGE : Normal ASSOCIATIONS: Intact THOUGHT PROCESS : Logical, Coherent, and Rational PROGRESSION : There was no evidence of disturbance in thought perception or progression. FUND OF KNOWLEDGE : Appropriate and Adequate SUICIDE: Denies suicidal thoughts, plan, or intent. HOMICIDE: Denies homicidal thoughts, plan, or intent. DATA REVIEWED: Electronic medical record DIAGNOSIS: PRIMARY: Anxiety Disorder Generalized Anxiety Disorder SECONDARY: Mood Disorder Major Depressive Disorder, Recurrent, Moderate Other : R/O OCD GAF: 65 -70-61 Some mild symptoms or some difficulty in social, occupational, or school functioning, but generally functioning pretty well. TREATMENT PLAN: Reviewed symptoms, medications and their side effects, labs, and progress being made. Discussed life situations and coping skills Support and encouragement provided PLAN AND FOLLOW UP: If any acute concerns arise please call 911 or go to the nearest Emergency Department. Medications: Continue: --Prozac (fluoxetine) 40 mg once daily --hydroxyzine 25 mg up to three times daily as needed for anxiety --Buspar 7.5 mg twice daily Lab work: --last done 05/17/22, will reorder as needed Other: --may add medication for sleep in future Next appointment: --Schedule in 3 months or sooner if needed --To call the office call [phone] option 3 (for any questions or concerns) or you may call the department appointment line at [phone] --Message in [email or web address] any questions or concerns. MEDICATION CHANGES: Current medication regimen unchanged. Prescriptions given Follow Up: 3 months I spent a total of 30 minutes on the date of the service which included preparing to see the patient, [id number] patient care, completing clinical documentation, performing a medically appropriate examination, counseling and educating the patient/family/caregiver and ordering medications, tests, or procedures. ADD ON PSYCHOTHERAPY CODE : No SIGNATURE: Elin Renae APRN.CNP PATIENT NAME: Shelton Rodrigez DATE: May 23, 2022 TIME: 9:36 AM PAGER: documented in this encounter [facility] 05-17-2022 Note HNO ID: [id number] Author: Allison Robledo MD Service: ? Author Type: Physician Type: Progress Notes Filed: 05/22/2022 2:55 PM Note Text: This is an in person visit SUBJECTIVE Shelton Rodrigez is a 36 year old female 1- Primary hypertension: Lisinopril 20 mg, HCTZ: 25 mg, and metoprolol succinate 25 mg daily. 2- Diabetes type 2: Last HbA1c: 6.1% 06/2021, on metformin 1 gram BID.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 [address]18-2021 History of Past illness Narrative* Problem Noted Date Diagnosed Date Resolved Date Diarrhea 12/01/2020 10/11/2022 Obesity, Class III, BMI >= 40 10/18/2020 12/01/2020 documented as of this encounter (statuses as of 04/30/2023) [address]18-2021 History of Past illness Narrative* Problem Noted Date Diagnosed Date Resolved Date Diarrhea 12/01/2020 10/11/2022 Obesity, Class III, BMI >= 40 10/18/2020 12/01/2020 documented as of this encounter (statuses as of 05/03/2023) [address]18-2021 History of Past illness Narrative* Problem Noted Date Diagnosed Date Resolved Date Diarrhea 12/01/2020 10/11/2022 Obesity, Class III, BMI >= 40 10/18/2020 12/01/2020 documented as of this encounter (statuses as of 05/07/2023) [address]18-2021 History of Past illness Narrative* Problem Noted Date Diagnosed Date Resolved Date Diarrhea 12/01/2020 10/11/2022 Obesity, Class III, BMI >= 40 10/18/2020 12/01/2020 documented as of this encounter (statuses as of 05/14/2023) [address]18-2021 History of Past illness Narrative* Problem Noted Date Diagnosed Date Resolved Date Diarrhea 12/01/2020 10/11/2022 Obesity, Class III, BMI >= 40 10/18/2020 12/01/2020 documented as of this encounter (statuses as of 05/16/2023) [address]18-2021 History of Past illness Narrative* Problem Noted Date Diagnosed Date Resolved Date Diarrhea 12/01/2020 10/11/2022 Obesity, Class III, BMI >= 40 10/18/2020 12/01/2020 documented as of this encounter (statuses as of 05/24/2023) [address]18-2021 History of Past illness Narrative* Problem Noted Date Diagnosed Date Resolved Date Diarrhea 12/01/2020 10/11/2022 Obesity, Class III, BMI >= 40 10/18/2020 12/01/2020 documented as of this encounter (statuses as of 05/26/2023) [address]18-2021 History of Past illness Narrative* Problem Noted Date Diagnosed Date Resolved Date Diarrhea 12/01/2020 10/11/2022 Obesity, Class III, BMI >= 40 10/18/2020 12/01/2020 documented as of this encounter (statuses as of 05/30/2023) [address]18-2021 History of Past illness Narrative* Problem Noted Date Diagnosed Date Resolved Date Diarrhea 12/01/2020 10/11/2022 Obesity, Class III, BMI >= 40 10/18/2020 12/01/2020 documented as of this encounter (statuses as of 05/31/2023) [address]18-2021 History of Past illness Narrative* Problem Noted Date Diagnosed Date Resolved Date Diarrhea 12/01/2020 10/11/2022 Obesity, Class III, BMI >= 40 10/18/2020 12/01/2020 documented as of this encounter (statuses as of 06/04/2023) [address]18-2021 History of Past illness Narrative* Problem Noted Date Diagnosed Date Resolved Date Diarrhea 12/01/2020 10/11/2022 Obesity, Class III, BMI >= 40 10/18/2020 12/01/2020 documented as of this encounter (statuses as of 06/05/2023) [address]18-2021 History of Past illness Narrative* Problem Noted Date Diagnosed Date Resolved Date Diarrhea 12/01/2020 10/11/2022 Obesity, Class III, BMI >= 40 10/18/2020 12/01/2020 documented as of this encounter (statuses as of 06/14/2023) [address]18-2021 History of Past illness Narrative* Problem Noted Date Diagnosed Date Resolved Date Diarrhea 12/01/2020 10/11/2022 Obesity, Class III, BMI >= 40 10/18/2020 12/01/2020 documented as of this encounter (statuses as of 06/14/2023) [address]18-2021 History of Past illness Narrative* Problem Noted Date Diagnosed Date Resolved Date Diarrhea 12/01/2020 10/11/2022 Obesity, Class III, BMI >= 40 10/18/2020 12/01/2020 documented as of this encounter (statuses as of 06/16/2023) [address]18-2021 History of Past illness Narrative* Problem Noted Date Diagnosed Date Resolved Date Diarrhea 12/01/2020 10/11/2022 Obesity, Class III, BMI >= 40 10/18/2020 12/01/2020 documented as of this encounter (statuses as of 06/25/2023) [address]18-2021 History of Past illness Narrative* Problem Noted Date Diagnosed Date Resolved Date Diarrhea 12/01/2020 10/11/2022 Obesity, Class III, BMI >= 40 10/18/2020 12/01/2020 documented as of this encounter (statuses as of 06/27/2023) [address]18-2021 History of Past illness Narrative* Problem Noted Date Diagnosed Date Resolved Date Diarrhea 12/01/2020 10/11/2022 Obesity, Class III, BMI >= 40 10/18/2020 12/01/2020 documented as of this encounter (statuses as of 06/28/2023) [address]18-2021 History of Past illness Narrative* Problem Noted Date Diagnosed Date Resolved Date Diarrhea 12/01/2020 10/11/2022 Obesity, Class III, BMI >= 40 10/18/2020 12/01/2020 documented as of this encounter (statuses as of 06/28/2023) [address]18-2021 History of Past illness Narrative* Problem Noted Date Diagnosed Date Resolved Date Diarrhea 12/01/2020 10/11/2022 Obesity, Class III, BMI >= 40 10/18/2020 12/01/2020 documented as of this encounter (statuses as of 07/02/2023) [address]18-2021 History of Past illness Narrative* Problem Noted Date Diagnosed Date Resolved Date Diarrhea 12/01/2020 10/11/2022 Obesity, Class III, BMI >= 40 10/18/2020 12/01/2020 documented as of this encounter (statuses as of 07/13/2023) [address]18-2021 History of Past illness Narrative* Problem Noted Date Diagnosed Date Resolved Date Diarrhea 12/01/2020 10/11/2022 Obesity, Class III, BMI >= 40 10/18/2020 12/01/2020 documented as of this encounter (statuses as of 07/16/2023) [address]18-2021 History of Past illness Narrative* Problem Noted Date Diagnosed Date Resolved Date Diarrhea 12/01/2020 10/11/2022 Obesity, Class III, BMI >= 40 10/18/2020 12/01/2020 documented as of this encounter (statuses as of 07/22/2023) [address]18-2021 History of Past illness Narrative* Problem Noted Date Diagnosed Date Resolved Date Diarrhea 12/01/2020 10/11/2022 Obesity, Class III, BMI >= 40 10/18/2020 12/01/2020 documented as of this encounter (statuses as of 07/22/2023) [facility] Diagnosis Generalized anxiety disorder [facility] Diagnosis Generalized anxiety disorder [facility] Diagnosis Hypertension, unspecified type Essential hypertension Unspecified essential hypertension [facility] Diagnosis Essential hypertension Unspecified essential hypertension Type 2 diabetes mellitus with other specified complication, without long-term current use of insulin (HCC) Hypertension, unspecified type [facility] Diagnosis Primary hypertension- Primary Unspecified essential hypertension Controlled type 2 diabetes mellitus without complication, without long-term current use of insulin (HCC) Subclinical hypothyroidism Other specified acquired hypothyroidism Morbid obesity (HCC) Morbid obesity Generalized anxiety disorder Vitamin D deficiency Unspecified vitamin D deficiency Hyperlipidemia, unspecified hyperlipidemia type [facility] this [facility] Diagnosis Type 2 diabetes mellitus with other specified complication, without long-term current use of insulin (HCC)- Primary Vitamin D deficiency Unspecified vitamin D deficiency Essential hypertension Unspecified essential hypertension Hypertension, unspecified type Generalized anxiety disorder Pap test, as part of routine gynecological examination Screening for malignant neoplasm of the cervix Screening for cervical cancer Screening for malignant neoplasm of the cervix BMI 70 and over, adult (HCC) Body Mass Index 70 and over, adult Immunization due Need for prophylactic vaccination and inoculation against unspecified single disease Fullness in ear, left Hyperlipidemia LDL goal <100 Other and unspecified hyperlipidemia [facility] Diagnosis Generalized anxiety disorder- Primary [facility] Diagnosis Generalized anxiety disorder [facility]* Diagnosis CHAYITO (generalized anxiety disorder)- Primary Generalized anxiety disorder Type 2 diabetes mellitus with other specified complication, without long-term current use of insulin (HCC) Primary hypertension Unspecified essential hypertension Obstructive sleep apnea Obstructive sleep apnea (adult) (pediatric) Screening for cervical cancer Screening for malignant neoplasm of the cervix Need for vaccination Need for prophylactic vaccination and inoculation against unspecified single disease Subclinical hypothyroidism Other specified acquired hypothyroidism Obesity, Class III, BMI >= 40 Morbid obesity Depressive disorder Depressive disorder, not elsewhere classified [facility] Diagnosis Need for vaccination- Primary Need for prophylactic vaccination and inoculation against unspecified single disease [facility]* Diagnosis Type 2 diabetes mellitus without retinopathy (HCC)- Primary Type II or unspecified type diabetes mellitus without mention of complication, not stated as uncontrolled Myopia, bilateral Myopia [facility] Diagnosis Intervertebral disc disorder with radiculopathy of lumbar region- Primary Thoracic or lumbosacral neuritis or radiculitis, unspecified [facility] Diagnosis Generalized anxiety disorder [facility] Diagnosis Back pain of lumbar region with sciatica- Primary Prediabetes Other abnormal glucose documented in this encounter [facility] note* Diagnosis Spinal stenosis, lumbar region with neurogenic claudication- Primary Lumbar radiculopathy Thoracic or lumbosacral neuritis or radiculitis, unspecified Lumbar spondylosis Lumbosacral spondylosis without myelopathy documented in this encounter [facility] note* Diagnosis Lumbar radiculopathy Thoracic or lumbosacral neuritis or radiculitis, unspecified Lumbar spondylosis Lumbosacral spondylosis without myelopathy Spinal stenosis, lumbar region with neurogenic claudication Radiculopathy, lumbar region Thoracic or lumbosacral neuritis or radiculitis, unspecified [facility] this encounter [facility]* Diagnosis Radiculopathy, lumbar region- Primary Thoracic or lumbosacral neuritis or radiculitis, unspecified Lumbar spondylosis Lumbosacral spondylosis without myelopathy documented in this encounter [facility] note* Diagnosis Radiculopathy, lumbar region- Primary Thoracic or lumbosacral neuritis or radiculitis, unspecified Lumbar spondylosis Lumbosacral spondylosis without myelopathy documented in this encounter [facility] note* Diagnosis Generalized anxiety disorder- Primary documented [facility] this encounter [facility]* Diagnosis Chronic radicular lumbar pain- Primary Thoracic or lumbosacral neuritis or radiculitis, unspecified Need for vaccination Need for prophylactic vaccination and inoculation against unspecified single disease Prediabetes Other abnormal glucose [facility] this encounter [facility]* Diagnosis Lumbar pain- Primary Lumbago documented in this encounter [facility] note* Diagnosis Major depressive disorder with single episode, in remission (HCC)- Primary Generalized anxiety disorder documented in this encounter [facility] note* Diagnosis Radiculopathy, lumbar region- Primary Thoracic or lumbosacral neuritis or radiculitis, unspecified Lumbar spondylosis Lumbosacral spondylosis without myelopathy documented in this encounter [facility] note* Diagnosis MDD (major depressive disorder), recurrent episode, moderate (HCC)- Primary Major depressive disorder, recurrent episode, moderate Generalized anxiety disorder documented [facility] this [facility]* Diagnosis Radiculopathy, lumbar region- Primary Thoracic or lumbosacral neuritis or radiculitis, unspecified Lumbar spondylosis Lumbosacral spondylosis without myelopathy [facility] Diagnosis Chronic bilateral low back pain without sciatica- Primary [facility] Diagnosis Lumbar radiculopathy- Primary Thoracic or lumbosacral neuritis or radiculitis, unspecified Lumbar spondylosis Lumbosacral spondylosis without myelopathy Spinal stenosis, lumbar region with neurogenic claudication [facility] Diagnosis Radiculopathy, lumbar region- Primary Thoracic or lumbosacral neuritis or radiculitis, unspecified Lumbar spondylosis Lumbosacral spondylosis without myelopathy [facility] Diagnosis Lumbar spondylosis- Primary Lumbosacral spondylosis without myelopathy Spinal stenosis, lumbar region with neurogenic claudication Lumbar radiculopathy Thoracic or lumbosacral neuritis or radiculitis, unspecified [facility] Diagnosis Lumbar radiculopathy- Primary Thoracic or lumbosacral neuritis or radiculitis, unspecified documented in this encounter [facility] note* Diagnosis Generalized anxiety disorder- Primary MDD (major depressive disorder), recurrent episode, moderate (HCC) Major depressive disorder, recurrent episode, moderate documented in this encounter [facility] note* Diagnosis Obesity, Class III, BMI >= 40- Primary Morbid obesity Major depressive disorder with single episode, in remission (HCC) Vitamin D deficiency Unspecified vitamin D deficiency Subclinical hypothyroidism Other specified acquired hypothyroidism Obstructive sleep apnea on CPAP Obstructive sleep apnea (adult) (pediatric) Mixed hyperlipidemia Primary hypertension Unspecified essential hypertension Dietary counseling and surveillance Dietary surveillance and counseling BMI 70 and over, adult (HCC) Body Mass Index 70 and over, adult Type 2 diabetes mellitus with other specified complication, without long-term current use of insulin (HCC) [facility] Diagnosis Generalized anxiety disorder- Primary MDD (major depressive disorder), recurrent episode, moderate (HCC) Major depressive disorder, recurrent episode, moderate [facility]* Diagnosis MDD (major depressive disorder), recurrent episode, moderate (HCC)- Primary Major depressive disorder, recurrent episode, moderate Generalized anxiety disorder documented in this encounter [facility] for referral (narrative)* - Outside PCP Specialty Diagnoses / Procedures Referred By Contac t Referred To Contact Physical Therapy Diagnoses Lumbar radiculopathy Lumbar spondylosis Spinal stenosis, lumbar region with neurogenic claudication Procedures CONSULT TO PHYSICAL THERAPY Kaity Lind PA-C [id number] [address] Referral ID Status Reason Start Date Expiration Date V isits Requested Visits Authorized [id number] Outside PCP 04/18/2023 07/17/2023 1 1 [facility] Reason for Referral Status Reason Specialty Diagnoses / Procedures Referred By Contact Referred To Contact Pending Review PCP Requested Referral Diagnoses Anxiety Procedures CONSULT TO PSYCHIATRY NEW PATIENT VISIT LEVEL 5 Allison Robledo [id number] [place] [id number] Status Reason Specialty Diagnoses / Procedures Referred By Contact Referred To Contact Authorized PCP Requested Referral Auto-Generated Referral Diagnoses Pap smear, as part of routine gynecological examination Procedures CONSULT TO DERMATOLOGIST NEW PATIENT VISIT LEVEL 5 Allison Robledo [id number] [place] [id number] Specialty Diagnoses / Procedures Referred By Contac t Referred To Contact Diagnoses BMI 70 and over, adult (HCC) Procedures CONSULT [facility] IN[facility] OFFICE/OUTPATIENT [facility] 60-[place] [address] [place] [address] Referral ID Status Reason Start Date Expiration Date Visits Requested Visits Authorized [id number] Authorized PCP Requested Referral 05/17/2022 05/17/2023 1 1 Specialty Diagnoses / Procedures Referred By Contac t Referred To Contact Diagnoses Pap test, as part of routine gynecological examination Procedures CONSULT TO DERMATOLOGIST OFFICE/OUTPATIENT [facility] 60-[place] [address] [place] [address] Referral ID Status Reason Start Date Expiration Date Visits Requested Visits Authorized [id number] Authorized PCP Requested Referral Auto-Generate d Referral 05/17/2022 05/17/2023 1 1 Specialty Diagnoses / Procedures Referred By Contac t Referred To Contact Ophthalmology Diagnoses Type 2 diabetes mellitus with other specified complication, without long-term current use of insulin (HCC) Procedures CONSULT TO OPHTHALMOLOGY OFFICE/OUTPATIENT [facility] 60-74 MINUTES Kenny Billy MD [address] [place] [address] Referral ID Status Reason Start Date Expiration Date Visits Requested Visits Authorized [id number] Authorized PCP Requested Referral 10/11/2022 10/11/2023 1 1 Specialty Diagnoses / Procedures Referred By Contac t Referred To Contact Gynecology Diagnoses Screening for cervical cancer Procedures CONSULT TO GYNECOLOGY OFFICE/OUTPATIENT [facility] 60-74 MINUTES Kenny Billy MD [address] [place] [address] Referral ID Status Reason Start Date Expiration Date Visits Requested Visits Authorized [id number] Authorized PCP Requested Referral Auto-Generate d Referral 10/11/2022 10/11/2023 1 1 Specialty Diagnoses / Procedures Referred By Contac t Referred To Contact [facility] Diagnoses Intervertebral disc disorder with radiculopathy of lumbar region Procedures PT REHAB FOLLOW UP ORDER THERAPEUTIC EXERCISES RE, EA 15 MIN. [facility] [address] [place] [address] [facility] [address] [place] [address] Referral ID Status Reason Start Date Expiration Date Visits Requested Visits Authorized [id number] Pending Review PCP Requested Referral Auto-Generate d Referral 02/13/2023 05/14/2023 1 1 Specialty Diagnoses / Procedures Referred By Contac t Referred To Contact Pain Management Diagnoses Back pain of lumbar region with sciatica Procedures CONSULT TO PAIN MGT Intm Ag Acc 1 [facility] [address] [place] [address] Referral ID Status Reason Start Date Expiration Date Visits Requested Visits Authorized [id number] Ref Not Required PCP Requested Referral 03/27/2023 03/26/2024 1 1 Specialty Diagnoses / Procedures Referred By Contac t Referred To Contact [facility] Diagnoses Lumbar radiculopathy Lumbar spondylosis Spinal stenosis, lumbar region with neurogenic claudication Procedures CONSULT TO PHYSICAL THERAPY PHYSICAL THERAPY EVALUATION HIGH COMPLEX 45 MINS Antonella Ye MD [address] [place] [address] [facility] [address] [place] [id number] Referral ID Status Reason Start Date Expiration Date Visits Requested Visits Authorized [id number] Outside PCP Auto-Generat ed Referral 06/14/2023 06/13/2024 1 1 Specialty Diagnoses / Procedures Referred By Contac t Referred To Contact [facility] Diagnoses Lumbar spondylosis Spinal stenosis, lumbar region with neurogenic claudication Lumbar radiculopathy Procedures CONSULT TO PHYSICAL THERAPY PHYSICAL THERAPY EVALUATION HIGH COMPLEX 45 MINS Bethany Botello APRN.HISTOPATHOLOGIST [address] [place] [address] [address] Referral ID Status Reason Start Date Expiration Date Visits Requested Visits Authorized [id number] Pending Review Auto-Generat ed Referral 06/16/2023 06/15/2024 1 1 Specialty Diagnoses / Procedures Referred By Contac t Referred To Contact Diagnoses Vitamin D deficiency Mixed hyperlipidemia Primary hypertension BMI 70 and over, adult (HCC) Type 2 diabetes mellitus with other specified complication, without long-term current use of insulin (HCC) Luz Austin APRN.HISTOPATHOLOGIST [address] [place] [address] Referral ID Status Reason Start Date Expiration Date Visits Re quested Visits Authorized [id number] Closed 1 1 Specialty Diagnoses / Procedures Referred By Contac t Referred To Contact Diagnoses Obesity, Class III, BMI 40-49.9 (morbid obesity) ([facility]) Major depressive disorder with single episode, in remission ([facility]) Vitamin D deficiency Controlled type 2 diabetes mellitus without complication, without long-term current use of insulin ([facility]) Subclinical hypothyroidism Obstructive sleep apnea on CPAP Mixed hyperlipidemia Primary hypertension Dietary counseling and surveillance BMI 70 and over, adult ([facility]) Procedures CONSULT TO BARIATRIC SURGERY Luz Austin APRN.HISTOPATHOLOGIST [address] [place] [address] Referral ID Status Reason Start Date Expiration Date V isits Requested Visits Authorized [id number] Ref Not Required 06/28/2023 08/27/2023 1 1 Instructions * Patient Instructions* Mitch Cadena Res, MD - 10/12/2020 1:30 PM EST Please follow up with us in 1 week documented in this encounter History of Present Illness * Allison Robledo - 10/12/2020 2:20 PM EST SUBJECTIVE: shahla Rodrigez is a 35 year old female for establishment of care and hospital follow up. This is a 35 year old female with PMH significant for morbid obesity, ?HTN (not on medication), allergies who recently went to the ED for dizziness and is here for follow up appointment. Patient reports that last Saturday she had 2 episodes of dizziness (sensation of room spinning aroundher) both lasting 10-15 minutes without LOC, nausea, vomiting, near syncope, chest pain, SOB. The first episode started when she got up from a sitting position to standing, she woke up from sleep anddint experience any vision loss or blurry vision. During the second she was on the commode and wentback to her room and that's when she decided to go to the ED. She denies nausea vomiting, hearing loss, headaches, tingling sensation in the ear, falls, fullness in the ear, upper or lower body weakness, loss of sensation in the extremities. She also denies recent flu like illness, fever, chills, we ight loss, night sweats, diarrhea, constipation. She hydrates herself well for the day. The episodes haven't occurred since her ED visit, she was given Antivert, zyrtec and Flonase since she was alsocomplaining of nasal congestion and sinus tenderness since a month. She lives with her roommate, doesn't drink alcohol or smoke, also denies any history of recreational drug abuse. Agreeable to have screening test for HIV and Hep C testing. Also agrees to have flu and TDAP shot in the next visit. CURRENT MEDICATIONS: Current Outpatient Medications Medication Sig meclizine (ANTIVERT) 25 mg tab Take 1 tablet by mouth three times daily as needed. fluticasone (FLONASE) 50 mcg/actuation nasal spray Use 1 [place] in each nostril once daily. cetirizine (ZYRTEC) 5 mg tablet Take 2 tablets by mouth once daily. Norethindrone-Eth Estradiol (NORTREL 0.5/35, 28,) 0.5-35 mg-mcg per tablet Take 1 tablet by mouth once daily. metoprolol succinate XL (TOPROL XL) 25 mg 24 hr tablet Take 25 mg by mouth once daily. No current facility-administered medications for this visit. PROBLEM LIST: There is no problem list on file for this patient. PAST MEDICAL HISTORY Diagnosis Date Anxiety Hypertension No past surgical history on file. ALLERGIES: Penicillins FAMILY MEDICAL HISTORY: No family history on file. SOCIAL HISTORY Social History Tobacco Use Smoking status: Former Smoker Substance Use Topics Alcohol use: Yes Comment: rare Drug use: No REVIEW OF SYSTEMS: GENERAL: No weight loss, malaise or fevers HEENT: Negative for frequent or significant headaches, No changes in hearing or vision, no nose bleeds or other nasal problems NECK: Negative for lumps, goiter, pain and significant neck swelling RESPIRATORY: Negative for cough, hemoptysis, wheezing, COPD, dyspnea or shortness of breath CARDIOVASCULAR: Negative for chest pain, leg swelling, hypertension, CHF or palpitations GI: No nausea, vomiting, or diarrhea PSYCH: Positive for anxiety. HEMATOLOGY/LYMPHOLOGY Negative for prolonged bleeding, bruising easily or swollen nodes ENDOCRINE: Negative for cold or heat intolerance, polyuria, polydipsia and goiter NEURO: negative for migraine headaches, tension headaches, syncope, seizures and paralysis PHYSICAL EXAMINATION: [facility] 02/24/2019 (Approximate) General Appearance: well appearing, in no acute distress, alert, no palor, no jaundice, no lymphedenopathy Eyes: Anicteric sclera. Pupils are equally round and reactive to light. Extraocular movements are intact. Nose/Sinuses: Nares normal, septum midline, mucosa normal, no drainage or sinus tenderness Oropharynx: Lips, mucosa, and tongue normal, teeth and gums normal, oropharynx normal Lungs: Lungs clear to auscultation. No wheezing, rhonchi, rales. Heart: RRR without murmur, gallop, or rubs. No ectopy Abdomen: Normal abdominal exam, Abdomen soft, non-tender. Bowel sounds normal. No masses, organomegaly Extremities: Normal exam of the extremities. No clubbing, cyanosis, or edema. Neurologic: Gait normal. cranial nerves and limbs exam is grossly intact. ASSESSMENT/PLAN: This is a 35 year old female with PMH significant for morbid obesity, ?HTN (not on medication), allergies who recently went to the ED for dizziness and is here for follow up appointment. 1. Dizziness - ICD9: 780.4, ICD10: R42 (primary diagnosis) Could be from orthostatic hypotension vs dehydration vs vasovagal syncope vs BPPV She is completely asymptomatic at this point, I asked her to come in person to the clinic so that acomprehensive exam such as Agata Hallpike and Epleys maneuver and then evaluate the need for ENT evaluation Continue with Antivert for now as needed 2. TSH elevation - ICD9: 794.5, ICD10: R79.89 Could be subclinical hypothyroidism but don't have T4 levels for full diagnosis, we will repeat theTSH levels in 8 weeks to make sure its downtrending. - TSH BLD 3. Pap smear, as part of routine gynecological examination - ICD9: V76.2, ICD10: Z01.419 - Completed pelvic and breast exam - Encouraged monthly BSE - Follow up for annual exam in one year. - CONSULT TO DERMATOLOGIST 4. Anxiety - ICD9: 300.00, ICD10: F41.9 CHAYITO-7: 11 indicating moderate anxiety - CONSULT TO PSYCHIATRY - Would defer the need for medication for now until she seeks psychotherapy first 5. Morbid obesity (HCC) - ICD9: 278.01, ICD10: E66.01 Weight increasing - Behavioral intervention Refuse to join bariatric program for now 6. Sleep apnea, unspecified type - ICD9: 780.57, ICD10: G47.30 STOP BAND score 5 Would definitely benefit from a sleep study. - PAP TITRATION PSG (CPAP, BIPAP, ASV) Mitch Cadena MD October 12, 2020 2:35 PM Next Visit: Appointment in 1 week for comprehensive physical exam for dizziness evaluation. Mitch Cadena MD Patient seen and examined with the resident. Findings and plan of management discussed.Agree with resident's plan of care. Allison Robledo MD documented in this encounter* Allison Robledo - 11/01/2020 2:59 PM EST Virtual clinic visit SUBJECTIVE Shelton Rodrigez is a 35 year old white female with a past medical history of newly diagnosed hypertension, morbid obesity, who presented here for a follow-up on her hypertension and dizziness. The patient was seen 10/18/2020 here at [facility] due to dizziness. The patient reported no further episodes of dizziness, vertigo, lightheadedness again. Regarding her hypertension she was discharged last time on metoprolol 25 mg daily, and hydrochlorothiazide 25 mg once daily, and was provided with a prescription for home blood pressure monitor. The patient said that the blood pressure cuff is little bit tight on her arm, and she is taking her blood pressure measurement by wrapping the cuff around her right or left forearm. She is not following an accurate blood pressure monitoring measures i.e. at least 30 minutes apart from any eating, alcohol drinking, coffee drinking, or physical exertion. When measuring her blood pressure by wrapping thecuff around the upper arm, the reading ranged between systolic of 164 and 178. Upon wrapping the blood pressure cuff around the forearm, reading ranged from systolic between 147 and 159 and diastolicbetween 73 and 83 mmHg. The patient scheduled a follow-up with sleep studies and psychiatery but not with the DERMATOLOGIST. She was provided last time with the bariatric center at [facility] contact info to follow-up with but she did not yet. No further complaints today. CURRENT MEDICATIONS: Current Outpatient Medications Medication Sig lisinopril (ZESTRIL, PRINIVIL) 20 mg tablet Take 1 tablet by mouth once daily. Blood Pressure Kit-Extra Large kit 1 Each once daily. metoprolol succinate ER (TOPROL XL) 25 mg 24 hr tablet Take 1 tablet by mouth once daily. hydroCHLOROthiazide (HYDRODIURIL, ESIDRIX) 25 mg tablet Take 1 tablet by mouth once daily. fluticasone (FLONASE) 50 mcg/actuation nasal spray Use 1 [place] in each nostril once daily. cetirizine (ZYRTEC) 5 mg tablet Take 2 tablets by mouth once daily. (Patient not taking: Reported on 10/18/2020 ) Norethindrone-Eth Estradiol (NORTREL 0.5/35, 28,) 0.5-35 mg-mcg per tablet Take 1 tablet by mouth once daily. No current facility-administered medications for this visit. REVIEW OF SYSTEMS: GENERAL: No weight loss, malaise or fevers HEENT: Negative for frequent or significant headaches, No changes in hearing or vision, no nose bleeds or other nasal problems NECK: Negative for lumps, goiter, pain and significant neck swelling RESPIRATORY: Negative for cough, hemoptysis, wheezing, COPD, dyspnea or shortness of breath CARDIOVASCULAR: Negative for chest pain, leg swelling, hypertension, CHF or palpitations GI: No nausea, vomiting, or diarrhea : No history of dysuria, frequency or incontinence MUSCULOSKELETAL: Negative for joint pain or swelling, back pain or muscle pain SKIN: Negative for lesions, rash, and itching HEMATOLOGY/LYMPHOLOGY Negative for prolonged bleeding, bruising easily or swollen nodes ENDOCRINE: Negative for cold or heat intolerance, polyuria, polydipsia and goiter NEURO: negative for syncope, seizures, paralysis, numbness or tingling of hands, numbness or tingling of feet, involuntary movements and tremor PHYSICAL EXAMINATION: Physical examination is limited due to the virtual nature of the visit. General Appearance: well appearing, in no acute distress, well-hydrated, well nourished, alert oriented to place person and time. No respiratory distress or use of respiratory accessory muscles. Skin: No skin rashes or lesions were noted or reported by the patient. Head: Atraumatic normocephalic. Neck: No neck lumps or bumps were noted or reported by the patient Extremities: The patient is able to move all of her extremities without any restrictions. ASSESSMENT/PLAN: 1. Encounter for follow-up for hypertension - ICD9: 401.9, ICD10: I10 (primary diagnosis) - poor control - Continue current medication (metoprolol 25 mg once daily and hydrochlorothiazide 25 mg daily) - Add lisinopril (Zestril/Prinivil) 20 mg once daily - Check BMP and TSH - Encouraged dietary sodium restriction/DASH diet - Recommended regular aerobic exercise. - Recommend home blood pressure monitoring, to bring results in on next visit, the patient will be provided with extra-large blood pressure cuff to use. She was also informed to take her blood pressure measurement 30 minutes apart from any physical exertion, eating or drinking (coffee and alcohol),or smoking. The arm should be at the level of the heart, and she has to allow her self to relax before taking the blood pressure medicine. - Goal of BP <130/80 - The patient will come to follow-up on 14 of November. 2. Dizziness - ICD9: 780.4, ICD10: R42 No further episodes was reported 3. Encounter for screening for diabetes mellitus - ICD9: V77.1, ICD10: Z13.1 HbA1c on 14 of November. 4. Screening for hyperlipidemia - ICD9: V77.91, ICD10: Z13.220 Fasting lipid panel on 14 of November. 5. Morbid obesity (HCC) - ICD9: 278.01, ICD10: E66.01 - Behavioral intervention - The patient will be contacting the bariatric center at [facility] on your earliest convenience. The patient will come to follow-up by in person visit on 14 November. Hugh Menendez MD Internal medicine resident. PGY 1 November 01, 2020 3:11 PM Patient seen and examined with the resident. Findings and plan of management discussed.Agree with resident's plan of care. Allison Robledo MD documented in this encounter Assessments Diagnosis Dizziness- Primary Dizziness and giddiness TSH elevation Nonspecific abnormal results of thyroid function study Pap smear, as part of routine gynecological examination Screening for malignant neoplasm of the cervix Anxiety Anxiety state, unspecified Morbid obesity (HCC) Morbid obesity Sleep apnea, unspecified type Diagnosis Encounter for follow-up for hypertension- Primary Dizziness Dizziness and giddiness Encounter for screening for diabetes mellitus Screening for diabetes mellitus Screening for hyperlipidemia Screening for lipoid disorders Morbid obesity (HCC) Morbid obesity Advance Directives No Advanced Directives Records FoundDocuments on File Type Date Recorded Patient Lye Boiler Expl anation Advance Directive(s) 10/07/2020 2:52 PM Advance Directive(s) 03/15/2019 3:22 AM Advance Directive(s) 03/01/2018 6:13 AM Documents on File Type Date Recorded Patient Lye Boiler Expl anation Advance Directive(s) 10/07/2020 2:52 PM Advance Directive(s) 03/15/2019 3:22 AM Advance Directive(s) 03/01/2018 6:13 AM Medications Administered Section Active Administered Medications - up to 3 most recent administrations Medication Order MAR Action Action Date Dose Rate Site PHENYLephrine 2.5 % 1 Drop (AK-DILATE) 1 Drop, BOTH EYES, DIRECTED, Starting on Sat11/26/22 at 0900, Until Sat11/26/22 at 2058, Administer for dilation PROTECT FROM LIGHT Given 11/26/2022 9:00 AM EDT 1 Drop proparacaine 0.5 % 1 Drop (ALCAINE) 1 Drop, BOTH EYES, DIRECTED, Starting on Sat11/26/22 at 0900, Until Sat11/26/22 at 2058, Administer for pneumo tonometry, tonopen tonometry, or pachymetry. In the event of a proparacaine shortage, administer tetracaine 0.5% ophthalmic drops 1 drop in the left eye as directed for pneumo tonometry, tonopen tonometry, or pachymetry Given 11/26/2022 9:00 AM EDT 1 Drop tropicamide 1 % 1 Drop (MYDRIACYL) 1 Drop, BOTH EYES, DIRECTED, Starting on Sat11/26/22 at 0900, Until Sat11/26/22 at 2058, Administer for dilation Given 11/26/2022 9:00 AM EDT 1 Drop Summary Purpose Family History No Family History Records FoundNo Family History Records FoundNo Family History Records FoundNo Family History Records FoundNo Family History Records FoundNo Family History Records FoundNo Family History Records Found Additional Source Comments Source Comments (unrecognize d section and content) In the event this informatio n is protected by the Federal Confidentiality of Alcohol and Drug Abuse Patient Records regulations: The Federal rules restrict any use of the information to criminally investigate or prosecute any alcohol or drug abuse patient.[facility] the event this information is protected by the Federal Confidentiality of Alcohol and Drug Abuse Patient Records regulations: The Federal rules restrict any use of the information to criminally investigate or prosecute any alcohol or drug abuse patient.[facility] the event this information is protected by the Federal Confidentiality of Alcohol and Drug Abuse Patient Records regulations: The Federal rules restrict any use of the information to criminally investigate or prosecute any alcohol or drug abuse patient.[facility] the event this information is protected by the Federal Confidentiality of Alcohol and Drug Abuse Patient Records regulations: The Federal rules restrict any use of the information to criminally investigate or prosecute any alcohol or drug abuse patient.[facility] the event this information is protected by the Federal Confidentiality of Alcohol and Drug Abuse Patient Records regulations: The Federal rules restrict any use of the information to criminally investigate or prosecute any alcohol or drug abuse patient.[facility] the event this information is protected by the Federal Confidentiality of Alcohol and Drug Abuse Patient Records regulations: The Federal rules restrict any use of the information to criminally investigate or prosecute any alcohol or drug abuse patient.[facility] the event this information is protected by the Federal Confidentiality of Alcohol and Drug Abuse Patient Records regulations: The Federal rules restrict any use of the information to criminally investigate or prosecute any alcohol or drug abuse patient.[facility] the event this information is protected by the Federal Confidentiality of Alcohol and Drug Abuse Patient Records regulations: The Federal rules restrict any use of the information to criminally investigate or prosecute any alcohol or drug abuse patient.[facility] the event this information is protected by the Federal Confidentiality of Alcohol and Drug Abuse Patient Records regulations: The Federal rules restrict any use of the information to criminally investigate or prosecute any alcohol or drug abuse patient.[facility] the event this information is protected by the Federal Confidentiality of Alcohol and Drug Abuse Patient Records regulations: The Federal rules restrict any use of the information to criminally investigate or prosecute any alcohol or drug abuse patient.[facility] the event this information is protected by the Federal Confidentiality of Alcohol and Drug Abuse Patient Records regulations: The Federal rules restrict any use of the information to criminally investigate or prosecute any alcohol or drug abuse patient.[facility] the event this information is protected by the Federal Confidentiality of Alcohol and Drug Abuse Patient Records regulations: The Federal rules restrict any use of the information to criminally investigate or prosecute any alcohol or drug abuse patient.[facility] the event this information is protected by the Federal Confidentiality of Alcohol and Drug Abuse Patient Records regulations: The Federal rules restrict any use of the information to criminally investigate or prosecute any alcohol or drug abuse patient.[facility] the event this information is protected by the Federal Confidentiality of Alcohol and Drug Abuse Patient Records regulations: The Federal rules restrict any use of the information to criminally investigate or prosecute any alcohol or drug abuse patient.[facility] the event this information is protected by the Federal Confidentiality of Alcohol and Drug Abuse Patient Records regulations: The Federal rules restrict any use of the information to criminally investigate or prosecute any alcohol or drug abuse patient.[facility] the event this information is protected by the Federal Confidentiality of Alcohol and Drug Abuse Patient Records regulations: The Federal rules restrict any use of the information to criminally investigate or prosecute any alcohol or drug abuse patient.[facility]In the event this information is protected by the Federal Confidentiality of Alcohol and Drug Abuse Patient Records regulations: The Federal rules restrict any use of the information to criminally investigate or prosecute any alcohol or drug abuse patient.[facility] ClinicIn the event this information is protected by the Federal Confidentiality of Alcohol and Drug Abuse Patient Records regulations: The Federal rules restrict any use of the information to criminally investigate or prosecute any alcohol or drug abuse patient.[facility] ClinicIn the event this information is protected by the Federal Confidentiality of Alcohol and Drug Abuse Patient Records regulations: The Federal rules restrict any use of the information to criminally investigate or prosecute any alcohol or drug abuse patient.[facility] ClinicIn the event this information is protected by the Federal Confidentiality of Alcohol and Drug Abuse Patient Records regulations: The Federal rules restrict any use of the information to criminally investigate or prosecute any alcohol or drug abuse patient.[facility] ClinicIn the event this information is protected by the Federal Confidentiality of Alcohol and Drug Abuse Patient Records regulations: The Federal rules restrict any use of the information to criminally investigate or prosecute any alcohol or drug abuse patient.[facility] ClinicIn the event this information is protected by the Federal Confidentiality of Alcohol and Drug Abuse Patient Records regulations: The Federal rules restrict any use of the information to criminally investigate or prosecute any alcohol or drug abuse patient.[facility] ClinicIn the event this information is protected by the Federal Confidentiality of Alcohol and Drug Abuse Patient Records regulations: The Federal rules restrict any use of the information to criminally investigate or prosecute any alcohol or drug abuse patient.[facility] ClinicIn the event this information is protected by the Federal Confidentiality of Alcohol and Drug Abuse Patient Records regulations: The Federal rules restrict any use of the information to criminally investigate or prosecute any alcohol or drug abuse patient.[facility] ClinicIn the event this information is protected by the Federal Confidentiality of Alcohol and Drug Abuse Patient Records regulations: The Federal rules restrict any use of the information to criminally investigate or prosecute any alcohol or drug abuse patient.[facility] ClinicIn the event this information is protected by the Federal Confidentiality of Alcohol and Drug Abuse Patient Records regulations: The Federal rules restrict any use of the information to criminally investigate or prosecute any alcohol or drug abuse patient.[facility] ClinicIn the event this information is protected by the Federal Confidentiality of Alcohol and Drug Abuse Patient Records regulations: The Federal rules restrict any use of the information to criminally investigate or prosecute any alcohol or drug abuse patient.[facility] ClinicIn the event this information is protected by the Federal Confidentiality of Alcohol and Drug Abuse Patient Records regulations: The Federal rules restrict any use of the information to criminally investigate or prosecute any alcohol or drug abuse patient.[facility] ClinicIn the event this information is protected by the Federal Confidentiality of Alcohol and Drug Abuse Patient Records regulations: The Federal rules restrict any use of the information to criminally investigate or prosecute any alcohol or drug abuse patient.[facility] ClinicIn the event this information is protected by the Federal Confidentiality of Alcohol and Drug Abuse Patient Records regulations: The Federal rules restrict any use of the information to criminally investigate or prosecute any alcohol or drug abuse patient.[facility] ClinicIn the event this information is protected by the Federal Confidentiality of Alcohol and Drug Abuse Patient Records regulations: The Federal rules restrict any use of the information to criminally investigate or prosecute any alcohol or drug abuse patient.[facility] ClinicIn the event this information is protected by the Federal Confidentiality of Alcohol and Drug Abuse Patient Records regulations: The Federal rules restrict any use of the information to criminally investigate or prosecute any alcohol or drug abuse patient.[facility] ClinicIn the event this information is protected by the Federal Confidentiality of Alcohol and Drug Abuse Patient Records regulations: The Federal rules restrict any use of the information to criminally investigate or prosecute any alcohol or drug abuse patient.[facility] ClinicIn the event this information is protected by the Federal Confidentiality of Alcohol and Drug Abuse Patient Records regulations: The Federal rules restrict any use of the information to criminally investigate or prosecute any alcohol or drug abuse patient.[facility] ClinicIn the event this information is protected by the Federal Confidentiality of Alcohol and Drug Abuse Patient Records regulations: The Federal rules restrict any use of the information to criminally investigate or prosecute any alcohol or drug abuse patient.[facility] ClinicIn the event this information is protected by the Federal Confidentiality of Alcohol and Drug Abuse Patient Records regulations: The Federal rules restrict any use of the information to criminally investigate or prosecute any alcohol or drug abuse patient.[facility] ClinicIn the event this information is protected by the Federal Confidentiality of Alcohol and Drug Abuse Patient Records regulations: The Federal rules restrict any use of the information to criminally investigate or prosecute any alcohol or drug abuse patient.[facility] ClinicIn the event this information is protected by the Federal Confidentiality of Alcohol and Drug Abuse Patient Records regulations: The Federal rules restrict any use of the information to criminally investigate or prosecute any alcohol or drug abuse patient.[facility] ClinicIn the event this information is protected by the Federal Confidentiality of Alcohol and Drug Abuse Patient Records regulations: The Federal rules restrict any use of the information to criminally investigate or prosecute any alcohol or drug abuse patient.[facility] ClinicIn the event this information is protected by the Federal Confidentiality of Alcohol and Drug Abuse Patient Records regulations: The Federal rules restrict any use of the information to criminally investigate or prosecute any alcohol or drug abuse patient.[facility] ClinicIn the event this information is protected by the Federal Confidentiality of Alcohol and Drug Abuse Patient Records regulations: The Federal rules restrict any use of the information to criminally investigate or prosecute any alcohol or drug abuse patient.[facility] ClinicIn the event this information is protected by the Federal Confidentiality of Alcohol and Drug Abuse Patient Records regulations: The Federal rules restrict any use of the information to criminally investigate or prosecute any alcohol or drug abuse patient.[facility] ClinicIn the event this information is protected by the Federal Confidentiality of Alcohol and Drug Abuse Patient Records regulations: The Federal rules restrict any use of the information to criminally investigate or prosecute any alcohol or drug abuse patient.[facility] ClinicIn the event this information is protected by the Federal Confidentiality of Alcohol and Drug Abuse Patient Records regulations: The Federal rules restrict any use of the information to criminally investigate or prosecute any alcohol or drug abuse patient.[facility] ClinicIn the event this information is protected by the Federal Confidentiality of Alcohol and Drug Abuse Patient Records regulations: The Federal rules restrict any use of the information to criminally investigate or prosecute any alcohol or drug abuse patient.[facility] ClinicIn the event this information is protected by the Federal Confidentiality of Alcohol and Drug Abuse Patient Records regulations: The Federal rules restrict any use of the information to criminally investigate or prosecute any alcohol or drug abuse patient.[facility] ClinicIn the event this information is protected by the Federal Confidentiality of Alcohol and Drug Abuse Patient Records regulations: The Federal rules restrict any use of the information to criminally investigate or prosecute any alcohol or drug abuse patient.[facility] ClinicIn the event this information is protected by the Federal Confidentiality of Alcohol and Drug Abuse Patient Records regulations: The Federal rules restrict any use of the information to criminally investigate or prosecute any alcohol or drug abuse patient.[facility] ClinicIn the event this information is protected by the Federal Confidentiality of Alcohol and Drug Abuse Patient Records regulations: The Federal rules restrict any use of the information to criminally investigate or prosecute any alcohol or drug abuse patient.[facility] ClinicIn the event this information is protected by the Federal Confidentiality of Alcohol and Drug Abuse Patient Records regulations: The Federal rules restrict any use of the information to criminally investigate or prosecute any alcohol or drug abuse patient.[facility] ClinicIn the event this information is protected by the Federal Confidentiality of Alcohol and Drug Abuse Patient Records regulations: The Federal rules restrict any use of the information to criminally investigate or prosecute any alcohol or drug abuse patient.[facility] ClinicIn the event this information is protected by the Federal Confidentiality of Alcohol and Drug Abuse Patient Records regulations: The Federal rules restrict any use of the information to criminally investigate or prosecute any alcohol or drug abuse patient.[facility] ClinicIn the event this information is protected by the Federal Confidentiality of Alcohol and Drug Abuse Patient Records regulations: The Federal rules restrict any use of the information to criminally investigate or prosecute any alcohol or drug abuse patient.[facility] ClinicIn the event this information is protected by the Federal Confidentiality of Alcohol and Drug Abuse Patient Records regulations: The Federal rules restrict any use of the information to criminally investigate or prosecute any alcohol or drug abuse patient.[facility] ClinicIn the event this information is protected by the Federal Confidentiality of Alcohol and Drug Abuse Patient Records regulations: The Federal rules restrict any use of the information to criminally investigate or prosecute any alcohol or drug abuse patient.[facility] ClinicIn the event this information is protected by the Federal Confidentiality of Alcohol and Drug Abuse Patient Records regulations: The Federal rules restrict any use of the information to criminally investigate or prosecute any alcohol or drug abuse patient.[facility] ClinicIn the event this information is protected by the Federal Confidentiality of Alcohol and Drug Abuse Patient Records regulations: The Federal rules restrict any use of the information to criminally investigate or prosecute any alcohol or drug abuse patient.[facility] ClinicIn the event this information is protected by the Federal Confidentiality of Alcohol and Drug Abuse Patient Records regulations: The Federal rules restrict any use of the information to criminally investigate or prosecute any alcohol or drug abuse patient.[facility] Reason for Visit (unrecogniz ed section and content) Specialty Diagnoses / Procedures Referred By Contac t Referred To Contact Psychiatry / ADULT PSYCHOLOGY Diagnoses [facility] Procedures VIDEO PSYC/PSYL GRP (ZOOM) Keo Colón, PhD [address] [place] [address] Keo Colón, PhD [address] [place] [address] Referral ID Status Reason Start Date Expiration Date V isits Requested Visits Authorized [id number] Pending Review 05/22/2023 08/20/2023 8 8 Reason Comments Patient Left Without Being Seen Specialty Diagnoses / Procedures Referred By Contac t Referred To Contact Physical Therapy / PHYSICAL THERAPY Diagnoses Lumbar radiculopathy Lumbar spondylosis Spinal stenosis, lumbar region with neurogenic claudication Procedures CONSULT TO PHYSICAL THERAPY Kaity Lind PA-C [address] [place] [address] Pt [facility] [place] [address] [place] [address] Referral ID Status Reason Start Date Expiration Date V isits Requested Visits Authorized [id number] Authorized 04/18/2023 09/15/2023 30 30 Reason Comments Depression Anxiety Specialty Diagnoses / Procedures Referred By Contac t Referred To Contact Psychiatry / ADULT PSYCHOLOGY Diagnoses [facility] Procedures VIDEO PSYC/PSYL GRP (ZOOM) Keo Colón, PhD [facility] [place] [address] Keo Colón, PhD [facility] [place] [address] Reason Comments Physical Therapy Reason Comments Follow Up Anxiety Depression Specialty Diagnoses / Procedures Referred By Contac t Referred To Contact Psychiatry / ADULT PSYCHIATRY Diagnoses Virtual Visit Med check NCP/NCP * Procedures VIDEO PSYC/PSYL EST Elin Renae APRN.HISTOPATHOLOGIST [address] [place] [address] Elin Renae APRN.HISTOPATHOLOGIST [address] [place] [address] Referral ID Status Reason Start Date Expiration Date V isits Requested Visits Authorized [id number] Authorized 09/16/2021 09/15/2022 99 99 Reason Comments Follow Up Anxiety Specialty Diagnoses / Procedures Referred By Contac t Referred To Contact Psychiatry / ADULT PSYCHIATRY Diagnoses Anxiety [F41.9] Procedures MYC PSYC/PSYL NEW VIDEO (ZOOM) Self Elin Renae APRN.HISTOPATHOLOGIST [address] [place] [address] Referral ID Status Reason Start Date Expiration Date Visits Re quested Visits Authorized [id number] Closed 09/16/2020 09/15/2021 20 20 Reason Comments Dizziness Reason Comments Hypertension Reason Comments Anxiety Depression Follow Up Reason Onset Date Comments Refill Request 03/06/2022 Reason Onset Date Comments Refill Request 03/29/2022 Reason Comments Results Reason Comments Follow Up Results Reason Comments Patient Question Reason Onset Date Comments Refill Request 09/10/2022 Reason Comments Establish Care From PCP Allison jennings MD. She moved here from the [facility]. Reason Comments Orders Reason Comments Imm/Inj Reason Comments New glasses Diabetes Blood sugar: Patient doesn't check every day A1c: 6.0 Specialty Diagnoses / Procedures Referred By Contac t Referred To Contact Ophthalmology Diagnoses Type 2 diabetes mellitus with other specified complication, without long-term current use of insulin (HCC) Procedures CONSULT TO OPHTHALMOLOGY OFFICE/OUTPATIENT NEW HIGH MDM 60-74 MINUTES Kenny Billy MD [address] [place] [address] Referral ID Status Reason Start Date Expiration Date V isits Requested Visits Authorized [id number] Closed PCP Requested Referral 10/11/2022 10/11/2023 1 1 Reason Comments PT Eval Specialty Diagnoses / Procedures Referred By Contac t Referred To Contact Physical Therapy / PHYSICAL THERAPY Diagnoses consult to pt for lumbar pain Procedures NEW RS PT SPINE Self Elise Oshea, PT Referral ID Status Reason Start Date Expiration Date V isits Requested Visits Authorized [id number] Authorized 09/16/2022 09/15/2023 30 30 Reason Comments Follow Up Specialty Diagnoses / Procedures Referred By Contac t Referred To Contact Psychiatry / ADULT PSYCHIATRY Diagnoses Med check Procedures Distance health established patient Elin Renae APRN.CNP [address] [place] [address] Elin Renae APRN.CNP [address] [place] [address] Referral ID Status Reason Start Date Expiration Date V isits Requested Visits Authorized [id number] Authorized 09/16/2022 09/15/2023 99 99 Reason Comments Orders Heavy Duty Wheelchai r Reason Comments Referral Information Consult to pain mgt Reason Comments Referral Information Consult to obesity medicine Reason Comments Internal Referrals/resources PCP Portal Referral Calls Reason Comments Establish Care Reason Comments Patient Update Reason Comments New Patient Low Back Pain Right leg pain and n umbness/tingling Reason Comments PT Eval Patient Education Reason Comments Forms Reason Comments Appointment Reason Comments Organizational Development Consultant - Other Reason Comments Follow Up Low Back Pain Leg Pain R leg Reason Comments New Patient Evaluation Reason Comments Other [facility] Care Teams (unrecognized sec tion and content) Store Operations Specialist Relationship Specialty [place] [address] [place] [address] PCP - General Internal Medicine 01/09/21 Store Operations Specialist Relationship Specialty [place] [address] [place] [address] PCP - General Internal Medicine 01/09/21 Store Operations Specialist Relationship Specialty [place] [address] [place] [address] PCP - General Internal Medicine 01/09/21 Store Operations Specialist Relationship Specialty [place] [address] [place] [address] PCP - General Internal Medicine 01/09/21 Store Operations Specialist Relationship Specialty [place] [address] [place] [address] PCP - General Internal Medicine 01/09/21 Store Operations Specialist Relationship Specialty [place] [address] [place] [address] PCP - General Internal Medicine 01/09/21 Store Operations Specialist Relationship Specialty [place] [address] [place] [address] PCP - General Internal Medicine 01/09/21 Store Operations Specialist Relationship Specialty [place] [address] [place] [address] PCP - General Internal Medicine 01/09/21 Store Operations Specialist Relationship Specialty [place] [address] [place] [address] PCP - General Internal Medicine 01/09/21 Store Operations Specialist Relationship Specialty [place] [address] [place] [address] PCP - General Internal Medicine 01/09/21 Store Operations Specialist Relationship Specialty Start Date End Date Kenny Billy MD [address] [place] [address] PCP - General Internal Medicine 10/11/22 Store Operations Specialist Relationship Specialty Start Date End Date Kenny Billy MD [address] [place] [address] PCP - General Internal Medicine 10/11/22 Store Operations Specialist Relationship Specialty Start Date End Date Kenny Billy MD [facility] [place] [address] PCP - General Internal Medicine 10/11/22 Store Operations Specialist Relationship Specialty Start Date End Date Kenny Billy MD [address] [place] [address] PCP - General Internal Medicine 10/11/22 Store Operations Specialist Relationship Specialty Start Date End Date Kenny Billy MD [address] [place] [address] PCP - General Internal Medicine 10/11/22 Store Operations Specialist Relationship Specialty Start [place] [address] [place] [address] PCP - General Internal Medicine 01/09/21 10/10/22 Kenny Billy MD [address] [place] [address] PCP - General Internal Medicine 10/11/22 Store Operations Specialist Relationship Specialty Start Date End Date Kenny Billy MD [address] [place] [address] PCP - General Internal Medicine 10/11/22 Store Operations Specialist Relationship Specialty Start [place] [address] [place] [address] PCP - General Internal Medicine 01/09/21 10/10/22 Kenny Billy MD [address] [place] [address] PCP - General Internal Medicine 10/11/22 Store Operations Specialist Relationship Specialty Start Date End Date Leonel Rodriguez [address] [place] [address] PCP - General Internal Medicine 03/25/23 Store Operations Specialist Relationship Specialty Start Date End Date Leonel Rodriguez [address] [place] [address] PCP - General Internal Medicine 03/25/23 Store Operations Specialist Relationship Specialty Start Date End Date Emil Liang DO [address] [address] PCP - General Internal Medicine 03/27/23 Agustina Jean MD [address] [address] PCP Resident Internal Medicine 03/27/23 Store Operations Specialist Relationship Specialty Start Date End Date Emil Liang DO [address] [address] PCP - General Internal Medicine 03/27/23 Agustina Jean MD [address] [address] PCP Resident Internal Medicine 03/27/23 Store Operations Specialist Relationship Specialty Start Date End Date Emil Liang DO [address] [id number] [phone] PCP - General Internal Medicine 03/27/23 Agustina Jean MD [address] [id number] [phone] PCP Resident Internal Medicine 03/27/23 Store Operations Specialist Relationship Specialty Start Date End Date Emil Liang DO [address] [id number] [phone] PCP - General Internal Medicine 03/27/23 Agustina Jean MD [address] [address] PCP Resident Internal Medicine 03/27/23 Store Operations Specialist Relationship Specialty Start Date End Date Emil Liang DO [address] [address] PCP - General Internal Medicine 03/27/23 Agustina Jean MD [address] [address] PCP Resident Internal Medicine 03/27/23 Store Operations Specialist Relationship Specialty Start Date End Date Emil Liang DO [address] [address] PCP - General Internal Medicine 03/27/23 Agustina Jean MD [address] [address] PCP Resident Internal Medicine 03/27/23 Store Operations Specialist Relationship Specialty Start Date End Date Emil Liang DO [address] [id number] [phone] PCP - General Internal Medicine 03/27/23 Agustina Jean MD [address] [id number] [phone] PCP Resident Internal Medicine 03/27/23 Store Operations Specialist Relationship Specialty Start Date End Date Emil Liang DO [address] [id number] [phone] PCP - General Internal Medicine 03/27/23 Agustina Jean MD [address] [address] PCP Resident Internal Medicine 03/27/23 Store Operations Specialist Relationship Specialty Start Date End Date Emil Liang DO [address] [address] PCP - General Internal Medicine 03/27/23 Agustina Jean MD [address] [address] PCP Resident Internal Medicine 03/27/23 Store Operations Specialist Relationship Specialty Start Date End Date Emil Liang DO [address] [address] PCP - General Internal Medicine 03/27/23 Agustina Jean MD [address] [address] PCP Resident Internal Medicine 03/27/23 Store Operations Specialist Relationship Specialty Start Date End Date Emil Liang DO [address] [phone] PCP - General Internal Medicine 03/27/23 Agustina Jean MD [address] [id number] [phone] PCP Resident Internal Medicine 03/27/23 Store Operations Specialist Relationship Specialty Start Date End Date Emil Liang DO [address] [id number] [phone] PCP - General Internal Medicine 03/27/23 Agustina Jean MD [address] [address] PCP Resident Internal Medicine 03/27/23 Store Operations Specialist Relationship Specialty Start Date End Date Emil Liang DO [address] [address] PCP - General Internal Medicine 03/27/23 Agustina Jean MD [address] [address] PCP Resident Internal Medicine 03/27/23 Store Operations Specialist Relationship Specialty Start Date End Date Emil Liang DO [address] [address] PCP - General Internal Medicine 03/27/23 Agustina Jean MD [address] [address] PCP Resident Internal Medicine 03/27/23 Store Operations Specialist Relationship Specialty Start Date End Date Emil Liang DO [address] [id number] [phone] PCP - General Internal Medicine 03/27/23 Agustina Jean MD [address] [id number] [phone] PCP Resident Internal Medicine 03/27/23 Store Operations Specialist Relationship Specialty Start Date End Date Emil Liang DO [address] [id number] [phone] PCP - General Internal Medicine 03/27/23 Agustina Jean MD [address] [address] PCP Resident Internal Medicine 03/27/23 Store Operations Specialist Relationship Specialty Start Date End Date Emil Liang DO [address] [phone] PCP - General Internal Medicine 03/27/23 Agustina Jean MD [address] [phone] PCP Resident Internal Medicine 03/27/23 Store Operations Specialist Relationship Specialty Start Date End Date Emil Liang DO [address] [phone] PCP - General Internal Medicine 03/27/23 Agustina Jean MD [address] [phone] PCP Resident Internal Medicine 03/27/23 Store Operations Specialist Relationship Specialty Start Date End Date Kenny Billy MD [address] [place] [id number] PCP - General Internal Medicine 10/11/22 03/24/23 Store Operations Specialist Relationship Specialty Start Date End Date Emil Liang DO [address] [phone] PCP - General Internal Medicine 03/27/23 Agustina Jean MD [address] [phone] PCP Resident Internal Medicine 03/27/23 INFORMATION SOURCE (unrecogn ized section and content) DATE CREATED AUTHOR AUTHOR'S ORGANIZ ATION 04/22/2023 [facility] ([place]) DATE CREATED AUTHOR AUTHOR'S ORGANIZ ATION 07/21/2023 [facility] DATE CREATED AUTHOR AUTHOR'S ORGANIZ ATION 09/22/2023 [facility] DATE CREATED AUTHOR AUTHOR'S ORGANIZ ATION 10/04/2023 [facility] DATE CREATED AUTHOR AUTHOR'S ORGANIZ ATION 10/09/2023 [facility] DATE CREATED AUTHOR AUTHOR'S ORGANIZ ATION 10/15/2023 [facility] FOR RECORDS PERTAINING TO PATIENTS WHO ARE OR HAVE BEEN ENROLLED IN A CHEMICAL DEPENDENCY/SUBSTANCEABUSE PROGRAM, SOME INFORMATION MAY BE OMITTED. This clinical summary was aggregated from multiple sources. Caution should be exercised in using it in the provision of clinical care. This summary normalizes information from multiple sources, and as a consequence, information in this document may materially change the coding, format and clinical context of patient data. In addition, data may be omitted in some cases. CLINICAL DECISIONS SHOULD BE BASED ON THE PRIMARY CLINICAL RECORDS. [facility]. provides no warranty or guarantee of the accuracy or completeness of information in this document.
[2023-10-18 18:37] VITALS: BP 112/61; PULSE 81
[2023-10-18] MEDS: HYDROmorphone 0.5 MG/0.5 ML SYRINGE IV (19:14)
[2023-10-18] MEDS: Ketorolac 15 MG/ML Vial IV (19:14)
--- NOTE | 2023-10-18 19:56 | ED.RN ---
This RN attempted to help the patient ambulate but the patient was not able to move from the bed to a sitting position, let alone bear weight to stand.
--- NOTE | 2023-10-18 20:12 | PCM.HP.STD ---
[facility] - General General Date of Admission: 10/18/23 Date of Service: 10/18/23 Chief Complaint: Intractable back pain HPI Narrative SHELTON RODRIGEZ, is a 38 F who presented to the emergency department at [facility] on 10/18/2023 complaining of intractable back pain. She has a history of chronic back pain and was admitted here in March. An MRI has been able to be procured since that point in time as we were unable to do it here due to body habitus. MRI did reveal some stenosis at L3-L5. She has been seeing pain management and spine surgery over at [facility] and is actually scheduled to have an epidural performed on Saturday. She is also being going to aquatic physical therapy over at [facility] and had been feeling much better. 2 days ago she had therapy and feels something she must of done flared it up at that therapy session she has been more painful since that point in time. Today she came to the emergency department for evaluation as she was unable to get off the bedside commode today. She has had no fever or chills. Denies any saddle anesthesia or bowel bladder dysfunction. She states she has intermittent tingling numbness down both legs. She indicates typically her right leg is the biggest problem for her. Her pain is currently a 3 while she is lying there but increases dramatically in her back and her right leg greater than left with movement. She is morbidly obese and is now on Trulicity and following with an obesity program for weight loss. She does have intermittent tingling numbness is in both legs as noted and feels like her legs are weak however states that weakness is related to the pain not so much motor loss. Vital signs on presentation showed temperature of 97.2, heart rate 75, blood pressure 101/66, respiratory to 22 and oxygen saturations are 94% on room air. Her CBC is unremarkable. Her chemistry panel shows that she is a little dry. She did indicate on presentation that she is trying not to eat or drink as she did not want to get up to use the bathroom as it was painful for her. Blood glucose was 97. She was treated with pain medication in the hopes that she would be able to discharge the emergency department however her functional status is limiting her and she needs admitted for pain control and therapy services. [facility] Medical History (Updated 10/18/23 @ 21:[address] Kinsey Perez, DO) Anxiety Diabetes High cholesterol HTN (hypertension) Lumbar stenosis Morbid obesity HAILEY (obstructive sleep apnea) Home Medications atorvastatin 10 mg tablet 10 mg PO DAILY cholesterol 03/20/23 [History Last Taken 03/20/23] buspirone 7.5 mg tablet 7.5 mg PO BID 03/20/23 [History Last Taken 03/20/23] cholecalciferol (vitamin D3) 25 mcg (1,000 unit) tablet 25 mcg PO DAILY 03/20/23 [History Last Taken 03/20/23] fluoxetine 40 mg capsule 40 mg PO DAILY 03/20/23 [History Last Taken 03/20/23] hydrochlorothiazide 25 mg tablet 25 mg PO DAILY 03/20/23 [History Last Taken 03/20/23] hydroxyzine HCl 25 mg tablet 12.5 mg PO TID PRN anxiety 03/20/23 [History Last Taken Unknown] lisinopril 40 mg tablet 40 mg PO DAILY 03/20/23 [History Last Taken Unknown] metformin 1,000 mg tablet 1,000 mg PO BIDAC diabetes 03/20/23 [History Last Taken 10/17/23] norethindrone (contraceptive) 0.35 mg tablet (Deblitane) 0.35 mg PO DAILY control 03/20/23 [History Last Taken 03/21/23] acetaminophen 500 mg tablet 1,000 mg (2 x 500 mg) PO Q8 #0 tabs 03/22/23 [Rx Last Taken Unknown] oxycodone 5 mg tablet 10 mg (2 x 5 mg) PO Q6H PRN pain 7 days #50 tabs 03/22/23 [Rx Last Taken Unknown] oxycodone 5 mg tablet 5 mg PO Q6H PRN pain 3 days #12 tabs 07/30/23 [Rx Last Taken Unknown] baclofen 10 mg tablet 10 mg PO Q6H PRN muscle spasm 10/18/23 [History Last Taken Unknown] blood sugar diagnostic (True Metrix Glucose Test Strip) 10/18/23 [History Last Taken Unknown] diclofenac sodium 75 mg tablet,delayed release 75 mg PO Q12H 10/18/23 [History Last Taken Unknown] dulaglutide 0.75 mg/0.5 mL subcutaneous pen injector (Trulicity) 0.75 mg subcut .weekly 10/18/23 [History Last Taken 10/17/23] gabapentin 400 mg capsule 600 mg PO TID 10/18/23 [History Last Taken Unknown] Allergy/AdvReac Type Severity Reaction Status Date / Time Penicillins Allergy Unknown Other Verified 10/18/23 17:17 Family History Other Heart disease Surgical History (Updated 10/18/23 @ 21:21 by Luisito Guevara) [place] teeth extracted no surgical history Social History (Updated 10/18/23 @ 21:[address] Kinsey Perez DO) household members: significant other housing: house Smoking Status: Former smoker alcohol intake: never substance use type: does not use ROS Constitutional Constitutional: Denies anorexia, change in weight, chills, fatigue, fever(s), malaise, night sweats, weakness or other Eyes Eyes: Denies blurry vision, change in eye color, change in vision, discharge from eye(s), double vision, erythema, eye pain, loss of vision or other ENT HEENT: Denies abnormal hearing, dysphagia, ear pain, epistaxis, headache(s), hearing loss, nasal congestion, nasal discharge, post nasal drip, sinus pressure, sore throat or other Cardiovascular Cardiovascular: Denies chest pain, claudication, dyspnea on exertion, edema, lightheadedness, orthopnea, palpitations, paroxysmal nocturnal dyspnea, rapid heart rate, syncope or other Respiratory/Chest Respiratory/Chest: Denies cough, dyspnea, excessive phlegm production, hemoptysis, productive cough, shortness of breath at rest, shortness of breath with exertion, wheezing or other Gastrointestinal Gastrointestinal: Denies abdominal pain, coffee ground emesis, constipation, diarrhea, dyspepsia, hematemesis, hematochezia, loose stools, melena, nausea, vomiting or other Genitourinary Genitourinary: Denies burning urination, difficulty urinating, dysuria, hematuria, nocturia, urinary frequency, urinary hesitancy, urinary incontinence, urinary urgency or other Musculoskeletal Musculoskeletal: Reports back pain; Denies arthralgias, joint pain, joint stiffness, joint swelling, myalgias, neck pain or other Neurologic Neurologic: Reports paresthesias and tingling; Denies abnormal gait, abnormal speech, confusion, disequilibrium, dizziness, focal weakness, headache(s), numbness, seizure-like activity, seizures, syncope, tremor(s) or other Psychiatric Psychiatric: Denies anxiety, depression, homicidal ideation, suicidal ideation or other Endocrine Endocrinology: Denies change in body appearance, cold intolerance, excessive sweating, heat intolerance, polydipsia, polyuria or other Hematologic/Lymphatic Hematologic/Lymphatic: Denies anemia, easy bleeding, easy bruising, lymphadenopathy or other Allergic/Immunologic Allergic/Immunologic: Denies rhinitis, hives, eczemia, asthma or other Vital Signs Vital Signs Vital Signs: 10/18/23 17:17 10/18/23 18:37 Temperature 97.7 F L Temperature Source Temporal Pulse Rate 82 81 Respiratory Rate 16 Blood Pressure 181/101 H 112/61 Blood Pressure Mean 127 78 Pulse Ox 98 Oxygen Delivery Method Room Air Weight Weight: 239.2 kg Body Mass Index (BMI) 87.7 Physical Exam Const alert, oriented x3, no apparent distress and well nourished; Negative for average body habitus or healthy appearing Constitutional Narrative: Super morbidly obese, white female, lying in bed, significant other at bedside, currently appears comfortable at rest however with attempted movement winces in pain General Appearance: cooperative HEENT normocephalic, head/scalp atraumatic, hearing grossly normal bilaterally and moist oral mucous membranes HEENT Narrative: Mallampati 4, no thrush Eyes PERRL and conjunctivae normal Eyes Narrative: No scleral icterus Neck no lymphadenopathy and supple Neck Narrative: Neck is short and thick Resp normal respiratory effort, no retractions, no use of accessory muscles and clear to auscultation bilaterally Auscultation: Negative for rales, rhonchi or wheezes Cardio regular rate, regular rhythm, S1 normal heart sound, S2 normal heart sound, no murmurs, no rub, no gallops and no clicks GI normal to inspection, nondistended, normoactive bowel sounds, soft to palpation, non-tender and non-distended Extremity no clubbing, cyanosis or edema Neuro oriented x3, CN's II-XII intact bilaterally, moves all extremities and no focal motor deficits Neuro Narrative: Mild sensory loss in upper right thigh, positive straight leg raise on the right with weakness on attempted straight leg raise due to pain plantarflexion and dorsiflexion strength are 5 out of 5 FHL strength 5 out of 5 Speech: speech normal Psych affect normal Psych Narrative: Very pleasant, interacts appropriately Results Lab / Micro Data 10/18/23 20:18 10/18/23 20:18 Assessment & Plan Assessment/Plan (1) Inability to walk: (2) Intractable back pain: (3) Sciatica: PLAN: Plan Intractable back pain and inability walk due to L3-L5 lumbar stenosis -Outpatient MRI done recently in an open MRI environment and showed stenosis at L3-L5 -Has been seeing [facility] pain management and plan is for an epidural on Saturday -PT/OT consult -Scheduled Tylenol 1 g every 8 -As needed tizanidine -As needed oxycodone 10 mg every 4 hours -As needed Toradol IV 30 mg every 6 hours as needed -Will treat empirically with PPI while hospitalized and on NSAIDs -Continue home baclofen -Hold home oral NSAIDs -Continue home gabapentin but increase to 800 mg p.o. 3 times daily--> renal function is normal -Encourage as much mobility as possible -UA is pending DM-2 -Continue home metformin -Restart Trulicity at discharge -SSI -Accu-Cheks as ordered -Sugar on presentation was well-controlled Hypertension/HPL -Continue home statin -Continue home hydrochlorothiazide -Continue home lisinopril HAILEY -Continue home CPAP at at bedtime and with naps Depression/anxiety Continue home BuSpar -Continue home hydroxyzine -Continue home fluoxetine Morbid obesity -Patient is being seen in the bariatric center and on Trulicity to help with weight loss -Strongly encourage ongoing weight loss -Complicates treatment, prognosis, outcomes DVT prophylaxis -Lovenox 40 mg SQ twice daily CODE STATUS -Full code Charges/Coding Visit Charges Inpatient E&M: 03282 Init Hosp L1
--- OUTSIDE RECORDS SUMMARY | 2023-10-18 20:18 | XMS RPT_ITS | CCD ---
Author Name Unknown Address [id number] [place] [address] Organization [facility] Care Team Providers Care Poultry Scientist Name Role Phone Unavailable Primary Care Provider [...] er Emil Liang DO Primary Care Provider [phone] Agustina Jean MD Unavailable PHYSICIAN, NONE Attending [...] Care Unavailable BILLY, PRETTY Referring Unavailable BILLY, RPETTY Primary Care Unavailable GEOVANNA LUZ [place] Referring Unavailable EMIL LIANG Primary Care Unavailable Allergies Allergy Classification Reported Allergen(s) Allergy Type Date of Onset Reaction(s) Facility (20 sources) Penicillins; Translations: [PENICILLINS] Drug Allergy 02-14-2011 [facility] Medications Current Medications Medication Drug Class(es) Dates [...] patient 6 to 64 years of age ([facility]LY [facility])] Onset: 11-24-2022 Episodic Spondylosis; intervertebral disc disorders; other back problems (20 sources) Radiculopathy due to lumbar intervertebral disc disorder; Translations: [Intervertebral disc disorders with radiculopathy, lumbar region] Onset: 01-28-2023 Episodic Results Test Name Value Interpretation Reference Range Facil ity Vital Signs Date Time Vital Sign Value Performing Clinician Maddie hair 06-28-2023 08:54-0400 Body height 167.6 cm Luz Garciashiloh LENS GAUGER.COTTON FEEDER Work Phone: [facility] 06-28-2023 08:54-0400 Body weight 221.81 kg Luz Sewellochoa LENS GAUGER.COTTON FEEDER Work Phone: [facility] 06-25-2023 07:35-0400 Heart rate 89 /min Johnny Garcia MD Work Phone: [facility] 06-25-2023 07:35-0400 Respiratory rate 18 /min Johnny Garcia MD Work Phone: [facility] 06-25-2023 07:35-0400 SaO2% (BldA) [Mass fraction] 98 % Johnny Garcia MD Work Phone: [facility] 05-01-2023 10:23-0400 Body height 167.6 cm Agustina Jean MD Work Phone: [facility] 05-01-2023 10:23-0400 Body temperature 96.91 [degF] Agustina Jean MD Work Phone: [facility] 05-01-2023 10:23-0400 Body weight 221.81 kg Agustina Jean MD Work Phone: [facility] 05-01-2023 10:23-0400 Diastolic blood pressure 67 mm[Hg] Agustina Jean MD Work Phone: [facility] 05-01-2023 10:23-0400 Heart rate 91 /min Agustina Jean MD Work Phone: [facility] 05-01-2023 10:23-0400 Respiratory rate 20 /min Agustina Jean MD Work Phone: [facility] 05-01-2023 10:23-0400 SaO2% (BldA) [Mass fraction] 97 % Agustina Jean MD Work Phone: [facility] 05-01-2023 10:23-0400 Systolic blood pressure 115 mm[Hg] Agustina Jean MD Work Phone: [facility] 04-18-2023 10:55-0400 Heart rate 110 /min Kaity Thole PA-C Work Phone: [facility] 04-18-2023 10:55-0400 Respiratory rate 18 /min Kaity Thole PA-C Work Phone: [facility] 04-18-2023 10:55-0400 SaO2% (BldA) [Mass fraction] 97 % Kaity Thole PA-C Work Phone: [facility] 03-27-2023 10:29-0400 Body height 167.6 cm Agustina Jean MD Work Phone: [facility] 03-27-2023 10:29-0400 Body temperature 98.49 [degF] Agustina Jean MD Work Phone: [facility] 03-27-2023 10:29-0400 Body weight 219.09 kg Agustina Jean MD Work Phone: [facility] 03-27-2023 10:29-0400 Diastolic blood pressure 84 mm[Hg] Agustina Jean MD Work Phone: [facility] 03-27-2023 10:29-0400 Heart rate 95 /min Agustina Jean MD Work Phone: [facility] 03-27-2023 10:29-0400 Respiratory rate 18 /min Agustina Jean MD Work Phone: [facility] 03-27-2023 10:29-0400 SaO2% (BldA) [Mass fraction] 97 % Agustina Jean MD Work Phone: [facility] 03-27-2023 10:29-0400 Systolic blood pressure 127 mm[Hg] Agustina Jean MD Work Phone: [facility] 10-11-2022 17:11-0500 Diastolic blood pressure 80 mm[Hg] Kenny Billy MD Work Phone: [facility] 10-11-2022 17:11-0500 Heart rate 78 /min Kenny Billy MD Work Phone: [facility] 10-11-2022 17:11-0500 Systolic blood pressure 118 mm[Hg] Kenny Billy MD Work Phone: [facility] 10-11-2022 17:04-0500 Body height 166.4 cm Kenny Billy MD Work Phone: [facility] 10-11-2022 17:04-0500 Body temperature 98.01 [degF] Kenny Billy MD Work Phone: [facility] 10-11-2022 17:04-0500 Body weight 219.09 kg Kenny Billy MD Work Phone: [facility] 10-11-2022 17:04-0500 Respiratory rate 20 /min Kenny Billy MD Work Phone: [facility] 10-11-2022 17:04-0500 SaO2% (BldA) [Mass fraction] 98 % Kenny Billy MD Work Phone: [facility] 05-17-2022 13:05-0400 Body height 167.6 cm Allison Robledo MD Work Phone: [facility] 05-17-2022 13:05-0400 Body temperature 98.49 [degF] Allison Robledo MD Work Phone: [facility] 05-17-2022 13:05-0400 Body weight 212.47 kg Allison Robledo MD Work Phone: [facility] 05-17-2022 13:05-0400 Diastolic blood pressure 61 mm[Hg] Allison Robledo MD Work Phone: [facility] 05-17-2022 13:05-0400 Heart rate 59 /min Allison Robledo MD Work Phone: [facility] 05-17-2022 13:05-0400 Systolic blood pressure 130 mm[Hg] Allison Robledo MD Work Phone: [facility] Encounters Encounter Date Encounter Type Care Provider Facility Start: 10-08-2023 End: 10-08-2023 ambulatory EMIL Pulido [facility] Facility:[facility] Start: 10-03-2023 End: 10-03-2023 ambulatory KAITY LIND Facility:[facility] Start: 09-22-2023 End: 09-22-2023 Emergency department patient visit [facility] Facility:[facility] Start: 09-21-2023 End: 09-22-2023 ambulatory [facility] Facility:[facility] Start: 09-19-2023 End: 09-19-2023 ambulatory [facility] Facility:[facility] Start: 07-23-2023 End: 07-23-2023 ambulatory ELIN RENAE Facility:[facility] Start: 07-17-2023 End: 07-17-2023 ambulatory [facility] Facility:[facility] Start: 07-17-2023 End: 07-17-2023 [facility] Keo Colón PhD Work Phone: Neurology [...] Adult depression scr eening assessment Elin Renae APRN.COTTON FEEDER Work Phone: Start: 11-14-2020 BASIC METABOLIC PNL [...] 2) [facility] Start: 10-18-2030 Urine microalbumin profile [facility] Start: 05-01-2024 ANNUAL PCP TEAM CHRONIC DISEASE VISIT ANNUAL PCP TEAM CHRONIC DISEASE VISIT [facility] Start: 05-01-2024 BP CONTROLLED (<130/80) BP CONTROLLED (<130/80) [facility] Start: 03-27-2024 ANNUAL PCP TEAM CHRONIC DISEASE VISIT ANNUAL PCP TEAM CHRONIC DISEASE VISIT [facility] Start: 11-27-2023 Hepatitis C antibody, confirmatory test DILATED RETINAL EXAM [facility] Start: 11-25-2023 Hepatitis B surface antibody level LDL CHOLESTEROL [facility] Start: 10-11-2023 ANNUAL PCP TEAM CHRONIC DISEASE VISIT ANNUAL PCP TEAM CHRONIC DISEASE VISIT [facility] Start: 09-27-2023 Hemoglobin A1c/Hemoglobin.total in Blood HBA1C [facility] Start: 2023 Hemoglobin A1c/Hemoglobin.total in Blood HBA1C [facility] Start: 2023 Mammography Mammogram Screening [facility] Start: 05-17-2023 3 comp foot exam completed DIABETIC FOOT EXAM [facility] Start: 05-17-2023 Adult depression screening assessment DEPRESSION SCREENING [facility] Start: 05-17-2023 ANNUAL PCP TEAM CHRONIC DISEASE VISIT ANNUAL PCP TEAM CHRONIC DISEASE VISIT [facility] Start: 05-17-2023 BP CONTROLLED (<130/80) BP CONTROLLED (<130/80) [facility] Start: 05-17-2023 Covid-19 Vaccine ( season) Covid-19 Vaccine () [facility] Start: 05-17-2023 Influenza vaccination [facility] Start: 05-14-2023 Hepatitis B screening URINE ALBUMIN:CREATININE RATIO [facility] Start: 05-14-2023 Hepatitis B surface antibody level LDL CHOLESTEROL [facility] Start: 04-11-2023 HEPATITIS B (3 of 3 - 19+ 3-dose series) HEPATITIS B (3 of 3 - 19+ 3-dose series) [facility] Start: 04-10-2023 End: 06-10-2023 ALBUMIN/CREAT RATIO RND UR ALBUMIN/CREAT RATIO RND UR Lab Routine Type 2 diabetes mellitus with other specified complication, without long-term current use of insulin (HCC) Expected: 04/10/2023, Expires: 06/10/2023 [facility] Work Phone: Immunizations Immunization Date Immunization Notes Care Provider Philip foster 03-27-2023 Hepatitis B vaccine (recombinant), CpG adjuvanted Agustina Jean MD Work Phone: [facility] 11-12-2022 hepatitis B vaccine, adult dosage Ne Nurse Work Phone: [facility] Work Phone: 11-12-2022 hepatitis B vaccine, unspecified formulation Ne Nurse Work Phone: [facility] 10-11-2022 hepatitis B vaccine, adult dosage Kenny Billy MD Work Phone: [facility] Work Phone: 10-11-2022 hepatitis B vaccine, unspecified formulation Kenny Billy MD Work Phone: [facility] 06-15-2022 influenza, injectabl e, quadrivalent, preservative free Kenny Billy MD Work Phone: [facility] Work Phone: 06-15-2022 influenza virus vaccine, unspecified formulation Kelly Andrews MEDICATION AID Work Phone: [facility] 12-24-2021 COVID-19 vaccine, booster dose (MODERNA) Elin Renae APRN.COTTON FEEDER Work Phone: [facility] 09-13-2021 pneumococcal polysaccharide vaccine, 23 valent Elin Renae APRN.COTTON FEEDER Work Phone: [facility] 07-11-2021 influenza, injectabl e, quadrivalent, preservative free Elin Renae APRN.COTTON FEEDER Work Phone: [facility] 01-06-2021 COVID-19 vaccine, fu ll dose (MODERNA) Elin Renae APRN.COTTON FEEDER Work Phone: [facility] 10-18-2020 influenza, injectabl e, quadrivalent, contains preservative [facility] 10-18-2020 tetanus toxoid, redu erika diphtheria toxoid, and acellular pertussis vaccine, adsorbed [facility] 06-30-2019 influenza, injectabl e, quadrivalent, preservative free Allison Robledo MD Work Phone: [facility] Work Phone: 07-29-2018 Influenza, injectabl e, Madin Cool Canine Kidney, preservative free, quadrivalent Mitch Cadena [facility] Work Phone: 07-20-2014 influenza nasal, unspecified formulation Agustina Jean MD Work Phone: [facility] Work Phone: 07-20-2014 influenza, seasonal, injectable, preservative free Allison Robledo MD Work Phone: [facility] Work Phone: NEGATED: Highlighted row has not occurred!05-14-2023 Hepatitis B vaccine (recombinant), CpG adjuvanted Elin Renae APRN.COTTON FEEDER Work Phone: [facility] Work Phone: Payers Date Payer Category Payer Self-pay 2022 Medicaid [id number] 2021 Medicaid [employer] [id number] 2021-Present [phone] [address] [place] [address] Medicaid [id number] 2021 Medicaid [id number] 2021 Medicaid [id number] 2018 Medicaid [employer]ICA[employer] [id number] 2018-Present Medicaid [id number] 1985 Unknown [id number] Social History Date Type Detail Facility Start: 03-15-2019 End: 10-11-2022 Tobacco smoking status NHIS Former smoker [facility] Start: 03-15-2019 End: 11-26-2022 Alcohol intake Current drinker of alcohol (finding) [facility] Start: 12-02-2014 Alcohol Comment rare [facility] Start: 1985 Sex Assigned At Female [facility] Start: 05-04-2022 End: 05-14-2022 Exposure to SARS-CoV-2 (event) Not sure [facility] Start: 10-18-2020 End: 10-11-2022 Tobacco use and exposure Never used [facility] Start: 07-25-2021 End: 05-17-2022 Tobacco Comment smoked x 10 years - quit 2014 [facility] Start: 03-02-2022 End: 05-23-2022 Exposure to SARS-CoV-2 (event) Unable to assess [facility] End: 09-16-2014 History of tobacco use Current smoker [facility] End: 09-16-2014 History of tobacco use Cigarette Smoker [facility] Work Phone: Start: 10-11-2022 End: 04-18-2023 Cigarettes smoked current (pack per day) - Reported 0.5 [facility] Start: 10-10-2022 History SDOH Alcohol Frequency 3 [facility] Start: 10-10-2022 History SDOH Alcohol Std Drinks 1 [facility] Start: 10-10-2022 History SDOH Social Connections Phone 2 [facility] Start: 10-10-2022 History SDOH Social Connections Get Together 98 [facility] Start: 10-10-2022 History SDOH Social Connections Living 8 [facility] Start: 10-11-2022 Alcohol Comment 3 drinks per month. [facility] Tobacco smoking stat [facility] Tobacco smoking consumption unknown [facility] Start: 1985 Sex Assigned At Not on file [facility] Start: 10-10-2022 End: 04-18-2023 Gender identity Not on file [facility] How often do you get together with friends or relatives? Patient refused [facility] Do you belong to any clubs or organizations such as shinto groups, unions, fraternal or athletic groups, or school groups? Yes [facility] Are you now , , , , never or living with a partner? Living with partner [facility] How often to you hav e a drink containing alcohol? 2-4 times a month [facility] How many standard dr inks containing alcohol do you have on a typical day? 1 or 2 [facility] How often do you hav e 6 or more drinks on 1 occasion? Never [facility] How hard is it for y ou to pay for the very basics like food, housing, medical care, and heating Somewhat hard [facility] Do you feel stress - tense, restless, nervous, or anxious, or unable to sleep at night because your mind is troubled all the time - these days [OSQ] Only a little [facility] (I/We) worried ирина er (my/our) food would run out before (I/we) got money to buy more. DK or Refused [facility] In the past 12 month s, was there a time when you were not able to pay the mortgage or rent on time? No [facility] Start: 10-11-2020 Gender identity Identifies as female gender (finding) [facility] Start: 10-11-2020 Sexual orientation Heterosexual (finding) [facility] Start: 06-25-2023 End: 06-28-2023 Alcohol intake Ex-drinker (finding) [facility] Medical Equipment Procedure Code Equipment Code Equipment [...] Type Note Facility 10-08-2023 Note HNO ID: [id number] Author: ELIN RENAE APRN.COTTON FEEDER Service: ? Author Type: Nurse Practitioner Type: [...] visit. Either the patient or their legal high school admissions representative has been informed of the risks [...] Value Ref R (more content not included)... [facility] 10-03-2023 Note HNO ID: [id number] Author: EVANGELINA BESS LPN Service: ? Author [...] ideas. The patient is nervous/anxious. [facility] 10-03-2023 Note HNO ID: [id number] Author: KAITY LIND PA-C Service: ? Author Type: Physician Printing Worker Supervisor Type: Progress Notes Filed: 10/03/2023 10:44 Note Text: [facility] Today's Date: 10/03/2023 Name: Shelton Rodrigez [...] her aqua physical therapy care from a [facility] facility to an outside facility as it [...] Expressi (more content not included)... [facility] 09-19-2023 Note HNO ID: [id number] Author: LUZ AUSTIN APRN.COTTON FEEDER Service: ? Author Type: Nurse Practitioner Type: [...] equate fruit- berries, banana, and yogurt - south korean yogurt flavored; overnight oats L 1 pm - yogurt south korean no sugar and granola protein Dinner 6 [...] behav (more content not included)... [facility] 07-23-2023 Note HNO ID: [id number] Author: Elin Renae APRN.COTTON FEEDER Service: ? Author Type: Nurse Practitioner Type: [...] visit. 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 [facility] 07-21-2023 Note HNO ID: [id number] Author: Keo Colón, PhD Service: ? Author Type: Psychologist Type: Progress Notes Filed: 07/21/2023 6:25 PM Note Text: [facility] MIND/BODY GROUP - SESSION 8 Shelton Rodrigez 07/17/2023 [id number] Provider: Keo Colón, PhD Setting: The patient consented to a virtual visit and their location was confirmed. Interventions: Group check-in with [employer]s. Introduced and practiced [place] Kindness. Provided handouts on loving kindness meditation [...] assess further treatment needs. Keo Colón, PhD [facility] 07-21-2023 History of Present illness Narrative [facility] Psychology MIND/BODY GROUP - SESSION 8 Shelton Westley Alex 07/17/2023 [id number] Provider: Keo Colón, PhD Setting: The patient consented to a virtual visit and their location was confirmed. Interventions: Group check-in with [employer]. Introduced and practiced [place] Kindness. Provided handouts on loving kindness meditation [...] Keo Colón, PhD documented in this encounter [facility] 07-16-2023 Miscellaneous Notes CALLED PATIENT LVM NEED INSURANCE CONTACT NUMBER documented in this encounter [facility] 07-13-2023 Note HNO ID: [id number] Author: Keo Colón, PhD Service: ? Author Type: Psychologist Type: Progress Notes Filed: 07/13/2023 1:15 PM Note Text: [facility] MIND/BODY GROUP - SESSION 7 Shelton Rodrigez 07/10/2023 [id number] Provider: Keo Colón, PhD Setting: The patient consented to a virtual visit and their location was confirmed. Interventions: Group check-in with [employer]. Reviewed relaxation practice and mindfulness homework. Introduction and practice of Autogenic Phrases Exercise. Lessons [place] from Acceptance and Commitment Therapy presentation and [...] mg by mouth once daily. CPAP/BIPAP/OTHER autopap [id number] [employer] ([phone]) 1 Each 0 Blood Pressure Kit-Extra Large kit 1 Each once daily. 1 Kit 0 No current facility-administered medications for this visit. Diagnosis: CHAYITO MDD rec (mod) Homework: Practice relaxation response twice daily and mini-relaxers 's throughout the day. Monitor relaxation practice and symptoms with diary sheets. Daily entry in Appreciation Journal with New [employer] Good[employer]. Complete goal setting exercise. Keo Colón, PhD [facility] 07-13-2023 History of Present illness Narrative [facility] MIND/BODY GROUP - SESSION 7 Shelton Rodrigez 07/10/2023 [id number] Provider: Keo Colón, PhD Setting: The patient consented to a virtual visit and their location was confirmed. Interventions: Group check-in with News [employer]. Reviewed relaxation practice and mindfulness homework. Introduction and practice of Autogenic Phrases Exercise. Lessons [place] from Acceptance and Commitment Therapy presentation and [...] mg by mouth once daily. CPAP/BIPAP/OTHER autopap [id number] [facility] ParentingInformer ([phone]) 1 Each 0 Blood Pressure Kit-Extra Large [...] Keo Colón, PhD documented in this encounter [facility] 07-01-2023 Miscellaneous Notes Mounlacy 2.5mg prior auth submitted cover my meds. Alejandra Lutz MA documented in this encounter [facility] 06-28-2023 Note HNO ID: [id number] Author: Luz Austin APRN.COTTON FEEDER Service: ? Author Type: Nurse Practitioner Type: Progress Notes Filed: 06/28/2023 4:35 PM Note Text: BMI Obesity Medicine Consult This Team Access Model visit is a virtual visit. It required patient-provider interaction for the medical decision making as documented below. Consent was obtained to complete today's [facility] emergency department health visit. I have communicated my name and active licensure. The patient's identity and physical location were verified at the time of this visit. Either the patient or their legal high school admissions representative has been informed of the risks [...] female with obesity who presents to the [facility] bariatric and Metabolic [place] for an initial evaluation of her obesity [...] Food preparation and grocery shopping: patient and fianceQuantConnect cooks Quality of diet: 24hr recall suggests combination of both healthy and unhealthy diet. Characterization of diet:Structured, Unstructured, unhealthy snacking, excessive cravings, evening snacking, and skip meals. Hitch Technician of impaired eating habits:excessive hunger, lack of [...] equate fruit- berries, banana, and yogurt - south korean yogurt flavored; overnight oats L: skip or 1 pm - egg sandwich - bread bagel or wheat toast, cheese and ketchup ; sandwich- lettuce cheese and hummus bread wheat toast or white bread; D:6:30 pm - leyda, no meat of (more content not included)... [facility] 06-28-2023 Instructions Luz Austin APRN.COTTON FEEDER - 06/28/2023 10:06 AM EDT Images from [...] dose escalation. Video Instructions for Injecting Mounjaro: https://www.youCeedo Technologies.com/watch?v=nx nhBdyTSZ0 Savings Card: https://www.Nanomix/savings-r esources Link to Facilitator Website [employer] Medication Guide: https://pi.Fairlay.OpenGov Solutions/us/mounjaro-u s-mg.pdf?s=mg Written pen instructions: https://uspl.Fairlay.com/mounjaro/mo unjaro.html#ug0 Tirzepatide: Patient drug information What is [...] SUMMARY WITH WARNINGS Important Facts About Mounjaro (tbiu-FKFG-JP). It is also known as tirzepatide. Mounjaro [...] effects. You can report side effects at 8-243-LHC-0038 or www.fda.gov/medwatch. Before using Your healthcare provider [...] you take any other prescription medicines or oynh-loh-hdayinf drugs, vitamins, or herbal supplements? How to [...] promptly. Learn more For more information, call 9-669-EppbuHe ( ) or go to www.Flocations.OpenGov Solutions. This information does not take the place of talking with your healthcare provider. Be sure to talk to your healthcare provider about Mounjaro and how to take it. Your healthcare provider is the best person to help you decide if Mounjaro is right for you. Mounjaro and its delivery device base are trademarks owned or licensed by [employer], its subsidiaries, or affiliates. AIDA LAWSON CBS JANUARY2022 Access Mobclix Online for additional drug information, tools, and databases. Copyright Lumoid. All rights reserved. Contributor Disclosures (For additional [...] much, and when it happened. Last Reviewed [id number] Consumer Information Use and Disclaimer This generalized [...] or approved for treating a specific patient. tamyca and its affiliates disclaim any warranty or liability relating to this information or the use thereof. The use of this information is governed by the Terms of Use, available at https://www.100du.tv.OpenGov Solutions/en/k now/gywncmyr-blvqdaatpslhm-tbumg. My opinion 3 hour Rule: -last meal [...] like a plant based meal replacement called GOOD Nutrition - can mix w froz berries [...] examples of apps to track calories are Rigel PharmaceuticalsPAL, LOSE IT. Some patient have found FOODUCATE to help with decisions around food, however choose apps that best suits you. A Beginner s Guide to Healthy Meal Prep How to set yourself up for healthy eating success Benefit Mobile Twitter Linkedin Pinterest Email If your plan [...] in advance, rather than relying on your loljh-vew-bcjq meals in a pinch. Whatever your meal prep style or reason, here s how to get started. Step 1: Think storage Before you even start thinking about what you re going to make, it s important think about how you re going to keep everything fresh and organized. My best recommendation is to get good-quality, airtight, microwave- and computer networking instructor-safe containers, Vaishali says. Good-quality containers will not [...] Roasted chicken, sweet potato and cauliflower or Ranier sprouts. Step 4: Ready, set, go! Ready [...] a pinch. Remember, meal prep isn t vku-uh-mlnfkxr, and there s no definitive right or wrong way to do it. So find what works for you, and don t worry about being perfect. A few small steps done in advance can go a long way https://health.[facility].org /p-nytwmldiz-rilrn-nf-rzopcqf-ehcw -prep/ documented in this encounter [facility] 06-28-2023 History of Present illness Narrative BMI [...] visit. Either the patient or their legal high school admissions representative has been informed of the risks [...] female with obesity who presents to the [facility] bariatric and Metabolic [place] for an initial evaluation of her obesity [...] excessive cravings, evening snacking, and skip meals. Hitch Technician of impaired eating habits:excessive hunger, lack of [...] equate fruit- berries, banana, and yogurt - south korean yogurt flavored; overnight oats L: skip or [...] (Cancer) Father bladder Obesity Father other (agent Roane illnesses) Father Uterine Cancer Mother Fibromyalgia Mother [...] per month. 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 Plan: -- Based on the severity and resistance of the obesity to more conservative weight loss approaches, I believe a open to all options intervention is the best and most appropriate emt intermediate therapeutic option. -- We discussed several strategies [...] training and cardiovascular exercise is the best emt intermediate plan. An overall goal of 200 minutes [...] which included preparing to see the patient, zjvm-ji-qkkb patient care, completing clinical documentation, obtaining and/or reviewing separately obtained history, performing a medically appropriate examination, counseling and educating the patient/family/caregiver, ordering medications, tests, or procedures, communicating with other HCPs (not separately reported), independently interpreting results (not separately reported), communicating results to the patient/family/caregiver, and care coordination (not separately reported). documented in this encounter [facility] 06-26-2023 Note HNO ID: [id number] Author: Keo Colón, PhD Service: ? Author Type: Physician Type: Progress Notes Filed: 06/26/2023 10:00 PM Note Text: [facility] MIND/BODY GROUP - SESSION 6 Shelton Rodrigez 06/26/2023 [id number] Provider: Keo Colón, PhD Setting: The patient [...] once daily. 30 capsule 2 CPAP/BIPAP/OTHER autopap [id number] [facility] ParentingInformer ([phone]) 1 Each 0 diclofenac, EC, (VOLTAREN) 75 [...] literature provided regarding Mindfulness. Keo Colón, PhD [facility] 06-26-2023 History of Present illness Narrative [facility] MIND/BODY GROUP - SESSION 6 Shelton Rodrigez 06/26/2023 [id number] Provider: Keo Colón, PhD Setting: The patient [...] once daily. 30 capsule 2 CPAP/BIPAP/OTHER autopap [id number] [facility] ParentingInformer ([phone]) 1 Each 0 diclofenac, EC, (VOLTAREN) 75 [...] Keo Colón, PhD documented in this encounter [facility] 06-25-2023 Note HNO ID: [id number] Author: Evangelina Bess LPN Service: ? Author [...] ideas. The patient is nervous/anxious. [facility] 06-25-2023 Note HNO ID: [id number] Author: Johnny Garcia MD Service: ? Author Type: Physician Type: Progress Notes Filed: 06/25/2023 9:18 AM Note Text: [facility] Today's Date: 06/25/2023 Last Visit: 04/18/23 Name: [...] her aqua physical therapy care from a [facility] facility to an outside facility as it [...] have (more content not included)... [facility] 06-25-2023 History of Present illness Narrative Review [...] not included. [facility] Today's Date: 06/25/2023 Last Visit: 04/18/23 [...] medication. Of note she [facility] a [facility] facility to an outside facility as it [...] website checked and validated on 06/25/2023 by Jonhny Garcia MD All prescriptions have been APPROPRIATELY [...] DATE OF EXAM: Apr 07 2023 8:45AM [facility] 0303 - MRI LUMBAR SPINE WO IVCON [...] Iliac wings at L4-L5 on the coronal nursing teacher. By convention, 5 lumbar vertebral bodies are [...] 3. Additional multilevel degenerative changes, as described. Supervisor Paint Roller Covers: [facility] Transcribe Date/Time: Apr 07 2023 9:05A Dictated [...] Medications Interventional Procedures: None Studies: None Functional Hinduism: NONE, continue aquatherapy as ordered Referrals: No [...] MD Pain Management [facility] [place] documented in this encounter [facility] 06-19-2023 Note HNO ID: [id number] Author: Keo Colón, PhD Service: ? Author Type: Physician Type: Progress Notes Filed: 06/19/2023 1:56 PM Note Text: [facility] MIND/BODY GROUP - SESSION 5 Shelton Rodrigez 06/19/2023 [id number] Provider: Keo Colón, PhD Setting: The patient consented to a virtual visit and their location was confirmed. Interventions: Group check-in with [employer]. Reviewed relaxation practice over the course of [...] mg by mouth once daily. CPAP/BIPAP/OTHER autopap [id number] [facility] ParentingInformer ([phone]) 1 Each 0 Blood Pressure Kit-Extra Large [...] for three stressful events. Keo Colón, PhD [facility] 06-16-2023 Miscellaneous Notes Aquatic PT order done, please send Bethany Botello APRN.CNP ----- Message from Shane Jacobson PT sent at 06/14/2023 11:07 AM EDT ----- Regarding: aquatic therapy order Hi Shelton Briceno came in last night to our [place] location after doiong aquatic therapy in [place] for a few weeks. She was under the impression that she could continue aquatic therapy here, but we unfortunately no longer have a pool. She would like to stay local, so we decided that she would go to [facility] here to continue the aquatic therapy. Since this is an out of [facility] pool, could you please send an aquatic therapy order over to them for her? Unfortunately I do not have a fax number for you, I could only find phone number and address. The patient may need to hand carry an order there. Address: [address] [place] [address] Thank you for your time! Shane Jacobson PT documented in this encounter [facility] 06-14-2023 Note HNO ID: [id number] Author: Shane Jacobson PT Service: ? Author Type: Physical Therapist Type: Progress Notes Filed: 06/14/2023 11:20 AM Note Text: Pt comes in today expecting to continue aquatic therapy. She is changing locations due to being closer to home. After explaining that we do not have a pool to carry out aquatics, patient and therapist decide to have her continue her aquatic therapy at [facility] and leave today's session without any treatment or skilled evaluation/assessment. Patient agreeable to plan, and therapist will communicate with referring physician to have PT order sent to [facility]. Shane Jacobson PT [facility] 06-14-2023 Miscellaneous Notes Patient was called and message left informing her the PT order was faxed over to [place]. Ashley Yusuf The patient's physical therapist, Shane Jacobson, sent a message to [facility]. The patient wants to continue aquatic therapy but she cannot do it at that facility. Physical therapy order done. She wants to go to [facility] in [place]. The phone number is Order done for aquatic PT documented in this encounter [facility] 06-14-2023 History of Present illness Narrative Pt comes in today expecting to continue aquatic therapy. She is changing locations due to being closer to home. After explaining that we do not have a pool to carry out aquatics, patient and therapist decide to have her continue her aquatic therapy at [facility] and leave today's session without any treatment or skilled evaluation/assessment. Patient agreeable to plan, and therapist will communicate with referring physician to have PT order sent to [facility]. Shane Jacobson PT documented in this encounter [facility] 06-12-2023 Note HNO ID: [id number] Author: Kelly Andrews PTA Service: ? Author Type: Fun House Attendant Type: Progress Notes Filed: 06/12/2023 7:25 PM [...] therapist. PLAN FOR NEXT VISIT: Re-assessment at [place] SUBJECTIVE: Transferring to [place]; much closer to home. Encouraged with how [...] the pool assist level: Supervision, With rail, [place] Entered the pool step pattern: Step to step Exited the pool: Forward on stairs Exited the pool assist level: Supervision, With rail, [place] Exited the pool step pattern: Step to step Aquatic Therapy (59603): Step Activities Water Depth: 4ft Forward Walking: [...] : 1800 Kelly Andrews PTA [facility] 06-12-2023 Note HNO ID: [id number] Author: Keo Colón, PhD Service: ? Author Type: Physician Type: Progress Notes Filed: 06/12/2023 12:27 PM Note Text: [facility] MIND/BODY GROUP - SESSION 4 Shelton Rodrigez 06/12/2023 [id number] Provider: Keo Colón, PhD Setting: The patient [...] meditates.Mini-s are helpful with anxiety/panic in public. Assembler Brazer helping her drift into sleep more easily. [...] mg by mouth once daily. CPAP/BIPAP/OTHER autopap [id number] [employer] ([phone]) 1 Each 0 Blood Pressure Kit-Extra Large [...] Complete the Beliefs Inventory. Keo Colón, PhD [facility] 06-11-2023 Note HNO ID: [id number] Author: Keo Colón, PhD Service: ? Author Type: Physician Type: Progress Notes Filed: 06/11/2023 8:23 PM Note Text: [facility] MIND/BODY GROUP - SESSION 3 Shelton Rodrigez 06/05/2023 [id number] Provider: Keo Colón, PhD Setting: The patient [...] mg by mouth once daily. CPAP/BIPAP/OTHER autopap [id number] [employer] ([phone]) 1 Each 0 Blood Pressure Kit-Extra Large [...] hygiene changes (as needed). Keo Colón, PhD [facility] 06-03-2023 Note HNO ID: [id number] Author: Kelly Andrews PTA Service: ? Author Type: Fun House Attendant Type: Progress Notes Filed: 06/03/2023 7:15 PM [...] aggravate R glut. Pt to transfer to [place]. She will call to see how quickly [...] last week. Does want to transfer to [place] aquatics. Looks forward to coming to [place] knowing she will feel better for a couple of days after Pain: Pain Additional Pain Information : Specific pain level not discussed in order to focus on movement/functional goals OBJECTIVE MEASURES WITH LEVEL OF FUNCTION: TREATMENT: Aquatic Therapy: Entered the pool: Forward on stairs Entered the pool assist level: Supervision, With rail, [place] Entered the pool step pattern: Step to step Exited the pool: Forward on stairs Exited the pool assist level: Supervision, With rail, [place] Exited the pool step pattern: Step to step Aquatic Therapy (58226): Step Activities Water Depth: 4ft Backward Walking: [...] : 1800 Kelly Andrews PTA [facility] 06-03-2023 History of Present illness Narrative Episode [...] aggravate R glut. Pt to transfer to [place]. She will call to see how quickly [...] last week. Does want to transfer to [facility]. Looks forward to coming to [place] knowing she will feel better for a couple of days after Pain: Pain Additional Pain Information : Specific pain level not discussed in order to focus on movement/functional goals OBJECTIVE MEASURES WITH LEVEL OF FUNCTION: TREATMENT: Aquatic Therapy: Entered the pool: Forward on stairs Entered the pool assist level: Supervision, With rail, [place] Entered the pool step pattern: Step to step Exited the pool: Forward on stairs Exited the pool assist level: Supervision, With rail, [place] Exited the pool step pattern: Step to step Aquatic Therapy (78659): Step Activities Water Depth: 4ft Backward Walking: [...] Kelly Andrews PTA documented in this encounter [facility] 05-30-2023 Note HNO ID: [id number] Author: Keo Colón, PhD Service: ? Author Type: Physician Type: Progress Notes Filed: 05/30/2023 6:07 PM Note Text: [facility] MIND/BODY GROUP - SESSION 2 Shelton Rodrigez 05/29/2023 [id number] Provider: Keo Colón, PhD CPT Code: 50896 group psychotherapy Setting: The patient consented to [...] mg by mouth once daily. CPAP/BIPAP/OTHER autopap [id number] [facility] ParentingInformer ([phone]) 1 Each 0 Blood Pressure Kit-Extra Large kit 1 Each once daily. 1 Kit 0 No current facility-administered medications for this visit. Diagnosis: CHAYITO MDD, rec (mod) Homework: Practice relaxation response twice daily; use reminder stickers and practice mini relaxers. Daily entry in Appreciation Journal with New and Goods. Monitor symptoms with diary sheet. Keo Colón, PhD [facility] 05-30-2023 Note HNO ID: [id number] Author: Sam Garcia, PT, DPT Service: ? [...] below. Pt considering transfer of care to [place]-closer to [place] Goals for Episode of Care: [...] Patient to be seen for Therapeutic exercise (11087), Neuromuscular re-education (86824), Therapeutic activities (52036), Self-[place] [facility] management (99837), Gait Training (36608), Aquatic PT (42074), Patient/Family/Caregiver Education, Body Mechanics Training, Functional training [...] for home exercise program as above (*). Self-Jail Management: 1: education about PNE, 2: emailed videos about chronic pain, pain neuroscience 3: education about importance of walking, advised at least 1 min 3 times per day with walker Skilled Intervention: Reviewed patient specific diagnosis in relation to activities of daily living/home management. Access Code: [email or web address] URL: [email or web address] Date: 05/17 (more content not included)... [facility] 05-30-2023 History of Present illness Narrative [facility] MIND/BODY GROUP - SESSION 2 Shelton Rodrigez 05/29/2023 [id number] Provider: Keo Colón, PhD CPT Code: 61143 group psychotherapy Setting: The patient consented to [...] mg by mouth once daily. CPAP/BIPAP/OTHER autopap [id number] [facility] ParentingInformer ([phone]) 1 Each 0 Blood Pressure Kit-Extra Large kit 1 Each once daily. 1 Kit 0 No current facility-administered medications for this visit. Diagnosis: CHAYITO MDD, rec (mod) Homework: Practice relaxation response twice daily; use reminder stickers and practice mini relaxers. Daily entry in Appreciation Journal with New and Goods. Monitor symptoms with diary sheet. Keo Colón, PhD documented in this encounter [facility] 05-29-2023 Note HNO ID: [id number] Author: Kelly Andrews PTA Service: ? Author Type: Fun House Attendant Type: Progress Notes Filed: 05/29/2023 7:13 PM [...] the pool assist level: Supervision, With rail, [place] Entered the pool step pattern: Step to step Exited the pool: Forward on stairs Exited the pool assist level: Supervision, With rail, [place] Exited the pool step pattern: Step to step Aquatic Therapy (67598): Step Activities Walking: Backward Walking Water Depth: [...] : 1800 Kelly Andrews PTA [facility] 05-29-2023 History of Present illness Narrative Episode Visit Count: 6 Therapist That Will Accept/Oversee The Plan Of Care: Sam Garcia Start of Care Date: 04/25/23 Onset Date: 12/15/22 Plan of Care Certification Date: 04/25/23 Next Certification Due Date: 06/25/23 Patient Identified by Name and Date of : Yes REHABILITATION AND SPORTS THERAPY PHYSICAL THERAPY TREATMENT NOTE ASSESSMENT: Shleton Rodrigez tolerated the session with no issues. [...] the pool assist level: Supervision, With rail, [place] Entered the pool step pattern: Step to step Exited the pool: Forward on stairs Exited the pool assist level: Supervision, With rail, [place] Exited the pool step pattern: Step to step Aquatic Therapy (48028): Step Activities Walking: Backward Walking Water Depth: [...] Kelly Andrews PTA documented in this encounter [facility] 05-26-2023 Note HNO ID: [id number] Author: Keo Colón, PhD Service: ? Author Type: Physician Type: Progress Notes Filed: 05/26/2023 5:09 PM Note Text: [facility] MIND/BODY GROUP - SESSION I Shelton Rodrigez 05/22/2023 [id number] Provider: Keo Colón, PhD Time: 10:30AM-12:00PM Setting: [...] mg by mouth once daily. CPAP/BIPAP/OTHER autopap [id number] [facility] ParentingInformer ([phone]) 1 Each 0 Blood Pressure Kit-Extra Large kit 1 Each once daily. 1 Kit 0 No current facility-administered medications for this visit. Diagnosis: CHAYITO MDD rec (mod) Homework: Practice Relaxation Response twice a day and monitor symptoms. Read chapters on breathing, stress reactivity and responding to stress. Keo Colón, PhD [facility] 05-26-2023 History of Present illness Narrative [facility] MIND/BODY GROUP - SESSION Surjit Rodrigez 05/22/2023 [id number] Provider: Keo Colón, PhD Time: 10:30AM-12:00PM Setting: [...] mg by mouth once daily. CPAP/BIPAP/OTHER autopap [id number] [employer] ([phone]) 1 Each 0 Blood Pressure Kit-Extra Large kit 1 Each once daily. 1 Kit 0 No current facility-administered medications for this visit. Diagnosis: CHAYITO MDD rec (mod) Homework: Practice Relaxation Response twice a day and monitor symptoms. Read chapters on breathing, stress reactivity and responding to stress. Keo Colón, PhD documented in this encounter [facility] 05-22-2023 Note HNO ID: [id number] Author: Kelly Andrews PTA Service: ? Author Type: Fun House Attendant Type: Progress Notes Filed: 05/22/2023 5:59 PM [...] the pool assist level: Supervision, With rail, [place] Entered the pool step pattern: Step to step Exited the pool: Forward on stairs Exited the pool assist level: Supervision, With rail, [place] Exited the pool step pattern: Step to step Aquatic Therapy (11845): Step Activities Walking: Lateral/ Side Stepping Lateral/Side [...] : 1540 Kelly Andrews PTA [facility] 05-15-2023 Note HNO ID: [id number] Author: Kelly Andrews PTA Service: ? Author Type: Fun House Attendant Type: Progress Notes Filed: 05/15/2023 6:58 PM [...] the pool assist level: Supervision, With rail, [place] Entered the pool step pattern: Step to step Exited the pool: Forward on stairs Exited the pool assist level: Supervision, With rail, [place] Exited the pool step pattern: Step to step Aquatic Therapy (78526): Lower Extremity Walking: Lateral/ Side Stepping Lateral/Side [...] : 1750 Kelly Andrews PTA [facility] 05-15-2023 History of Present illness Narrative Episode [...] the pool assist level: Supervision, With rail, [place] Entered the pool step pattern: Step to step Exited the pool: Forward on stairs Exited the pool assist level: Supervision, With rail, [place] Exited the pool step pattern: Step to step Aquatic Therapy (05829): Lower Extremity Walking: Lateral/ Side Stepping Lateral/Side [...] Kelly Andrews PTA documented in this encounter [facility] 05-14-2023 Note HNO ID: [id number] Author: Emil Liang, DO Service: ? Author Type: Physician Type: Progress Notes Filed: 05/14/2023 1:28 PM Note Text: I personally saw and examined the patient. I reviewed the resident's note. I agree with the resident's assessment and plan unless otherwise noted. [facility] 05-14-2023 History of Present illness Narrative I personally saw and examined the patient. I reviewed the resident's note. I agree with the resident's assessment and plan unless otherwise noted. Images from the original note were not included. [facility] Agusitna Jean MD ASSESSMENT/PLAN: 1. Chronic radicular lumbar [...] (Cancer) Father bladder Obesity Father other (agent Roane illnesses) Father Uterine Cancer Mother Fibromyalgia Mother [...] anxiety. May take 1/2 tablet CPAP/BIPAP/OTHER autopap [id number] [facility] ParentingInformer ([phone]) gabapentin (NEURONTIN) 400 mg capsule Take 1 [...] DATE OF EXAM: Apr 07 2023 8:45AM [facility] 0303 - MRI LUMBAR SPINE WO IVCON [...] Iliac wings at L4-L5 on the coronal nursing teacher. By convention, 5 lumbar vertebral bodies are [...] 3. Additional multilevel degenerative changes, as described. Supervisor Paint Roller Covers: MARILYN Transcribe Date/Time: Apr 07 2023 9:05A [...] 2023 10:13 AM documented in this encounter [facility] 05-14-2023 Note HNO ID: [id number] Author: Elin Renae APRN.COTTON FEEDER Service: ? Author Type: Nurse Practitioner Type: [...] visit. Either the patient or their legal high school admissions representative has been informed of the risks [...] Status 05/14/2022 28.2 (more content not included)... [facility] 05-14-2023 History of Present illness Narrative Images [...] visit. Either the patient or their legal high school admissions representative has been informed of the risks [...] a referral for this Is planning a [employer] 38 birthday constitution party in a couple [...] GGT Vitamin B12: No components found for: [id number] Vitamin D, Total: No results found for: [...] E, et al. 2017 Guidelines of the [place] [employer] for the Diagnosis and Management [...] if needed --To call the office call [phone] option 3 (for any questions or concerns) or you may call the department appointment line at [phone] --Message in SoftRun any questions or concerns. For those experiencing a suicidal crisis: --call the National Suicide Prevention Lifeline at 988 (264.421.5786) --text the Crisis Text Line (text HOME to 193322) --call 341 and let them know you are having a mental health crisis or go to your nearest Emergency Room for stabilization. --You can also call Mobile Crisis at [phone]. Discussed side effects including any black box warnings, risks and benefits of medications, and alternatives. MEDICATION CHANGES: See above for changes Follow Up: 2-3 months I spent a total of 32 minutes on the date of the service which included preparing to see the patient, qrxm-eo-clln patient care, completing clinical documentation, performing a medically appropriate examination, counseling and educating the patient/family/caregiver, ordering medications, tests, or procedures, and communicating with other HCPs (not separately reported). ADD ON PSYCHOTHERAPY CODE : No SIGNATURE: Elin Renae APRN.CNP PATIENT NAME: Shelton Rodrigez DATE: 05/14/2023 TIME: 8:27 AM documented in this encounter [facility] 05-06-2023 Note HNO ID: [id number] Author: Kelly Andrews PTA Service: ? Author Type: Fun House Attendant Type: Progress Notes Filed: 05/06/2023 7:34 PM [...] the pool assist level: Supervision, With rail, [place] Entered the pool step pattern: Step to step Exited the pool: Forward on stairs Exited the pool assist level: Supervision, With rail, [place] Exited the pool step pattern: Step to step Aquatic Therapy (96633): Posture / Trunk Exercise, Lower Extremity Forward [...] : 1750 Kelly Andrews PTA [facility] 05-06-2023 History of Present illness Narrative Episode [...] the pool assist level: Supervision, With rail, [place] Entered the pool step pattern: Step to step Exited the pool: Forward on stairs Exited the pool assist level: Supervision, With rail, [place] Exited the pool step pattern: Step to step Aquatic Therapy (80935): Posture / Trunk Exercise, Lower Extremity Forward [...] Kelly Andrews PTA documented in this encounter [facility] 05-03-2023 Miscellaneous Notes Forms completed and faxed to [facility] at [phone]. Luz Maria Bundy, Patrol Police Sergeant May 03, 2023 10:08 AM Please route telephone encounter to the Clerical Pool ([facility] Clerical Pool) Ship Washer from [facility] dropped off forms at the office to be completed for the patient's power wheelchair. The rep left instructions of what is to be completed inside of the folder he brought, along with red tabs on the areas that require signatures. He is asking if these forms can be completed and faxed back to [phone] to process the patient's order. Forms are in PCP's mailbox for review and completion. Luz Maria Bundy, Patrol Police Sergeant May 02, 2023 2:12 PM documented in this encounter [facility] 05-01-2023 Note HNO ID: [id number] Author: Agustina Jean MD Service: ? Author Type: Resident Type: Progress Notes Filed: 05/14/2023 1:04 PM Note Text: [facility] Agustina Jean MD ASSESSMENT/PLAN: [...] (Cancer) Father bladder Obesity Father other (agent Roane illnesses) Father Uterine Cancer Mother Fibromyalgia Mother [...] mout (more content not included)... [facility] 05-01-2023 Agustina Doe MD - 05/01/2023 11:24 [...] foods from the protein group each week. [place] with main dishes made with beans or peas, nuts, soy and seafood. Eat seafood in place of meat or poultry twice a week. Include some fish that are higher in oils and low in mercury, such as salmon, trout and ureña. Milk (8 grams), yogurt (12 grams) and Nepali yogurt (18 grams) contain protein. Choose lean [...] and sodium Make these occasional treats only. [place] Instant Breakfast, mixed with milk, contains 13 grams of protein a serving. documented in this encounter [facility] 05-01-2023 Nurse Note Immunizations were given as ordered. Vaccination information sheet(s) given. Charlene Robbins LPN documented in this encounter [facility] 04-29-2023 Note HNO ID: [id number] Author: Kelly Andrews PTA Service: ? Author Type: Fun House Attendant Type: Progress Notes Filed: 04/29/2023 5:52 PM [...] the pool assist level: Supervision, With rail, [place] Entered the pool step pattern: Step to step Exited the pool: Forward on stairs Exited the pool assist level: Supervision, With rail, [place] Exited the pool step pattern: Step to [...] Session Stop Time : [address] [facility] 04-29-2023 History of Present illness Narrative Episode [...] the pool assist level: Supervision, With rail, [place] Entered the pool step pattern: Step to step Exited the pool: Forward on stairs Exited the pool assist level: Supervision, With rail, [place] Exited the pool step pattern: Step to [...] Kelly Andrews PTA documented in this encounter [facility] 04-25-2023 Note HNO ID: [id number] Author: Sam Garcia, PT, DPT Service: ? [...] Planned: 8 Planned Treatment Interventions: Therapeutic exercise (43543), Neuromuscular re-education (29771), Therapeutic activities (52130), Self-[place] health care facility management (46005), Gait Training (32097), Aquatic PT (12895), Patient/Family/Caregiver Education, Body Mechanics Training, Functional training [...] Better (more content not included)... [facility] 04-25-2023 History of Present illness Narrative Episode [...] Planned: 8 Planned Treatment Interventions: Therapeutic exercise (78455), Neuromuscular re-education (17418), Therapeutic activities (24906), Self-[place] health care facility management (78964), Gait Training (99034), Aquatic PT (25224), Patient/Family/Caregiver Education, Body Mechanics Training, Functional training [...] Demonstration TREATMENT: PT Treatment Interventions: Therapeutic Exercise, Self-Jail Management Evaluation Evaluation Therapeutic Exercise: 1: *LTR 10 x 2: *hooklying pelvic tilts 10 x 3: *sit to stand 3 x 4: education about HEP, POC, exam findings Skilled Intervention: Patient was educated in proper exercise technique and purpose for exercises. Provided written instruction for home exercise program to facilitate proper performance and compliance. Self-Jail Management: 1: education about staying as active [...] Garcia PT DPT documented in this encounter [facility] 04-18-2023 Note HNO ID: [id number] Author: Kaity Lind PA-C Service: ? Author Type: Physician Printing Worker Supervisor Type: Progress Notes Filed: 04/18/2023 12:37 PM Note Text: [facility] Today's Date: 04/18/2023 Last Visit: N/A [...] DATE OF EXAM: Apr 07 2023 8:45AM [facility] 0303 - MRI LUMBAR SPINE WO IVCON [...] Iliac wings at L4-L5 on the coronal nursing teacher. By convention, 5 lumbar vertebral bodies are [...] m (more content not included)... [facility] 04-18-2023 Note HNO ID: [id number] Author: Bebe Mcguire LPN Service: ? Author [...] ideas. The patient is nervous/anxious. [facility] 04-18-2023 Instructions Kaity Lind PA-C - 04/18/2023 [...] off the medicaiton. documented in this encounter [facility] 04-18-2023 History of Present illness Narrative [facility] Today's Date: 04/18/2023 Last Visit: N/A [...] DATE OF EXAM: Apr 07 2023 8:45AM [facility] 0303 - MRI LUMBAR SPINE WO IVCON [...] Iliac wings at L4-L5 on the coronal nursing teacher. By convention, 5 lumbar vertebral bodies are [...] 3. Additional multilevel degenerative changes, as described. Supervisor Paint Roller Covers: MARILYN Transcribe Date/Time: Apr 07 2023 9:05A [...] was advised that they will need a driver guard for after the procedure and that if no driver guard is available and on site at the [...] and ORT: Reviewed on today's date Functional Hinduism:Start Physical Therapy (Aquatic) Additional Studies: Referrals: Depending [...] PA-C Pain Management [facility] I spent a total of 70 minutes on the date of the service which included preparing to see the patient, osfe-le-lcla patient care, completing clinical documentation, obtaining and/or [...] (Cancer) Father bladder Obesity Father other (agent Roane illnesses) Father Uterine Cancer Mother Fibromyalgia Mother [...] mg by mouth once daily. CPAP/BIPAP/OTHER autopap [id number] [facility] ParentingInformer ([phone]) Blood Pressure Kit-Extra Large kit 1 Each [...] patient is nervous/anxious. documented in this encounter [facility] 04-07-2023 Note HNO ID: [id number] Author: María Perez CT Service: Radiology Author [...] DENNIS Freeman April 07, 2023 8:15 AM [facility] 04-03-2023 Miscellaneous Notes Faxed to [facility]. F:[phone] Marbella Cardenas, Room Service Waiter/Waitress April 03, 2023 9:44 AM Please route telephone encounter to the Clerical Pool ([facility] Clerical Pool) [facility] can not take patient. Janay Molina, Room Service Waiter/Waitress April 03, 2023 9:19 AM Faxed C orders to [facility]. Faxed wheelchair order to [facility] Marbella Cardenas, Room Service Waiter/Waitress April 02, 2023 3:26 PM documented in this encounter [facility] 03-29-2023 Note HNO ID: [id number] Author: Emil Liang, DO Service: ? Author Type: Physician Type: Progress Notes Filed: 03/29/2023 11:01 AM Note Text: I personally saw and examined the patient. I reviewed the resident's note. I agree with the resident's assessment and plan unless otherwise noted. [facility] 03-29-2023 Miscellaneous Notes Pt. Update 03/29/23- called pt. Back to schedule first non surg. Henrique. Left message documented in this encounter [facility] 03-28-2023 Miscellaneous Notes Summary: 1st attempt PCP ref into program 1st call LVM documented in this encounter [facility] 03-27-2023 Miscellaneous Notes Referral to pain management entered into the [facility] portal on 03/27/2023. Confirmation number [id number]. documented in this encounter [facility] 03-27-2023 Miscellaneous Notes Referral to bariatric surgery entered into the [facility] portal on 03/27/2023. Confirmation number [id number]. documented in this encounter [facility] 03-27-2023 Miscellaneous Notes Orders were faxed to [facility] on 03/27/2023. Confirmation of fax was received on 03/27/2023. documented in this encounter [facility] 03-27-2023 Note HNO ID: [id number] Author: Agustina Jean MD Service: ? Author [...] follow-up visit from her recent hospitalization at [facility] on 03/20/2023. Patient states that she [...] (Cancer) Father bladder Obesity Father other (agent Roane illnesses) Father Uterine Cancer Mother Fibromyalgia Mother Depression Mother Osteoporosis Mother Arthritis Mother Hypertension Sister Arthritis Sister No Known Problems Sister Diabetes Maternal Grandmother Uterine Cancer Maternal Grandmother Diabete (more content not included)... [facility] 03-27-2023 Agustina Doe MD - 03/27/2023 11:38 AM EDT THE DASH DIFFERENCE High blood pressure affects 50 million Americans and is one of the leading causes or heart diseased and stroke. The eating plan shown below, from the Dietary Approaches to Stop Hypertension (DASH) study, is good news for those affected by or at risk for high blood pressure. As reported in the [place] Journal of Medicine, the DASH diet, which [...] prepared soups. 7.) Shake em Up! Create slurry blender drinks. Start with a cup of [...] shredded low-fat cheese. documented in this encounter [facility] 03-27-2023 History of Present illness Narrative Images [...] follow-up visit from her recent hospitalization at [facility] on 03/20/2023. Patient states that she [...] (Cancer) Father bladder Obesity Father other (agent Roane illnesses) Father Uterine Cancer Mother Fibromyalgia Mother [...] mg by mouth once daily. CPAP/BIPAP/OTHER autopap [id number] [facility] ParentingInformer ([phone]) Blood Pressure Kit-Extra Large kit 1 Each [...] 2023 10:09 AM documented in this encounter [facility] 03-26-2023 Note HNO ID: [id number] Author: Elni Renae APRN.COTTON FEEDER Service: ? Author Type: Nurse Practitioner Type: [...] visit. Either the patient or their legal high school admissions representative has been informed of the risks [...] mg by mouth once daily. CPAP/BIPAP/OTHER autopap [id number] [facility] ParentingInformer ([phone]) 1 Each 0 Blood Pressure Kit-Extra Large kit 1 Each once daily. 1 Kit 0 No current facility-administered medications for this visit. ROS: MUSCULOSKELETAL: See HPI PSYCH: See HPI All other systems negative. PFSH: See HPI VITAL SIGNS: There were no vitals filed for this visit. MENTAL STATUS EXAM: CONSTITUTIONAL: Well groomed, [employer] (more content not included)... [facility] 03-26-2023 History of Present illness Narrative FOLLOW [...] visit. Either the patient or their legal high school admissions representative has been informed of the risks [...] mg by mouth once daily. CPAP/BIPAP/OTHER autopap [id number] [facility] ParentingInformer ([phone]) 1 Each 0 Blood Pressure Kit-Extra Large [...] and concerns - will send referrals via SoftRun at patient request Next appointment: --Schedule in 2 months or sooner if needed --To call the office call [phone] option 3 (for any questions or concerns) or you may call the department appointment line at [phone] --Message in SoftRun any questions or concerns. MEDICATION CHANGES: Current medication regimen unchanged. Prescriptions given Follow Up: 2 months I spent a total of 45 minutes on the date of the service which included preparing to see the patient, hcpd-mp-qexh patient care, completing clinical documentation, performing a medically appropriate examination, counseling and educating the patient/family/caregiver and ordering medications, tests, or procedures. ADD ON PSYCHOTHERAPY CODE : No SIGNATURE: Elin Renae APRN.CNP PATIENT NAME: Shelton Rodrigez DATE: March 26, 2023 TIME: 8:04 AM documented in this encounter [facility] 03-25-2023 Miscellaneous Notes Below left on [facility] vm. Changed PCP, cancelled upcoming appt with Dr. Billy. Buffy Mcneill LPN She has been seeing another PCP, Dr. Leonel Rodriguez. Please change PCP. Cancel appointment with me. [facility] Calling Pt. discharged from [facility] with Home health orders.PT and OT for sciatica and back pain. Start care on 03/26. Will you approve and follow ? May leave voice mail. documented in this encounter [facility] 02-13-2023 Note HNO ID: [id number] Author: Mark Dyson PT Service: ? Author [...] Planned: 8 Planned Treatment Interventions: Therapeutic exercise (24505), Neuromuscular re-education (38930), Manual therapy (23546), Therapeutic activities (14479), Self-[place] health care facility management (06861), Patient/Family/Caregiver Education, Body Mechanics Training, General Conditioning [...] that she was bending and lifting doing rubber cutter when the symptoms began. Initially she denies [...] R LE rad (more content not included)... [facility] 02-13-2023 History of Present illness Narrative Episode [...] Planned: 8 Planned Treatment Interventions: Therapeutic exercise (59783), Neuromuscular re-education (48994), Manual therapy (74678), Therapeutic activities (43384), Self-[place] health care facility management (22020), Patient/Family/Caregiver Education, Body Mechanics Training, General Conditioning [...] that she was bending and lifting doing rubber cutter when the symptoms began. Initially she denies [...] Mark Dyson PT documented in this encounter [facility] 02-05-2023 Note HNO ID: [id number] Author: Elise Oshea PT Service: ? Author Type: Physical Therapist Type: Progress Notes Filed: 02/05/2023 4:28 PM Note Text: Pt. arrived without order. Pt. States she forgot to bring it with her. PT evaluation rescheduled. Elise Oshea, PT, DPT [facility] 01-28-2023 Note HNO ID: [id number] Author: RT Almita(Ivone) Service: Radiology Author Type: [...] RT Almita(R) January 28, 2023 4:27 PM [facility] 01-28-2023 History of Present illness Narrative Radiology [...] 2023 4:27 PM documented in this encounter [facility] 11-26-2022 Note HNO ID: [id number] Author: Jessika Ugalde OD Service: ? Author Type: OCCUPATIONAL HEALTH NURSING DIRECTOR Type: Progress Notes Filed: 11/26/2022 9:08 AM Note Text: 1. Type 2 diabetes mellitus without retinopathy (HCC) Risk of diabetic changes and vision loss can be minimized by tight control of blood sugar, blood pressure, and cholesterol levels. Educated patient to continue care with primary care doctor and/or biology laboratory assistant to maintain optimum levels as they are important to avoid ocular complications. Encouraged patient to call the office immediately with any changes to vision or visual concerns. Advised to not wait until the next scheduled exam. 2. Myopia, bilateral Finalized spec rx Monitor yearly Jessika Ugalde OD November 26, 2022 9:07 AM [facility] 11-26-2022 History of Present illness Narrative 1. Type 2 diabetes mellitus without retinopathy (HCC) Risk of diabetic changes and vision loss can be minimized by tight control of blood sugar, blood pressure, and cholesterol levels. Educated patient to continue care with primary care doctor and/or biology laboratory assistant to maintain optimum levels as they are important to avoid ocular complications. Encouraged patient to call the office immediately with any changes to vision or visual concerns. Advised to not wait until the next scheduled exam. 2. Myopia, bilateral Finalized spec rx Monitor yearly Jessika Ugalde, OD November 26, 2022 9:07 AM documented in this encounter [facility] 11-12-2022 Note HNO ID: [id number] Author: Chiquita Dewey LPN Service: ? Author Type: ? Type: Progress Notes Filed: 11/12/2022 3:58 PM Note Text: Patient presents for Hepatitis B vaccine. Denies any problems at this time. Tolerated injection well. Chiquita Dewey LPN [facility] 11-12-2022 History of Present illness Narrative Patient presents for Hepatitis B vaccine. Denies any problems at this time. Tolerated injection well. Chiquita Dewey LPN documented in this encounter [facility] 10-29-2022 Miscellaneous Notes Patient scheduled for nurse visit 11/12/22 to receive Hepatitis B vaccine. Please place order at this time. Chiquita Dewey LPN documented in this encounter [facility] 10-11-2022 Instructions Kenny Billy MD - 10/11/2022 5:52 PM EST [facility] [address] [place] [address] *counseling [facility] PSYCHOLOGICAL AND COUNSELING SERVICES [facility] [address] [facility], [facility] [id number] *counseling [address] [id number] *counseling [facility] [address] [place] [address] *counseling and psychiatry [address] [address] *counseling [address] [address] *counseling [facility] [phone] *counseling [facility] [address] [place] [address] *counseling [facility] [address] [place] [address] [facility] [address] [facility], [address] [place] [address] *counseling [facility] [address] [place], [place] [id number] [facility] [address] [place], [place] [address] *counseling [facility] [address] [facility] [address] [place], [place] [address] [employer] [address] [facility] [place] [address] *counseling [facility] [address] [place], [place] [address] *counseling [facility] [address] [place] [address] *counseling and psychiatry [facility], [address] [place], [place] [address] *psychiatry [facility] [phone] *grief counseling, individual and groups *If you ever experience a mental health crisis please call [phone], Please verify with insurance provider for coverage TEST BLOOD GLUCOSE PERIODICALLY. FASTING GOAL IS <130. AFTER MEAL GOAL (2 HOURS POST MEAL) <180. documented in this encounter [facility] 10-11-2022 History of Present illness Narrative This note was created using daysoftriter. Subjective Patient presents with: Establish Care: From PCP Allison Robledo MD. She moved here from the [facility]. Shelton Rodrigez was here to establish. She had no new concerns. Medication refills were still current. Her diabetes mellitus, hypertension, and obstructive sleep apnea were well controlled. She was seeing mental health in [facility] and she was fine with that. [...] (Cancer) Father bladder Obesity Father other (agent Roane illnesses) Father Hypertension Sister Arthritis Sister No [...] mg by mouth once daily. CPAP/BIPAP/OTHER autopap [id number] [employer] ([phone]) Blood Pressure Kit-Extra Large kit 1 Each [...] Kenny Billy MD documented in this encounter [facility] 08-22-2022 History of Present illness Narrative Images [...] mg by mouth once daily. CPAP/BIPAP/OTHER autopap [id number] [facility] [employer] ([phone]) 1 Each 0 fluticasone (FLONASE ALLERGY RELIEF) 50 mcg/actuation nasal spray Use 1 Quinton in each nostril once daily. 1 Bottle [...] if needed --To call the office call [phone] option 3 (for any questions or concerns) or you may call the department appointment line at [phone] --Message in Centr[employer] any questions or concerns. MEDICATION CHANGES: Current medication regimen unchanged. Prescriptions given Follow Up: 3 months I spent a total of 25 minutes on the date of the service which included preparing to see the patient, aqxq-nd-[id number] patient care, completing clinical documentation, performing a medically appropriate examination, counseling and educating the patient/family/caregiver and ordering medications, tests, or procedures. ADD ON PSYCHOTHERAPY CODE : No SIGNATURE: Elin Renae APRN.CNP PATIENT NAME: Shelton Rodrigez DATE: August 22, 2022 TIME: 9:18 AM PAGER: documented in this encounter [facility] 06-26-2022 Miscellaneous Notes Patient called back regarding [...] 2022 3:19 PM documented in this encounter [facility] 06-26-2022 Miscellaneous Notes Pt left message stating she has questions about her lisinopril medication. Lila Deleon Ma documented in this encounter [facility] 05-23-2022 History of Present illness Narrative Images from the original note were not included. PSYC FOLLOW UP - PSYCHIATRIC PROGRESS NOTE CC: Follow up for medication management for depression and anxiety With the patient consent, visit was performed virtually. HPI: She has been doing good . She is in the middle of moving to [place] with her boyfriend. She feels that this [...] mg by mouth once daily. CPAP/BIPAP/OTHER autopap [id number] [facility] [employer] ([phone]) 1 Each 0 fluticasone (FLONASE ALLERGY RELIEF) 50 mcg/actuation nasal spray Use 1 Quinton in each nostril once daily. 1 Bottle [...] if needed --To call the office call [phone] option 3 (for any questions or concerns) or you may call the department appointment line at [phone] --Message in SoftRun any questions or concerns. MEDICATION CHANGES: Current medication regimen unchanged. Prescriptions given Follow Up: 3 months I spent a total of 30 minutes on the date of the service which included preparing to see the patient, [id number]-[id number] patient care, completing clinical documentation, performing a medically appropriate examination, counseling and educating the patient/family/caregiver and ordering medications, tests, or procedures. ADD ON PSYCHOTHERAPY CODE : No SIGNATURE: Elin Renae APRN.CNP PATIENT NAME: Shelton Rodrigez DATE: May 23, 2022 TIME: 9:36 AM PAGER: documented in this encounter [facility] 05-17-2022 Note HNO ID: [id number] Author: Allison Robledo MD Service: ? Author [...] mg by mouth once daily. CPAP/BIPAP/OTHER autopap [id number] [facility] [employer] ([phone]) fluticasone (FLONASE ALLERGY RELIEF) 50 mcg/actuation nasal spray Use 1 Quinton in each nostril once daily. Blood Pressure [...] headaches, syncope, seizures, and tremor PHYSICAL EXAMINATION: [facility] 02/24/2019 (Approximate) General Appearance: well appearing, in [...] ICD9: V76.2, ICD10: Z12.4 - CONSULT TO FISHER MUSSEL 7. BMI 70 and over, adult (HCC) - ICD9: V85.45, ICD10: Z68.45 Weight decreasing - Behavioral intervention and - Pharm (more content not included)... [facility] 05-17-2022 History of Present illness Narrative This [...] mg by mouth once daily. CPAP/BIPAP/OTHER autopap [id number] [facility] [employer] ([phone]) fluticasone (FLONASE ALLERGY RELIEF) 50 mcg/actuation nasal spray Use 1 Quinton in each nostril once daily. Blood Pressure [...] ICD9: V76.2, ICD10: Z12.4 - CONSULT TO FISHER MUSSEL 7. BMI 70 and over, adult (HCC) [...] up as tolerated Follow up on Bariatric [place] recommendations. Ensure Pap smear Mimi Garza MD Patient seen and examined with the resident. Findings and plan of management discussed.Agree with resident's plan of care. Allison Robledo MD documented in this encounter [facility] 05-15-2022 Miscellaneous Notes I talked to Shelton [...] May 15, 2022 documented in this encounter [facility] 05-14-2022 Note HNO ID: [id number] Author: Allison Robledo MD Service: ? Author [...] mg by mouth once daily. CPAP/BIPAP/OTHER autopap [id number] [facility] [employer] ([phone]) fluticasone (FLONASE ALLERGY RELIEF) 50 mcg/actuation nasal spray Use 1 Quinton in each nostril once daily. Blood Pressure [...] (H) 4.3 - 5.6 % Final Comment: [place] [employer] guidelines indicate that patients with [...] 272.4, ICD10: E78.5 (more content not included)... [facility] 05-14-2022 History of Present illness Narrative Virtual [...] mg by mouth once daily. CPAP/BIPAP/OTHER autopap [id number] [facility] [employer] ([phone]) fluticasone (FLONASE ALLERGY RELIEF) 50 mcg/actuation nasal spray Use 1 Quinton in each nostril once daily. Blood Pressure [...] (H) 4.3 - 5.6 % Final Comment: [place] [employer] guidelines indicate that patients with [...] Allison Robledo MD documented in this encounter [facility] 03-29-2022 Miscellaneous Notes Patient phones requesting refills [...] advise. Karen Arredondo documented in this encounter [facility] 03-12-2022 History of Present illness Narrative Images [...] She went for a family day at [employer] and has been going to the drive-in [...] mg by mouth once daily. CPAP/BIPAP/OTHER autopap [id number] [facility] [employer] ([phone]) 1 Each 0 fluticasone (FLONASE ALLERGY RELIEF) 50 mcg/actuation nasal spray Use 1 Quinton in each nostril once daily. 1 Bottle [...] if needed --To call the office call [phone] option 3 (for any questions or concerns) or you may call the department appointment line at [phone] --Message in [employer] any questions or concerns. MEDICATION CHANGES: Current medication regimen unchanged. Prescriptions given Follow Up: 2-3 months I spent a total of 30 minutes on the date of the service which included preparing to see the patient, uube-ve-iwuw patient care, completing clinical documentation, performing a medically appropriate examination, counseling and educating the patient/family/caregiver and ordering medications, tests, or procedures. ADD ON PSYCHOTHERAPY CODE : No SIGNATURE: Elin Renae APRN.CNP PATIENT NAME: Shelton Rodrigez DATE: March 12, 2022 TIME: 11:00 AM PAGER: documented in this encounter [facility] 03-06-2022 Miscellaneous Notes Patient's request for medication is as follows: Pending Prescriptions Disp Refills LISINOPRIL 20 MG TABLET 30 tablet 3 Sig: Take 1 tablet by mouth once daily. JUSTIN: No Prescription(s) as above. Please process accordingly. Luz Yoder documented in this encounter [facility] 01-31-2022 History of Present illness Narrative Images [...] mg by mouth once daily. CPAP/BIPAP/OTHER autopap [id number] [facility] [employer] ([phone]) 1 Each 0 fluticasone (FLONASE ALLERGY RELIEF) 50 mcg/actuation nasal spray Use 1 Quinton in each nostril once daily. 1 Bottle [...] if needed --To call the office call [phone] option 3 (for any questions or concerns) or you may call the department appointment line at [phone] --Message in SoftRun any questions or concerns. MEDICATION CHANGES: Current medication regimen unchanged. Prescriptions given Follow Up: 6 weeks I spent a total of 30 minutes on the date of the service which included preparing to see the patient, zykr-yo-vcvz patient care, completing clinical documentation, performing a medically appropriate examination, counseling and educating the patient/family/caregiver and ordering medications, tests, or procedures. ADD ON PSYCHOTHERAPY CODE : No SIGNATURE: Elin Renae APRN.CNP PATIENT NAME: Shelton Rodrigez DATE: January 31, 2022 TIME: 11:31 AM PAGER: documented in this encounter [facility] 12-13-2021 History of Present illness Narrative Images [...] mg by mouth once daily. CPAP/BIPAP/OTHER autopap [id number] [facility] [employer] ([phone]) 1 Each 0 fluticasone (FLONASE ALLERGY RELIEF) 50 mcg/actuation nasal spray Use 1 Quinton in each nostril once daily. 1 Bottle [...] if needed --To call the office call [phone] option 3 (for any questions or concerns) or you may call the department appointment line at [phone] --Message in Centr[employer]hart any questions or concerns. MEDICATION CHANGES: Current medication regimen unchanged. Prescriptions given Follow Up: 6 weeks I spent a total of 30 minutes on the date of the service which included preparing to see the patient, vcjr-sv-iwsq patient care, completing clinical documentation, performing a medically appropriate examination, counseling and educating the patient/family/caregiver and ordering medications, tests, or procedures. ADD ON PSYCHOTHERAPY CODE : No SIGNATURE: Elin Renae APRN.CNP PATIENT NAME: Shelton Rodrigez DATE: December 13, 2021 TIME: 11:04 AM PAGER: documented in this encounter [facility] documented as of this encounter (statuses as of 12/13/2021) [facility]03-18-2021 History of Past illness Narrative* Problem Noted Date Resolved Date Class 3 severe obesity with serious comorbidity and body mass index (BMI) greater than or equal to 70 in adult 12/01/2020 07/11/2021 Obesity, Class III, BMI >= 40 10/18/2020 documented as of this encounter (statuses as of 01/31/2022) [facility] History of Past illness Narrative* Problem Noted Date Resolved Date Class 3 severe obesity with serious comorbidity and body mass index (BMI) greater than or equal to 70 in adult 12/01/2020 07/11/2021 Obesity, Class III, BMI >= 40 10/18/2020 documented as of this encounter (statuses as of 03/06/2022) [facility] History of Past illness Narrative* Problem Noted Date Resolved Date Class 3 severe obesity with serious comorbidity and body mass index (BMI) greater than or equal to 70 in adult 12/01/2020 07/11/2021 Obesity, Class III, BMI >= 40 10/18/2020 documented as of this encounter (statuses as of 03/12/2022) [facility] History of Past illness Narrative* Problem Noted Date Resolved Date Class 3 severe obesity with serious comorbidity and body mass index (BMI) greater than or equal to 70 in adult 12/01/2020 07/11/2021 Obesity, Class III, BMI >= 40 10/18/2020 documented as of this encounter (statuses as of 03/29/2022) [facility]20[facility] History of Past illness Narrative* Problem Noted Date Resolved Date Class 3 severe obesity with serious comorbidity and body mass index (BMI) greater than or equal to 70 in adult 12/01/2020 07/11/2021 Obesity, Class III, BMI >= 40 10/18/2020 documented as of this encounter (statuses as of 05/15/2022) [facility] History of Past illness Narrative* Problem Noted Date Resolved Date Class 3 severe obesity with serious comorbidity and body mass index (BMI) greater than or equal to 70 in adult 12/01/2020 07/11/2021 Obesity, Class III, BMI >= 40 10/18/2020 documented as of this encounter (statuses as of 05/15/2022) [facility] History of Past illness Narrative* Problem Noted Date Resolved Date Class 3 severe obesity with serious comorbidity and body mass index (BMI) greater than or equal to 70 in adult 12/01/2020 07/11/2021 Obesity, Class III, BMI >= 40 10/18/2020 documented as of this encounter (statuses as of 05/22/2022) [address]18-2021 History of Past illness Narrative* Problem Noted Date Resolved Date Class 3 severe obesity with serious comorbidity and body mass index (BMI) greater than or equal to 70 in adult 12/01/2020 07/11/2021 Obesity, Class III, BMI >= 40 10/18/2020 documented as of this encounter (statuses as of 05/23/2022) [address]18-2021 History of Past illness Narrative* Problem Noted Date Resolved Date Class 3 severe obesity with serious comorbidity and body mass index (BMI) greater than or equal to 70 in adult 12/01/2020 07/11/2021 Obesity, Class III, BMI >= 40 10/18/2020 documented as of this encounter (statuses as of 07/17/2022) [address]18-2021 History of Past illness Narrative* Problem Noted Date Resolved Date Class 3 severe obesity with serious comorbidity and body mass index (BMI) greater than or equal to 70 in adult 12/01/2020 07/11/2021 Obesity, Class III, BMI >= 40 10/18/2020 documented as of this encounter (statuses as of 08/22/2022) [address]18-2021 History of Past illness Narrative* Problem Noted Date Resolved Date Class 3 severe obesity with serious comorbidity and body mass index (BMI) greater than or equal to 70 in adult 12/01/2020 07/11/2021 Obesity, Class III, BMI >= 40 10/18/2020 documented as of this encounter (statuses as of 09/16/2022) [address]18-2021 History of Past illness Narrative* Problem Noted Date Resolved Date Class 3 severe obesity with serious comorbidity and body mass index (BMI) greater than or equal to 70 in adult 12/01/2020 07/11/2021 Diarrhea 12/01/2020 10/11/2022 Obesity, Class III, BMI >= 40 10/18/2020 documented as of this encounter (statuses as of 10/12/2022) [address]18-2021 History of Past illness Narrative* Problem Noted Date Resolved Date Class 3 severe obesity with serious comorbidity and body mass index (BMI) greater than or equal to 70 in adult 12/01/2020 07/11/2021 Diarrhea 12/01/2020 10/11/2022 Obesity, Class III, BMI >= 40 10/18/2020 documented as of this encounter (statuses as of 11/08/2022) [address]18-2021 History of Past illness Narrative* Problem Noted Date Resolved Date Class 3 severe obesity with serious comorbidity and body mass index (BMI) greater than or equal to 70 in adult 12/01/2020 07/11/2021 Diarrhea 12/01/2020 10/11/2022 Obesity, Class III, BMI >= 40 10/18/2020 documented as of this encounter (statuses as of 11/13/2022) [address]18-2021 History of Past illness Narrative* Problem Noted Date Resolved Date Class 3 severe obesity with serious comorbidity and body mass index (BMI) greater than or equal to 70 in adult 12/01/2020 07/11/2021 Diarrhea 12/01/2020 10/11/2022 Obesity, Class III, BMI >= 40 10/18/2020 documented as of this encounter (statuses as of 11/26/2022) [facility] History of Past illness Narrative* Problem Noted Date Resolved Date Class 3 severe obesity with serious comorbidity and body mass index (BMI) greater than or equal to 70 in adult 12/01/2020 07/11/2021 Diarrhea 12/01/2020 10/11/2022 Obesity, Class III, BMI >= 40 10/18/2020 documented as of this encounter (statuses as of 02/14/2023) [address]18-2021 History of Past illness Narrative* Problem Noted Date Resolved Date Class 3 severe obesity with serious comorbidity and body mass index (BMI) greater than or equal to 70 in adult 12/01/2020 07/11/2021 Diarrhea 12/01/2020 10/11/2022 Obesity, Class III, BMI >= 40 10/18/2020 documented as of this encounter (statuses as of 02/15/2023) [facility] History of Past illness Narrative* Problem Noted Date Resolved Date Class 3 severe obesity with serious comorbidity and body mass index (BMI) greater than or equal to 70 in adult 12/01/2020 07/11/2021 Diarrhea 12/01/2020 10/11/2022 Obesity, Class III, BMI >= 40 10/18/2020 documented as of this encounter (statuses as of 02/27/2023) [address]18-2021 History of Past illness Narrative* Problem Noted Date Resolved Date Class 3 severe obesity with serious comorbidity and body mass index (BMI) greater than or equal to 70 in adult 12/01/2020 07/11/2021 Diarrhea 12/01/2020 10/11/2022 Obesity, Class III, BMI >= 40 10/18/2020 documented as of this encounter (statuses as of 03/03/2023) [address]18-2021 History of Past illness Narrative* Problem Noted Date Diagnosed Date Resolved Date Class 3 severe obesity with serious comorbidity and body mass index (BMI) greater than or equal to 70 in adult 12/01/2020 07/11/2021 Diarrhea 12/01/2020 10/11/2022 Obesity, Class III, BMI >= 40 10/18/2020 12/01/2020 documented as of this encounter (statuses as of 03/26/2023) [address]18-2021 History of Past illness Narrative* Problem Noted Date Diagnosed Date Resolved Date Class 3 severe obesity with serious comorbidity and body mass index (BMI) greater than or equal to 70 in adult 12/01/2020 07/11/2021 Diarrhea 12/01/2020 10/11/2022 Obesity, Class III, BMI >= 40 10/18/2020 12/01/2020 documented as of this encounter (statuses as of 03/26/2023) [facility] History of Past illness Narrative* Problem Noted Date Diagnosed Date Resolved Date Diarrhea 12/01/2020 10/11/2022 Obesity, Class III, BMI >= 40 10/18/2020 12/01/2020 documented as of this encounter (statuses as of 03/28/2023) [address]18-2021 History of Past illness Narrative* Problem Noted Date Diagnosed Date Resolved Date Diarrhea 12/01/2020 10/11/2022 Obesity, Class III, BMI >= 40 10/18/2020 12/01/2020 documented as of this encounter (statuses as of 03/28/2023) [address]18-2021 History of Past illness Narrative* Problem Noted Date Diagnosed Date Resolved Date Diarrhea 12/01/2020 10/11/2022 Obesity, Class III, BMI >= 40 10/18/2020 12/01/2020 documented as of this encounter (statuses as of 03/29/2023) [address]18-2021 History of Past illness Narrative* Problem Noted Date Diagnosed Date Resolved Date Diarrhea 12/01/2020 10/11/2022 Obesity, Class III, BMI >= 40 10/18/2020 12/01/2020 documented as of this encounter (statuses as of 04/03/2023) [address]18-2021 History of Past illness Narrative* Problem Noted Date Diagnosed Date Resolved Date Diarrhea 12/01/2020 10/11/2022 Obesity, Class III, BMI >= 40 10/18/2020 12/01/2020 documented as of this encounter (statuses as of 04/18/2023) [address]18-2021 History of Past illness Narrative* Problem Noted Date Diagnosed Date Resolved Date Diarrhea 12/01/2020 10/11/2022 Obesity, Class III, BMI >= 40 10/18/2020 12/01/2020 documented as of this encounter (statuses as of 04/26/2023) [address]18-2021 History of Past illness Narrative* Problem Noted Date Diagnosed Date Resolved Date Diarrhea 12/01/2020 10/11/2022 Obesity, Class III, BMI >= 40 10/18/2020 12/01/2020 documented as of this encounter (statuses as of 04/30/2023) [address]18-2021 History of Past illness Narrative* Problem Noted Date Diagnosed Date Resolved Date Diarrhea 12/01/2020 10/11/2022 Obesity, Class III, BMI >= 40 10/18/2020 12/01/2020 documented as of this encounter (statuses as of 05/03/2023) [address]18-2021 History of Past illness Narrative* Problem Noted Date Diagnosed Date Resolved Date Diarrhea 12/01/2020 10/11/2022 Obesity, Class III, BMI >= 40 10/18/2020 12/01/2020 documented as of this encounter (statuses as of 05/07/2023) [address]18-2021 History of Past illness Narrative* Problem Noted Date Diagnosed Date Resolved Date Diarrhea 12/01/2020 10/11/2022 Obesity, Class III, BMI >= 40 10/18/2020 12/01/2020 documented as of this encounter (statuses as of 05/14/2023) [address]18-2021 History of Past illness Narrative* Problem Noted Date Diagnosed Date Resolved Date Diarrhea 12/01/2020 10/11/2022 Obesity, Class III, BMI >= 40 10/18/2020 12/01/2020 documented as of this encounter (statuses as of 05/16/2023) [address]18-2021 History of Past illness Narrative* Problem Noted Date Diagnosed Date Resolved Date Diarrhea 12/01/2020 10/11/2022 Obesity, Class III, BMI >= 40 10/18/2020 12/01/2020 documented as of this encounter (statuses as of 05/24/2023) [address]18-2021 History of Past illness Narrative* Problem Noted Date Diagnosed Date Resolved Date Diarrhea 12/01/2020 10/11/2022 Obesity, Class III, BMI >= 40 10/18/2020 12/01/2020 documented as of this encounter (statuses as of 05/26/2023) [address]18-2021 History of Past illness Narrative* Problem Noted Date Diagnosed Date Resolved Date Diarrhea 12/01/2020 10/11/2022 Obesity, Class III, BMI >= 40 10/18/2020 12/01/2020 documented as of this encounter (statuses as of 05/30/2023) [address]18-[address]21 History of Past illness Narrative* Problem Noted Date Diagnosed Date Resolved Date Diarrhea 12/01/2020 10/11/2022 Obesity, Class III, BMI >= 40 10/18/2020 12/01/2020 documented as of this encounter (statuses as of 05/31/2023) [address]18-2021 History of Past illness Narrative* Problem Noted Date Diagnosed Date Resolved Date Diarrhea 12/01/2020 10/11/2022 Obesity, Class III, BMI >= 40 10/18/2020 12/01/2020 documented as of this encounter (statuses as of 06/04/2023) [address]18-2021 History of Past illness Narrative* Problem Noted Date Diagnosed Date Resolved Date Diarrhea 12/01/2020 10/11/2022 Obesity, Class III, BMI >= 40 10/18/2020 12/01/2020 documented as of this encounter (statuses as of 06/05/2023) [address]18-2021 History of Past illness Narrative* Problem Noted Date Diagnosed Date Resolved Date Diarrhea 12/01/2020 10/11/2022 Obesity, Class III, BMI >= 40 10/18/2020 12/01/2020 documented as of this encounter (statuses as of 06/14/2023) [address]18-2021 History of Past illness Narrative* Problem Noted Date Diagnosed Date Resolved Date Diarrhea 12/01/2020 10/11/2022 Obesity, Class III, BMI >= 40 10/18/2020 12/01/2020 documented as of this encounter (statuses as of 06/14/2023) [address]18-2021 History of Past illness Narrative* Problem Noted Date Diagnosed Date Resolved Date Diarrhea 12/01/2020 10/11/2022 Obesity, Class III, BMI >= 40 10/18/2020 12/01/2020 documented as of this encounter (statuses as of 06/16/2023) [address]18-2021 History of Past illness Narrative* Problem Noted Date Diagnosed Date Resolved Date Diarrhea 12/01/2020 10/11/2022 Obesity, Class III, BMI >= 40 10/18/2020 12/01/2020 documented as of this encounter (statuses as of 06/25/2023) [address]18-2021 History of Past illness Narrative* Problem Noted Date Diagnosed Date Resolved Date Diarrhea 12/01/2020 10/11/2022 Obesity, Class III, BMI >= 40 10/18/2020 12/01/2020 documented as of this encounter (statuses as of 06/27/2023) [address]18-2021 History of Past illness Narrative* Problem Noted Date Diagnosed Date Resolved Date Diarrhea 12/01/2020 10/11/2022 Obesity, Class III, BMI >= 40 10/18/2020 12/01/2020 documented as of this encounter (statuses as of 06/28/2023) [address]18-2021 History of Past illness Narrative* Problem Noted Date Diagnosed Date Resolved Date Diarrhea 12/01/2020 10/11/2022 Obesity, Class III, BMI >= 40 10/18/2020 12/01/2020 documented as of this encounter (statuses as of 06/28/2023) [address]18-2021 History of Past illness Narrative* Problem Noted Date Diagnosed Date Resolved Date Diarrhea 12/01/2020 10/11/2022 Obesity, Class III, BMI >= 40 10/18/2020 12/01/2020 documented as of this encounter (statuses as of 07/02/2023) [address]18-2021 History of Past illness Narrative* Problem Noted Date Diagnosed Date Resolved Date Diarrhea 12/01/2020 10/11/2022 Obesity, Class III, BMI >= 40 10/18/2020 12/01/2020 documented as of this encounter (statuses as of 07/13/2023) [address]18-2021 History of Past illness Narrative* Problem Noted Date Diagnosed Date Resolved Date Diarrhea 12/01/2020 10/11/2022 Obesity, Class III, BMI >= 40 10/18/2020 12/01/2020 documented as of this encounter (statuses as of 07/16/2023) [address]18-2021 History of Past illness Narrative* Problem Noted Date Diagnosed Date Resolved Date Diarrhea 12/01/2020 10/11/2022 Obesity, Class III, BMI >= 40 10/18/2020 12/01/2020 documented as of this encounter (statuses as of 07/22/2023) [address]18-2021 History of Past illness Narrative* Problem Noted Date Diagnosed Date Resolved Date Diarrhea 12/01/2020 10/11/2022 Obesity, Class III, BMI >= 40 10/18/2020 12/01/2020 documented as of this encounter (statuses as of 07/22/2023) [facility] [place] [facility] Diagnosis Generalized anxiety disorder documented in this encounter [facility] [place] [facility] Diagnosis Generalized anxiety disorder documented in this encounter [facility] [place] [facility]* Diagnosis Hypertension, unspecified type Essential hypertension Unspecified essential hypertension [facility] [place] [facility] Diagnosis Essential hypertension Unspecified essential hypertension Type 2 diabetes mellitus with other specified complication, without long-term current use of insulin (HCC) Hypertension, unspecified type documented in this encounter [facility] [place] [facility]* Diagnosis Primary hypertension- Primary Unspecified essential hypertension Controlled type 2 diabetes mellitus without complication, without long-term current use of insulin (HCC) Subclinical hypothyroidism Other specified acquired hypothyroidism Morbid obesity (HCC) Morbid obesity Generalized anxiety disorder Vitamin D deficiency Unspecified vitamin D deficiency Hyperlipidemia, unspecified hyperlipidemia type documented in this encounter [facility] [place] [facility]* Diagnosis Type 2 diabetes mellitus with [...] and unspecified hyperlipidemia documented in this encounter [facility] [place] [facility] Diagnosis Generalized anxiety disorder- Primary documented in this encounter [facility] [place] [facility] Diagnosis Generalized anxiety disorder [facility] [place] [facility] Diagnosis CHAYITO (generalized anxiety disorder)- Primary [...] not elsewhere classified documented in this encounter [facility] [place] [facility]* Diagnosis Need for vaccination- Primary Need for prophylactic vaccination and inoculation against unspecified single disease documented in this encounter [facility] [place] [facility]* Diagnosis Type 2 diabetes mellitus without retinopathy (HCC)- Primary Type II or unspecified type diabetes mellitus without mention of complication, not stated as uncontrolled Myopia, bilateral Myopia documented in this encounter [facility] [place] [facility] Diagnosis Intervertebral disc disorder with radiculopathy of lumbar region- Primary Thoracic or lumbosacral neuritis or radiculitis, unspecified documented in this encounter [facility] [place] [facility] Diagnosis Generalized anxiety disorder documented in this encounter [facility] [place] [facility]* Diagnosis Back pain of lumbar region with sciatica- Primary Prediabetes Other abnormal glucose documented in this encounter [facility] note* Diagnosis Spinal stenosis, lumbar region with neurogenic claudication- Primary Lumbar radiculopathy Thoracic or lumbosacral neuritis or radiculitis, unspecified Lumbar spondylosis Lumbosacral spondylosis without myelopathy documented in this encounter [facility] note* Diagnosis Lumbar radiculopathy Thoracic or lumbosacral neuritis or radiculitis, unspecified Lumbar spondylosis Lumbosacral spondylosis without myelopathy Spinal stenosis, lumbar region with neurogenic claudication Radiculopathy, lumbar region Thoracic or lumbosacral neuritis or radiculitis, unspecified [facility] [place] [facility] Diagnosis Radiculopathy, lumbar region- Primary Thoracic or lumbosacral neuritis or radiculitis, unspecified Lumbar spondylosis Lumbosacral spondylosis without myelopathy documented in this encounter [facility] note* Diagnosis Radiculopathy, lumbar region- Primary Thoracic or lumbosacral neuritis or radiculitis, unspecified Lumbar spondylosis Lumbosacral spondylosis without myelopathy documented in this encounter [facility] note* Diagnosis Generalized anxiety disorder- Primary [facility] [place] [facility] Diagnosis Chronic radicular lumbar pain- Primary Thoracic or lumbosacral neuritis or radiculitis, unspecified Need for vaccination Need for prophylactic vaccination and inoculation against unspecified single disease Prediabetes Other abnormal glucose [facility] [place] [facility]* Diagnosis Lumbar pain- Primary Lumbago documented in this encounter [facility] note* Diagnosis Major depressive disorder with single episode, in remission (HCC)- Primary Generalized anxiety disorder documented in this encounter [facility] note* Diagnosis Radiculopathy, lumbar region- Primary Thoracic or lumbosacral neuritis or radiculitis, unspecified Lumbar spondylosis Lumbosacral spondylosis without myelopathy documented in this encounter [facility] note* Diagnosis MDD (major depressive disorder), recurrent episode, moderate (HCC)- Primary Major depressive disorder, recurrent episode, moderate Generalized anxiety disorder [facility] [place] [facility] Diagnosis Radiculopathy, lumbar region- Primary Thoracic or lumbosacral neuritis or radiculitis, unspecified Lumbar spondylosis Lumbosacral spondylosis without myelopathy documented in this encounter [facility] [place] [facility]* Diagnosis Chronic bilateral low back pain without sciatica- Primary documented in this encounter [facility] [place] [facility]* Diagnosis Lumbar radiculopathy- Primary Thoracic or lumbosacral neuritis or radiculitis, unspecified Lumbar spondylosis Lumbosacral spondylosis without myelopathy Spinal stenosis, lumbar region with neurogenic claudication documented in this encounter [facility] [place] [facility]* Diagnosis Radiculopathy, lumbar region- Primary Thoracic or lumbosacral neuritis or radiculitis, unspecified Lumbar spondylosis Lumbosacral spondylosis without myelopathy documented [facility] this encounter [facility]* Diagnosis Lumbar spondylosis- Primary Lumbosacral spondylosis without myelopathy Spinal stenosis, lumbar region with neurogenic claudication Lumbar radiculopathy Thoracic or lumbosacral neuritis or radiculitis, unspecified documented in this encounter [facility]* Diagnosis Lumbar radiculopathy- Primary Thoracic or lumbosacral neuritis or radiculitis, unspecified documented in this encounter [facility] note* Diagnosis Generalized anxiety disorder- Primary MDD (major depressive disorder), recurrent episode, moderate (HCC) Major depressive disorder, recurrent episode, moderate documented in this encounter [facility] note* Diagnosis Obesity, Class III, BMI >= [...] of insulin (HCC) documented in this encounter [facility] [place] [facility]* Diagnosis Generalized anxiety disorder- Primary MDD (major depressive disorder), recurrent episode, moderate (HCC) Major depressive disorder, recurrent episode, moderate [facility] [place] [facility]* Diagnosis MDD (major depressive disorder), recurrent episode, moderate (HCC)- Primary Major depressive disorder, recurrent episode, moderate Generalized anxiety disorder documented in this encounter [facility] for referral (narrative)* - Outside PCP Specialty Diagnoses / Procedures Referred By Contac t Referred To Contact Physical Therapy Diagnoses Lumbar radiculopathy Lumbar spondylosis Spinal stenosis, lumbar region with neurogenic claudication Procedures CONSULT TO PHYSICAL THERAPY Kaity Lind PA-C [address] [address] Referral ID Status Reason Start Date Expiration Date V isits Requested Visits Authorized [id number] Outside PCP 04/18/2023 07/17/2023 1 1 [facility] Reason for Referral Status Reason Specialty Diagnoses / Procedures Referred By Contact Referred To Contact Pending Review PCP Requested Referral Diagnoses Anxiety Procedures CONSULT TO PSYCHIATRY NEW PATIENT VISIT LEVEL 5 Allison Robledo [address] [place] [id number] Status Reason Specialty Diagnoses / Procedures Referred By Contact Referred To Contact Authorized PCP Requested Referral Auto-Generated Referral Diagnoses Pap smear, as part of routine gynecological examination Procedures CONSULT TO [facility] NEW PATIENT VISIT LEVEL 5 Allison Robledo [address] [place] [id number] Specialty Diagnoses / Procedures Referred By Contac t Referred To Contact Diagnoses BMI 70 and over, adult (HCC) Procedures CONSULT [facility] OFFICE/OUTPATIENT [facility] 60-[place] [address] [place] [address] Referral ID Status Reason Start Date Expiration Date Visits Requested Visits Authorized [id number] Authorized PCP Requested Referral 05/17/2022 05/17/2023 1 1 Specialty Diagnoses / Procedures Referred By Contac t Referred To Contact Diagnoses Pap test, as part of routine gynecological examination Procedures CONSULT TO [facility] OFFICE/OUTPATIENT COUNT INCLUDES THE [facility] MDM 60-[place] [address] [place] [address] Referral ID Status Reason Start Date Expiration Date Visits Requested Visits Authorized [id number] Authorized PCP Requested Referral Auto-Generate d Referral 05/17/2022 05/17/2023 1 1 Specialty Diagnoses / Procedures Referred By Contac t Referred To Contact Ophthalmology Diagnoses Type 2 diabetes mellitus with other specified complication, without long-term current use of insulin (HCC) Procedures CONSULT TO OPHTHALMOLOGY OFFICE/OUTPATIENT [facility] 60-74 MINUTES Kenny Billy MD [address] [place] [address] Referral ID Status Reason Start Date Expiration Date Visits Requested Visits Authorized [id number] Authorized PCP Requested Referral 10/11/2022 10/11/2023 1 1 Specialty Diagnoses / Procedures Referred By Contac t Referred To Contact Gynecology Diagnoses Screening for cervical cancer Procedures CONSULT TO GYNECOLOGY OFFICE/OUTPATIENT [facility] 60-74 MINUTES Kenny Billy MD [address] [place] [address] Referral ID Status Reason Start Date Expiration Date Visits Requested Visits Authorized [id number] Authorized PCP Requested Referral Auto-Generate d Referral 10/11/2022 10/11/2023 1 1 Specialty Diagnoses / Procedures Referred By Contac t Referred To Contact [facility] Diagnoses Intervertebral disc disorder with radiculopathy of lumbar region Procedures PT REHAB FOLLOW UP ORDER THERAPEUTIC EXERCISES RE, EA 15 MIN. Pt [facility] [place] [address] [facility] [place] [address] [place] [address] Referral ID Status Reason Start Date Expiration Date Visits Requested Visits Authorized [id number] Pending Review PCP Requested Referral Auto-Generate d Referral 02/13/2023 05/14/2023 1 1 Specialty Diagnoses / Procedures Referred By Contac t Referred To Contact Pain Management Diagnoses Back pain of lumbar region with sciatica Procedures CONSULT TO PAIN MGT Intm Ag Acc [address] [facility] [address] [place] [address] Referral ID Status Reason Start Date Expiration Date Visits Requested Visits Authorized [id number] Ref Not Required PCP Requested Referral 03/27/2023 03/26/2024 1 1 Specialty Diagnoses / Procedures Referred By Contac t Referred To Contact [facility] Diagnoses Lumbar radiculopathy Lumbar spondylosis Spinal stenosis, lumbar region with neurogenic claudication Procedures CONSULT TO PHYSICAL THERAPY PHYSICAL THERAPY EVALUATION HIGH COMPLEX 45 MINS Antonella Ye MD [address] [place] [address] [facility] [place] [address] [place] [address] Referral ID Status Reason Start Date Expiration Date Visits Requested Visits Authorized [id number] Outside PCP Auto-Generat ed Referral 06/14/2023 06/13/2024 1 1 Specialty Diagnoses / Procedures Referred By Contac t Referred To Contact [facility] Diagnoses Lumbar spondylosis Spinal stenosis, lumbar region with neurogenic claudication Lumbar radiculopathy Procedures CONSULT TO PHYSICAL THERAPY PHYSICAL THERAPY EVALUATION HIGH COMPLEX 45 MINS Bethany Botello APRN.[employer] [address] [place] [address] [address] Referral ID Status Reason Start Date Expiration Date Visits Requested Visits Authorized [id number] Pending Review Auto-Generat ed Referral 06/16/2023 06/15/2024 1 1 Specialty Diagnoses / Procedures Referred By Contac t Referred To Contact Diagnoses Vitamin D deficiency Mixed hyperlipidemia Primary hypertension BMI 70 and over, adult (HCC) Type 2 diabetes mellitus with other specified complication, without long-term current use of insulin (HCC) Luz Austin APRN.[employer] [address] [place] [address] Referral ID Status Reason Start Date Expiration Date Visits Re quested Visits Authorized [id number] Closed 1 1 Specialty Diagnoses / Procedures Referred By Contac t Referred To Contact Diagnoses Obesity, Class III, BMI 40-49.9 (morbid obesity) ([facility]) Major depressive disorder with single episode, in remission ([facility]) Vitamin D deficiency Controlled type 2 diabetes mellitus without complication, without long-term current use of insulin ([facility]) Subclinical hypothyroidism Obstructive sleep apnea on CPAP Mixed hyperlipidemia Primary hypertension Dietary counseling and surveillance BMI 70 and over, adult ([facility]) Procedures CONSULT TO BARIATRIC SURGERY Luz Austin APRN.[employer] [address] [place] [address] Referral ID Status Reason Start Date Expiration Date V isits Requested Visits Authorized [id number] Ref Not Required 06/28/2023 08/27/2023 1 1 [...] (FLONASE) 50 mcg/actuation nasal spray Use 1 Quinton in each nostril once daily. cetirizine (ZYRTEC) [...] headaches, syncope, seizures and paralysis PHYSICAL EXAMINATION: [facility] 02/24/2019 (Approximate) General Appearance: well appearing, in [...] exam in one year. - CONSULT TO [facility] 4. Anxiety - ICD9: 300.00, ICD10: F41.9 [...] The patient was seen 10/18/2020 here at [facility] due to dizziness. The patient reported no [...] studies and psychiatery but not with the [facility]. She was provided last time with the [facility] contact info to follow-up with but [...] (FLONASE) 50 mcg/actuation nasal spray Use 1 [place]inton in each nostril once daily. cetirizine (ZYRTEC) [...] will be contacting the [facility] on your earliest convenience. 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 Advance Directive(s) 10/07/2020 2:52 PM [...] or prosecute any alcohol or drug abuse patient.[facility] the event this information is protected by the Federal Confidentiality of Alcohol and Drug Abuse Patient Records regulations: The Federal rules restrict any use of the information to criminally investigate or prosecute any alcohol or drug abuse patient.[facility] the event this information is protected by the Federal Confidentiality of Alcohol and Drug Abuse Patient Records regulations: The Federal rules restrict any use of the information to criminally investigate or prosecute any alcohol or drug abuse patient.[facility] the event this information is protected by the Federal Confidentiality of Alcohol and Drug Abuse Patient Records regulations: The Federal rules restrict any use of the information to criminally investigate or prosecute any alcohol or drug abuse patient.[facility] the event this information is protected by the Federal Confidentiality of Alcohol and Drug Abuse Patient Records regulations: The Federal rules restrict any use of the information to criminally investigate or prosecute any alcohol or drug abuse patient.[facility] the event this information is protected by the Federal Confidentiality of Alcohol and Drug Abuse Patient Records regulations: The Federal rules restrict any use of the information to criminally investigate or prosecute any alcohol or drug abuse patient.[facility] the event this information is protected by the Federal Confidentiality of Alcohol and Drug Abuse Patient Records regulations: The Federal rules restrict any use of the information to criminally investigate or prosecute any alcohol or drug abuse patient.[facility] the event this information is protected by the Federal Confidentiality of Alcohol and Drug Abuse Patient Records regulations: The Federal rules restrict any use of the information to criminally investigate or prosecute any alcohol or drug abuse patient.[facility] the event this information is protected by the Federal Confidentiality of Alcohol and Drug Abuse Patient Records regulations: The Federal rules restrict any use of the information to criminally investigate or prosecute any alcohol or drug abuse patient.[facility] the event this information is protected by the Federal Confidentiality of Alcohol and Drug Abuse Patient Records regulations: The Federal rules restrict any use of the information to criminally investigate or prosecute any alcohol or drug abuse patient.[facility] the event this information is protected by the Federal Confidentiality of Alcohol and Drug Abuse Patient Records regulations: The Federal rules restrict any use of the information to criminally investigate or prosecute any alcohol or drug abuse patient.[facility] the event this information is protected by the Federal Confidentiality of Alcohol and Drug Abuse Patient Records regulations: The Federal rules restrict any use of the information to criminally investigate or prosecute any alcohol or drug abuse patient.[facility] the event this information is protected by the Federal Confidentiality of Alcohol and Drug Abuse Patient Records regulations: The Federal rules restrict any use of the information to criminally investigate or prosecute any alcohol or drug abuse patient.[facility] the event this information is protected by the Federal Confidentiality of Alcohol and Drug Abuse Patient Records regulations: The Federal rules restrict any use of the information to criminally investigate or prosecute any alcohol or drug abuse patient.[facility] AvonIn the event this information is protected by the Federal Confidentiality of Alcohol and Drug Abuse Patient Records regulations: The Federal rules restrict any use of the information to criminally investigate or prosecute any alcohol or drug abuse patient.[facility], AvonIn the event this information is protected by the Federal Confidentiality of Alcohol and Drug Abuse Patient Records regulations: The Federal rules restrict any use of the information to criminally investigate or prosecute any alcohol or drug abuse patient.[facility], AvonIn the event this information is protected by the Federal Confidentiality of Alcohol and Drug Abuse Patient Records regulations: The Federal rules restrict any use of the information to criminally investigate or prosecute any alcohol or drug abuse patient.[facility], AvonIn the event this information is protected by the Federal Confidentiality of Alcohol and Drug Abuse Patient Records regulations: The Federal rules restrict any use of the information to criminally investigate or prosecute any alcohol or drug abuse patient.[facility], AvonIn the event this information is protected by the Federal Confidentiality of Alcohol and Drug Abuse Patient Records regulations: The Federal rules restrict any use of the information to criminally investigate or prosecute any alcohol or drug abuse patient.[facility], AvonIn the event this information is protected by the Federal Confidentiality of Alcohol and Drug Abuse Patient Records regulations: The Federal rules restrict any use of the information to criminally investigate or prosecute any alcohol or drug abuse patient.[facility], AvonIn the event this information is protected by the Federal Confidentiality of Alcohol and Drug Abuse Patient Records regulations: The Federal rules restrict any use of the information to criminally investigate or prosecute any alcohol or drug abuse patient.[facility], AvonIn the event this information is protected by the Federal Confidentiality of Alcohol and Drug Abuse Patient Records regulations: The Federal rules restrict any use of the information to criminally investigate or prosecute any alcohol or drug abuse patient.[facility], AvonIn the event this information is protected by the Federal Confidentiality of Alcohol and Drug Abuse Patient Records regulations: The Federal rules restrict any use of the information to criminally investigate or prosecute any alcohol or drug abuse patient.[facility], AvonIn the event this information is protected by the Federal Confidentiality of Alcohol and Drug Abuse Patient Records regulations: The Federal rules restrict any use of the information to criminally investigate or prosecute any alcohol or drug abuse patient.[facility], AvonIn the event this information is protected by the Federal Confidentiality of Alcohol and Drug Abuse Patient Records regulations: The Federal rules restrict any use of the information to criminally investigate or prosecute any alcohol or drug abuse patient.[facility], AvonIn the event this information is protected by the Federal Confidentiality of Alcohol and Drug Abuse Patient Records regulations: The Federal rules restrict any use of the information to criminally investigate or prosecute any alcohol or drug abuse patient.[facility], AvonIn the event this information is protected by the Federal Confidentiality of Alcohol and Drug Abuse Patient Records regulations: The Federal rules restrict any use of the information to criminally investigate or prosecute any alcohol or drug abuse patient.[facility], AvonIn the event this information is protected by the Federal Confidentiality of Alcohol and Drug Abuse Patient Records regulations: The Federal rules restrict any use of the information to criminally investigate or prosecute any alcohol or drug abuse patient.[facility], AvonIn the event this information is protected by the Federal Confidentiality of Alcohol and Drug Abuse Patient Records regulations: The Federal rules restrict any use of the information to criminally investigate or prosecute any alcohol or drug abuse patient.[facility], AvonIn the event this information is protected by the Federal Confidentiality of Alcohol and Drug Abuse Patient Records regulations: The Federal rules restrict any use of the information to criminally investigate or prosecute any alcohol or drug abuse patient.[facility], AvonIn the event this information is protected by the Federal Confidentiality of Alcohol and Drug Abuse Patient Records regulations: The Federal rules restrict any use of the information to criminally investigate or prosecute any alcohol or drug abuse patient.[facility], AvonIn the event this information is protected by the Federal Confidentiality of Alcohol and Drug Abuse Patient Records regulations: The Federal rules restrict any use of the information to criminally investigate or prosecute any alcohol or drug abuse patient.[facility], AvonIn the event this information is protected by the Federal Confidentiality of Alcohol and Drug Abuse Patient Records regulations: The Federal rules restrict any use of the information to criminally investigate or prosecute any alcohol or drug abuse patient.[facility], AvonIn the event this information is protected by the Federal Confidentiality of Alcohol and Drug Abuse Patient Records regulations: The Federal rules restrict any use of the information to criminally investigate or prosecute any alcohol or drug abuse patient.[facility], AvonIn the event this information is protected by the Federal Confidentiality of Alcohol and Drug Abuse Patient Records regulations: The Federal rules restrict any use of the information to criminally investigate or prosecute any alcohol or drug abuse patient.[facility], AvonIn the event this information is protected by the Federal Confidentiality of Alcohol and Drug Abuse Patient Records regulations: The Federal rules restrict any use of the information to criminally investigate or prosecute any alcohol or drug abuse patient.[facility], AvonIn the event this information is protected by the Federal Confidentiality of Alcohol and Drug Abuse Patient Records regulations: The Federal rules restrict any use of the information to criminally investigate or prosecute any alcohol or drug abuse patient.[facility], AvonIn the event this information is protected by the Federal Confidentiality of Alcohol and Drug Abuse Patient Records regulations: The Federal rules restrict any use of the information to criminally investigate or prosecute any alcohol or drug abuse patient.[facility], AvonIn the event this information is protected by the Federal Confidentiality of Alcohol and Drug Abuse Patient Records regulations: The Federal rules restrict any use of the information to criminally investigate or prosecute any alcohol or drug abuse patient.[facility], AvonIn the event this information is protected by the Federal Confidentiality of Alcohol and Drug Abuse Patient Records regulations: The Federal rules restrict any use of the information to criminally investigate or prosecute any alcohol or drug abuse patient.[facility], AvonIn the event this information is protected by the Federal Confidentiality of Alcohol and Drug Abuse Patient Records regulations: The Federal rules restrict any use of the information to criminally investigate or prosecute any alcohol or drug abuse patient.[facility], AvonIn the event this information is protected by the Federal Confidentiality of Alcohol and Drug Abuse Patient Records regulations: The Federal rules restrict any use of the information to criminally investigate or prosecute any alcohol or drug abuse patient.[facility], AvonIn the event this information is protected by the Federal Confidentiality of Alcohol and Drug Abuse Patient Records regulations: The Federal rules restrict any use of the information to criminally investigate or prosecute any alcohol or drug abuse patient.[facility], AvonIn the event this information is protected by the Federal Confidentiality of Alcohol and Drug Abuse Patient Records regulations: The Federal rules restrict any use of the information to criminally investigate or prosecute any alcohol or drug abuse patient.[facility], AvonIn the event this information is protected by the Federal Confidentiality of Alcohol and Drug Abuse Patient Records regulations: The Federal rules restrict any use of the information to criminally investigate or prosecute any alcohol or drug abuse patient.[facility], AvonIn the event this information is protected by the Federal Confidentiality of Alcohol and Drug Abuse Patient Records regulations: The Federal rules restrict any use of the information to criminally investigate or prosecute any alcohol or drug abuse patient.[facility], AvonIn the event this information is protected by the Federal Confidentiality of Alcohol and Drug Abuse Patient Records regulations: The Federal rules restrict any use of the information to criminally investigate or prosecute any alcohol or drug abuse patient.[facility], AvonIn the event this information is protected by the Federal Confidentiality of Alcohol and Drug Abuse Patient Records regulations: The Federal rules restrict any use of the information to criminally investigate or prosecute any alcohol or drug abuse patient.[facility], AvonIn the event this information is protected by the Federal Confidentiality of Alcohol and Drug Abuse Patient Records regulations: The Federal rules restrict any use of the information to criminally investigate or prosecute any alcohol or drug abuse patient.[facility], AvonIn the event this information is protected by the Federal Confidentiality of Alcohol and Drug Abuse Patient Records regulations: The Federal rules restrict any use of the information to criminally investigate or prosecute any alcohol or drug abuse patient.[facility], AvonIn the event this information is protected by the Federal Confidentiality of Alcohol and Drug Abuse Patient Records regulations: The Federal rules restrict any use of the information to criminally investigate or prosecute any alcohol or drug abuse patient.[facility], AvonIn the event this information is protected by the Federal Confidentiality of Alcohol and Drug Abuse Patient Records regulations: The Federal rules restrict any use of the information to criminally investigate or prosecute any alcohol or drug abuse patient.[facility], AvonIn the event this information is protected by the Federal Confidentiality of Alcohol and Drug Abuse Patient Records regulations: The Federal rules restrict any use of the information to criminally investigate or prosecute any alcohol or drug abuse patient.[facility], AvonIn the event this information is protected by the Federal Confidentiality of Alcohol and Drug Abuse Patient Records regulations: The Federal rules restrict any use of the information to criminally investigate or prosecute any alcohol or drug abuse patient.[facility], AvonIn the event this information is protected by the Federal Confidentiality of Alcohol and Drug Abuse Patient Records regulations: The Federal rules restrict any use of the information to criminally investigate or prosecute any alcohol or drug abuse patient.[facility], AvonIn the event this information is protected by the Federal Confidentiality of Alcohol and Drug Abuse Patient Records regulations: The Federal rules restrict any use of the information to criminally investigate or prosecute any alcohol or drug abuse patient.[facility], AvonIn the event this information is protected by the Federal Confidentiality of Alcohol and Drug Abuse Patient Records regulations: The Federal rules restrict any use of the information to criminally investigate or prosecute any alcohol or drug abuse patient.[facility], AvonIn the event this information is protected by the Federal Confidentiality of Alcohol and Drug Abuse Patient Records regulations: The Federal rules restrict any use of the information to criminally investigate or prosecute any alcohol or drug abuse patient.[facility] [place] Reason for Visit (unrecogniz ed section and content) Specialty Diagnoses / Procedures Referred By Contac t Referred To Contact Psychiatry / ADULT PSYCHOLOGY Diagnoses [facility] Procedures VIDEO PSYC/PSYL GRP (ZOOM) Keo oClón, PhD [address] [place] [address] Keo Colón, PhD [address] [place] [address] Referral ID Status Reason Start Date Expiration Date V isits Requested Visits Authorized [id number] Pending Review 05/22/2023 08/20/2023 8 8 Reason Comments Patient Left Without Being Seen Specialty Diagnoses / Procedures Referred By Contac t Referred To Contact Physical Therapy / PHYSICAL THERAPY Diagnoses Lumbar radiculopathy Lumbar spondylosis Spinal stenosis, lumbar region with neurogenic claudication Procedures CONSULT TO PHYSICAL THERAPY Kaity Lind PA-C [address] [facility] [address] [place] [address] Pt [facility] [place] [address] [place] [address] Referral ID Status Reason Start Date Expiration Date V isits Requested Visits Authorized [id number] Authorized 04/18/2023 09/15/2023 30 30 Reason Comments Depression Anxiety Specialty Diagnoses / Procedures Referred By Contac t Referred To Contact Psychiatry / ADULT PSYCHOLOGY Diagnoses [facility] Procedures VIDEO PSYC/PSYL GRP (ZOOM) Keo Colón, PhD [facility] [place] [address] Keo Colón, PhD [facility] [place] [address] Reason Comments Physical Therapy Reason Comments Follow Up Anxiety Depression Specialty Diagnoses / Procedures Referred By Contac t Referred To Contact Psychiatry / ADULT PSYCHIATRY Diagnoses Virtual Visit Med check NCP/NCP * Procedures VIDEO PSYC/PSYL EST Elin Renae APRN.[employer] [address] [place] [address] Elin Renae APRN.[employer] [address] [place] [address] Referral ID Status Reason Start Date Expiration Date V isits Requested Visits Authorized [id number] Authorized 09/16/2021 09/15/2022 99 99 Reason Comments Follow Up Anxiety Specialty Diagnoses / Procedures Referred By Contac t Referred To Contact Psychiatry / ADULT PSYCHIATRY Diagnoses Anxiety [F41.9] Procedures MYC PSYC/PSYL NEW VIDEO (ZOOM) Self Elin Renae APRN.[employer] [address] [place] [address] Referral ID Status Reason Start Date Expiration Date Visits Re quested Visits Authorized [id number] Closed 09/16/2020 09/15/2021 20 20 Reason Comments [...] jennings MD. She moved here from the [facility]. Reason Comments Orders Reason Comments Imm/Inj Reason Comments New glasses Diabetes Blood sugar: Patient doesn't check every day A1c: 6.0 Specialty Diagnoses / Procedures Referred By Contac t Referred To Contact Ophthalmology Diagnoses Type 2 diabetes mellitus with other specified complication, without long-term current use of insulin (HCC) Procedures CONSULT TO OPHTHALMOLOGY OFFICE/OUTPATIENT NEW HIGH MDM 60-74 MINUTES Kenny Billy MD [address] [place] [address] Referral ID Status Reason Start Date Expiration Date V isits Requested Visits Authorized [id number] Closed PCP Requested Referral 10/11/2022 10/11/2023 1 1 Reason Comments PT Eval Specialty Diagnoses / Procedures Referred By Contac t Referred To Contact Physical Therapy / PHYSICAL THERAPY Diagnoses consult to pt for lumbar pain Procedures NEW RS PT SPINE Self Elise Oshea, PT Referral ID Status Reason Start Date Expiration Date V isits Requested Visits Authorized [id number] Authorized 09/16/2022 09/15/2023 30 30 Reason Comments Follow Up Specialty Diagnoses / Procedures Referred By Contac t Referred To Contact Psychiatry / ADULT PSYCHIATRY Diagnoses Med check Procedures Distance health established patient Elin Renae APRN.CNP [address] [place] [address] Elin Renae APRN.CNP [address] [place] [address] Referral ID Status Reason Start Date Expiration Date V isits Requested Visits Authorized [id number] Authorized 09/16/2022 09/15/2023 99 99 Reason Comments [...] Comments Forms Reason Comments Appointment Reason Comments 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 - 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 Reason Comments Follow Up Low Back Pain Leg Pain R leg Reason Comments New Patient Evaluation Reason Comments Other [place] Care Teams (unrecognized sec tion and content) Poultry Scientist Relationship Specialty [place] [address] [place] [address] PCP - General Internal Medicine 01/09/21 Poultry Scientist Relationship Specialty [place] [address] [place] [address] PCP - General Internal Medicine 01/09/21 Poultry Scientist Relationship Specialty [place] [address] [place] [address] PCP - General Internal Medicine 01/09/21 Poultry Scientist Relationship Specialty [place] [address] [place] [address] PCP - General Internal Medicine 01/09/21 Poultry Scientist Relationship Specialty [place] [address] [place] [address] PCP - General Internal Medicine 01/09/21 Poultry Scientist Relationship Specialty [place] [address] [place] [address] PCP - General Internal Medicine 01/09/21 Poultry Scientist Relationship Specialty [place] [address] [place] [address] PCP - General Internal Medicine 01/09/21 Poultry Scientist Relationship Specialty [place] [address] [place] [address] PCP - General Internal Medicine 01/09/21 Poultry Scientist Relationship Specialty [place] [address] [place] [address] PCP - General Internal Medicine 01/09/21 Poultry Scientist Relationship Specialty [place] [address] [place] [address] PCP - General Internal Medicine 01/09/21 Poultry Scientist Relationship Specialty Start Date End Date Kenny Billy MD [address] [place] [address] PCP - General Internal Medicine 10/11/22 Poultry Scientist Relationship Specialty Start Date End Date Kenny Billy MD [address] [place] [address] PCP - General Internal Medicine 10/11/22 Poultry Scientist Relationship Specialty Start Date End Date Kenny Billy MD [facility] [place] [address] PCP - General Internal Medicine 10/11/22 Poultry Scientist Relationship Specialty Start Date End Date Kenny Billy MD [address] [place] [address] PCP - General Internal Medicine 10/11/22 Poultry Scientist Relationship Specialty Start Date End Date Kenny Billy MD [address] [place] [address] PCP - General Internal Medicine 10/11/22 Poultry Scientist Relationship Specialty [place] [address] [place] [address] PCP - General Internal Medicine 01/09/21 10/10/22 Kenny Billy MD [address] [place] [address] PCP - General Internal Medicine 10/11/22 Poultry Scientist Relationship Specialty Start Date End Date Kenny Billy MD [address] [place] [address] PCP - General Internal Medicine 10/11/22 Poultry Scientist Relationship Specialty [place] [address] [place] [address] PCP - General Internal Medicine 01/09/21 10/10/22 Kenny Billy MD [address] [place] [address] PCP - General Internal Medicine 10/11/22 Poultry Scientist Relationship Specialty Start Date End Date Leonel Rodriguez [address] [facility] [place] [address] PCP - General Internal Medicine 03/25/23 Poultry Scientist Relationship Specialty Start Date End Date Leonel Rodriguez [address] [facility] [place] [address] PCP - General Internal Medicine 03/25/23 Poultry Scientist Relationship Specialty Start Date End Date Emil Liang DO [address] [address] PCP - General Internal Medicine 03/27/23 Agustina Jean MD [address] [address] PCP Resident Internal Medicine 03/27/23 Poultry Scientist Relationship Specialty Start Date End Date Emil Liang DO [address] [address] PCP - General Internal Medicine 03/27/23 Agustina Jean MD [address] [address] PCP Resident Internal Medicine 03/27/23 Poultry Scientist Relationship Specialty Start Date End Date Emil Liang DO [address] [id number] [phone] PCP - General Internal Medicine 03/27/23 Agustina Jean MD [address] [id number] [phone] PCP Resident Internal Medicine 03/27/23 Poultry Scientist Relationship Specialty Start Date End Date Emil Liang DO [address] [phone] PCP - General Internal Medicine 03/27/23 Agustina Jean MD [address] [address] PCP Resident Internal Medicine 03/27/23 Poultry Scientist Relationship Specialty Start Date End Date Emil Liang DO [address] [address] PCP - General Internal Medicine 03/27/23 Agustina Jean MD [address] [address] PCP Resident Internal Medicine 03/27/23 Poultry Scientist Relationship Specialty Start Date End Date Emil Liang DO [address] [address] PCP - General Internal Medicine 03/27/23 Agustina Jean MD [address] [address] PCP Resident Internal Medicine 03/27/23 Poultry Scientist Relationship Specialty Start Date End Date Emil Liang DO [address] [phone] PCP - General Internal Medicine 03/27/23 Agustina Jean MD [address] [phone] PCP Resident Internal Medicine 03/27/23 Poultry Scientist Relationship Specialty Start Date End Date Emil Liang DO [address] [phone] PCP - General Internal Medicine 03/27/23 Agustina Jean MD [address] [address] PCP Resident Internal Medicine 03/27/23 Poultry Scientist Relationship Specialty Start Date End Date Emil Liang DO [address] [address] PCP - General Internal Medicine 03/27/23 Agustina Jean MD [address] [address] PCP Resident Internal Medicine 03/27/23 Poultry Scientist Relationship Specialty Start Date End Date Emil Liang DO [address] [address] PCP - General Internal Medicine 03/27/23 Agustina Jean MD [address] [address] PCP Resident Internal Medicine 03/27/23 Poultry Scientist Relationship Specialty Start Date End Date Emil Liang DO [address] [phone] PCP - General Internal Medicine 03/27/23 Agustina Jean MD [address] [phone] PCP Resident Internal Medicine 03/27/23 Poultry Scientist Relationship Specialty Start Date End Date Emil Liang DO [address] [id number] [phone] PCP - General Internal Medicine 03/27/23 Agustina Jean MD [address] [id number] PCP Resident Internal Medicine 03/27/23 Poultry Scientist Relationship Specialty Start Date End Date Emil Liang DO [address] [address] PCP - General Internal Medicine 03/27/23 Agustina Jean MD [address] [address] PCP Resident Internal Medicine 03/27/23 Poultry Scientist Relationship Specialty Start Date End Date Emil Liang DO [address] [phone] PCP - General Internal Medicine 03/27/23 Agustina Jean MD [address] [address] PCP Resident Internal Medicine 03/27/23 Poultry Scientist Relationship Specialty Start Date End Date Emil Liang DO [address] [phone] - General Internal Medicine 03/27/23 Agustina Jean MD [address] [phone] Resident Internal Medicine 03/27/23 Poultry Scientist Relationship Specialty Start Date End Date Emil Liang DO [address] [phone] - General Internal Medicine 03/27/23 Agustina Jean MD [address] [address] PCP Resident Internal Medicine 03/27/23 Poultry Scientist Relationship Specialty Start Date End Date Emil Liang DO [address] [phone] PCP - General Internal Medicine 03/27/23 Agustina Jean MD [address] [phone] PCP Resident Internal Medicine 03/27/23 Poultry Scientist Relationship Specialty Start Date End Date Emil Liang DO [address] [phone] PCP - General Internal Medicine 03/27/23 Agustina Jean MD [address] [phone] PCP Resident Internal Medicine 03/27/23 Poultry Scientist Relationship Specialty Start Date End Date Kenny Billy MD [address] [place] [phone] PCP - General Internal Medicine 10/11/22 03/24/23 Poultry Scientist Relationship Specialty Start Date End Date Emil Liang DO [address] [phone] PCP - General Internal Medicine 03/27/23 Agustina Jean MD [address] [phone] PCP Resident Internal Medicine 03/27/23 INFORMATION SOURCE (unrecogn ized section and content) DATE CREATED AUTHOR AUTHOR'S ORGANIZ ATION 04/22/2023 [facility] [place] ([place] DATE CREATED AUTHOR AUTHOR'S ORGANIZ ATION 07/21/2023 [facility] DATE CREATED AUTHOR AUTHOR'S ORGANIZ ATION 09/22/2023 [facility] DATE CREATED AUTHOR AUTHOR'S ORGANIZ ATION 10/04/2023 [facility] DATE CREATED AUTHOR AUTHOR'S ORGANIZ ATION 10/09/2023 [facility] DATE CREATED AUTHOR AUTHOR'S ORGANIZ ATION 10/15/2023 [facility] FOR RECORDS PERTAINING TO PATIENTS WHO ARE [...] BE BASED ON THE PRIMARY CLINICAL RECORDS. [facility]. provides no warranty or guarantee of the accuracy or completeness of information in this document.
[2023-10-18 20:24] LABS: Absolute Lymphocyte Count 2.23 X10^3/uL (0.83-4.51); Absolute Neutrophil Count 5.4 X10^3/uL (2.0-7.7); Basophil# 0.07 X10^3/uL; Basophil% 0.8 % (0-1); Eosinophil# 0.27 X10^3/uL; Eosinophils% 3.2 % (0-5); Hematocrit 39.9 % (37-47); Hemoglobin 12.6 g/dL (12.0-15.0); Lymphocyte # 2.23 X10^3/ul (0.83-4.51); Lymphocyte % 26.3 % (19-41); Mean Corp Hgb Conc 31.6 g/dL (32-36); Mean Corpuscular Hgb 27.5 pg (27.0-32.0); Mean Corpuscular Volume 86.9 fL (81-99); Mean Platelet Vol. 10.1 fl (6.2-12.0); Monocyte# 0.47 X10^3/uL; Monocyte% 5.5 % (0-10); NRBC Flagged by Analyzer 0 % (0-5); Neutrophil # 5.42 X10^3/uL (2.7-7.7); Neutrophil % 63.8 % (47-70); POSITIVE COUNT YES; Platelet Count 244 K/mm3 (150-450); RBC Distribution Width CV 13.4 % (11.6-14.6); RBC Distribution Width SD 42.5 fl (35.1-43.9); Red Blood Count 4.59 M/mm3 (4.2-5.4); White Blood Count 8.5 K/mm3 (4.4-11.0)
[2023-10-18 20:27] VITALS: BP 101/66; PULSE 75; RESP 22; TEMP 36.2; O2SAT 94
[2023-10-18 20:40] LABS: ALB/GLOB Ratio 0.9 RATIO (0.9-2.4); AST(SGOT) 20 U/L (15-37); Alanine Aminotransfer ALT/SGPT 36 U/L (13-56); Albumin, Serum 3.3 g/dL (3.2-5.0); Alkaline Phosphatase 72 U/L (45-117); Anion Gap 3 (5-15); BUN 28 mg/dL (7-18); BUN/Creat Ratio 29.6 RATIO (10-20); Calcium,Total 9.7 mg/dL (8.5-10.1); Chloride 108 mmol/L (98-107); Creatinine, Serum 0.94 mg/dL (0.55-1.02); EST Glomerular Filtration Rate 70 mL/min (>60); Est Glom Filt Rate - Afr Amer 84 mL/min (>60); Estimated Creatinine Clearance 163.12 ml/min; Globulin 3.7 g/dL (2.2-4.2); Glucose 97 mg/dL (74-106); Potassium 4.3 mmol/L (3.5-5.1); Sodium Level 140 mmol/L (136-145)
[2023-10-18 20:55] LABS: Differential Indicated SCAN CRITERIA MET
[2023-10-18 20:57] LABS: Anisocytosis RARE; Platelet Estimate ADEQUATE (ADEQ); Platelet Morphology LARGE; Red Cell Morphology N CHROM NORMAL (NORM C&C)
[2023-10-18 21:10] VITALS: BMI 83.3
[2023-10-18 21:28] VITALS: BP 130/70; PULSE 92; RESP 18; TEMP 36.6; O2SAT 98
[2023-10-18 21:30] LABS: Mucous, Urine 0 SEEN /hpf (<or=2+); Red Blood Cells-Urine 0 SEEN /hpf (0-5); Squamous Epithelial Cells - UA 0 SEEN /hpf (5-10); White Blood Cells 0 SEEN /hpf (0-5)
[2023-10-18 21:33] LABS: Color, Urine Yellow (Yellow); Glucose, Dipstick Normal (Normal); Ketone-Dipstick Negative (Negative); Leukocyte Esterase-Dipstick 25 /ul (Negative); Nitrite-Dipstick Positive (Negative); Occult Blood-Urine Negative /ul (Negative); Protein-Dipstick Negative (Negative); Specific Gravity, Urine 1.015 (1.002-1.030); Urine Bilirubin Dipstick Negative (Negative); Urine Clarity Clear (Clear); Urine Urobilinogen Normal (Normal)
[2023-10-18 21:36] VITALS: O2SAT 98
[2023-10-18 21:49] LABS: Bacteria 1+ /hpf (None Seen)
[2023-10-18] MEDS: tiZANidine HCl 2 MG Tablet 4 MG PO (21:53)
[2023-10-18] MEDS: Gabapentin 400 MG Capsule 800 MG PO (21:53)
[2023-10-18] MEDS: Enoxaparin 40 MG/0.4 ML Syringe SC (21:53)
[2023-10-18] MEDS: Acetaminophen 500 MG Tablet 1000 MG PO (21:54)
[2023-10-18] MEDS: busPIRone 15 MG TABLET 7.5 MG PO (21:55)
--- NOTE | 2023-10-18 21:57 | CPS ---
[2136] Pt.'s home CPAP unit set up and ready for use.
[2023-10-18] MEDS: 0.9% Saline Lock 10 ML Syringe IV (23:09)
[2023-10-18 23:55] LABS: Bedside Glucose 74 mg/dL (74-106)
[2023-10-18 23:55] LABS: Bedside Glucose 107 mg/dL (74-106)
[2023-10-19] VITALS (9 sets, daily range): BP systolic 99–136; BP diastolic 46–72; PULSE 68–87; RESP 18; TEMP 36.4–36.7; O2SAT 94–99
[2023-10-19] MEDS: Baclofen 10 MG Tablet PO (02:48)
[2023-10-19] MEDS: Ketorolac 30 MG/ML Syringe IV ×2 (02:48→20:53)
[2023-10-19] MEDS: 0.9% Saline Lock 10 ML Syringe IV ×2 (02:49→20:50)
[2023-10-19] MEDS: Gabapentin 400 MG Capsule 800 MG PO ×3 (05:38→20:52)
[2023-10-19] MEDS: Acetaminophen 500 MG Tablet 1000 MG PO ×3 (05:38→20:51)
[2023-10-19] MEDS: oxyCODONE 5 MG Tablet 10 MG PO ×2 (05:48→09:51)
--- NOTE | 2023-10-19 07:09 | PN.HOSP_ITS ---
Reason for Visit Reason for Visit: Diagnoses Sciatica, unspecified side (10/18/23) Dorsalgia, unspecified (10/18/23) Difficulty in walking, not elsewhere classified (10/18/23) Subjective Subjective Still with back pain. States she is in pain going down both her legs. Previously, back in March she had pain going down her right leg which would co rrespond with the MRI that she had in March. This began suddenly without any obvious etiology. Patient states that she has been actively involved with aqua therapy, mindful medicine in regards to her bariatrics and pain control. She is active with her pain management doctor. She does acknowledge that she did receive prescription for gabapentin from 2 different providers at the same pharmacy and she stated that she did notify her pain management doctor who stated it was okay. She said she just refilled the medication that was from her previous provider accidentally. Denies any bowel or bladder incontinence. Objective Data Objective Data Vital Signs: Vital Signs Temp Pulse Resp BP Pulse Ox O2 Del Method 36.4 C L 71 18 104/46 L 99 Room Air 10/19/23 05:33 10/19/23 05:33 10/19/23 05:33 10/19/23 05:33 10/19/23 06:54 10/19/23 06:54 Oxygen Delivery Method Room Air Weight: 227.25 kg Body Mass Index (BMI) 83.3 Intake & Output: Intake and Output for Last 24 Hours 10/17/23 10/18/23 10/19/23 23:59 23:59 23:59 Intake Total 1000 / 1000 Output Total 1300 / 1300 Balance -300 / -300 Lab / Micro Data 10/18/23 20:18 10/18/23 20:18 Labs: Laboratory Results - last 24 hr 10/18/23 20:18: WBC 8.5, RBC 4.59, Hgb 12.6, Hct 39.9, MCV 86.9, MCH 27.5, MCHC 31.6 L, RDW Std Deviation 42.5, RDW Coeff of Chantal 13.4, Plt Count 244, MPV 10.1, Immature Gran % (Auto) 0.400, Neut % (Auto) 63.8, Lymph % (Auto) 26.3, Gregory % (Auto) 5.5, Eos % (Auto) 3.2, Baso % (Auto) 0.8, Absolute Neuts (auto) 5.4, Absolute Lymphs (auto) 2.23, Nucleated RBC % 0, Platelet Estimate ADEQUATE, Plt Morphology Comment LARGE, RBC Morphology N CHROM, Anisocytosis RARE, Sodium 140, Potassium 4.3, Chloride 108 H, Carbon Dioxide 29.0, Anion Gap 3 L, BUN 28 H, C reatinine 0.94, Estim Creat Clear Calc 163.12, Est GFR (MDRD) Af Amer 84, Est GFR (MDRD) Non-Af 70, BUN/Creatinine Ratio 29.6 H, Glucose 97, Calcium 9.7, Total Bilirubin 0.70, AST 20, ALT 36, Alkaline Phosphatase 72, Total Protein 7.0, Albumin 3.3, Globulin 3.7, Albumin/Globulin Ratio 0.9 10/18/23 21:20: Urine Color Yellow, Urine Clarity Clear, Urine pH 6.0, Ur Specific [place] 1.015, Urine Protein Negative, Urine Glucose (UA) Normal, Urine Ketones Negative, Urine Occult Blood Negative, Urine Nitrite Positive H, Urine Bilirubin Negative, Urine Urobilinogen Normal, Ur Leukocyte Esterase 25 H, Urine RBC 0 SEEN, Urine WBC 0 SEEN, Ur Squamous Epith Cells 0 SEEN, Urine Bacteria 1+, Urine Mucus 0 SEEN 10/18/23 22:35: POC Glucose 74 10/18/23 23:08: POC Glucose 107 H Physical Exam Const alert and no apparent distress HEENT head/scalp atraumatic Resp normal respiratory effort, no retractions, no use of accessory muscles and clear to auscultation bilaterally Cardio regular rate, regular rhythm, S1 normal heart sound and S2 normal heart sound GI normal to inspection, nondistended, normoactive bowel sounds, soft to palpation, non-tender and non-distended Neuro Sensorium / Orientation: awake and alert Assessment & Plan Assessment/Plan (1) Inability to walk: (2) Intractable back pain: (3) Sciatica: PLAN: Plan Intractable back pain and inability walk due to L3-L5 lumbar stenosis * MRI lumbar spine on 04/07/23: * Multilevel degenerative disc and joint disease in the lumbar spine superimposed upon a congenitally small spinal canal. Findings are most focal at the L4-L5 level where a right-sided disc extrusion contributes to moderate to severe spinal canal stenosis and effacement of the right lateral recess with mass effect upon the descending right L5 nerve root. Correlate with distribution of lower extremity radicular symptoms.2. Mild spinal canal stenosis at L2-L3 and L3-L4 with underlying congenital component.3. Additional multilevel degenerative changes * [facility] and plan is for an epidural on Saturday. Through [facility], pain management notes on October 03 they were going to refer her to interventional radiology for a epidural injection as they were unable to accommodate her body habitus at their facility. * PT/OT consult * Scheduled Tylenol 1 g every 8. As needed tizanidine. As needed oxycodone 10 mg every 4 hours. As needed Toradol IV 30 mg every 6 hours as needed * Continue home baclofen * Reviewed OARRS: * Script for 90 600mg Gapabentin filled on 10/03, 09/08 2 scripts from gabapentin 300 and 600 from different providers filled. * Gabapentin increased by admitting physician to 800 TID * Discussed with patient extensively and sounds as though she is trying to her best in regards to pain control. After discussing with her it seems less likely the patient is drug-seeking does have legitimate pain. Will add prednisone. Patient is intending on going to interventional radiology for epidural this coming Saturday. Will wait on physical therapy to see her and if she can get up and go to the restroom on her own. Patient normally uses a walker and wheelchair. Chronic conditions: * OO-2-Fcblixcl home metformin-Restart Trulicity at discharge-SSI- * Hypertension/HPL-Continue home statin-Continue home hydrochlorothiazide- Continue home lisinopril * HAILEY-Continue home CPAP at at bedtime and with naps * Depression/anxietyContinue home BuSpar-Continue home hydroxyzine-Continue home fluoxetine * Morbid obesity-Patient is being seen in the bariatric center and on Trulicity to help with weight loss-Strongly encourage ongoing weight loss-Complicates treatment, prognosis, outcomes DVT prophylaxis -Lovenox 40 mg SQ twice daily CODE STATUS -Full code Greater than 55 minutes of which greater than 50% of time was discussing with the patient, her pain control, treatment options. Also reviewing through [facility] her medical records. Charges/Coding Visit Charges Inpatient E&M: 67676 Subs Hosp L3
[2023-10-19 07:48] LABS: Bedside Glucose 77 mg/dL (74-106)
[2023-10-19] MEDS: metFORMIN HCl 1,000 MG Tablet 1000 MG PO ×2 (09:39→18:44)
[2023-10-19] MEDS: hydroCHLOROthiazide 25 MG Tablet PO (09:40)
[2023-10-19] MEDS: Enoxaparin 40 MG/0.4 ML Syringe SC ×2 (09:40→20:54)
[2023-10-19] MEDS: busPIRone 15 MG TABLET 7.5 MG PO ×2 (09:40→20:50)
[2023-10-19] MEDS: Fluoxetine HCl 40 MG CAPSULE PO (09:41)
[2023-10-19] MEDS: NORETHINDRONE 0.35 MG TABLET 0.349999999999999978 MG PO (09:41)
[2023-10-19] MEDS: Pantoprazole Sodium 40 MG Tablet PO (09:41)
[2023-10-19] MEDS: Docusate Sodium 100 MG Capsule PO ×2 (09:41→20:51)
[2023-10-19] MEDS: Lisinopril 40 MG Tablet PO (09:42)
[2023-10-19] MEDS: Cholecalciferol (VIT D3) 25 MCG TABLET (1,000 UNITS) PO (09:42)
[2023-10-19 11:50] LABS: Bedside Glucose 98 mg/dL (74-106)
[2023-10-19] MEDS: predniSONE 20 MG Tablet 60 MG PO (11:56)
--- NOTE | 2023-10-19 13:39 | DCINST_ITS ---
Discharge Instructions Diet Discharge Diet: No restrictions Activity Discharge Activity: Return to Normal Activity (activity as tolerated. ) Follow Up Care Test Results: Test results from this visit will be discussed in further detail at your follow- up appointment, if applicable. Discharge Plan Admission Admit Date/Time: 10/18/23 20:03 Primary Reason for Your Visit: acute on chronic back pain. Attending Provider: Alex Garcia Primary Care Provider: Kavon Granda Consulting Providers: Kinsey Perez Discharge Orders/Prescriptions Prescriptions: New prednisone 20 mg Tablet 40 mg PO BREAKFAST Qty: 10 0RF Continued atorvastatin 10 mg tablet 10 mg PO DAILY Patient Comments: TAKE 1 TABLET BY MOUTH DAILY buspirone 7.5 mg tablet 7.5 mg PO BID Patient Comments: Take 1 tablet by mouth twice daily. cholecalciferol (vitamin D3) 25 mcg (1,000 unit) tablet 25 mcg PO DAILY Patient Comments: TAKE 1 TABLET BY MOUTH DAILY fluoxetine 40 mg capsule 40 mg PO DAILY Patient Comments: TAKE 1 CAPSULE BY MOUTH ONCE DAILY hydrochlorothiazide 25 mg tablet 25 mg PO DAILY Patient Comments: TAKE 1 TABLET BY MOUTH DAILY hydroxyzine HCl 25 mg tablet 12.5 mg PO TID PRN Patient Comments: Take 1 tablet by mouth three times daily as needed for anxiety. May take 1/2 tablet lisinopril 40 mg tablet 40 mg PO DAILY Patient Comments: TAKE 1 TABLET BY MOUTH DAILY metformin 1,000 mg tablet 1,000 mg PO BIDAC Patient Comments: TAKE 1 TABLET BY MOUTH TWICE DAILY WITH MEALS norethindrone (contraceptive) [Deblitane] 0.35 mg tablet 0.35 mg PO DAILY Patient Comments: Take 1 tablet orally once daily at the same time. acetaminophen 500 mg Tablet 1,000 mg PO Q8 Qty: 0 0RF Trulicity 0.75 mg/0.5 mL pen injector 0.75 mg SUBCUT .weekly Patient Comments: INJECT 0.75 mg SUBCUTANEOUSLY once weekly on diclofenac sodium 75 mg tablet,delayed release (DR/EC) 75 mg PO Q12H Patient Comments: Take 1 tablet by mouth two times a day. baclofen 10 mg tablet 10 mg PO Q6H PRN (Reason: muscle spasm) Patient Comments: Take 1 tablet by mouth three times a day as needed (painful spasms). gabapentin 400 mg Capsule 600 mg PO TID No Action (DME) [employer] Glucose Test Strip Strip MISCELLANEOUS Patient Comments: Test blood sugar(s) 1 times daily. Referrals / Follow Up: Kavon Granda DO [Primary Care Provider] - Within 2 Weeks Disposition Disposition (needs filled in before D/C Order can be placed): Home, Self Care
[2023-10-19 17:44] LABS: Bedside Glucose 136 mg/dL (74-106)
[2023-10-19] MEDS: tiZANidine HCl 2 MG Tablet 4 MG PO (20:49)
[2023-10-19] MEDS: Atorvastatin Calcium 10 MG Tablet PO (20:51)
--- NOTE | 2023-10-19 21:43 | CPS ---
Patient set up on own PAP machine for the night
[2023-10-19 21:48] LABS: Bedside Glucose 161 mg/dL (74-106)
[2023-10-20 05:54] VITALS: BP 113/72; PULSE 64; RESP 20; TEMP 36.4; O2SAT 98
[2023-10-20] MEDS: Acetaminophen 500 MG Tablet 1000 MG PO ×3 (06:04→21:36)
[2023-10-20] MEDS: Gabapentin 400 MG Capsule 800 MG PO ×3 (06:05→21:34)
[2023-10-20] MEDS: tiZANidine HCl 2 MG Tablet 4 MG PO ×2 (06:05→21:33)
--- NOTE | 2023-10-20 07:06 | PN.HOSP_ITS ---
Reason for Visit Reason for Visit: Diagnoses Sciatica, unspecified side (10/18/23) Dorsalgia, unspecified (10/18/23) Difficulty in walking, not elsewhere classified (10/18/23) Subjective Subjective Still having pain, but feeling better. Objective Data Objective Data Vital Signs: Vital Signs Temp Pulse Resp BP Pulse Ox O2 Del Method 36.4 C L 64 20 H 113/72 98 CPAP 10/20/23 05:54 10/20/23 05:54 10/20/23 05:54 10/20/23 05:54 10/20/23 05:54 10/20/23 05:54 Oxygen Delivery Method CPAP Weight: 227.25 kg Body Mass Index (BMI) 83.3 Intake & Output: Intake and Output for Last 24 Hours 10/18/23 10/19/23 10/20/23 23:59 23:59 23:59 Intake Total 1650 / 1650 Output Total 2800 / 2800 100 / 100 Balance -1150 / -1150 -100 / -100 Lab / Micro Data 10/18/23 20:18 10/18/23 20:18 Labs: Laboratory Results - last 24 hr 10/19/23 05:51: POC Glucose 77 10/19/23 11:32: POC Glucose 98 10/19/23 17:21: POC Glucose 136 H 10/19/23 21:23: POC Glucose 161 H Physical Exam Const alert and no apparent distress Constitutional Narrative: Was able to get herself up out of bed by rolling. Was able to get to walker and go to the restroom. Required minimal assistance with therapy as able to Multimin on her. Patient was able to get from the bed to her walker on her own. Was uncomfortable in the midst of this. Morbidly obese. Neuro Sensorium / Orientation: awake and alert Assessment & Plan Assessment/Plan (1) Inability to walk: (2) Intractable back pain: (3) Sciatica: PLAN: Plan Intractable back pain and inability walk due to L3-L5 lumbar stenosis * MRI lumbar spine on 04/07/23: * Multilevel degenerative disc and joint disease in the lumbar spine superimposed upon a congenitally small spinal canal. Findings are most focal at the L4-L5 level where a right-sided disc extrusion contributes to moderate to severe spinal canal stenosis and effacement of the right lateral recess with mass effect upon the descending right L5 nerve root. Correlate with distribution of lower extremity radicular symptoms.2. Mild spinal canal stenosis at L2-L3 and L3-L4 with underlying congenital component.3. Additional multilevel degenerative changes * [facility] and plan is for an [facility] Saturday[facility] they were going to refer her to interventional radiology for a epidural injection as they were unable to accommodate her body habitus at their facility. * PT/OT consult * Scheduled Tylenol 1 g every 8. As needed tizanidine. As needed oxycodone 10 mg every 4 hours. As needed Toradol IV 30 mg every 6 hours as needed * Continue home baclofen * Reviewed OARRS: * Script for 90 600mg Gapabentin filled on 10/03, 09/08 2 scripts from gabapentin 300 and 600 from different providers filled. * Gabapentin increased by admitting physician to 800 TID * Discussed with patient extensively and sounds as though she is trying to her best in regards to pain control. After discussing with her it seems less likely the patient is drug-seeking does have legitimate pain. Will add prednisone. Patient is intending on going to interventional radiology for epidural this coming Saturday. Will wait on physical therapy to see her and if she can get up and go to the restroom on her own. Patient normally uses a walker and wheelchair. * Will wait on therapy evaluations to determine if the patient can go home. Debility * 2/2 back pain * PT OT * May need placement. Chronic conditions: * VT-9-Bqiflmut home metformin-Restart Trulicity at discharge-SSI- * Hypertension/HPL-Continue home statin-Continue home hydrochlorothiazide- Continue home lisinopril * HAILEY-Continue home CPAP at at bedtime and with naps * Depression/anxietyContinue home BuSpar-Continue home hydroxyzine-Continue home fluoxetine * Morbid obesity-Patient is being seen in the bariatric center and on Trulicity to help with weight loss-Strongly encourage ongoing weight loss-Complicates treatment, prognosis, outcomes DVT prophylaxis -Lovenox 40 mg SQ twice daily CODE STATUS -Full code Charges/Coding Visit Charges Inpatient E&M: 02259 Subs Hosp L2
[2023-10-20 07:15] LABS: Bedside Glucose 111 mg/dL (74-106)
[2023-10-20 07:35] VITALS: O2SAT 98
[2023-10-20] MEDS: metFORMIN HCl 1,000 MG Tablet 1000 MG PO ×2 (08:37→14:27)
[2023-10-20] MEDS: Baclofen 10 MG Tablet PO (08:37)
[2023-10-20] MEDS: Ketorolac 30 MG/ML Syringe IV ×2 (08:38→14:26)
[2023-10-20] MEDS: predniSONE 20 MG Tablet 40 MG PO (08:49)
--- NOTE | 2023-10-20 08:53 | NURSING ---
pt declined oxy ir 10 mg this am she states told me yesterday he was not dispensing any narcotics to me on d/c -pt wants to see if I can ambulate without it
[2023-10-20 11:41] LABS: Bedside Glucose 103 mg/dL (74-106)
[2023-10-20 11:45] VITALS: BP 108/68; PULSE 68; RESP 18; TEMP 36.8; O2SAT 96
[2023-10-20] MEDS: Pantoprazole Sodium 40 MG Tablet PO (11:49)
[2023-10-20] MEDS: NORETHINDRONE 0.35 MG TABLET 0.349999999999999978 MG PO (11:49)
[2023-10-20] MEDS: Enoxaparin 40 MG/0.4 ML Syringe SC ×2 (11:49→21:37)
[2023-10-20] MEDS: Docusate Sodium 100 MG Capsule PO ×2 (11:50→21:36)
[2023-10-20] MEDS: busPIRone 15 MG TABLET 7.5 MG PO ×2 (11:50→21:35)
[2023-10-20] MEDS: Fluoxetine HCl 40 MG CAPSULE PO (11:52)
[2023-10-20] MEDS: Cholecalciferol (VIT D3) 25 MCG TABLET (1,000 UNITS) PO (11:53)
[2023-10-20] MEDS: Lisinopril 40 MG Tablet PO (11:54)
[2023-10-20] MEDS: oxyCODONE 5 MG Tablet 10 MG PO (11:59)
[2023-10-20] MEDS: hydroCHLOROthiazide 25 MG Tablet PO (14:26)
[2023-10-20 17:36] LABS: Bedside Glucose 151 mg/dL (74-106)
[2023-10-20 21:27] VITALS: BP 116/67; PULSE 92; RESP 18; TEMP 36.4; O2SAT 97
[2023-10-20] MEDS: Atorvastatin Calcium 10 MG Tablet PO (21:37)
[2023-10-20] MEDS: 0.9% Saline Lock 10 ML Syringe IV (21:38)
[2023-10-21 00:25] LABS: Bedside Glucose 103 mg/dL (74-106)
[2023-10-21 03:25] VITALS: BP 102/69; PULSE 61; RESP 18; TEMP 36.4; O2SAT 97
[2023-10-21] MEDS: Gabapentin 400 MG Capsule 800 MG PO ×3 (06:36→22:05)
[2023-10-21] MEDS: tiZANidine HCl 2 MG Tablet 4 MG PO ×2 (06:36→22:04)
[2023-10-21] MEDS: Acetaminophen 500 MG Tablet 1000 MG PO ×3 (06:36→22:08)
--- NOTE | 2023-10-21 07:12 | PN.HOSP_ITS ---
Reason for Visit Reason for Visit: Diagnoses Sciatica, unspecified side (10/20/23) Dorsalgia, unspecified (10/20/23) Difficulty in walking, not elsewhere classified (10/20/23) Subjective Subjective Patient with reported ongoing lumbar back pain with lower extremity radiculopathy, right greater than left flat 3-4 out of 10 in severity and with activity attempts 10 out of 10 in severity. Sharp and pronounced with activity. She has been up with significant difficulties to the bathroom. Discussed current plan of care which included reaching out to pain management locally to see if they would be amenable to potential injection at [facility] given possible skilled facility needs as her [facility] appointment would be pushed to a later date. Patient denies fevers, chills, nausea, emesis, abdominal pain, chest pain or dyspnea. Objective Data Objective Data Vital Signs: Vital Signs Temp Pulse Resp BP Pulse Ox O2 Del Method 97.5 F L 61 18 102/69 97 CPAP 10/21/23 03:25 10/21/23 03:25 10/21/23 03:25 10/21/23 03:25 10/21/23 03:25 10/21/23 03:45 Oxygen Delivery Method CPAP Weight: 501 lb Body Mass Index (BMI) 83.3 Intake & Output: Intake and Output for Last 24 Hours 10/19/23 10/20/23 10/21/23 23:59 23:59 23:59 Intake Total 1650 / 1650 600 / 600 0 / 0 Output Total 2800 / 2800 100 / 100 Balance -1150 / -1150 500 / 500 0 / 0 Lab / Micro Data 10/18/23 20:18 10/18/23 20:18 Labs: Laboratory Results - last 24 hr 10/20/23 06:12: POC Glucose 111 H 10/20/23 11:18: POC Glucose 103 10/20/23 16:50: POC Glucose 151 H 10/20/23 21:32: POC Glucose 103 Physical Exam Narrative Physical Examination: General: Awake, alert, oriented x 3 and cooperative, laying in the MS bed, fatigued, reports pain 3 out of 10 in severity currently. Skin: Normal color, normal turgor, no icterus, no cyanosis except occasional staged ecchymoses likely related with lab draws. HEENT: AT/NC, EOMI, PERRLA, MMM. Lungs: Distant, diminished, greater decrease BL bases likely secondary to habitu s, no rales, ronchi or wheezing. Heart: Regular rate and rhythm; no gallop, rub audible. Abdomen: Soft, morbidly obese, NTTP, ND, distant normal BS. Extremities: No cyanosis, no clubbing, significant chronic lower extremity lymphedema. Neurological: Patient awake, alert, oriented as noted, cognitive function intact; pupils equally reactive to light and accommodation, cranial nerves grossly normal, moving all 4 extremities although diminished activity abilities given significant chronic pain, acute on chronic currently, strength accordingly severely globally decreased. Psychiatric: Affect appears fatigued otherwise normal, no acute evidence of depressive or anxiety feelings. Assessment & Plan Assessment/Plan (1) Intractable back pain: PLAN: Plan The patient is a 38 y/o F w/ PMHx: Morbid Obesity, HAILEY, HTN, HLD, Anxiety and Depression, Diabetes mellitus type II who presents to the [facility] ED on 10/18/23 with history of intractable back pain with history of chronic back pain with MRI with stenosis L3-L5 following with pain management as well as spine surgeon Anna Mendoza with scheduled upcoming epidural 10/22/2023 with worsened lumbar pain as well as right lower extremity radiculopathy worse with movement with intermittent paresthesias to both lower extremities prompting eventual ED eval uation. 1. Acute Intractable Back Pain, lumbar with right lower extremity radiculopathy and lower extremity paresthesias bilaterally: 04/07/2023 most recent MRI lumbar spine with multilevel degenerative disc and joint disease in the lumbar spine superimposed upon congenitally small spinal canal, most focal L4-5 level right- sided disc extrusion contributing to moderate to severe spinal canal stenosis and effacement of the right lateral recess with mass effect upon the descending right L5 nerve root, mild spinal canal stenosis L2-3 and L3-4 with underlying congenital component, admitted to medical surgical floor, had per her report planned upcoming epidural at [facility] with pain management however from online notes reportedly 10/03/2023 they had referred her to IR for t he epidural injection given inability to, your habitus, continued Tylenol scheduled, tizanidine, as needed oxycodone, Toradol IV 30 mg every 6 hours, continued on home baclofen, prednisone therapy, ongoing gabapentin regimen with OARRS performed during presentation. Awaiting PT and OT assessments and if patient is able to discharged with walker/wheelchair which she normally uses would plan discharge with planned follow-up 10/22/2023 for IR directed epidural. Currently appears to have SNF needs; however, discussed her current status with pain management Dr. Briceño and he will evaluate the patient to assess it potentially injection can be done at [facility] which was also reviewed with patient and she was amenable. 2. Adult failure to thrive secondary to #1, significant morbid obesity as well as other chronic conditions as noted: Continue evaluation and treatment as noted, PT/OT/case visit consulted, if unable to discharge to home may need skilled placement. 3. Hypertension: Continue home regimen including hydrochlorothiazide, lisinopril, PRN hydralazine. 4. Hyperlipidemia: Continue patient on statin therapy. 5. Diabetes mellitus type II: Maintained on oral metformin, plan resumption of Trulicity at discharge,, ADA diet, accu checks w/ ISS. 6. Depression and anxiety: Will continue patient home BuSpar, hydroxyzine and fluoxetine home regimen. 7. Morbid Obesity: Weight loss and lifestyle changes encouraged, encouraged continued outpatient follow-up with bariatric/nutrition and already preset up weight loss program. 8. HAILEY: CPAP nightly. 9. DVT prophylaxis: Holding Lovenox for possible injection per pain management. Charges/Coding Visit Charges Inpatient E&M: 13747 [facility] Hosp L3
[2023-10-21 07:29] LABS: Bedside Glucose 82 mg/dL (74-106)
[2023-10-21 09:25] VITALS: BP 113/88; PULSE 80; RESP 16; TEMP 36.9; O2SAT 100
[2023-10-21] MEDS: Baclofen 10 MG Tablet PO ×2 (09:54→22:04)
[2023-10-21] MEDS: metFORMIN HCl 1,000 MG Tablet 1000 MG PO ×2 (09:54→17:10)
[2023-10-21] MEDS: Cholecalciferol (VIT D3) 25 MCG TABLET (1,000 UNITS) PO (09:55)
[2023-10-21] MEDS: Enoxaparin 40 MG/0.4 ML Syringe SC (09:55)
[2023-10-21] MEDS: Pantoprazole Sodium 40 MG Tablet PO (09:55)
[2023-10-21] MEDS: busPIRone 15 MG TABLET 7.5 MG PO ×2 (09:55→22:08)
[2023-10-21] MEDS: Fluoxetine HCl 40 MG CAPSULE PO (09:55)
[2023-10-21] MEDS: predniSONE 20 MG Tablet 40 MG PO (09:56)
[2023-10-21] MEDS: Docusate Sodium 100 MG Capsule PO ×2 (09:58→22:07)
[2023-10-21] MEDS: Lisinopril 40 MG Tablet PO (09:58)
[2023-10-21] MEDS: hydroCHLOROthiazide 25 MG Tablet PO (09:58)
[2023-10-21] MEDS: NORETHINDRONE 0.35 MG TABLET 0.349999999999999978 MG PO (09:59)
[2023-10-21 12:16] LABS: Bedside Glucose 99 mg/dL (74-106)
--- NOTE | 2023-10-21 13:02 | CASEMGMT ---
Discharge Planning A list of?SNF providers including quality and resource use data and consistent with the patient's preferred geographic region, medical needs, and insurance network was created in [employer] Guide.? This list was provided to the SW. Rosina Thompson Discharge Planning Asst.
--- NOTE | 2023-10-21 14:00 | CASEMGMT ---
Care Management - Admission Assessment Face to Face with patient for initial transition planning/care coordination assessment.? This insurance writer introduced self and role at [facility]. Patient lying in bed, alert and oriented. Patient willing to participate in assessment and is able to answer all questions appropriately.? Care providers, pharmacy, and demographics verified. Admitting Diagnosis: Intractable back pain Other diagnosis history:? Diabetes, HTN, Obstructive Sleep Apnea, Lumbar Stenosis, High Cholesterol; Anxiety PCP: ?Dr Granda/Dr. Terrell ([phone]) with the [facility]; sees in the [place] office. [facility] Ka[facility] Lind; Reports just started Bariatric program with [facility] as well.? Preferred Pharmacy: [facility] Insurance: [employer] Medicaid Financial/Work: Reports to work [employer] 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 Prescription Benefit:? yes Living Will/HPOA: No; is interested in having information. LNOK: Patient?s mother lives in [place], patient?s father is in a penitentiary; Has never been , no children;? lives with kevyn?, Neville Calloway. Living Arrangements: Lives with kevyn? Neville Leonde in a 2-story home.?? 5 steps to enter, 1 full flight of stairs to bedroom and bathroom.? Reports home situation is safe and adequate.? Denies any form of safety concern with Neville; no DV issues.? Reports has been able to care for own ADLS recenetly, but Neville has assisted in the past when patient came home from hospital. Neville assist [facility] cooking and cleaning. Transportation: Patient does not drive; Neville provides transportation. DME/HHC: ?Reports to have a shower chair, BSC, forward wheeled walker, wheelchair; glucometer, and CPAP (from [employer]).?? [facility];?? some purchased from the internet.? Community Resources: ??[facility] once a week; aquatic therapy;? No history of HHC, but was going to use [facility] in the past; PCP at the time refused to sign HHC orders.??? No SNF history.? ? Behavioral Health History:? History of anxiety.? Reports to enjoy crafting, doing things with hands, playing animal crossing, and watching movies for ehealthtrackeral when feeling stress and/or anxiety. Patient goals: Patient wishes to discharge home, but acknowledges this would not be safe at present time, due to pain limiting mobility.?? Agreeable to short term SNF, with goal of returning home.? Patient did inquire if her weight (500 pounds) would be a factor in finding a SNF, as this was the case for patient's father who is of bariatric status and living in a penitentiary. Discussed that patient's bariatric status will be a factor into the facilities can care for patient's needs, as some facitlies do not have DME available, while others do. Patient reports if feeling better by the time she is ready for discharge, would want to go home with a referral for a hospital bed. Interventions: Supportive listening and emotional support offered to patient. Provided patient with SNF list, [facility] for patient?s geographical region including Medicare quality and star rating data.?? List reviewed for patient preferences.? Choices as follows:[facility], [facility], [facility]. Updated Rosina, Discharge insurance legal assistant to choices. Updated ANASTASIIA Doe of patient's wishes for a hospital bed, should plan pivot to home. Social work and CM to follow for discharge planning needs that may arise. Disposition Plan: Short term SNF, referrals being made. -GERALD Garcia
--- NOTE | 2023-10-21 14:27 | CASEMGMT ---
Addendum entered by Rosina Thompson 10/21/23 15:58: [facility] declined referral. Referral sent via [facility] to [place]. Awaiting response from [facility]. Rosina Thompson, Discharge Planning Asst. Original Note: Discharge Planning Referral sent via [facility]Port to [facility], [facility], and [facility]. Rosina Thompson, Discharge Planning Asst.
[2023-10-21] MEDS: oxyCODONE 5 MG Tablet 10 MG PO ×2 (14:53→22:05)
[2023-10-21 15:30] VITALS: BP 101/61; PULSE 87; RESP 18; TEMP 36.6; O2SAT 97
[2023-10-21 17:29] LABS: Bedside Glucose 143 mg/dL (74-106)
[2023-10-21 22:00] VITALS: BP 110/78; PULSE 82; RESP 16; TEMP 36.4; O2SAT 99
[2023-10-21] MEDS: Atorvastatin Calcium 10 MG Tablet PO (22:07)
[2023-10-22] VITALS (7 sets, daily range): BP systolic 99–123; BP diastolic 72–86; PULSE 73–88; RESP 16–18; TEMP 36.4–37.1; O2SAT 94–100
[2023-10-22] MEDS: Gabapentin 400 MG Capsule 800 MG PO ×3 (04:53→22:48)
[2023-10-22] MEDS: oxyCODONE 5 MG Tablet 10 MG PO ×2 (04:53→22:48)
[2023-10-22] MEDS: Baclofen 10 MG Tablet PO ×2 (04:53→22:47)
--- NOTE | 2023-10-22 06:19 | PCM.PN.HOSP ---
Reason for Visit Reason for Visit: Diagnoses Sciatica, unspecified side (10/20/23) Dorsalgia, unspecified (10/20/23) Difficulty in walking, not elsewhere classified (10/20/23) Subjective Subjective Patient per self with no acute issues overnight however she continues to have significant back discomfort primarily with any activity attempts and she even had difficulty getting up to use the restroom or ambulate this morning. She notes pain while resting remains to out of 10 in severity more dull aching and with any activity times 10 out of 10 and combination of sharp and dull. Patient remains amenable to trying injection per pain management in the OR. Patient denies fevers, chills, nausea, emesis, abdominal pain, chest pain or dyspnea. Objective Data Objective Data Vital Signs: Vital Signs Temp Pulse Resp BP Pulse Ox O2 Del Method 98.1 F 76 16 120/83 H 98 Room Air 10/22/23 04:30 10/22/23 04:30 10/22/23 04:30 10/22/23 04:30 10/22/23 04:30 10/22/23 05:00 Oxygen Delivery Method Room Air Weight: 501 lb Body Mass Index (BMI) 83.3 Intake & Output: Intake and Output for Last 24 Hours 10/20/23 10/21/23 10/22/23 23:59 23:59 23:59 Intake Total 600 / 600 800 / 800 Output Total 100 / 100 Balance 500 / 500 800 / 800 Lab / Micro Data 10/22/23 06:23 10/22/23 06:23 Labs: Laboratory Results - last 24 hr 10/21/23 06:39: POC Glucose 82 10/21/23 11:56: POC Glucose 99 10/21/23 17:09: POC Glucose 143 H Physical Exam Narrative Physical Examination: General: Awake, alert, oriented x 3 and cooperative, laying in the MS bed, fatigued, notes pain currently 2/10, dull aching when resting. Skin: Normal color, normal turgor, no icterus, no cyanosis except occasional staged ecchymoses. HEENT: AT/NC, EOMI, PERRLA, MMM. Lungs: Distant, diminished, greater decrease BL bases, no rales, ronchi or wheezing. Heart: Regular rate and rhythm; no gallop, rub audible. Abdomen: Soft, morbidly obese, NTTP, ND, distant normal BS. Extremities: No cyanosis, no clubbing, significant chronic lower extremity lymphedema. Neurological: Patient awake, alert, oriented as noted, cognitive function intact; pupils equally reactive to light and accommodation, cranial nerves grossly normal, moving all 4 extremities although diminished activity abilities given significant chronic pain, strength accordingly severely globally decreased. Psychiatric: Affect appears mildly anxious about procedure otherwise appropriate, no acute evidence of depressive feelings. Assessment & Plan Assessment/Plan (1) Intractable back pain: PLAN: Plan The patient is a 38 y/o F w/ PMHx: Morbid Obesity, HAILEY, HTN, HLD, Anxiety and Depression, Diabetes mellitus type II who presents to the [facility] ED on 10/18/23 with history of intractable back pain with history of chronic back pain with MRI with stenosis L3-L5 following with pain management as well as spine surgeon Anna Mendoza with scheduled upcoming epidural 10/22/2023 with worsened lumbar pain as well as right lower extremity radiculopathy worse with movement with intermittent paresthesias to both lower extremities prompting eventual ED evaluation. 1. Acute Intractable Back Pain, lumbar with right lower extremity radiculopathy and lower extremity paresthesias bilaterally: 04/07/2023 most recent MRI lumbar spine with multilevel degenerative disc and joint disease in the lumbar spine superimposed upon congenitally small spinal canal, most focal L4-5 level right-sided disc extrusion contributing to moderate to severe spinal canal stenosis and effacement of the right lateral recess with mass effect upon the descending right L5 nerve root, mild spinal canal stenosis L2-3 and L3-4 with underlying congenital component, admitted to medical surgical floor, had per her report planned upcoming epidural at [facility] with pain management however from online notes reportedly 10/03/2023 they had referred her to IR for the epidural injection given inability to, your habitus, continued Tylenol scheduled, tizanidine, as needed oxycodone, Toradol IV 30 mg every 6 hours, continued on home baclofen, prednisone therapy, ongoing gabapentin regimen with OARRS performed during presentation. Awaiting PT and OT assessments and if patient is able to discharged with walker/wheelchair which she normally uses would plan discharge with planned follow-up 10/22/2023 for IR directed epidural. Currently appears to have SNF needs; however, discussed her current status with pain management Dr. Briceño and he will evaluate the patient to assess it potentially injection can be done at [facility] which was also reviewed with patient and she was amenable. Discussed plan of care and if she is still debilitated after her injection today then would plan for SNF transition for ongoing therapies. 2. Adult failure to thrive secondary to #1, significant morbid obesity as well as other chronic conditions as noted: Continue evaluation and treatment as noted, PT/OT/case visit consulted, planned injection per patient management in OR 10/22/23 but if still debilitated will need SNF placement. 3. Hypertension: Continue home regimen including hydrochlorothiazide, lisinopril, PRN hydralazine. 4. Hyperlipidemia: Continue patient on statin therapy. 5. Diabetes mellitus type II: Maintained on oral metformin, plan resumption of Trulicity at discharge,, ADA diet, accu checks w/ ISS. 6. Depression and anxiety: Will continue patient home BuSpar, hydroxyzine and fluoxetine home regimen. 7. Morbid Obesity: Weight loss and lifestyle changes encouraged, encouraged continued outpatient follow-up with bariatric/nutrition and already preset up weight loss program. 8. HALIEY: CPAP nightly. 9. DVT prophylaxis: Holding Lovenox. Charges/Coding Visit Charges Inpatient E&M: 36057 Subs Hosp L2
[2023-10-22 06:56] LABS: Absolute Lymphocyte Count 3.85 X10^3/uL (0.83-4.51); Absolute Neutrophil Count 5.6 X10^3/uL (2.0-7.7); Basophil# 0.06 X10^3/uL; Basophil% 0.6 % (0-1); Eosinophil# 0.12 X10^3/uL; Eosinophils% 1.2 % (0-5); Hematocrit 39.4 % (37-47); Hemoglobin 12.5 g/dL (12.0-15.0); Lymphocyte # 3.85 X10^3/ul (0.83-4.51); Mean Corp Hgb Conc 31.7 g/dL (32-36); Mean Corpuscular Volume 88.3 fL (81-99); Mean Platelet Vol. 10.4 fl (6.2-12.0); Monocyte# 0.75 X10^3/uL; Monocyte% 7.2 % (0-10); NRBC Flagged by Analyzer 0 % (0-5); Neutrophil # 5.58 X10^3/uL (2.7-7.7); Neutrophil % 53.5 % (47-70); Platelet Count 329 K/mm3 (150-450); RBC Distribution Width CV 13.6 % (11.6-14.6); RBC Distribution Width SD 44.2 fl (35.1-43.9); Red Blood Count 4.46 M/mm3 (4.2-5.4); White Blood Count 10.4 K/mm3 (4.4-11.0)
[2023-10-22] MEDS: Acetaminophen 500 MG Tablet 1000 MG PO ×3 (07:27→22:51)
[2023-10-22 08:07] LABS: Partial Thromboplast Time 26.3 Seconds (24.1-36.2); Prothrombin Time (Protime)PT. 13.4 SECONDS (11.7-14.9)
[2023-10-22 08:09] LABS: ALB/GLOB Ratio 0.8 RATIO (0.9-2.4); AST(SGOT) 23 U/L (15-37); Alanine Aminotransfer ALT/SGPT 29 U/L (13-56); Albumin, Serum 3.3 g/dL (3.2-5.0); Alkaline Phosphatase 64 U/L (45-117); Anion Gap 4 (5-15); BUN 27 mg/dL (7-18); BUN/Creat Ratio 26.2 RATIO (10-20); Calcium,Total 9.6 mg/dL (8.5-10.1); Chloride 104 mmol/L (98-107); Creatinine, Serum 1.03 mg/dL (0.55-1.02); EST Glomerular Filtration Rate 63 mL/min (>60); Est Glom Filt Rate - Afr Amer 76 mL/min (>60); Estimated Creatinine Clearance 143.39 ml/min; Globulin 3.9 g/dL (2.2-4.2); Glucose 89 mg/dL (74-106); Potassium 4.3 mmol/L (3.5-5.1); Protein, Total 7.2 g/dL (6.4-8.2); Sodium Level 139 mmol/L (136-145)
--- NOTE | 2023-10-22 08:19 | CASEMGMT ---
Addendum entered by Rosina Thompson 10/22/23 08:39: [facility] has chosen [facility]. Both facilities updated. Rosina Thompson, Discharge Planning Asst. Original Note: Discharge Planning [facility]. Rosina Thompson, Discharge Planning Asst.
[2023-10-22 12:04] LABS: Bedside Glucose 72 mg/dL (74-106)
[2023-10-22] MEDS: 0.9% Saline Lock 10 ML Syringe IV (12:45)
[2023-10-22] MEDS: HYDROmorphone 0.5 MG/0.5 ML SYRINGE IV (12:46)
[2023-10-22] MEDS: Lactated Ringers 1,000 ML 15 ML IV (13:07)
[2023-10-22 14:00] LABS: Internal QC Validated? YES +Cl - CLEAR BKGD; Pregnancy, Serum, hCG Quali. NEGATIVE Negative
--- NOTE | 2023-10-22 14:25 | CASEMGMT ---
Discharge Planning Updates sent via [facility] to [facility]. Asked for precert to be submitted. Rosina Thompson, Discharge Planning Asst.
--- NOTE | 2023-10-22 14:30 | RAD_ITS ---
STUDY: L5-S1 EPIDURAL BLOCK. REASON FOR EXAM: Female, 38 years old. EPIDURAL BLOCK L5-S1 FLUOROSCOPY TIME (if supplied): ( 9.8 cm ) minutes/seconds. 18.15 mgy. 2 images were submitted. FINDINGS: Intraoperative imaging provided for L5-S1 epidural block. RAD/Spine 1 View Any Level IMPRESSION: Intraoperative imaging provided for L5-S1 epidural block. Electronically Signed: Russell Milton MD at 15:14 EST ,
[2023-10-22] MEDS: Lidocaine 1% (30 ml sdv) 30 ML Vial (14:34)
[2023-10-22] MEDS: Triamcinolone Acetonide 40 MG/ML Vial (14:39)
--- NOTE | 2023-10-22 15:00 | CASEMGMT ---
Social Work Printed off advanced directives and [id number] booklet for patient review. Presented the patient's room, but patient the floor for a procedure. harm reduction worker will attempt to return back to patient's room as able to provide information on advanced directives. -GEOVANY Garcia
[2023-10-22] MEDS: metFORMIN HCl 1,000 MG Tablet 1000 MG PO (16:39)
--- NOTE | 2023-10-22 16:49 | OP.PCM_ITS ---
Problems Associated Problem List Diagnoses (1) Inability to walk: (2) Intractable back pain: (3) Sciatica: (4) Radiculopathy: (5) Lumbar stenosis: Report of Operation Date of Procedure: 10/22/23 Pre-Operative Diagnosis: Lumbar Radiculopathy Lumbar Spinal Stenosis Post-Operative Diagnosis: Same Surgery/Procedure Performed:: L5-S1 Epidural steroid injection biodiesel engine specialist: Riky Hoffman Type of Anesthesia: Epidural Estimated Blood Loss (mL): nil Description of Procedure: DESCRIPTION OF PROCEDURE: The patient was brought to the fluoroscopy suite.? The patient was positioned prone on the fluoroscopy table. Continuous hemodynamic monitoring was initiated including blood pressure, EKG, and pulse oximetry.? Anesthesia was administered per anesthesia team. The area of the spine was prepped with betadine 3 times and draped in a sterile fashion.? Skin anesthesia was achieved using 10 mL of Lidocaine 1% over the respective injection site. The L5-S1 interspace was visualized under fluoroscopic imaging. An 18 gauge 5 Tuohy needle was slowly inserted and advanced using loss of resistance to preservative free normal saline with AP fluoroscopic imaging for needle guidance. Lateral fluroscopy imaging was unable to be adequately obtained due to body habitus. Negative aspiration for blood or CSF was confirmed. Epidural contrast spread was confirmed using 2mL of Omnipaque 300 contrast demonstrating appropriate epidurogram via AP fluoroscopy imaging. 5ml of Bupivacaine 0.25% and 40 mg of Kenalog was injected. The needle was removed and bleeding was nil.? A sterile dressing was applied. Ms. Johnson was taken to the Post-block Recovery Area for further observation. PLAN: Patient can follow up with pain management institute the week after discharge from the hospital for outpatient follow up. Complications None
[2023-10-22 16:59] LABS: Bedside Glucose 79 mg/dL (74-106)
[2023-10-22] MEDS: tiZANidine HCl 2 MG Tablet 4 MG PO (22:48)
[2023-10-22] MEDS: Docusate Sodium 100 MG Capsule PO (22:51)
[2023-10-22] MEDS: busPIRone 15 MG TABLET 7.5 MG PO (22:52)
[2023-10-22] MEDS: Atorvastatin Calcium 10 MG Tablet PO (22:54)
[2023-10-22 23:21] LABS: Bedside Glucose 99 mg/dL (74-106)
[2023-10-23 05:00] VITALS: BP 120/85; PULSE 79; RESP 18; TEMP 36.7; O2SAT 98
[2023-10-23] MEDS: Baclofen 10 MG Tablet PO ×2 (05:20→16:50)
[2023-10-23] MEDS: Acetaminophen 500 MG Tablet 1000 MG PO ×3 (05:20→22:22)
[2023-10-23] MEDS: oxyCODONE 5 MG Tablet 10 MG PO ×2 (05:20→14:42)
[2023-10-23] MEDS: Gabapentin 400 MG Capsule 800 MG PO ×3 (05:21→22:22)
[2023-10-23 05:57] LABS: Bedside Glucose 95 mg/dL (74-106)
--- NOTE | 2023-10-23 06:15 | PN.HOSP_ITS ---
Reason for Visit Reason for Visit: Diagnoses Spinal stenosis, lumbar region without neurogenic claudication (10/20/23) Radiculopathy, site unspecified (10/20/23) Sciatica, unspecified side (10/20/23) Dorsalgia, unspecified (10/20/23) Difficulty in walking, not elsewhere classified (10/20/23) Subjective Subjective Patient despite injection the day prior still with ongoing pain rating it again at rest 5 out of 10 and with activity 10 out of 10 with similar dull aching at rest and sharp stabbing if up and attempting to move. She still cannot sit up in bed. Discussed that given the status it may take some time but at this point will continue with attempts for retirement facility placement to which she is amenable. Did discuss encouragement to follow-up with pain management here given this recent procedure on 2 weeks but noted that she could continue to follow at [facility] as well. Patient denies fevers, chills, nausea, emesis, abdominal pain, chest pain or dyspnea. Objective Data Objective Data Vital Signs: Vital Signs Temp Pulse Resp BP Pulse Ox O2 Del Method 98.0 F 87 18 115/73 94 Room Air 10/22/23 23:00 10/22/23 23:00 10/22/23 23:00 10/22/23 23:00 10/22/23 23:00 10/22/23 23:00 Oxygen Delivery Method Room Air Weight: 501 lb Body Mass Index (BMI) 83.3 Intake & Output: Intake and Output for Last 24 Hours 10/21/23 10/22/23 10/23/23 23:59 23:59 23:59 Intake Total 800 / 800 45.25 / 45.25 Output Total 1000 / 1000 Balance 800 / 800 -954.75 / -954.75 Lab / Micro Data 10/22/23 06:23 10/22/23 06:23 Labs: Laboratory Results - last 24 hr 10/22/23 06:23: WBC 10.4, RBC 4.46, Hgb 12.5, Hct 39.4, MCV 88.3, MCH 28.0, MCHC 31.7 L, RDW Std Deviation 44.2 H, RDW Coeff of Chantal 13.6, Plt Count 329, MPV 10.4, Immature Gran % (Auto) 0.500, Neut % (Auto) 53.5, Lymph % (Auto) 37.0, Forest % (Auto) 7.2, Eos % (Auto) 1.2, Baso % (Auto) 0.6, Absolute Neuts (auto) 5.6, Absolute Lymphs (auto) 3.85, Nucleated RBC % 0, PT 13.4, INR 1.0, APTT 26.3, Sodium 139, Potassium 4.3, Chloride 104, Carbon Dioxide 31.0, Anion Gap 4 L, BUN 27 H, Creatinine 1.03 H, Estim Creat Clear Calc 143.39, Est GFR (MDRD) Af Amer 76, Est GFR (MDRD) Non-Af 63, BUN/Creatinine Ratio 26.2 H, Glucose 89, Calcium 9.6, Total Bilirubin 0.50, AST 23, ALT 29, Alkaline Phosphatase 64, Total Protein 7.2, Albumin 3.3, Globulin 3.9, Albumin/Globulin Ratio 0.8 L 10/22/23 11:03: POC Glucose 72 L 10/22/23 13:27: Serum , Qual NEGATIVE 10/22/23 16:35: POC Glucose 79 10/22/23 22:47: POC Glucose 99 10/23/23 05:27: POC Glucose 95 Radiography Diagnostic Testing: Radiology Impression Spine X-Ray 10/22/23 14:30 IMPRESSION: Intraoperative imaging provided for L5-S1 epidural block. Electronically Signed: Russell Milton MD at 15:14 EST Reading Location ID and State: [address] [place] [address] , Service support , Physical Exam Narrative Physical Examination: General: Awake, alert, oriented x 3 and cooperative, laying in the MS bed, fatig ued, notes pain currently 5/10 at rest, dull aching primarily. Skin: Normal color, normal turgor, no icterus, no cyanosis except occasional staged ecchymoses. HEENT: AT/NC, EOMI, PERRLA, MMM. Lungs: Distant, diminished, greater decrease BL bases, no rales, ronchi or wheezing. Heart: Regular rate and rhythm; no gallop, rub audible. Abdomen: Soft, morbidly obese, NTTP, ND, distant normal BS. Extremities: No cyanosis, no clubbing, significant chronic lower extremity lymphedema. Neurological: Patient awake, alert, oriented as noted, cognitive function intact; pupils equally reactive to light and accommodation, cranial nerves grossly normal, moving all 4 extremities although diminished activity abilities given significant chronic pain, strength remains severely globally decreased. Psychiatric: Affect appears normal, interactive, no acute evidence of anxiety or depressive feelings. Assessment & Plan Assessment/Plan (1) Intractable back pain: (2) Radiculopathy: PLAN: Plan The patient is a 38 y/o F w/ PMHx: Morbid Obesity, HAILEY, HTN, HLD, Anxiety and Depression, Diabetes mellitus type II who presents to the [facility] ED on 10/18/23 with history of intractable back pain with history of chronic back pain with MRI with stenosis L3-L5 following with pain management as well as spine surgeon Anna Mendoza with scheduled upcoming epidural 10/22/2023 with worsened lumbar pain as well as right lower extremity radiculopathy worse with movement with intermittent paresthesias to both lower extremities prompting eventual ED evaluation. 1. Acute Intractable Back Pain, lumbar with right lower extremity radiculopathy and lower extremity paresthesias bilaterally: 04/07/2023 most recent MRI lumbar spine with multilevel degenerative disc and joint disease in the lumbar spine superimposed upon congenitally small spinal canal, most focal L4-5 level right- sided disc extrusion contributing to moderate to severe spinal canal stenosis and effacement of the right lateral recess with mass effect upon the descending right L5 nerve root, mild spinal canal stenosis L2-3 and L3-4 with underlying congenital component, admitted to medical surgical floor, had per her report planned upcoming epidural at [facility] with pain management however from online notes reportedly 10/03/2023 they had referred her to IR for the epidural injection given inability to, your habitus, continued Tylenol scheduled, tizanidine, as needed oxycodone, Toradol IV 30 mg every 6 hours, continued on home baclofen, prednisone therapy, ongoing gabapentin regimen with OARRS performed during presentation. Awaiting PT and OT assessments and if patient is able to discharged with walker/wheelchair which she normally uses would plan discharge with planned follow-up 10/22/2023 for IR directed epidural. Discussed patient with pain management and she was taken 10/22/2023 to the OR with epidural performed there. Patient still with ongoing significant discomfort and debility therefore awaiting retirement facility placement. Will encourage her to follow-up with pain management [facility] but also per discussion with pain management here at [place] recommended follow-up with their service in 2 weeks given the recent injection. 2. Adult failure to thrive secondary to #1, significant morbid obesity as well as other chronic conditions as noted: Continue evaluation and treatment as n oted, PT/OT/case visit consulted, status post injection per patient management in OR 10/22/23 but still significantly debilitated thus will need SNF placement. 3. Hypertension: Continue home regimen including hydrochlorothiazide, lisinopril, PRN hydralazine. 4. Hyperlipidemia: Continue patient on statin therapy. 5. Diabetes mellitus type II: Maintained on oral metformin, plan resumption of Trulicity at discharge, ADA diet, accu checks w/ ISS. 6. Depression and anxiety: Will continue patient home BuSpar, hydroxyzine and fluoxetine home regimen. 7. Morbid Obesity: Weight loss and lifestyle changes encouraged, encouraged continued outpatient follow-up with bariatric/nutrition and already preset up weight loss program. 8. HAILEY: CPAP nightly. 9. DVT prophylaxis: Plan to restart lovenox 10/24/23 given recent procedure. Charges/Coding Visit Charges Inpatient E&M: 61208 Subs Hosp L2
[2023-10-23] MEDS: metFORMIN HCl 1,000 MG Tablet 1000 MG PO ×2 (09:30→16:44)
[2023-10-23] MEDS: NORETHINDRONE 0.35 MG TABLET 0.349999999999999978 MG PO (09:30)
[2023-10-23] MEDS: busPIRone 15 MG TABLET 7.5 MG PO ×2 (09:30→22:23)
[2023-10-23] MEDS: predniSONE 20 MG Tablet 40 MG PO (09:30)
[2023-10-23] MEDS: Lisinopril 40 MG Tablet PO (09:30)
[2023-10-23] MEDS: hydroCHLOROthiazide 25 MG Tablet PO (09:30)
[2023-10-23] MEDS: Docusate Sodium 100 MG Capsule PO ×2 (09:30→22:22)
[2023-10-23] MEDS: Cholecalciferol (VIT D3) 25 MCG TABLET (1,000 UNITS) PO (09:31)
[2023-10-23] MEDS: Fluoxetine HCl 40 MG CAPSULE PO (09:31)
[2023-10-23] MEDS: Pantoprazole Sodium 40 MG Tablet PO (09:31)
[2023-10-23 09:33] VITALS: BP 123/82; PULSE 97; RESP 18; TEMP 36.8; O2SAT 95
--- NOTE | 2023-10-23 10:48 | PCM.TXEXTCAR ---
Diet Diet Order/Speech Therapy: 10/22/23 16:05 ADA [Diet: Cardiac: Calorie-Controlled] Is pt able to select menu?: Yes Diet Comments: NPO except sip water with meds How many daily calories?: 1600 calorie Routine Orders/Code Status Enema Type: Fleetz Enema Frequency: Daily PRN Suppository Type: Dulcolax 10mg Suppository Frequency: Daily PRN Keep PO Greater than or Equal to (%): 92 Code Status: Full Code Wound(s) LUMBAR BACK: Wound Type: Puncture Suggestions for Active Care Change Position every (hours): 2 Therapies Weight Bearing: Full weight bearing Physical Therapy: Eval and Treat Occupational Therapy: Eval and Treat Narrative: Patient does have difficulty sitting upright and with ambulation given significant lumbar back pain and radiculopathy but we strongly encouraged continued attempts at daily advancement bed and sitting more upright. Problem/Diagnosis (1) Intractable back pain: Status: Acute Code(s): M54.9 - Dorsalgia, unspecified Comment: DISCHARGE DIAGNOSES: 1. Acute Intractable Back Pain, lumbar with right lower extremity radiculopathy and lower extremity paresthesias bilaterally (04/07/2023 most recent MRI lumbar spine with multilevel degenerative disc and joint disease in the lumbar spine superimposed upon congenitally small spinal canal, most focal L4-5 level right-sided disc extrusion contributing to moderate to severe spinal canal stenosis and effacement of the right lateral recess with mass effect upon the descending right L5 nerve root, mild spinal canal stenosis L2-3 and L3-4 with underlying congenital component) 2. Adult failure to thrive secondary to #1, significant morbid obesity as well as other chronic conditions as noted 3. Hypertension 4. Hyperlipidemia 5. Diabetes mellitus type II 6. Depression and anxiety 7. Morbid Obesity 8. HAILEY on CPAP nightly Plan The patient is a 38 y/o F w/ PMHx: Morbid Obesity, HAILEY, HTN, HLD, Anxiety and Depression, Diabetes mellitus type II who presents to the [facility] ED on 10/18/23 with history of intractable back pain with history of chronic back pain with MRI with stenosis L3-L5 following with pain management as well as spine surgeon Anna Mendoza with scheduled upcoming epidural 10/22/2023 with worsened lumbar pain as well as right lower extremity radiculopathy worse with movement with intermittent paresthesias to both lower extremities prompting eventual ED evaluation. 1. Acute Intractable Back Pain, lumbar with right lower extremity radiculopathy and lower extremity paresthesias bilaterally: 04/07/2023 most recent MRI lumbar spine with multilevel degenerative disc and joint disease in the lumbar spine superimposed upon congenitally small spinal canal, most focal L4-5 level right-sided disc extrusion contributing to moderate to severe spinal canal stenosis and effacement of the right lateral recess with mass effect upon the descending right L5 nerve root, mild spinal canal stenosis L2-3 and L3-4 with underlying congenital component, admitted to medical surgical floor, had per her report planned upcoming epidural at [facility] with pain management however from online notes reportedly 10/03/2023 they had referred her to IR for the epidural injection given inability to, your habitus, continued Tylenol scheduled, tizanidine, as needed oxycodone, Toradol IV 30 mg every 6 hours, continued on home baclofen, prednisone therapy, ongoing gabapentin regimen with OARRS performed during presentation. Awaiting PT and OT assessments and if patient is able to discharged with walker/wheelchair which she normally uses would plan discharge with planned follow-up 10/22/2023 for IR directed epidural. Discussed patient with pain management and she was taken 10/22/2023 to the OR with epidural performed there. Patient still with ongoing significant discomfort and debility therefore arranged custodial facility placement. Encouraged her to follow-up with pain management [facility] but also per discussion with pain management here at [facility] recommended follow-up with their service in 2 weeks given the recent injection. 2. Adult failure to thrive secondary to #1, significant morbid obesity as well as other chronic conditions as noted: Continue evaluation and treatment as noted, PT/OT/case visit consulted, status post injection per patient management in OR 10/22/23 but still significantly debilitated thus SNF placement arranged. 3. Hypertension: Continue home regimen including hydrochlorothiazide, lisinopril. 4. Hyperlipidemia: Continue patient on statin therapy. 5. Diabetes mellitus type II: Maintained on oral metformin, plan resumption of Trulicity at discharge, ADA diet, accu checks w/ ISS. 6. Depression and anxiety: Will continue patient home BuSpar, hydroxyzine and fluoxetine home regimen. 7. Morbid Obesity: Weight loss and lifestyle changes encouraged, encouraged continued outpatient follow-up with bariatric/nutrition and already preset up weight loss program. 8. HAILEY: CPAP nightly. Allergies/Procedures Done in Hospital Allergies Penicillins Allergy (Unknown, Verified 10/18/23 17:17) Other Procedures: - (10/22/23 Dr. 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 Available if additional diet education desired by pt. Discharge Plan Admission Admit Date/Time: 10/20/23 12:56 Primary Reason for Your Visit: Intractable back pain, Radiculopathy Attending Provider: Fiona Alicea Primary Care Provider: Kvaon Granda Consulting Providers: Kinsey Perez; Alex Garcia; Zaid Briceño Instructions Additional Instructions / Restrictions: DISCHARGE ADDITIONAL: As discussed you may certainly continue to follow with pain management at [facility] at a call center; however, we do encourage that you at least follow-up in 2 weeks with pain management at [facility] given your recent injection to assure you are doing well. Discharge Orders/Prescriptions Prescriptions: New prednisone 20 mg Tablet 40 mg PO BREAKFAST Qty: 10 0RF tizanidine 2 mg Tablet 4 mg PO Q8H PRN PRN (Reason: spasms/musculoskeletal pain) 5 Days Qty: 30 0RF gabapentin 400 mg Capsule 800 mg PO TID 5 Days Qty: 30 0RF oxycodone 5 mg Tablet 10 mg PO Q4H PRN PRN (Reason: Pain Score 4-10) 4 Days Qty: 30 0RF melatonin 3 mg Tablet 3 mg PO QHS PRN PRN (Reason: Insomnia) Qty: 0 0RF docusate sodium 100 mg Capsule 100 mg PO BID Qty: 0 0RF insulin lispro [Humalog KwikPen Insulin] 100 unit/mL Insulin Pen See Protocol subcut ACHS Qty: 0 0RF Protocol: 4. Sliding Scale Insulin High-Med Dosing Condition: 150-199 mg/dl = 2 units Condition: 200-259 mg/dl = 4 units Condition: 260-324 mg/dl = 6 units Condition: 325-374 mg/dl = 8 units Condition: 375-409 mg/dl = 10 units Condition: 410-449 mg/dl = 11 units Condition: Greater than 449 call physician Protocol Text: - Use for Total Daily Dose of Insulin 56-80 units - Patient who are insulin resistant or septic HIGH MEDIUM DOSING ALGORITHM Continued atorvastatin 10 mg tablet 10 mg PO DAILY Patient Comments: TAKE 1 TABLET BY MOUTH DAILY cholecalciferol (vitamin D3) 25 mcg (1,000 unit) tablet 25 mcg PO DAILY Patient Comments: TAKE 1 TABLET BY MOUTH DAILY fluoxetine 40 mg capsule 40 mg PO DAILY Patient Comments: TAKE 1 CAPSULE BY MOUTH ONCE DAILY hydrochlorothiazide 25 mg tablet 25 mg PO DAILY Patient Comments: TAKE 1 TABLET BY MOUTH DAILY hydroxyzine HCl 25 mg tablet 12.5 mg PO TID PRN Patient Comments: Take 1 tablet by mouth three times daily as needed for anxiety. May take 1/2 tablet lisinopril 40 mg tablet 40 mg PO DAILY Patient Comments: TAKE 1 TABLET BY MOUTH DAILY metformin 1,000 mg tablet 1,000 mg PO BIDAC Patient Comments: TAKE 1 TABLET BY MOUTH TWICE DAILY WITH MEALS norethindrone (contraceptive) [Deblitane] 0.35 mg tablet 0.35 mg PO DAILY Patient Comments: Take 1 tablet orally once daily at the same time. acetaminophen 500 mg Tablet 1,000 mg PO Q8 Qty: 0 0RF Trulicity 0.75 mg/0.5 mL pen injector 0.75 mg SUBCUT .weekly Patient Comments: INJECT 0.75 mg SUBCUTANEOUSLY once weekly on diclofenac sodium 75 mg tablet,delayed release (DR/EC) 75 mg PO Q12H Patient Comments: Take 1 tablet by mouth two times a day. (DME) True Metrix Glucose Test Strip Strip MISCELLANEOUS Patient Comments: Test blood sugar(s) 1 times daily. baclofen 10 mg tablet 10 mg PO Q6H PRN (Reason: muscle spasm) 5 Days Qty: 20 0RF buspirone 7.5 mg tablet 7.5 mg PO BID 5 Days Qty: 10 0RF Patient Comments: Take 1 tablet by mouth twice daily. Discontinued gabapentin 400 mg Capsule 600 mg PO TID Referrals / Follow Up: Kavon Granda DO [Primary Care Provider] - Within 2 Weeks Riky Hoffman MD [Med Staff - Active Staff] - (Please follow-up in 2 weeks.) Disposition Disposition (needs filled in before D/C Order can be placed): Shelter Facility
[2023-10-23 11:36] LABS: Bedside Glucose 104 mg/dL (74-106)
--- NOTE | 2023-10-23 14:29 | PHA.DC.MR.R ---
[facility] has performed discharge medication reconciliation for this patient. The patient's discharge medication list was reviewed for discrepancies and discrepancies were resolved. Medications at Discharge Home Medications atorvastatin 10 mg tablet 10 mg PO DAILY cholesterol 03/20/23 cholecalciferol (vitamin D3) 25 mcg (1,000 unit) tablet 25 mcg PO DAILY 03/20/23 fluoxetine 40 mg capsule 40 mg PO DAILY 03/20/23 hydrochlorothiazide 25 mg tablet 25 mg PO DAILY 03/20/23 hydroxyzine HCl 25 mg tablet 12.5 mg PO TID PRN anxiety 03/20/23 lisinopril 40 mg tablet 40 mg PO DAILY 03/20/23 metformin 1,000 mg tablet 1,000 mg PO BIDAC diabetes 03/20/23 norethindrone (contraceptive) 0.35 mg tablet (Deblitane) 0.35 mg PO DAILY control 03/20/23 acetaminophen 500 mg tablet 1,000 mg (2 x 500 mg) PO Q8 #0 tabs 03/22/23 blood sugar diagnostic (True Metrix Glucose Test Strip) 10/18/23 diclofenac sodium 75 mg tablet,delayed release 75 mg PO Q12H 10/18/23 dulaglutide 0.75 mg/0.5 mL subcutaneous pen injector (Trulicity) 0.75 mg subcut .weekly 10/18/23 prednisone 20 mg tablet 40 mg (2 x 20 mg) PO BREAKFAST #10 tabs 10/19/23 baclofen 10 mg tablet 10 mg PO Q6H PRN muscle spasm 5 days #20 tabs 10/23/23 buspirone 7.5 mg tablet 7.5 mg PO BID 5 days #10 tabs 10/23/23 docusate sodium 100 mg capsule 100 mg PO BID #0 caps 10/23/23 gabapentin 400 mg capsule 800 mg (2 x 400 mg) PO TID 5 days #30 caps 10/23/23 insulin lispro 100 unit/mL subcutaneous pen (Humalog KwikPen (U-100) Insulin) See Protocol subcut ACHS #0 mL 10/23/23 melatonin 3 mg tablet 3 mg PO QHS PRN PRN Insomnia #0 tabs 10/23/23 oxycodone 5 mg tablet 10 mg (2 x 5 mg) PO Q4H PRN PRN Pain Score 4-10 4 days #30 tabs 10/23/23 tizanidine 2 mg tablet 4 mg (2 x 2 mg) PO Q8H PRN PRN spasms/musculoskeletal pain 5 days #30 tabs 10/23/23
[2023-10-23 15:09] VITALS: BP 133/79; PULSE 92; RESP 18; TEMP 36.9; O2SAT 97
[2023-10-23 17:05] LABS: Bedside Glucose 158 mg/dL (74-106)
[2023-10-23 20:50] VITALS: BP 140/87; PULSE 87; RESP 18; TEMP 36.9; O2SAT 98
--- NOTE | 2023-10-23 21:19 | CPS ---
Patient set up with own PAP machine for the night.
[2023-10-23] MEDS: Atorvastatin Calcium 10 MG Tablet PO (22:22)
[2023-10-23 22:44] LABS: Bedside Glucose 117 mg/dL (74-106)
[2023-10-24 03:00] VITALS: BP 126/87; PULSE 73; RESP 16; TEMP 36.6; O2SAT 97
--- NOTE | 2023-10-24 06:05 | PN.HOSP_ITS ---
Reason for Visit Reason for Visit: Diagnoses Spinal stenosis, lumbar region without neurogenic claudication (10/20/23) Radiculopathy, site unspecified (10/20/23) Sciatica, unspecified side (10/20/23) Dorsalgia, unspecified (10/20/23) Difficulty in walking, not elsewhere classified (10/20/23) Subjective Subjective Patient with less pain overnight, did not request any regimen but this morning upon discussion notes she was attempted to try and stay off but is in discomfort but moving in the bed and doing exercises better than she had previously. She was with assistance able to use the restroom during the evening. She is still having significant discomfort when she does get up, pain currently 3-4 out of 10 in severity and with ambulation still remains 10 out of 10. Discussed still awaiting SNF prior authorization. Objective Data Objective Data Vital Signs: Vital Signs Temp Pulse Resp BP Pulse Ox O2 Del Method 98 F 73 16 126/87 H 97 Room Air 10/24/23 03:00 10/24/23 03:00 10/24/23 03:00 10/24/23 03:00 10/24/23 03:00 10/24/23 03:00 Oxygen Delivery Method Room Air Weight: 501 lb Body Mass Index (BMI) 83.3 Intake & Output: Intake and Output for Last 24 Hours 10/22/23 10/23/23 10/24/23 23:59 23:59 23:59 Intake Total 45.25 / 45.25 120 / 120 Output Total 1000 / 1000 800 / 1000 200 / 200 Balance -954.75 / -954.75 -680 / -880 -200 / -200 Lab / Micro Data 10/22/23 06:23 10/22/23 06:23 Labs: Laboratory Results - last 24 hr 10/23/23 11:15: POC Glucose 104 10/23/23 16:40: POC Glucose 158 H 10/23/23 22:20: POC Glucose 117 H Physical Exam Narrative Physical Examination: General: Awake, alert, oriented x 3 and cooperative, laying in the MS bed, fatigued, notes pain currently 3-4/10 at rest, dull aching but remains 10/10 with activity but mildly better than day prior. Skin: Normal color, normal turgor, no icterus, no cyanosis except occasional staged ecchymoses. HEENT: AT/NC, EOMI, PERRLA, MMM. Lungs: Distant, diminished, greater decrease BL bases, no rales, ronchi or wheezing. Heart: Regular rate and rhythm; no gallop, rub audible. Abdomen: Soft, morbidly obese, NTTP, ND, distant normal BS. Extremities: No cyanosis, no clubbing, significant chronic lower extremity lymphedema. Neurological: Patient awake, alert, oriented as noted, cognitive function intact; pupils equally reactive to light and accommodation, cranial nerves grossly normal, moving all 4 extremities although diminished activity abilities given significant chronic pain, strength severely globally decreased but moving in the bed easier than prior. Psychiatric: Affect appears normal, no acute evidence of anxiety or depressive feelings. Assessment & Plan Assessment/Plan (1) Intractable back pain: (2) Radiculopathy: PLAN: Plan The patient is a 38 y/o F w/ PMHx: Morbid Obesity, HAILEY, HTN, HLD, Anxiety and Depression, Diabetes mellitus type II who presents to the [facility] ED on 10/18/23 with history of intractable back pain with history of chronic back pain with MRI with stenosis L3-L5 following with pain management as well as spine surgeon Anna Mendoza with scheduled upcoming epidural 10/22/2023 with worsened lumbar pain as well as right lower extremity radiculopathy worse with movement with intermittent paresthesias to both lower extremities prompting eventual ED evaluation. 1. Acute Intractable Back Pain, lumbar with right lower extremity radiculopathy and lower extremity paresthesias bilaterally: 04/07/2023 most recent MRI lumbar spine with multilevel degenerative disc and joint disease in the lumbar spine superimposed upon congenitally small spinal canal, most focal L4-5 level right- sided disc extrusion contributing to moderate to severe spinal canal stenosis and effacement of the right lateral recess with mass effect upon the descending right L5 nerve root, mild spinal canal stenosis L2-3 and L3-4 with underlying congenital component, admitted to medical surgical floor, had per her report planned upcoming epidural at [facility] with pain management however from online notes reportedly 10/03/2023 they had referred her to IR for the epidural injection given inability to, your habitus, continued Tylenol scheduled, tizanidine, as needed oxycodone, Toradol IV 30 mg every 6 hours, continued on home baclofen, prednisone therapy, ongoing gabapentin regimen with OARRS performed during presentation. Awaiting PT and OT assessments and if patient is able to discharged with walker/wheelchair which she normally uses would plan discharge with planned follow-up 10/22/2023 for IR directed epidural. Discussed patient with pain management and she was taken 10/22/2023 to the OR with epidural performed there. Patient still with ongoing significant discomfort and debility therefore awaiting prison facility placement. Will encourage her to follow-up with pain management [facility] but also per discussion with pain management here at [place] recommended follow-up with their service in 2 weeks given the recent injection. 10/23/23-10/24/23 reduced pain regimen requests and able to perform more activities in the bed. Still severe pain with ambulator attempts. 2. Adult failure to thrive secondary to #1, significant morbid obesity as well as other chronic conditions as noted: Continue evaluation and treatment as noted, PT/OT/case visit consulted, status post injection per patient management in OR 10/22/23 but still significantly debilitated, ongoing PT/OT with pending SNF placement, just awaiting prior authorization. 3. Hypertension: Continue home regimen including hydrochlorothiazide, lisinopril, PRN hydralazine. 4. Hyperlipidemia: Continue patient on statin therapy. 5. Diabetes mellitus type II: Maintained on oral metformin, plan resumption of Trulicity at discharge, ADA diet, accu checks w/ ISS. 6. Depression and anxiety: Will continue patient home BuSpar, hydroxyzine and fluoxetine home regimen. 7. Morbid Obesity: Weight loss and lifestyle changes encouraged, encouraged continued outpatient follow-up with bariatric/nutrition and already preset up weight loss program. 8. HAILEY: CPAP nightly. 9. DVT prophylaxis: Lovenox. Charges/Coding Visit Charges Inpatient E&M: 45594 Subs Hosp L2
[2023-10-24] MEDS: Acetaminophen 500 MG Tablet 1000 MG PO ×3 (06:15→22:21)
[2023-10-24] MEDS: Gabapentin 400 MG Capsule 800 MG PO ×3 (06:15→22:21)
[2023-10-24 06:35] LABS: Bedside Glucose 99 mg/dL (74-106)
[2023-10-24 08:10] VITALS: BP 127/97; PULSE 93; RESP 18; TEMP 36.5; O2SAT 98
[2023-10-24] MEDS: Docusate Sodium 100 MG Capsule PO ×2 (08:20→22:22)
[2023-10-24] MEDS: hydroCHLOROthiazide 25 MG Tablet PO (08:20)
[2023-10-24] MEDS: metFORMIN HCl 1,000 MG Tablet 1000 MG PO ×2 (08:20→17:12)
[2023-10-24] MEDS: predniSONE 20 MG Tablet 40 MG PO (08:20)
[2023-10-24] MEDS: busPIRone 15 MG TABLET 7.5 MG PO ×2 (08:20→22:21)
[2023-10-24] MEDS: Pantoprazole Sodium 40 MG Tablet PO (08:21)
[2023-10-24] MEDS: Fluoxetine HCl 40 MG CAPSULE PO (08:21)
[2023-10-24] MEDS: Lisinopril 40 MG Tablet PO (08:21)
[2023-10-24] MEDS: Enoxaparin 40 MG/0.4 ML Syringe SC ×2 (08:21→22:21)
[2023-10-24] MEDS: Cholecalciferol (VIT D3) 25 MCG TABLET (1,000 UNITS) PO (08:21)
[2023-10-24] MEDS: NORETHINDRONE 0.35 MG TABLET 0.349999999999999978 MG PO (08:21)
[2023-10-24] MEDS: oxyCODONE 5 MG Tablet 10 MG PO ×2 (08:33→20:03)
[2023-10-24 11:31] LABS: Bedside Glucose 125 mg/dL (74-106)
[2023-10-24 14:47] VITALS: BP 119/79; PULSE 70; RESP 18; TEMP 36.5; O2SAT 96
[2023-10-24 16:28] LABS: Bedside Glucose 141 mg/dL (74-106)
[2023-10-24] MEDS: DULAGLUTIDE 0.75 MG/0.5 ML PEN.INJCTR SC (17:12)
--- NOTE | 2023-10-24 18:05 | CASEMGMT ---
Social Work Met with patient and patient's lex Hamzah. Provided patient with information on advanced directive, including a blank copy of forms. Patient thanked expert medical writer for bringing information for patient to review. Checked in with patient on how patient is doing. Patient tearful throughout conversation, having much worry about recovery, pain, and not being farther along with movement. Much supportive listening, validation, encouragement provided. Encouraged patient to focus on what has control, make small goals patient can work on daily, and giving self credit for efforts being made. Plan: [facility], once insurance precert is obtained. -GERALD Garcia
[2023-10-24] MEDS: tiZANidine HCl 2 MG Tablet 4 MG PO (20:03)
--- NOTE | 2023-10-24 20:05 | CPS ---
Patient set up with own PAP machine for the night
[2023-10-24 20:10] VITALS: BP 133/88; PULSE 76; RESP 16; TEMP 36.8; O2SAT 94
[2023-10-24] MEDS: Atorvastatin Calcium 10 MG Tablet PO (22:21)
[2023-10-24 22:44] LABS: Bedside Glucose 133 mg/dL (74-106)
[2023-10-25] MEDS: oxyCODONE 5 MG Tablet 10 MG PO ×3 (02:25→16:01)
[2023-10-25 02:39] VITALS: BP 111/66; PULSE 93; RESP 16; TEMP 36.6; O2SAT 96
--- NOTE | 2023-10-25 06:13 | PCM.PN.HOSP ---
Reason for Visit Reason for Visit: Diagnoses Spinal stenosis, lumbar region without neurogenic claudication (10/20/23) Radiculopathy, site unspecified (10/20/23) Sciatica, unspecified side (10/20/23) Dorsalgia, unspecified (10/20/23) Difficulty in walking, not elsewhere classified (10/20/23) Subjective Subjective Patient with no acute issue versus overnight however she still has ongoing pain, she feels more sore today than previous. She attributes this to attempting several times to get up and moving more in the bed and doing leg and arm extremity activities. She was unable to perform with PT/OT secondary to pain unfortunately the day prior. She did get up overnight however it took 2 people to help her get out of bed and then she needed 1 person with a walker. Discussed with patient at length that this may take some time and she should continue to follow with pain management and [facility]. Patient denies fevers, chills, nausea, emesis, abdominal pain, chest pain or dyspnea. Objective Data Objective Data Vital Signs: Vital Signs Temp Pulse Resp BP Pulse Ox O2 Del Method 97.8 F 93 16 111/66 96 CPAP 10/25/23 02:39 10/25/23 02:39 10/25/23 02:39 10/25/23 02:39 10/25/23 02:39 10/25/23 02:39 Oxygen Delivery Method CPAP Weight: 501 lb Body Mass Index (BMI) 83.3 Intake & Output: Intake and Output for Last 24 Hours 10/23/23 10/24/23 10/25/23 23:59 23:59 23:59 Intake Total 120 / 120 120 / 120 Output Total 800 / 1000 2400 / 2400 Balance -680 / -880 -2280 / -2280 Lab / Micro Data 10/22/23 06:23 10/22/23 06:23 Labs: Laboratory Results - last 24 hr 10/24/23 06:14: POC Glucose 99 10/24/23 11:11: POC Glucose 125 H 10/24/23 16:10: POC Glucose 141 H 10/24/23 22:20: POC Glucose 133 H Physical Exam Narrative Physical Examination: General: Awake, alert, oriented x 3 and cooperative, laying in the MS bed, fatigued, pain increased from day prior 5 out of 10 at rest, still severe 10 out of 10 with activity but increased and she trips to this because she was trying so hard to get out of bed yesterday. Skin: Normal color, normal turgor, no icterus, no cyanosis except occasional staged ecchymoses. HEENT: AT/NC, EOMI, PERRLA, MMM. Lungs: Distant, diminished, greater decrease BL bases, no rales, ronchi or wheezing. Heart: Regular rate and rhythm; no gallop, rub audible. Abdomen: Soft, morbidly obese, NTTP, ND, normal BS. Extremities: No cyanosis, no clubbing, significant chronic lower extremity lymphedema. Neurological: Patient awake, alert, oriented as noted, cognitive function intact; pupils equally reactive to light and accommodation, cranial nerves grossly normal, moving all 4 extremities, increased pain, debility likely secondary to activities attempted the day prior, strength severely globally decreased. Psychiatric: Affect appears flat, tearful regarding still not feeling improved and inability yesterday to get out of bed, do think that patient has appropriately depressed feelings regarding the situation and discussed them at length, no current evidence of anxiety. Assessment & Plan Assessment/Plan (1) Intractable back pain: (2) Radiculopathy: PLAN: Plan The patient is a 38 y/o F w/ PMHx: Morbid Obesity, HAILEY, HTN, HLD, Anxiety and Depression, Diabetes mellitus type II who presents to the [facility] ED on 10/18/23 with history of intractable back pain with history of chronic back pain with MRI with stenosis L3-L5 following with pain management as well as spine surgeon Anna Mendoza with scheduled upcoming epidural 10/22/2023 with worsened lumbar pain as well as right lower extremity radiculopathy worse with movement with intermittent paresthesias to both lower extremities prompting eventual ED evaluation. 1. Acute Intractable Back Pain, lumbar with right lower extremity radiculopathy and lower extremity paresthesias bilaterally: 04/07/2023 most recent MRI lumbar spine with multilevel degenerative disc and joint disease in the lumbar spine superimposed upon congenitally small spinal canal, most focal L4-5 level right-sided disc extrusion contributing to moderate to severe spinal canal stenosis and effacement of the right lateral recess with mass effect upon the descending right L5 nerve root, mild spinal canal stenosis L2-3 and L3-4 with underlying congenital component, admitted to medical surgical floor, had per her report planned upcoming epidural at [facility] with pain management however from online notes reportedly 10/03/2023 they had referred her to IR for the epidural injection given inability to, your habitus, continued Tylenol scheduled, tizanidine, as needed oxycodone, Toradol IV 30 mg every 6 hours, continued on home baclofen, prednisone therapy, ongoing gabapentin regimen with OARRS performed during presentation. Awaiting PT and OT assessments and if patient is able to discharged with walker/wheelchair which she normally uses would plan discharge with planned follow-up 10/22/2023 for IR directed epidural. Discussed patient with pain management and she was taken 10/22/2023 to the OR with epidural performed there. Lengthy discussion and patient will plan to follow-up with pain management [facility] however she will have 2-week follow-up with local pain management who performed her recent injection. 10/23/23-10/24/23 reduced pain regimen requests and able to perform more activities in the bed. Still severe pain with ambulator attempts. 10/24/2023-10/25/2023 patient with increased debility, pain although was able to get out of bed but two-person assist with increased pain level even at rest since day prior. Discussed still awaiting prior authorization for SNF placement. 2. Adult failure to thrive secondary to #1, significant morbid obesity as well as other chronic conditions as noted: Continue evaluation and treatment as noted, PT/OT/case visit consulted, status post injection per patient management in OR 10/22/23 but still significantly debilitated, ongoing PT/OT with pending SNF placement, just awaiting prior authorization. 3. Hypertension: Continue home regimen including hydrochlorothiazide, lisinopril, PRN hydralazine. 4. Hyperlipidemia: Continue patient on statin therapy. 5. Diabetes mellitus type II: Maintained on oral metformin, plan resumption of Trulicity at discharge, ADA diet, accu checks w/ ISS. 6. Depression and anxiety: Will continue patient home BuSpar, hydroxyzine and fluoxetine home regimen. 7. Morbid Obesity: Weight loss and lifestyle changes encouraged, encouraged continued outpatient follow-up with bariatric/nutrition and already preset up weight loss program. 8. HAILEY: CPAP nightly. 9. DVT prophylaxis: Lovenox. Charges/Coding Visit Charges Inpatient E&M: 54897 Subs Hosp L2
[2023-10-25] MEDS: Gabapentin 400 MG Capsule 800 MG PO ×3 (06:17→22:04)
[2023-10-25] MEDS: Acetaminophen 500 MG Tablet 1000 MG PO ×3 (06:17→22:03)
[2023-10-25 06:46] LABS: Bedside Glucose 93 mg/dL (74-106)
--- NOTE | 2023-10-25 07:02 | NURSING ---
Clinical instructor for [facility] this AM was curious to see how medication administration was performed at this facility. this RN pulled gabapentin for instructor d/t instructor not being able to get into accudose. clinical instructor gave said dose of gabapentin as she was able to have access to MAR. administration seen by this RN and Dayron Palencia RN.
[2023-10-25 07:50] VITALS: BP 130/72; PULSE 67; RESP 18; TEMP 36.7; O2SAT 96
--- NOTE | 2023-10-25 08:51 | CASEMGMT ---
Addendum entered by Miracle Carrasco 10/25/23 16:04: Multiple communications with [facility] and precert has not yet been obtained. SW met with pt and updated. Pt frustrated and emotional support provided. [facility] instructed to call nursing unit if precert is obtained over the weekend. Plan: [facility], pending precert YESSI Fine Original Note: Social Work SW reached out to [facility] to check on precert determination. SW updated [facility] that pt is medically ready for dc. SW will await return call. YESSI Fine
--- NOTE | 2023-10-25 09:02 | CASEMGMT ---
Discharge Planning Requested clinicals sent via [facility] to [facility]. Rosina Thompson, Discharge Planning Asst.
[2023-10-25] MEDS: metFORMIN HCl 1,000 MG Tablet 1000 MG PO ×2 (09:58→16:03)
[2023-10-25] MEDS: Docusate Sodium 100 MG Capsule PO ×2 (09:58→22:04)
[2023-10-25] MEDS: Lisinopril 40 MG Tablet PO (09:59)
[2023-10-25] MEDS: Cholecalciferol (VIT D3) 25 MCG TABLET (1,000 UNITS) PO (09:59)
[2023-10-25] MEDS: hydroCHLOROthiazide 25 MG Tablet PO (09:59)
[2023-10-25] MEDS: Pantoprazole Sodium 40 MG Tablet PO (09:59)
[2023-10-25] MEDS: Fluoxetine HCl 40 MG CAPSULE PO (09:59)
[2023-10-25] MEDS: predniSONE 20 MG Tablet 40 MG PO (10:00)
[2023-10-25] MEDS: Enoxaparin 40 MG/0.4 ML Syringe SC ×2 (10:02→22:04)
[2023-10-25] MEDS: busPIRone 15 MG TABLET 7.5 MG PO ×2 (10:03→22:02)
[2023-10-25 10:25] VITALS: PULSE 67
[2023-10-25] MEDS: NORETHINDRONE 0.35 MG TABLET 0.349999999999999978 MG PO (11:35)
[2023-10-25 12:31] LABS: Bedside Glucose 101 mg/dL (74-106)
[2023-10-25] MEDS: Baclofen 10 MG Tablet PO (15:04)
[2023-10-25 15:06] VITALS: BP 118/73; PULSE 82; RESP 18; TEMP 36.6; O2SAT 94
[2023-10-25 16:16] LABS: Bedside Glucose 129 mg/dL (74-106)
--- NOTE | 2023-10-25 17:08 | CASEMGMT ---
Social Work SW received message from [employer] that authorization for skilled stay is denied by insurance as they do not feel pt is ready for a lower level of care due to pain. Physician updated and to address concerns. SW met with pt and significant other Neville and explained denial. SW will reassess pt on Saturday to determine if pt is improved and if pt is ready for SNF level of care at that time. Pt is agreeable to this plan. YESSI Fine
[2023-10-25] MEDS: fentaNYL 25 MCG Patch TD (18:33)
[2023-10-25 21:30] VITALS: BP 118/61; PULSE 86; RESP 18; TEMP 36.5; O2SAT 97
[2023-10-25] MEDS: 0.9% Saline Lock 10 ML Syringe IV (22:02)
[2023-10-25] MEDS: Atorvastatin Calcium 10 MG Tablet PO (22:04)
[2023-10-25 22:32] LABS: Bedside Glucose 99 mg/dL (74-106)
[2023-10-26 04:13] VITALS: BP 130/79; PULSE 84; RESP 18; TEMP 37.2; O2SAT 96
[2023-10-26] MEDS: oxyCODONE 5 MG Tablet 10 MG PO ×3 (04:19→17:45)
[2023-10-26] MEDS: Gabapentin 400 MG Capsule 800 MG PO ×3 (05:50→21:16)
[2023-10-26] MEDS: Acetaminophen 500 MG Tablet 1000 MG PO ×3 (05:50→21:16)
[2023-10-26 06:13] LABS: Bedside Glucose 90 mg/dL (74-106)
--- NOTE | 2023-10-26 06:20 | PCM.PN.HOSP ---
Reason for Visit Reason for Visit: Diagnoses Spinal stenosis, lumbar region without neurogenic claudication (10/20/23) Radiculopathy, site unspecified (10/20/23) Sciatica, unspecified side (10/20/23) Dorsalgia, unspecified (10/20/23) Difficulty in walking, not elsewhere classified (10/20/23) Subjective Subjective Patient mildly improved but still hesitant to get out of bed and from lengthy discussions do feel that some anxiety is a component of this and she hesitates primarily when trying to get up from out of bed to standing and is less apt to accept assistance into this position. Discussed this with her and her significant other and at this point with physical and Occupational Therapy will help her into this position so that she can start to do therapies. Discussed current plan of care which included scheduled low-dose tizanidine in addition to fentanyl patch at increased dose with continued changes as needed to assure patient can continue to attempt therapies to which she is amenable. She still notes currently pain 3-5 out of 10 when she is in bed but much more worse when she is up and moving thus unfortunate not much change but again do feel there is a very big anxiety component with this. Objective Data Objective Data Vital Signs: Vital Signs Temp Pulse Resp BP Pulse Ox O2 Del Method 99 F 84 18 130/79 H 96 Room Air 10/26/23 04:13 10/26/23 04:13 10/26/23 04:13 10/26/23 04:13 10/26/23 04:13 10/26/23 04:27 Oxygen Delivery Method Room Air Weight: 501 lb Body Mass Index (BMI) 83.3 Intake & Output: Intake and Output for Last 24 Hours 10/24/23 10/25/23 10/26/23 23:59 23:59 23:59 Intake Total 120 / 120 Output Total 2400 / 2400 1400 / 1400 450 / 450 Balance -2280 / -2280 -1400 / -1400 -450 / -450 Lab / Micro Data 10/22/23 06:23 10/22/23 06:23 Labs: Laboratory Results - last 24 hr 10/25/23 06:21: POC Glucose 93 10/25/23 11:55: POC Glucose 101 10/25/23 15:58: POC Glucose 129 H 10/25/23 22:01: POC Glucose 99 10/26/23 05:54: POC Glucose 90 Physical Exam Narrative Physical Examination: General: Awake, alert, oriented x 3 and cooperative, laying in the MS bed, reporting anxiety with attempts to get up, pain still 3-5 out of 10 with rest and severe when she attempts anything but again from discussion suspect anxiety component. Skin: Normal color, normal turgor, no icterus, no cyanosis except occasional staged ecchymoses. HEENT: AT/NC, EOMI, PERRLA, MMM. Lungs: Distant, diminished, greater decrease BL bases, no rales, ronchi or wheezing. Heart: Regular rate and rhythm; no gallop, rub audible. Abdomen: Soft, morbidly obese, NTTP, ND, normal BS. Extremities: No cyanosis, no clubbing, significant chronic lower extremity lymphedema. Neurological: Patient awake, alert, oriented as noted, cognitive function intact; pupils equally reactive to light and accommodation, cranial nerves grossly normal, moving all 4 extremities, remains anxious about getting out of bed, strength severely globally decreased. Psychiatric: Affect appears anxious, very focused on the initial section/portion of getting up and out of bed which is her primary kendra. No evidence of depressive feelings. Assessment & Plan Assessment/Plan (1) Intractable back pain: (2) Radiculopathy: PLAN: Plan The patient is a 38 y/o F w/ PMHx: Morbid Obesity, HAILEY, HTN, HLD, Anxiety and Depression, Diabetes mellitus type II who presents to the [facility] ED on 10/18/23 with history of intractable back pain with history of chronic back pain with MRI with stenosis L3-L5 following with pain management as well as spine surgeon Anna Mendoza with scheduled upcoming epidural 10/22/2023 with worsened lumbar pain as well as right lower extremity radiculopathy worse with movement with intermittent paresthesias to both lower extremities prompting eventual ED evaluation. 1. Acute Intractable Back Pain, lumbar with right lower extremity radiculopathy and lower extremity paresthesias bilaterally: 04/07/2023 most recent MRI lumbar spine with multilevel degenerative disc and joint disease in the lumbar spine superimposed upon congenitally small spinal canal, most focal L4-5 level right-sided disc extrusion contributing to moderate to severe spinal canal stenosis and effacement of the right lateral recess with mass effect upon the descending right L5 nerve root, mild spinal canal stenosis L2-3 and L3-4 with underlying congenital component, admitted to medical surgical floor, had per her report planned upcoming epidural at [facility] with pain management however from online notes reportedly 10/03/2023 they had referred her to IR for the epidural injection given inability to, your habitus, continued Tylenol scheduled, tizanidine, as needed oxycodone, Toradol IV 30 mg every 6 hours, continued on home baclofen, prednisone therapy, ongoing gabapentin regimen with OARRS performed during presentation. Awaiting PT and OT assessments and if patient is able to discharged with walker/wheelchair which she normally uses would plan discharge with planned follow-up 10/22/2023 for IR directed epidural. Discussed patient with pain management and she was taken 10/22/2023 to the OR with epidural performed there. Lengthy discussion and patient will plan to follow-up with pain management [facility] however she will have 2-week follow-up with local pain management who performed her recent injection. 10/23/23-10/24/23 reduced pain regimen requests and able to perform more activities in the bed. Still severe pain with ambulator attempts. 10/24/2023-10/25/2023 patient with increased debility, pain although was able to get out of bed but two-person assist with increased pain level even at rest since day prior. Given debility 10/25/2023 added fentanyl patch and this will be increased in dose 10/26/2023, continued on oral prednisone therapy, already received series of Toradol, maintain on baclofen, continued on high-dose scheduled Tylenol, continued on gabapentin, continued on oral narcotic therapy. 10/26/2023 discussions with significant patient and plan as of now is that patient will have assist with sitting position to be able to get out of bed to work with therapies as she is very anxious about doing this and this is her biggest kendra. Discussed with patient that she is unable to be prior authorized for a skilled facility because they feel that she is not able to work with therapy adequately to necessitate this at this moment and should be further pain control inpatient. 2. Adult failure to thrive secondary to #1, significant morbid obesity as well as other chronic conditions as noted: Continue evaluation and treatment as noted, PT/OT/case visit consulted, status post injection per patient management in OR 10/22/23 but still significantly debilitated, ongoing PT/OT with hold on SNF placement as they feel she needs more inpatient pain control prior to transition. 3. Hypertension: Continue home regimen including hydrochlorothiazide, lisinopril, PRN hydralazine. 4. Hyperlipidemia: Continue patient on statin therapy. 5. Diabetes mellitus type II: Maintained on oral metformin, plan resumption of Trulicity at discharge, ADA diet, accu checks w/ ISS. 6. Depression and anxiety: Will continue patient home BuSpar, hydroxyzine and fluoxetine home regimen. 7. Morbid Obesity: Weight loss and lifestyle changes encouraged, encouraged continued outpatient follow-up with bariatric/nutrition and already preset up weight loss program. 8. HAILEY: CPAP nightly. 9. DVT prophylaxis: Lovenox. Charges/Coding Visit Charges Inpatient E&M: 18975 Subs Hosp L2
[2023-10-26 08:29] VITALS: BP 130/75; PULSE 103; RESP 18; TEMP 37.8; O2SAT 96
[2023-10-26] MEDS: Docusate Sodium 100 MG Capsule PO ×2 (08:43→21:15)
[2023-10-26] MEDS: Cholecalciferol (VIT D3) 25 MCG TABLET (1,000 UNITS) PO (08:43)
[2023-10-26] MEDS: Lisinopril 40 MG Tablet PO (08:44)
[2023-10-26] MEDS: hydroCHLOROthiazide 25 MG Tablet PO (08:45)
[2023-10-26] MEDS: predniSONE 20 MG Tablet 40 MG PO (08:45)
[2023-10-26] MEDS: Pantoprazole Sodium 40 MG Tablet PO (08:45)
[2023-10-26] MEDS: Enoxaparin 40 MG/0.4 ML Syringe SC ×2 (08:46→21:16)
[2023-10-26] MEDS: busPIRone 15 MG TABLET 7.5 MG PO ×2 (08:47→21:14)
[2023-10-26] MEDS: Fluoxetine HCl 40 MG CAPSULE PO (08:48)
[2023-10-26] MEDS: NORETHINDRONE 0.35 MG TABLET 0.349999999999999978 MG PO (08:50)
[2023-10-26] MEDS: metFORMIN HCl 1,000 MG Tablet 1000 MG PO ×2 (08:52→17:38)
[2023-10-26] MEDS: Senna/Docusate Sodium 1 Tablet 2 TABLET PO (09:10)
[2023-10-26] MEDS: tiZANidine HCl 2 MG Tablet 4 MG PO ×2 (09:10→17:46)
[2023-10-26 12:14] LABS: Bedside Glucose 143 mg/dL (74-106)
[2023-10-26 15:15] VITALS: BP 125/70; PULSE 90; RESP 18; TEMP 36.8; O2SAT 96
--- NOTE | 2023-10-26 17:03 | NURSING ---
Pt was motivated to try to get into the shower. Fentanyl patch covered with plastic wrap and pt was able to sit on the edge of the bed and dangle her feet. Got to the laying sitting position by herself. Pt said that was not able to do that before. Pt then stood up on her own and used her walker and walked to the shower where she sat down and was able to shower herself. Pt assisted back to bed after shower.
[2023-10-26 17:57] LABS: Bedside Glucose 138 mg/dL (74-106)
[2023-10-26 20:47] VITALS: BP 91/57; PULSE 77; RESP 18; TEMP 36.7; O2SAT 96
[2023-10-26] MEDS: Atorvastatin Calcium 10 MG Tablet PO (21:16)
[2023-10-26 22:31] LABS: Bedside Glucose 148 mg/dL (74-106)
[2023-10-27 02:26] VITALS: BP 112/68; PULSE 76; RESP 16; TEMP 36.7; O2SAT 98
[2023-10-27] MEDS: Gabapentin 400 MG Capsule 800 MG PO ×3 (05:33→22:54)
[2023-10-27] MEDS: oxyCODONE 5 MG Tablet 10 MG PO ×3 (05:33→22:54)
[2023-10-27] MEDS: Acetaminophen 500 MG Tablet 1000 MG PO ×3 (05:33→22:56)
[2023-10-27 05:35] VITALS: BP 126/82; PULSE 86; RESP 18; TEMP 36.6; O2SAT 98
--- NOTE | 2023-10-27 06:09 | PN.HOSP_ITS ---
Reason for Visit Reason for Visit: Diagnoses Spinal stenosis, lumbar region without neurogenic claudication (10/20/23) Radiculopathy, site unspecified (10/20/23) Sciatica, unspecified side (10/20/23) Dorsalgia, unspecified (10/20/23) Difficulty in walking, not elsewhere classified (10/20/23) Subjective Subjective Patient worked well with physical and Occupational Therapy the day prior and was able to move and work with therapies with greater ease, pain decreased with activity. She notes that the fentanyl patch has helped and also being assisted up she is able to do more when she is able to at least be standing. She currently rates pain 3-4 out of 10 in severity at rest which is improved from day prior. She notes when she is been up and moving her pain is also lessened to 7-8 out of 10 in severity. Patient denies fevers, chills, nausea, emesis, abdominal pain, chest pain or dyspnea. Objective Data Objective Data Vital Signs: Vital Signs Temp Pulse Resp BP Pulse Ox O2 Del Method 97.8 F 86 18 126/82 H 98 Room Air 10/27/23 05:35 10/27/23 05:35 10/27/23 05:35 10/27/23 05:35 10/27/23 05:35 10/27/23 05:35 Oxygen Delivery Method Room Air Weight: 501 lb Body Mass Index (BMI) 83.3 Intake & Output: Intake and Output for Last 24 Hours 10/25/23 10/26/23 10/27/23 23:59 23:59 23:59 Intake Total 900 / 1140 300 / 300 Output Total 1400 / 1400 1600 / 1600 Balance -1400 / -1400 -700 / -460 300 / 300 Lab / Micro Data 10/22/23 06:23 10/22/23 06:23 Labs: Laboratory Results - last 24 hr 10/26/23 05:54: POC Glucose 90 10/26/23 11:55: POC Glucose 143 H 10/26/23 17:36: POC Glucose 138 H 10/26/23 21:12: POC Glucose 148 H Physical Exam Narrative Physical Examination: General: Awake, alert, oriented x 3 and cooperative, laying in the MS bed, more interactive and cheerful this morning, notes pain continues but is lessened with fentanyl patch, she notes she did better than she thought she would with therapies the day prior. Skin: Normal color, normal turgor, no icterus, no cyanosis except occasional staged ecchymoses. HEENT: AT/NC, EOMI, PERRLA, MMM. Lungs: Distant, diminished, greater decrease BL bases, no rales, ronchi or wheezing. Heart: Regular rate and rhythm; no gallop, rub audible. Abdomen: Soft, morbidly obese, NTTP, ND, normal BS. Extremities: No cyanosis, no clubbing, significant chronic lower extremity lymphedema. Neurological: Patient awake, alert, oriented as noted, cognitive function intact; pupils equally reactive to light and accommodation, cranial nerves grossly normal, moving all 4 extremities, remains anxious about getting out of bed, strength severely globally decreased. Psychiatric: Affect appears more cheerful, no evidence of depressive or anxiety feelings. Assessment & Plan Assessment/Plan (1) Intractable back pain: PLAN: Plan The patient is a 38 y/o F w/ PMHx: Morbid Obesity, HAILEY, HTN, HLD, Anxiety and Depression, Diabetes mellitus type II who presents to the [facility] ED on 10/18/23 with history of intractable back pain with history of chronic back pain with MRI with stenosis L3-L5 following with pain management as well as spine surgeon Anna Mendoza with scheduled upcoming epidural 10/22/2023 with worsened lumbar pain as well as right lower extremity radiculopathy worse with movement with intermit tent paresthesias to both lower extremities prompting eventual ED evaluation. 1. Acute Intractable Back Pain, lumbar with right lower extremity radiculopathy and lower extremity paresthesias bilaterally: 04/07/2023 most recent MRI lumbar spine with multilevel degenerative disc and joint disease in the lumbar spine superimposed upon congenitally small spinal canal, most focal L4-5 level right-sided disc extrusion contributing to moderate to severe spinal canal stenosis and effacement of the right lateral recess with mass effect upon the descending right L5 nerve root, mild spinal canal stenosis L2-3 and L3-4 with underlying congenital component, admitted to medical surgical floor, had per her report planned upcoming epidural at [facility] with pain management however from online notes reportedly 10/03/2023 they had referred her to IR for the epidural injection given inability to, your habitus, continued Tylenol scheduled, tizanidine, as needed oxycodone, Toradol IV 30 mg every 6 hours, continued on home baclofen, prednisone therapy, ongoing gabapentin regimen with OARRS performed during presentation. Awaiting PT and OT assessments and if patient is able to discharged with walker/wheelchair which she normally uses would plan discharge with planned follow-up 10/22/2023 for IR directed epidural. Discussed patient with pain management and she was taken 10/22/2023 to the OR with epidural performed there. Lengthy discussion and patient will plan to follow-up with pain management [facility] however she will have 2-week follow-up with local pain management who performed her recent injection. 10/23/23-10/24/23 reduced pain regimen requests and able to perform more activities in the bed. Still severe pain with ambulator attempts. 10/24/2023-10/25/2023 patient with increased debility, pain although was able to get out of bed but two-person assist with increased pain level even at rest since day prior. Given debility 10/25/2023 added fentanyl patch and this will be increased in dose 10/26/2023, continued on oral prednisone therapy, already received series of Toradol, maintained on baclofen, continued on high- dose scheduled Tylenol, continued on gabapentin, continued on oral narcotic therapy. 10/26/2023 discussed with physical and occupational therapy and staff and they assisted in getting her up so that she could work with therapies as the biggest kendra patient has is from laying to the standing position. Patient did much better with physical therapy. 10/27/2023 pain improved, will continue this regimen as noted, suspect she will likely be able to transition to skilled therapy now as prior they declined her as they felt her pain was not controlled enough and she was not performing enough activity with therapies. Possible 10/28/2019 for discharge to SNF with paperwork and medications scripts already done, will await to see if insurance now approves her. 2. Adult failure to thrive secondary to #1, significant morbid obesity as well as other chronic conditions as noted: Continue evaluation and treatment as noted, PT/OT/case visit consulted, status post injection per patient management in OR 10/22/23 but still significantly debilitated, ongoing PT/OT with hold on SNF placement as they felt she needed more inpatient pain control prior to transition, to 08/09 as noted improved, working better with therapy, possible allowance of discharge to skilled 10/28/2023 but will have to await insurance input. 3. Hypertension: Continue home regimen including hydrochlorothiazide, lisinopril, PRN hydralazine. 4. Hyperlipidemia: Continue patient on statin therapy. 5. Diabetes mellitus type II: Maintained on oral metformin, plan resumption of Trulicity at discharge, ADA diet, accu checks w/ ISS. 6. Depression and anxiety: Will continue patient home BuSpar, hydroxyzine and fluoxetine home regimen. 7. Morbid Obesity: Weight loss and lifestyle changes encouraged, encouraged continued outpatient follow-up with bariatric/nutrition and already preset up weight loss program. 8. HAILEY: CPAP nightly. 9. DVT prophylaxis: Lovenox. Charges/Coding Visit Charges Inpatient E&M: 41934 Subs Hosp L2
[2023-10-27 06:48] LABS: Bedside Glucose 85 mg/dL (74-106)
[2023-10-27] MEDS: Enoxaparin 40 MG/0.4 ML Syringe SC ×2 (09:37→22:56)
[2023-10-27] MEDS: busPIRone 15 MG TABLET 7.5 MG PO ×2 (09:38→22:56)
[2023-10-27] MEDS: hydroCHLOROthiazide 25 MG Tablet PO (09:38)
[2023-10-27] MEDS: Fluoxetine HCl 40 MG CAPSULE PO (09:39)
[2023-10-27] MEDS: predniSONE 20 MG Tablet 40 MG PO (09:40)
[2023-10-27] MEDS: metFORMIN HCl 1,000 MG Tablet 1000 MG PO ×2 (09:40→17:37)
[2023-10-27] MEDS: Docusate Sodium 100 MG Capsule PO (09:40)
[2023-10-27] MEDS: Cholecalciferol (VIT D3) 25 MCG TABLET (1,000 UNITS) PO (09:41)
[2023-10-27] MEDS: Pantoprazole Sodium 40 MG Tablet PO (09:41)
[2023-10-27] MEDS: Lisinopril 40 MG Tablet PO (09:42)
[2023-10-27] MEDS: NORETHINDRONE 0.35 MG TABLET 0.349999999999999978 MG PO (09:42)
[2023-10-27 09:44] VITALS: BP 139/71; PULSE 80; RESP 17; TEMP 36.4; O2SAT 96
[2023-10-27] MEDS: tiZANidine HCl 2 MG Tablet 4 MG PO ×2 (11:59→22:54)
[2023-10-27 12:17] LABS: Bedside Glucose 110 mg/dL (74-106)
[2023-10-27 15:20] VITALS: BP 107/64; PULSE 82; RESP 18; TEMP 36.9; O2SAT 95
[2023-10-27 18:00] LABS: Bedside Glucose 153 mg/dL (74-106)
[2023-10-27] MEDS: Atorvastatin Calcium 10 MG Tablet PO (22:54)
[2023-10-27 23:20] VITALS: BP 126/76; PULSE 70; RESP 16; TEMP 36.1; O2SAT 94
[2023-10-27 23:36] LABS: Bedside Glucose 123 mg/dL (74-106)
[2023-10-28 06:10] LABS: Absolute Lymphocyte Count 2.69 X10^3/uL (0.83-4.51); Absolute Neutrophil Count 5.2 X10^3/uL (2.0-7.7); Basophil# 0.04 X10^3/uL; Basophil% 0.4 % (0-1); Eosinophil# 0.07 X10^3/uL; Eosinophils% 0.8 % (0-5); Hematocrit 41.8 % (37-47); Hemoglobin 13.5 g/dL (12.0-15.0); Lymphocyte # 2.69 X10^3/ul (0.83-4.51); Lymphocyte % 30.2 % (19-41); Mean Corp Hgb Conc 32.3 g/dL (32-36); Mean Corpuscular Hgb 28.2 pg (27.0-32.0); Mean Corpuscular Volume 87.3 fL (81-99); Mean Platelet Vol. 10.7 fl (6.2-12.0); Monocyte% 10.1 % (0-10); NRBC Flagged by Analyzer 0 % (0-5); Neutrophil # 5.16 X10^3/uL (2.7-7.7); Neutrophil % 57.9 % (47-70); Platelet Count 276 K/mm3 (150-450); RBC Distribution Width CV 13.3 % (11.6-14.6); RBC Distribution Width SD 42.9 fl (35.1-43.9); Red Blood Count 4.79 M/mm3 (4.2-5.4); White Blood Count 8.9 K/mm3 (4.4-11.0)
[2023-10-28] MEDS: Gabapentin 400 MG Capsule 800 MG PO ×3 (06:39→22:35)
[2023-10-28] MEDS: Acetaminophen 500 MG Tablet 1000 MG PO ×3 (06:40→22:33)
[2023-10-28] MEDS: tiZANidine HCl 2 MG Tablet 4 MG PO ×2 (06:40→22:33)
[2023-10-28] MEDS: oxyCODONE 5 MG Tablet 10 MG PO ×3 (06:40→18:29)
[2023-10-28 06:47] LABS: Anion Gap 8 (5-15); BUN 27 mg/dL (7-18); BUN/Creat Ratio 36.2 RATIO (10-20); Chloride 100 mmol/L (98-107); Creatinine, Serum 0.75 mg/dL (0.55-1.02); EST Glomerular Filtration Rate 91 mL/min (>60); Est Glom Filt Rate - Afr Amer 111 mL/min (>60); Estimated Creatinine Clearance 196.92 ml/min; Glucose 108 mg/dL (74-106); Potassium 3.9 mmol/L (3.5-5.1); Sodium Level 135 mmol/L (136-145)
[2023-10-28 06:51] VITALS: BP 112/79; PULSE 80; RESP 16; TEMP 36.1; O2SAT 95
[2023-10-28 07:05] LABS: Bedside Glucose 111 mg/dL (74-106)
[2023-10-28] MEDS: metFORMIN HCl 1,000 MG Tablet 1000 MG PO ×2 (07:38→16:08)
[2023-10-28] MEDS: predniSONE 20 MG Tablet 40 MG PO (07:38)
[2023-10-28 07:44] VITALS: BP 113/76; PULSE 69; RESP 16; TEMP 36.8; O2SAT 96
--- NOTE | 2023-10-28 09:15 | CASEMGMT ---
[facility] Planning Clinical updates sent to [facility]. Requested precert to be re-submitted. Rosina Thompson, Discharge Planning Asst.
[2023-10-28 09:25] VITALS: RESP 18
[2023-10-28] MEDS: busPIRone 15 MG TABLET 7.5 MG PO ×2 (10:53→22:32)
[2023-10-28] MEDS: hydrOXYzine 10 MG Tablet PO (10:53)
[2023-10-28] MEDS: hydroCHLOROthiazide 25 MG Tablet PO (10:53)
[2023-10-28] MEDS: Docusate Sodium 100 MG Capsule PO ×2 (10:53→22:34)
[2023-10-28] MEDS: Pantoprazole Sodium 40 MG Tablet PO (10:53)
[2023-10-28] MEDS: Fluoxetine HCl 40 MG CAPSULE PO (10:54)
[2023-10-28] MEDS: Lisinopril 40 MG Tablet PO (10:54)
[2023-10-28] MEDS: Enoxaparin 40 MG/0.4 ML Syringe SC ×2 (10:54→22:34)
[2023-10-28] MEDS: Cholecalciferol (VIT D3) 25 MCG TABLET (1,000 UNITS) PO (10:54)
[2023-10-28] MEDS: NORETHINDRONE 0.35 MG TABLET 0.349999999999999978 MG PO (10:55)
--- NOTE | 2023-10-28 11:26 | CASEMGMT ---
Social Work As per physician, pt now wants to go home and not to SNF. As per zelda Almaguer/mynor program support assistant, if SNF is needed we need to do an appeal, cannot just start a new precert. SW asked PT/OT to see pt earlier if possible and practice steps w/her. If pt is able, will plan for home. If pt is not able to manage, then will need to explore appealing the denial by insurance. GEOVANY Fraire
[2023-10-28 11:45] LABS: Bedside Glucose 150 mg/dL (74-106)
[2023-10-28] MEDS: Baclofen 10 MG Tablet PO (12:30)
--- NOTE | 2023-10-28 15:30 | CASEMGMT ---
Social Work With physical and occupational therapy today and how patient did in therapy. Therapy staff reported the patient did much better getting out of bed and was able to walk down the hallway to the therapy room. Patient was however only able to take two steps in at least five steps into the home. Patient is doing better, and pain appears to be better controlled, as to the movement of takings that still a challenge for the patient. Recommendations still be for patient to continue with therapy after leaving the hospital. Spoke with Dr. Ro and physician would be willing to do a peer to peer call to assist the appeal process regarding [employer] denial for retirement facility coverage on Saturday10.25.23. Reviewed the directions for appeal, which was sent to the hospital by [facility]. Noted that patient is required to sign a consent form in writing, giving authorization of others to file the appeal on patient's behalf. This underwriter mortgage loan unable to find the consent form online so called member services and explained what was needed. . Spoke with Uma who informed this underwriter mortgage loan that she talked to somebody on the peer to peer line, . Called the peer to peer number given and this was a behavioral health line. Spoke with Lyndon who did not have ready access to the physical health peer to peer line but would research on this underwriter mortgage loan's behalf and call this underwriter mortgage loan back. Met with patient and patient's betsy Apple to update. Patient reports to be feeling much better today, was able to get a shower over the weekend and was dressed in pajamas, describing that feels a better sense of dignity now. Patient reports pain is better controlled, but admits taking the steps is still a challenge. Patient agreeable with hospital working on the appeal process but ultimately hopes to be able to return home. Problem solved if patient would be able to stay on the first floor, if able to return home. Irma and Zechariah discussed moving one of the beds from the second floor down to the main floor where patient could reside temporarily. Zecharaih voiced positivity and belief that patient could soon manage the steps to enter the home. Supportive listening and emotional support provided. Called the member services number , to see if could get the physical health peer to peer number. Spoke with Nadeem about what this underwriter mortgage loan was looking for. Nadeem provided the physical health peer to peer number as . Nadeem informed this underwriter mortgage loan that Nadeem can actually take a verbal request for appeal on the patient's behalf, due to patient being in the hospital. Nadeem agreeable to submit the verbal appeal as an expedited appeal which will take up to 72 hours for decision. Nadeem reports it is not quite at the level to do a provider peer to peer call yet, only if this verbal request being made today is upheld in the denial. Provided verbal request for appeal, based on reports by therapy about patient's pain being better controlled and able to work with therapy today. Reference ID for request for expedited appeal is [id number]. Updated Dr. Ro, patient, and patient's betsy Apple. Plan: awaiting appeal outcome for retirement facility. -GEOVANY Garcia, WAISTLINE JOINER *This note was generated with Perpetu dictation software. It may contain incorrect words, spelling, and punctuation that were not noted in review of the chart prior to signing*
[2023-10-28] MEDS: Insulin Lispro 100 UNIT/ML INSULN.PEN SC (16:08)
[2023-10-28 16:13] VITALS: BP 118/59; PULSE 77; RESP 18; TEMP 37.2; O2SAT 96
[2023-10-28 16:38] LABS: Bedside Glucose 158 mg/dL (74-106)
--- NOTE | 2023-10-28 17:13 | PN.HOSP_ITS ---
Reason for Visit Reason for Visit: Diagnoses Spinal stenosis, lumbar region without neurogenic claudication (10/20/23) Radiculopathy, site unspecified (10/20/23) Sciatica, unspecified side (10/20/23) Dorsalgia, unspecified (10/20/23) Difficulty in walking, not elsewhere classified (10/20/23) Subjective Subjective Patient was seen and examined today, patient states her back discomfort is improving, she walked with physical therapy today but could only walk a few steps and so I did not think that it was appropriate that she be discharged home. We are attempting to get her placed in a [facility] facility for short-term rehab services, she was initially refused due to the fact she was needing pain medications. Objective Data Objective Data Vital Signs: Vital Signs Temp Pulse Resp BP Pulse Ox O2 Del Method 98.9 F 77 18 118/59 L 96 Room Air 10/28/23 16:13 10/28/23 16:13 10/28/23 16:13 10/28/23 16:13 10/28/23 16:13 10/28/23 16:13 Oxygen Delivery Method Room Air Weight: 227.25 kg Body Mass Index (BMI) 83.3 Intake & Output: Intake and Output for Last 24 Hours 10/26/23 10/27/23 10/28/23 23:59 23:59 23:59 Intake Total 900 / 1140 1120 / 1120 850 / 850 Output Total 1600 / 1600 Balance -700 / -460 1120 / 1120 850 / 850 Lab / Micro Data 10/28/23 05:36 10/28/23 05:36 Labs: Laboratory Results - last 24 hr 10/27/23 17:34: POC Glucose 153 H 10/27/23 23:02: POC Glucose 123 H 10/28/23 05:36: WBC 8.9, RBC 4.79, Hgb 13.5, Hct 41.8, MCV 87.3, MCH 28.2, MCHC 32.3, RDW Std Deviation 42.9, RDW Coeff of Chantal 13.3, Plt Count 276, MPV 10.7, Immature Gran % (Auto) 0.600, Neut % (Auto) 57.9, Lymph % (Auto) 30.2, Coles % (Auto) 10.1 H, Eos % (Auto) 0.8, Baso % (Auto) 0.4, Absolute Neuts (auto) 5.2, Absolute Lymphs (auto) 2.69, Nucleated RBC % 0, Sodium 135 L, Potassium 3.9, Chloride 100, Carbon Dioxide 27.0, Anion Gap 8, BUN 27 H, Creatinine 0.75, Estim Creat Clear Calc 196.92, Est GFR (MDRD) Af Amer 111, Est GFR (MDRD) Non-Af 91, BUN/Creatinine Ratio 36.2 H, Glucose 108 H, Calcium 9.0 10/28/23 06:43: POC Glucose 111 H 10/28/23 11:23: POC Glucose 150 H 10/28/23 16:03: POC Glucose 158 H Physical Exam Const alert, oriented x3 and no apparent distress Constitutional Narrative: Patient is morbidly obese HEENT head/scalp atraumatic and moist oral mucous membranes Eyes EOMs intact bilaterally and conjunctivae normal Neck supple and no JVD Resp normal respiratory effort, no retractions, no use of accessory muscles and clear to auscultation bilaterally Cardio regular rate, regular rhythm, S1 normal heart sound, S2 normal heart sound, no murmurs and no rub GI normal to inspection, nondistended, normoactive bowel sounds, soft to palpation, non-tender and non-distended GI Narrative: Patient is morbidly obese Extremity normal to inspection Neuro oriented x3, CN's II-XII intact bilaterally, moves all extremities and no focal motor deficits Psych affect normal Assessment & Plan Assessment/Plan (1) Intractable back pain: PLAN: Plan 1. Intractable back pain secondary to degenerative disc disease of the lumbar spine-continue present treatment at this time, if patient is discharged home, I will transition her off her fentanyl patch. #2 acute debility secondary to #1-again PT and OT are seeing patient, she may need short-term placement in a skilled facility for rehab services. #3 type 2 diabetes-blood sugars will be monitored, sliding scale insulin will be given as needed #4 essential hypertension-patient will remain on her present medications Total clinical time spent by myself addressing the patient's medical issues, re viewing all of her data, and collaborating with patient's care team: 25 minutes Charges/Coding Visit Charges Inpatient E&M: 00245 Subs Hosp L1
[2023-10-28 17:19] VITALS: RESP 18
[2023-10-28 21:47] LABS: Bedside Glucose 134 mg/dL (74-106)
[2023-10-28] MEDS: Atorvastatin Calcium 10 MG Tablet PO (22:34)
[2023-10-28 22:35] VITALS: BP 131/80; PULSE 73; RESP 18; TEMP 36.7; O2SAT 98
[2023-10-29 03:59] VITALS: BP 101/61; PULSE 73; RESP 16; TEMP 36.8; O2SAT 95
[2023-10-29] MEDS: oxyCODONE 5 MG Tablet 10 MG PO ×2 (04:07→19:01)
[2023-10-29] MEDS: tiZANidine HCl 2 MG Tablet 4 MG PO ×2 (06:10→21:43)
[2023-10-29] MEDS: Acetaminophen 500 MG Tablet 1000 MG PO ×3 (06:10→21:43)
[2023-10-29] MEDS: Gabapentin 400 MG Capsule 800 MG PO ×3 (06:10→21:42)
[2023-10-29 06:41] LABS: Bedside Glucose 88 mg/dL (74-106)
[2023-10-29] MEDS: metFORMIN HCl 1,000 MG Tablet 1000 MG PO ×2 (08:20→16:18)
[2023-10-29] MEDS: predniSONE 20 MG Tablet 40 MG PO (08:21)
[2023-10-29 08:23] VITALS: BP 124/74; PULSE 74; RESP 18; TEMP 36.7; O2SAT 96
--- NOTE | 2023-10-29 08:52 | CASEMGMT ---
Social Work Keyonna from [facility] called and left a message for d/c assistant professor of surgery, Rosina. OMEGA called Keyonna back([phone]), she states would like new therapy notes. OMEGA faxed new therapy notes to , reference number [id number]. OMEGA will await answer on precert. GEOVANY Fraire
[2023-10-29 08:57] VITALS: RESP 18
[2023-10-29] MEDS: hydroCHLOROthiazide 25 MG Tablet PO (10:12)
[2023-10-29] MEDS: Fluoxetine HCl 40 MG CAPSULE PO (10:12)
[2023-10-29] MEDS: Cholecalciferol (VIT D3) 25 MCG TABLET (1,000 UNITS) PO (10:12)
[2023-10-29] MEDS: Docusate Sodium 100 MG Capsule PO ×2 (10:13→21:42)
[2023-10-29] MEDS: Lisinopril 40 MG Tablet PO (10:13)
[2023-10-29] MEDS: busPIRone 15 MG TABLET 7.5 MG PO ×2 (10:13→21:46)
[2023-10-29] MEDS: Pantoprazole Sodium 40 MG Tablet PO (10:13)
[2023-10-29] MEDS: NORETHINDRONE 0.35 MG TABLET 0.349999999999999978 MG PO (10:13)
[2023-10-29] MEDS: Enoxaparin 40 MG/0.4 ML Syringe SC ×2 (10:14→21:48)
--- NOTE | 2023-10-29 10:38 | CASEMGMT ---
Social Work SW spoke w/pt in regard to discharge plan. SW explained we are waiting to hear back from insurance, they did ask for updates today. SW asked pt if she felt she could go home or if [facility]. Pt states wants to see how it goes with stairs today. If she can negotiate 5 stairs she wants to go home, and would want a hospital bed. SW waiting for therapy to see pt and will follow up after. GEOVANY Fraire
[2023-10-29 12:30] LABS: Bedside Glucose 109 mg/dL (74-106)
--- NOTE | 2023-10-29 13:14 | CASEMGMT ---
PT and OT still need to see the pt today. The pt DC plan depends on how the pt does with therapy. ANASTASIIA CM to pt room at this time for discuss DC planning (Possible HHC). Pt is asleep at this time. Will follow at a later time if warranted.
--- NOTE | 2023-10-29 14:01 | CASEMGMT ---
Social Work SW called Keyonna at [facility] to see if a decision has been made on authorizing pt to go to [facility]. Keyonna states she did not receive the information yet that the SW faxed. OMEGA explained it was faxed at 9am. She is going to check and will call OMEGA back by 3pm if it was not received. PT/OT still pending for today. GEOVANY Fraire
--- NOTE | 2023-10-29 15:20 | CASEMGMT ---
Social Work SW spoke w/PT and OT, pt was not able to do as much today. SW spoke w/pt again. SW explained still waiting to hear back from insurance. Pt feels like overall she is moving better but it ebbs and flows. She states that she is starting to get up and get to the bathroom on her own. SW asked if she were to go home would she want home health, pt states she would like to get back to aquatherapy at the pool. SW explained we will continue to work on SNF placement but will check back tomorrow, pt does feel that she is getting closer to being able to get home. GEOVANY Fraire
--- NOTE | 2023-10-29 15:35 | PCM.PN.HOSP ---
Reason for Visit Reason for Visit: Diagnoses Spinal stenosis, lumbar region without neurogenic claudication (10/20/23) Radiculopathy, site unspecified (10/20/23) Sciatica, unspecified side (10/20/23) Dorsalgia, unspecified (10/20/23) Difficulty in walking, not elsewhere classified (10/20/23) Subjective Subjective Patient was seen and examined today, she was unable to ambulate up stairs today with physical therapy. She will need temporary placement in a long term facility for rehab services. Objective Data Objective Data Vital Signs: Vital Signs Temp Pulse Resp BP Pulse Ox O2 Del Method 98.0 F 74 18 124/74 H 96 Room Air 10/29/23 08:23 10/29/23 08:23 10/29/23 08:57 10/29/23 08:23 10/29/23 08:23 10/29/23 08:57 Oxygen Delivery Method Room Air Weight: 227.25 kg Body Mass Index (BMI) 83.3 Intake & Output: Intake and Output for Last 24 Hours 10/27/23 10/28/23 10/29/23 23:59 23:59 23:59 Intake Total 1120 / 1120 1650 / 1650 800 / 800 Balance 1120 / 1120 1650 / 1650 800 / 800 Lab / Micro Data 10/28/23 05:36 10/28/23 05:36 Labs: Laboratory Results - last 24 hr 10/28/23 16:03: POC Glucose 158 H 10/28/23 21:30: POC Glucose 134 H 10/29/23 06:19: POC Glucose 88 10/29/23 12:09: POC Glucose 109 H Physical Exam Narrative alert, oriented x3 and no apparent distress Constitutional Narrative: Patient is morbidly obese HEENT head/scalp atraumatic and moist oral mucous membranes Eyes EOMs intact bilaterally and conjunctivae normal Neck supple and no JVD Resp normal respiratory effort, no retractions, no use of accessory muscles and clear to auscultation bilaterally Cardio regular rate, regular rhythm, S1 normal heart sound, S2 normal heart sound, no murmurs and no rub GI normal to inspection, nondistended, normoactive bowel sounds, soft to palpation, non-tender and non-distended GI Narrative: Patient is morbidly obese Extremity normal to inspection Neuro oriented x3, CN's II-XII intact bilaterally, moves all extremities and no focal motor deficits Psych affect normal Assessment & Plan Assessment/Plan (1) Lumbar stenosis: (2) Intractable back pain: PLAN: Plan 1. Intractable back pain secondary to degenerative disc disease of the lumbar spine-continue present treatment at this time, patient will need temporary placement in a long term facility for short-term rehab services. #2 acute debility secondary to #1-again PT and OT are seeing patient #3 type 2 diabetes-blood sugars will be monitored, sliding scale insulin will be given as needed #4 essential hypertension-patient will remain on her present medications #5 morbid obesity-complicates care, medical course, recovery, and prognosis Total clinical time spent by myself addressing the patient's medical issues, reviewing all of her data, and collaborating with patient's care team: 25 minutes Charges/Coding Visit Charges Inpatient E&M: 21910 [facility] Hosp L1
[2023-10-29 16:16] VITALS: BP 117/61; PULSE 70; RESP 18; TEMP 36.4; O2SAT 96
[2023-10-29] MEDS: Insulin Lispro 100 UNIT/ML INSULN.PEN SC (16:19)
[2023-10-29 16:39] LABS: Bedside Glucose 188 mg/dL (74-106)
[2023-10-29 17:00] VITALS: RESP 18
[2023-10-29 21:19] LABS: Bedside Glucose 122 mg/dL (74-106)
[2023-10-29 21:29] VITALS: BP 118/69; PULSE 96; RESP 18; TEMP 36.7; O2SAT 96
[2023-10-29] MEDS: Atorvastatin Calcium 10 MG Tablet PO (21:46)
[2023-10-30 06:00] VITALS: BP 124/76; PULSE 89; RESP 16; TEMP 36.5; O2SAT 95
[2023-10-30] MEDS: tiZANidine HCl 2 MG Tablet 4 MG PO ×2 (06:01→15:50)
[2023-10-30] MEDS: Gabapentin 400 MG Capsule 800 MG PO ×3 (06:01→21:41)
[2023-10-30] MEDS: Acetaminophen 500 MG Tablet 1000 MG PO ×3 (06:01→21:40)
[2023-10-30 06:24] LABS: Bedside Glucose 104 mg/dL (74-106)
[2023-10-30] MEDS: predniSONE 20 MG Tablet 40 MG PO (08:59)
[2023-10-30] MEDS: metFORMIN HCl 1,000 MG Tablet 1000 MG PO ×2 (08:59→17:58)
[2023-10-30 09:01] VITALS: BP 111/73; PULSE 90; RESP 18; TEMP 36.8; O2SAT 95
[2023-10-30] MEDS: Pantoprazole Sodium 40 MG Tablet PO (09:12)
[2023-10-30] MEDS: Cholecalciferol (VIT D3) 25 MCG TABLET (1,000 UNITS) PO (09:12)
[2023-10-30] MEDS: Lisinopril 40 MG Tablet PO (09:13)
[2023-10-30] MEDS: Fluoxetine HCl 40 MG CAPSULE PO (09:13)
[2023-10-30] MEDS: busPIRone 15 MG TABLET 7.5 MG PO ×2 (09:15→21:40)
[2023-10-30] MEDS: NORETHINDRONE 0.35 MG TABLET 0.349999999999999978 MG PO (09:16)
[2023-10-30] MEDS: Enoxaparin 40 MG/0.4 ML Syringe SC (09:17)
[2023-10-30] MEDS: hydroCHLOROthiazide 25 MG Tablet PO (09:17)
[2023-10-30] MEDS: oxyCODONE 5 MG Tablet 10 MG PO ×2 (09:23→19:05)
[2023-10-30 11:40] LABS: Bedside Glucose 106 mg/dL (74-106)
--- NOTE | 2023-10-30 12:58 | CASEMGMT ---
ANASTASIIA OSBORNE to pt room at this time to discuss DC planning. Pt states that she was unable to attempt steps today. Pt states that she has 5 steps to enter the home as well as a flight up steps to get to her bedroom and bathroom. Pt states that she does not feel comfortable going home at this time. OMEGA Rausch to pt room now to follow up with pt regarding [facility].
--- NOTE | 2023-10-30 14:17 | TREXTCAR_ITS ---
Diet Diet Order/Speech Therapy: 10/22/23 16:05 ADA [Diet: Cardiac: Calorie-Controlled] Is pt able to select menu?: Yes Diet Comments: NPO except sip water with meds How many daily calories?: 1600 calorie Routine Orders/Code Status Enema Type: Fleetz Enema Frequency: Daily PRN Suppository Type: Dulcolax 10mg Suppository Frequency: Daily PRN Keep PO Greater than or Equal to (%): 92 Code Status: Full Code Wound(s) LUMBAR BACK: Wound Type: Puncture Suggestions for Active Care Change Position every (hours): 2 Therapies Weight Bearing: Full weight bearing Physical Therapy: Eval and Treat Occupational Therapy: Eval and Treat Problem/Diagnosis (1) Lumbar stenosis: Status: Acute Code(s): M48.061 - Spinal stenosis, lumbar region without neurogenic claudication Comment: L3-l5 (2) Intractable back pain: Status: Acute Code(s): M54.9 - Dorsalgia, unspecified Comment: DISCHARGE DIAGNOSES: 1. Acute Intractable Back Pain, lumbar with right lower extremity radiculopathy and lower extremity paresthesias bilaterally (04/07/2023 most recent MRI lumbar spine with multilevel degenerative disc and joint disease in the lumbar spine superimposed upon congenitally small spinal canal, most focal L4-5 level right- sided disc extrusion contributing to moderate to severe spinal canal stenosis and effacement of the right lateral recess with mass effect upon the descending right L5 nerve root, mild spinal canal stenosis L2-3 and L3-4 with underlying congenital component) 2. Adult failure to thrive secondary to #1, significant morbid obesity as well as other chronic conditions as noted 3. Hypertension 4. Hyperlipidemia 5. Diabetes mellitus type II 6. Depression and anxiety 7. Morbid Obesity 8. HAILEY on CPAP nightly Plan 1. Intractable back pain secondary to degenerative disc disease of the lumbar spine-continue present treatment at this time, patient will need temporary placement in a group home facility for short-term rehab services. #2 acute debility secondary to #1-again PT and OT are seeing patient #3 type 2 diabetes-blood sugars will be monitored, sliding scale insulin will be given as needed #4 essential hypertension-patient will remain on her present medications #5 morbid obesity-complicates care, medical course, recovery, and prognosis Total clinical time spent by myself addressing the patient's medical issues, reviewing all of her data, and collaborating with patient's care team: 25 minutes Allergies/Procedures Done in Hospital Allergies Penicillins Allergy (Unknown, Verified 10/18/23 17:17) Other Procedures: - (10/22/23 Dr. Riky Hoffman L5-S1 Epidural steroid injection in the OR.) Type of Care/Length of Stay Estimated LOS: Convalescent Care Less Than 30 days Type of Care Needed: Skilled Rehab Potential: Fair Prognosis: Fair Additional Orders/Day of Discharge H&P will serve as current which was dated: 10/18/23 Day of Discharge: 10/30/23 Dietary and Speech Recommendations Dietitian Recommendations/Changes: Continue 1600 denise Consistent CHO diet as ordered Continue ONS w/ medpass d/t decreased po intake lighter captain. Available if additional diet education desired by pt. Discharge Plan Admission Admit Date/Time: 10/20/23 12:56 Primary Reason for Your Visit: Intractable back pain, Radiculopathy Attending Provider: Xavier Ro Primary Care Provider: Kavon Granda Consulting Providers: Kinsey Perez; Alex Garcia; Zaid Briceño; Fiona Alicea Instructions Additional Instructions / Restrictions: DISCHARGE ADDITIONAL: As discussed you may certainly continue to follow with pain management at [facility] at a call center; however, we do encourage that you at least follow-up in 2 weeks with pain management at [facility] given your recent injection to assure you are doing well. Discontinue prednisone, do not take Discharge Orders/Prescriptions Prescriptions: New tizanidine 2 mg Tablet 4 mg PO Q8H PRN PRN (Reason: spasms/musculoskeletal pain) 5 Days Qty: 30 0RF gabapentin 400 mg Capsule 800 mg PO TID 5 Days Qty: 30 0RF oxycodone 5 mg Tablet 10 mg PO Q4H PRN PRN (Reason: Pain Score 4-10) 4 Days Qty: 30 0RF melatonin 3 mg Tablet 3 mg PO QHS PRN PRN (Reason: Insomnia) Qty: 0 0RF docusate sodium 100 mg Capsule 100 mg PO BID Qty: 0 0RF insulin lispro [Humalog KwikPen Insulin] 100 unit/mL Insulin Pen See Protocol subcut ACHS Qty: 0 0RF Protocol: 4. Sliding Scale Insulin High-Med Dosing Condition: 150-199 mg/dl = 2 units Condition: 200-259 mg/dl = 4 units Condition: 260-324 mg/dl = 6 units Condition: 325-374 mg/dl = 8 units Condition: 375-409 mg/dl = 10 units Condition: 410-449 mg/dl = 11 units Condition: Greater than 449 call physician Protocol Text: - Use for Total Daily Dose of Insulin 56-80 units - Patient who are insulin resistant or septic HIGH MEDIUM DOSING ALGORITHM fentanyl 50 mcg/hr Patch 72 Hour 50 mcg transdermal Q72H 1 Days Qty: 5 0RF Continued atorvastatin 10 mg tablet 10 mg PO DAILY Patient Comments: TAKE 1 TABLET BY MOUTH DAILY cholecalciferol (vitamin D3) 25 mcg (1,000 unit) tablet 25 mcg PO DAILY Patient Comments: TAKE 1 TABLET BY MOUTH DAILY fluoxetine 40 mg capsule 40 mg PO DAILY Patient Comments: TAKE 1 CAPSULE BY MOUTH ONCE DAILY hydrochlorothiazide 25 mg tablet 25 mg PO DAILY Patient Comments: TAKE 1 TABLET BY MOUTH DAILY hydroxyzine HCl 25 mg tablet 12.5 mg PO TID PRN Patient Comments: Take 1 tablet by mouth three times daily as needed for anxiety. May take 1/2 tablet lisinopril 40 mg tablet 40 mg PO DAILY Patient Comments: TAKE 1 TABLET BY MOUTH DAILY metformin 1,000 mg tablet 1,000 mg PO BIDAC Patient Comments: TAKE 1 TABLET BY MOUTH TWICE DAILY WITH MEALS norethindrone (contraceptive) [Deblitane] 0.35 mg tablet 0.35 mg PO DAILY Patient Comments: Take 1 tablet orally once daily at the same time. acetaminophen 500 mg Tablet 1,000 mg PO Q8 Qty: 0 0RF Trulicity 0.75 mg/0.5 mL pen injector 0.75 mg SUBCUT .weekly Patient Comments: INJECT 0.75 mg SUBCUTANEOUSLY once weekly on diclofenac sodium 75 mg tablet,delayed release (DR/EC) 75 mg PO Q12H Patient Comments: Take 1 tablet by mouth two times a day. (DME) True Metrix Glucose Test Strip Strip MISCELLANEOUS Patient Comments: Test blood sugar(s) 1 times daily. baclofen 10 mg tablet 10 mg PO Q6H PRN (Reason: muscle spasm) 5 Days Qty: 20 0RF buspirone 7.5 mg tablet 7.5 mg PO BID 5 Days Qty: 10 0RF Patient Comments: Take 1 tablet by mouth twice daily. Discontinued gabapentin 400 mg Capsule 600 mg PO TID Referrals / Follow Up: Kavon Granda DO [Primary Care Provider] - Within 2 Weeks Riky Hoffman MD [Med Staff - Active Staff] - (Please follow-up in 2 weeks.) Disposition Disposition (needs filled in before D/C Order can be placed): [facility]
[2023-10-30 14:20] VITALS: BP 116/81; PULSE 76; RESP 18; TEMP 36.8; O2SAT 94
--- NOTE | 2023-10-30 14:27 | DS.PCM_ITS ---
Providers Date of Admission: 10/20/23 Date of Discharge: 10/30/23 Primary Care Physician: Dr. Kavon Granda, DO Consultations 10/21/23 12:13 Consult: Pain Management Routine Consulting Provider: Zaid Briceño Reason for Consult: Intractable back pain, consider injection EMERGENT Consult: No MD Notified: Yes Date Notified: 10/21/23 Time Notified: 12:14 Method of Notification: Verbal Reason For Visit: INTRACTABLE LBP Diagnosis Discharge Diagnosis (1) Lumbar stenosis: Status: Acute Code(s): M48.061 - Spinal stenosis, lumbar region without neurogenic claudication (2) Intractable back pain: Status: Acute Code(s): M54.9 - Dorsalgia, unspecified Plan 1. Intractable back pain secondary to degenerative disc disease of the lumbar spine-continue present treatment at this time, patient will need temporary placement in a chcf facility for short-term rehab services. #2 acute debility secondary to #1-again PT and OT are seeing patient #3 type 2 diabetes-blood sugars will be monitored, sliding scale insulin will be given as needed #4 essential hypertension-patient will remain on her present medications #5 morbid obesity-complicates care, medical course, recovery, and prognosis Total clinical time spent by myself addressing the patient's medical issues, reviewing all of her data, and collaborating with patient's care team: 25 minutes Medications at Discharge Home Medications atorvastatin 10 mg tablet 10 mg PO DAILY cholesterol 03/20/23 cholecalciferol (vitamin D3) 25 mcg (1,000 unit) tablet 25 mcg PO DAILY 03/20/23 fluoxetine 40 mg capsule 40 mg PO DAILY 03/20/23 hydrochlorothiazide 25 mg tablet 25 mg PO DAILY 03/20/23 hydroxyzine HCl 25 mg tablet 12.5 mg PO TID PRN anxiety 03/20/23 lisinopril 40 mg tablet 40 mg PO DAILY 03/20/23 metformin 1,000 mg tablet 1,000 mg PO BIDAC diabetes 03/20/23 norethindrone (contraceptive) 0.35 mg tablet (Deblitane) 0.35 mg PO DAILY control 03/20/23 acetaminophen 500 mg tablet 1,000 mg (2 x 500 mg) PO Q8 #0 tabs 03/22/23 blood sugar diagnostic (True Metrix Glucose Test Strip) 02/02/24 diclofenac sodium 75 mg tablet,delayed release 75 mg PO Q12H 10/18/23 dulaglutide 0.75 mg/0.5 mL subcutaneous pen injector (Trulicity) 0.75 mg subcut .weekly 10/18/23 baclofen 10 mg tablet 10 mg PO Q6H PRN muscle spasm 5 days #20 tabs 10/23/23 buspirone 7.5 mg tablet 7.5 mg PO BID 5 days #10 tabs 10/23/23 docusate sodium 100 mg capsule 100 mg PO BID #0 caps 10/23/23 gabapentin 400 mg capsule 800 mg (2 x 400 mg) PO TID 5 days #30 caps 10/23/23 insulin lispro 100 unit/mL subcutaneous pen (Humalog KwikPen (U-100) Insulin) See Protocol subcut ACHS #0 mL 10/23/23 melatonin 3 mg tablet 3 mg PO QHS PRN PRN Insomnia #0 tabs 10/23/23 oxycodone 5 mg tablet 10 mg (2 x 5 mg) PO Q4H PRN PRN Pain Score 4-10 4 days #30 tabs 10/23/23 tizanidine 2 mg tablet 4 mg (2 x 2 mg) PO Q8H PRN PRN spasms/musculoskeletal pain 5 days #30 tabs 10/23/23 fentanyl 50 mcg/hr transdermal patch 50 mcg transdermal Q72H 1 day #5 ea 10/27/23 Hospital Course Operations None Procedures - (L5-S1 epidural steroid injection) Summary of Care Provided Minutes Spent on Discharge: 32 Hospital Course: This 38-year-old white male was seen in the emergency room at [facility] with complaints of worsening back pain, patient had a known stenosis of L3?L4-L5, patient was not able to do ADLs at home. Patient was admitted to [facility], she was seen in consultation by pain management and was given an epidural steroid injection, she was placed on narcotics and corticosteroids, she was seen by PT and OT. Her hospital course was prolonged due to her inability to ambulate and it was felt she was appropriate for short-term placement in a chcf facility, initially her insurance did not approve it but then after an appeal approved her to go to a chcf facility. On 10/30/2023, patient was seen and examined:alert, oriented x3 and no apparent distress Constitutional Narrative: Patient is morbidly obese HEENT head/scalp atraumatic and moist oral mucous membranes Eyes EOMs intact bilaterally and conjunctivae normal Neck supple and no JVD Resp normal respiratory effort, no retractions, no use of accessory muscles and clear to auscultation bilaterally Cardio regular rate, regular rhythm, S1 normal heart sound, S2 normal heart sound, no murmurs and no rub GI normal to inspection, nondistended, normoactive bowel sounds, soft to palpation, non-tender and non-distended GI Narrative: Patient is morbidly obese Extremity normal to inspection Neuro oriented x3, CN's II-XII intact bilaterally, moves all extremities and no focal motor deficits Psych affect normal Patient was discharged from extended care facility on 10/30/2023 stable condition Weight / BMI Weight Weight: 227.25 kg Body Mass Index (BMI) 83.3 ABG / Lab / Microbiology Data 10/28/23 05:36 10/28/23 05:36 Laboratory: Laboratory Results - last 24 hr 10/29/23 16:08: POC Glucose 188 H 10/29/23 20:58: POC Glucose 122 H 10/30/23 06:00: POC Glucose 104 10/30/23 11:22: POC Glucose 106 D/C Instructions Discharge Diet: No restrictions Meaningful Use Info Meaningful Use Diagnoses (Choose all that apply): None applicable Discharge Plan Admission Admit Date/Time: 10/20/23 12:56 Primary Reason for Your Visit: Intractable back pain, Radiculopathy Attending Provider: Xavier Ro Primary Care Provider: Kavon Granda Consulting Providers: Kinsey Perez; Alex Garcia; Zaid Briceño; Fiona Alicea Instructions Additional Instructions / Restrictions: DISCHARGE ADDITIONAL: As discussed you may certainly continue to follow with pain management at [facility] at a call center; however, we do encourage that you at least follow-up in 2 weeks with pain management at [facility] given your recent injection to assure you are doing well. Discontinue prednisone, do not take Discharge Orders/Prescriptions Prescriptions: New tizanidine 2 mg Tablet 4 mg PO Q8H PRN PRN (Reason: spasms/musculoskeletal pain) 5 Days Qty: 30 0RF gabapentin 400 mg Capsule 800 mg PO TID 5 Days Qty: 30 0RF oxycodone 5 mg Tablet 10 mg PO Q4H PRN PRN (Reason: Pain Score 4-10) 4 Days Qty: 30 0RF melatonin 3 mg Tablet 3 mg PO QHS PRN PRN (Reason: Insomnia) Qty: 0 0RF docusate sodium 100 mg Capsule 100 mg PO BID Qty: 0 0RF insulin lispro [Humalog KwikPen Insulin] 100 unit/mL Insulin Pen See Protocol subcut ACHS Qty: 0 0RF Protocol: 4. Sliding Scale Insulin High-Med Dosing Condition: 150-199 mg/dl = 2 units Condition: 200-259 mg/dl = 4 units Condition: 260-324 mg/dl = 6 units Condition: 325-374 mg/dl = 8 units Condition: 375-409 mg/dl = 10 units Condition: 410-449 mg/dl = 11 units Condition: Greater than 449 call physician Protocol Text: - Use for Total Daily Dose of Insulin 56-80 units - Patient who are insulin resistant or septic HIGH MEDIUM DOSING ALGORITHM fentanyl 50 mcg/hr Patch 72 Hour 50 mcg transdermal Q72H 1 Days Qty: 5 0RF Continued atorvastatin 10 mg tablet 10 mg PO DAILY Patient Comments: TAKE 1 TABLET BY MOUTH DAILY cholecalciferol (vitamin D3) 25 mcg (1,000 unit) tablet 25 mcg PO DAILY Patient Comments: TAKE 1 TABLET BY MOUTH DAILY fluoxetine 40 mg capsule 40 mg PO DAILY Patient Comments: TAKE 1 CAPSULE BY MOUTH ONCE DAILY hydrochlorothiazide 25 mg tablet 25 mg PO DAILY Patient Comments: TAKE 1 TABLET BY MOUTH DAILY hydroxyzine HCl 25 mg tablet 12.5 mg PO TID PRN Patient Comments: Take 1 tablet by mouth three times daily as needed for anxiety. May take 1/2 tablet lisinopril 40 mg tablet 40 mg PO DAILY Patient Comments: TAKE 1 TABLET BY MOUTH DAILY metformin 1,000 mg tablet 1,000 mg PO BIDAC Patient Comments: TAKE 1 TABLET BY MOUTH TWICE DAILY WITH MEALS norethindrone (contraceptive) [Deblitane] 0.35 mg tablet 0.35 mg PO DAILY Patient Comments: Take 1 tablet orally once daily at the same time. acetaminophen 500 mg Tablet 1,000 mg PO Q8 Qty: 0 0RF Trulicity 0.75 mg/0.5 mL pen injector 0.75 mg SUBCUT .weekly Patient Comments: INJECT 0.75 mg SUBCUTANEOUSLY once weekly on diclofenac sodium 75 mg tablet,delayed release (DR/EC) 75 mg PO Q12H Patient Comments: Take 1 tablet by mouth two times a day. (DME) True Metrix Glucose Test Strip Strip MISCELLANEOUS Patient Comments: Test blood sugar(s) 1 times daily. baclofen 10 mg tablet 10 mg PO Q6H PRN (Reason: muscle spasm) 5 Days Qty: 20 0RF buspirone 7.5 mg tablet 7.5 mg PO BID 5 Days Qty: 10 0RF Patient Comments: Take 1 tablet by mouth twice daily. Discontinued gabapentin 400 mg Capsule 600 mg PO TID Referrals / Follow Up: Kavon Granda DO [Primary Care Provider] - Within 2 Weeks Riky Hoffman MD [Med Staff - Active Staff] - (Please follow-up in 2 weeks.) Disposition Disposition (needs filled in before D/C Order can be placed): Senior Living Facility Charges/Coding Visit Charges Inpatient E&M: 56405 Disch Hosp >30min
--- NOTE | 2023-10-30 14:34 | PHA.DC.MR.R ---
Pharmacy [place] Med Reconciliation Pharmacy Service has performed discharge medication reconciliation for this patient. The patient's discharge medication list was reviewed for discrepancies and discrepancies were resolved. Medications at Discharge Home Medications atorvastatin 10 mg tablet 10 mg PO DAILY cholesterol 03/20/23 cholecalciferol (vitamin D3) 25 mcg (1,000 unit) tablet 25 mcg PO DAILY 03/20/23 fluoxetine 40 mg capsule 40 mg PO DAILY 03/20/23 hydrochlorothiazide 25 mg tablet 25 mg PO DAILY 03/20/23 hydroxyzine HCl 25 mg tablet 12.5 mg PO TID PRN anxiety 03/20/23 lisinopril 40 mg tablet 40 mg PO DAILY 03/20/23 metformin 1,000 mg tablet 1,000 mg PO BIDAC diabetes 03/20/23 norethindrone (contraceptive) 0.35 mg tablet (Deblitane) 0.35 mg PO DAILY control 03/20/23 acetaminophen 500 mg tablet 1,000 mg (2 x 500 mg) PO Q8 #0 tabs 03/22/23 blood sugar diagnostic (True Metrix Glucose Test Strip) 10/18/23 diclofenac sodium 75 mg tablet,delayed release 75 mg PO Q12H 10/18/23 dulaglutide 0.75 mg/0.5 mL subcutaneous pen injector (Trulicity) 0.75 mg subcut .weekly 10/18/23 baclofen 10 mg tablet 10 mg PO Q6H PRN muscle spasm 5 days #20 tabs 10/23/23 buspirone 7.5 mg tablet 7.5 mg PO BID 5 days #10 tabs 10/23/23 docusate sodium 100 mg capsule 100 mg PO BID #0 caps 10/23/23 gabapentin 400 mg capsule 800 mg (2 x 400 mg) PO TID 5 days #30 caps 10/23/23 insulin lispro 100 unit/mL subcutaneous pen (Humalog KwikPen (U-100) Insulin) See Protocol subcut ACHS #0 mL 10/23/23 melatonin 3 mg tablet 3 mg PO QHS PRN PRN Insomnia #0 tabs 10/23/23 oxycodone 5 mg tablet 10 mg (2 x 5 mg) PO Q4H PRN PRN Pain Score 4-10 4 days #30 tabs 10/23/23 tizanidine 2 mg tablet 4 mg (2 x 2 mg) PO Q8H PRN PRN spasms/musculoskeletal pain 5 days #30 tabs 10/23/23 fentanyl 50 mcg/hr transdermal patch 50 mcg transdermal Q72H 1 day #5 ea 10/27/23
--- NOTE | 2023-10-30 14:42 | CASEMGMT ---
Social Work SW received letter from [facility] that denial was overturned and pt has been authorized for admission to [facility]. SW met with pt and informed of this. Discussed options of home vs SNF and pt is choosing to go to SNF prior to return home. Physician updated and pt is ready for dishcharge today. PASRR completed in [facility] earlier in stay. DC mobile sales assistant notified and to complete discharge. Dispostion: [facility]. Skilled level of care YESSI Fine
--- NOTE | 2023-10-30 15:10 | CASEMGMT ---
Discharge Planning Discharge orders, signed med list, and transport time sent via [facility] to [facility]. Physicians will transport patient by cot at 5p. Nursing, SW, and patient updated. Rosina Thompson, Discharge Planning Asst.
--- NOTE | 2023-10-30 15:50 | CASEMGMT ---
Discharge Planning Transport has been rescheduled per [facility] request to 7p. SW updated. oRsina Thompson, Discharge Planning Asst.
[2023-10-30 16:22] LABS: Bedside Glucose 137 mg/dL (74-106)
[2023-10-30] MEDS: Docusate Sodium 100 MG Capsule PO (21:40)
[2023-10-30] MEDS: Atorvastatin Calcium 10 MG Tablet PO (21:41)
[2023-10-30 21:50] VITALS: BP 120/79; PULSE 89; RESP 16; TEMP 36.6; O2SAT 99
== END 2023-10-30 21:50 | disposition skilled nursing facility (03) | DRG 347 ==
LOC: ED 20:03 → MS3 20:14
PROVIDERS: Anesthesiology; Family Medicine; Admitting Provider Internal Medicine; Emergency Provider Emergency Medicine; PCP Internal Medicine; Visit Provider Internal Medicine
PROC: 3E0S3BZ Introduction of Anesthetic Agent into Epidural Space, Percutaneous Approach (ICD-10-PCS; CPT 62322; principal; 2023-10-22 13:55)
DX: M51.16 Intervertebral disc disorders with radiculopathy, lumbar region (principal); R62.7 Adult failure to thrive; Z68.45 Body mass index [BMI] 70 or greater, adult; E11.9 Type 2 diabetes mellitus without complications; E66.01 Morbid (severe) obesity due to excess calories; Z79.4 Long term (current) use of insulin; I10 Essential (primary) hypertension; F32.A Depression, unspecified; M48.061 Spinal stenosis, lumbar region without neurogenic claudication; G47.33 Obstructive sleep apnea (adult) (pediatric); R26.2 Difficulty in walking, not elsewhere classified; E78.00 Pure hypercholesterolemia, unspecified; F41.9 Anxiety disorder, unspecified; Q76.49 Other congenital malformations of spine, not associated with scoliosis; G89.29 Other chronic pain; R53.81 Other malaise; Z79.84 Long term (current) use of oral hypoglycemic drugs; Z79.899 Other long term (current) drug therapy; Z87.891 Personal history of nicotine dependence
CPT/HCPCS: 36415; 64483; 72020; 80048; 80053; 81001; 82962; 84703; 85025; 85610; 85730; 94668; 97110; 97162; 97166; 97530; 97533; 97535; 97802; 99285; J7120; A4216; J2405

== ENCOUNTER 2023-11-06 10:58 | Inpatient (IN) | payer MEDICAID, SELFPAY ==
[2023-11-06] VITALS (17 sets, daily range): BP systolic 102–158; BP diastolic 57–90; PULSE 75–138; RESP 10–23; TEMP 36.3–36.9; O2SAT 93–100; BMI 82.2; BMI 82.3
--- NOTE | 2023-11-06 11:17 | MRI_ITS ---
HISTORY: lumbar pain, s/p epidural injection, incontinence. TECHNIQUE: Multiplanar and multisequence MR images of the lumbar spine were obtained without intravenous contrast. 139 images. COMPARISON: CT 03/20/2023. FINDINGS: VERTEBRAE: For the purposes of this report, the lowest intervertebral disc space is designated as L5-S1. Vertebral body heights maintained. Mild degenerative endplate changes at multiple levels particularly L4-5 and L5-S1. Vertebral body hemangioma incidentally noted at L1. ALIGNMENT: No anterior or posterior subluxation. CONUS: Normal morphology and position of the conus medullaris at T12-L1. INTERVERTEBRAL DISCS: T12-L1: No significant posterior disc protrusion, central canal stenosis, or foraminal narrowing based on the sagittal images. L1-2, L2-3, L3-4: Very mild disc bulges with facet arthropathy resulting in minimal narrowing of the thecal sac and bilateral foramina. L4-5: 7 mm x 1.7 cm x 2.2 cm large central disc extrusion with inferior migration resulting in critically severe central canal stenosis with bilateral nerve root impingement in the lateral recesses and thecal sac. Mild-moderate bilateral foraminal narrowing. L5-S1: No significant posterior disc protrusion, central canal stenosis, or foraminal narrowing. SOFT TISSUES: Mild posterior subcutaneous edema without fluid collection. MRI/Spine Lumbar (Routine) IMPRESSION: Large disc extrusion with inferior migration at L4-5 resulting in critically severe spinal canal stenosis, compression of the cauda equina, and bilateral nerve root impingement. Electronically Signed: Emily Rondon MD at 15:34 EST ,
--- NOTE | 2023-11-06 11:20 | EDS_ITS ---
HPI History of Present Illness Chief Complaint: Complaint Detail of Chief Complaint: Low back pain. Perianal and saddle numbness. Leg weakness. History of di Informant: patient and spouse/S.O. Onset/Context/Timing Onset: Weeks Context: Gradual Onset Timing: Continuous Quality: Sharp Location: Lumbar Current Severity: Moderate Maximum Severity: Moderate Worsened by: improves with Movement Relieved by: Nothing Associated Symptoms Associated Symptoms: Numbness, Tingling and Urinary Incontinence; Negative for Radiation to Right Leg, Radiation to Left Leg, Fever, Abdominal Pain, Dysuria, Unable to Transfer or Constipation Narrative Narrative: 38-year-old female history of diabetes. History of lumbar disc. Had an MRI done in [place]. Has had a epidural lumbar injection of the L5 this 1 done on 10 22. She was in the hospital here for 2 weeks for pain control and physical therapy. Due to an L4-5 disc. She was sent from the hospital to a local extended care facility. She has been there. She is on fentanyl patches for pain. She has now developed saddle numbness and tingling. Weakness in both legs. And urinary incontinence which she has not had. She denies illness or fever. Prior similar symptoms: Yes Recent Illness/Hospitalization: Yes [facility] Medical History Anxiety Diabetes High cholesterol HTN (hypertension) Lumbar stenosis Morbid obesity HAILEY (obstructive sleep apnea) Home Medications atorvastatin 10 mg tablet 10 mg PO DAILY cholesterol 03/20/23 [History Last Taken 03/20/23] cholecalciferol (vitamin D3) 25 mcg (1,000 unit) tablet 25 mcg PO DAILY 03/20/23 [History Last Taken 03/20/23] fluoxetine 40 mg capsule 40 mg PO DAILY 03/20/23 [History Last Taken 03/20/23] hydrochlorothiazide 25 mg tablet 25 mg PO DAILY 03/20/23 [History Last Taken 03/20/23] hydroxyzine HCl 25 mg tablet 12.5 mg PO TID PRN anxiety 03/20/23 [History Last Taken Unknown] lisinopril 40 mg tablet 40 mg PO DAILY 03/20/23 [History Last Taken Unknown] metformin 1,000 mg tablet 1,000 mg PO BIDAC diabetes 03/20/23 [History Last Taken 10/17/23] norethindrone (contraceptive) 0.35 mg tablet (Deblitane) 0.35 mg PO DAILY control 03/20/23 [History Last Taken 03/21/23] acetaminophen 500 mg tablet 1,000 mg (2 x 500 mg) PO Q8 #0 tabs 03/22/23 [Rx Last Taken Unknown] blood sugar diagnostic (True Metrix Glucose Test Strip) 10/18/23 [History Last Taken Unknown] diclofenac sodium 75 mg tablet,delayed release 75 mg PO Q12H 10/18/23 [History Last Taken Unknown] dulaglutide 0.75 mg/0.5 mL subcutaneous pen injector (Trulicity) 0.75 mg subcut .weekly 10/18/23 [History Last Taken 10/17/23] baclofen 10 mg tablet 10 mg PO Q6H PRN muscle spasm 5 days #20 tabs 10/23/23 [Rx Last Taken Unknown] buspirone 7.5 mg tablet 7.5 mg PO BID 5 days #10 tabs 10/23/23 [Rx Last Taken 03/20/23] docusate sodium 100 mg capsule 100 mg PO BID #0 caps 10/23/23 [Rx Last Taken Unknown] gabapentin 400 mg capsule 800 mg (2 x 400 mg) PO TID 5 days #30 caps 10/23/23 [Rx Last Taken Unknown] insulin lispro 100 unit/mL subcutaneous pen (Humalog KwikPen (U-100) Insulin) See Protocol subcut ACHS #0 mL 10/23/23 [Rx Last Taken Unknown] melatonin 3 mg tablet 3 mg PO QHS PRN PRN Insomnia #0 tabs 10/23/23 [Rx Last Taken Unknown] oxycodone 5 mg tablet 10 mg (2 x 5 mg) PO Q4H PRN PRN Pain Score 4-10 4 days #30 tabs 10/23/23 [Rx Last Taken Unknown] tizanidine 2 mg tablet 4 mg (2 x 2 mg) PO Q8H PRN PRN spasms/musculoskeletal pain 5 days #30 tabs 10/23/23 [Rx Last Taken Unknown] fentanyl 50 mcg/hr transdermal patch 50 mcg transdermal Q72H 1 day #5 ea 10/27/23 [Rx Last Taken Unknown] Allergy/AdvReac Type Severity Reaction Status Date / Time Penicillins Allergy Unknown Other Verified 11/06/23 10:59 Family History Other Heart disease Surgical History [place] teeth extracted Social History household members: significant other housing: house Smoking Status: Former smoker alcohol intake: never substance use type: does not use ROS ROS ED ROS Narrative Urinary incontinence. Lower back pain. No fever. No illness. States her sugars been running between 80 and 120. Review of Systems ROS Unobtainable: Denies due to encephalopathy Constitutional Constitutional ED: Denies chills or fever(s) Eyes Eyes: Denies blurry vision ENT ENT ED: Denies ear pain Cardiovascular Cardiovascular: Denies chest pain Respiratory/Chest Respiratory/Chest: Denies dyspnea Gastrointestinal Gastrointestinal: Denies abdominal pain, diarrhea, nausea or vomiting Genitourinary Genitourinary ED: Denies dysuria, hematuria or urinary frequency Musculoskeletal Musculoskeletal: Reports back pain; Denies arthralgias Integumentary Denies abscess or Abrasions Neurologic Neurologic: Denies headache(s) Psychiatric Psychiatric: Denies anxiety Endocrine Endocrinology: Denies cold intolerance Hematologic/Lymphatic Hematologic/Lymphatic: Denies easy bleeding Allergic/Immunologic Allergic/Immunologic ED: Denies mouth swelling, tongue swelling or urticaria EXAM Physical Exam Narrative Exam Narrative: 38-year-old female no acute distress. Vital signs stable afebrile. H EENT exam unremarkable. Neck nontender. Lungs clear to auscultation bilaterally. Heart regular rhythm rate about 80 no murmur. Chest wall nontender. Abdomen soft nontender. BMI of 82. She is moving all 4 extremities. 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 She has normal medial thigh sensation. She has normal dorsi and plantarflexion. She has good motor strength. She can lift either leg off the bed. Neurologically she is awake and alert. She complains of urinary incontinence and saddle numbness. Currently she has normal motor strength in both lower extremities. Const Vital Signs: 11/06/23 11:00 11/06/23 13:09 Temperature 97.3 F L Temperature Source Temporal Pulse Rate 87 92 Respiratory Rate 18 18 Blood Pressure 105/75 106/64 Blood Pressure Mean 85 78 Pulse Ox 95 93 Oxygen Delivery Method Room Air Room Air Positive well nourished, well developed and obese; Negative for cachectic, contractures or unkempt General Appearance ED: well developed and NAD; Negative for unkempt, cachectic, contractures or pallor Nutritional Appearance: obese; Negative for cachectic HEENT Reports moist mucous membranes; Denies dry mucous membranes Negative for trauma or tenderness Mouth ED: No dry mucous membranes Mouth: No dry mucous membranes Eyes PERRL and EOMs intact bilaterally Neck no lymphadenopathy, supple and no JVD General: Negative for tenderness Thyroid: Negative for other Chest Wall Chest: Negative for other Resp normal respiratory effort and clear to auscultation bilaterally Effort and Inspection: Negative for pain with movement Auscultation: Negative for rales, rhonchi or wheezes Cardio regular rate, regular rhythm, S1 normal heart sound, S2 normal heart sound and no murmurs Palpation: Negative for palpable S3 Rate: Negative for bradycardia or tachycardic Rhythm: Negative for abnormal rhythm Bruits: Negative for other GI normal to inspection, nondistended, normoactive bowel sounds, soft to palpation, non-tender, non-distended and no masses Inspection: Negative for abdominal distention Palpation: Negative for tender or guarding Back/Spine Back/Spine Narrative: Pending back exam. Extremity normal to inspection and no clubbing, cyanosis or edema Extremity Narrative: Normal dorsi and plantarflexion. Normal sensation. General Extremety ED: Negative for edema or tenderness General Extremity: Negative for edema Neuro oriented x3 and no sensory deficits noted Sensorium / Orientation: alert; Negative for confused, lethargic or stuporous Motor Exam: strength 5/5 throughout Psych mental status grossly normal Appearance: Negative for unkempt Attitude: No agitated Mood & Affect: Negative for depressed, sad or tearful Skin no rashes or lesions noted and no wounds General Skin Exam: Negative for jaundice or pallor Lesions: No lesion noted Rashes: No rashes noted Trauma: Negative for abrasion or puncture Wounds: Negative for wounds noted MDM MDM MDM Narrative Medical decision making narrative: 38-year-old female known history of lumbar disc disease with a epidural block about 2 weeks ago. Complaining of incontinence and tingling. Rule out cord compression. MRI pending. Screening labs. IV Toradol. Repeat exam patient is resting comfortably. The Toradol has helped the pain. In light of her hyponatremia and dehydration I did order a liter normal saline. The MRI is scheduled hopefully in the next hour or so. Lab Data Attestation: I reviewed the patient's lab results. Lab results narrative: CBC normal. White count 11. H&H 12 and 39. Platelets 299. Electrolytes show sodium of 122. Gap of 8. BUN of 31 creatinine 1.4. Glucose 91. The sodium is a significant change from prior and she has never been hyponatremic they have seen before in the past of any significance. Her BUN and creatinine also a significant change. MRI of her lumbar spine shows a large disc protrusion at L4-5 resulting in severe spinal canal stenosis, compression of the cauda equina and bilateral nerve root impingement. Repeat exam patient doing well at 3:50 PM. She still has good dorsi and plantarflexion 5 out of 5 motor strength of her feet. Normal sensation in her distal lower legs. I discussed the MRI results with her and her . I have spine on page here. If they are unavailable patient will need to be transferred. I spoke to Dr[facility]. He reviewed the patient's MRI. He is comfortable during her surgery here. He wanted me to get additional preop labs, chest x-ray and EKG. Have the hospitalist admit the patient. And he plans to take the patient to the OR as soon as possible tonight. We discussed the patient's history and physical. Labs: Laboratory Results - last 24 hr 11/06/23 11:25 WBC 11.0 RBC 4.60 Hgb 12.7 Hct 39.8 MCV 86.5 MCH 27.6 MCHC 31.9 L RDW Std Deviation 42.3 RDW Coeff of Chantal 13.4 Plt Count 299 MPV 10.2 Immature Gran % (Auto) 0.500 Neut % (Auto) 63.9 Lymph % (Auto) 24.0 [place] % (Auto) 9.3 Eos % (Auto) 1.7 Baso % (Auto) 0.6 Absolute Neuts (auto) 7.0 Absolute Lymphs (auto) 2.64 Nucleated RBC % 0 Sodium 122 L Potassium 4.6 Chloride 85 L Carbon Dioxide 29.0 Anion Gap 8 BUN 31 H Creatinine 1.42 H Estim Creat Clear Calc 102.96 Est GFR (MDRD) Af Amer 53 L Est GFR (MDRD) Non-Af 43 L BUN/Creatinine Ratio 21.8 H Glucose 91 Calcium 9.0 Radiography Diagnostic Testing: Clinical Impression(s) from Imaging Studies Lumbar Spine MRI 11/06/23 11:17 IMPRESSION: Large disc extrusion with inferior migration at L4-5 resulting in critically severe spinal canal stenosis, compression of the cauda equina, and bilateral nerve root impingement. Electronically Signed: Emily Rondon MD at 15:34 EST , Discharge Plan Dx/Rx/DC Orders Clinical Impression: Urinary incontinence, Back pain, Cauda equina syndrome, History of diabetes mellitus Disposition Disposition: Acute Care Hospital [facility]
[2023-11-06] MEDS: Ketorolac 30 MG/ML Syringe IV (11:40)
[2023-11-06 11:48] LABS: Anion Gap 8 (5-15); BUN 31 mg/dL (7-18); BUN/Creat Ratio 21.8 RATIO (10-20); Chloride 85 mmol/L (98-107); Creatinine, Serum 1.42 mg/dL (0.55-1.02); EST Glomerular Filtration Rate 43 mL/min (>60); Est Glom Filt Rate - Afr Amer 53 mL/min (>60); Estimated Creatinine Clearance 102.96 ml/min; Glucose 91 mg/dL (74-106); Potassium 4.6 mmol/L (3.5-5.1); Sodium Level 122 mmol/L (136-145)
[2023-11-06 11:53] LABS: Absolute Lymphocyte Count 2.64 X10^3/uL (0.83-4.51); Basophil# 0.07 X10^3/uL; Basophil% 0.6 % (0-1); Eosinophil# 0.19 X10^3/uL; Eosinophils% 1.7 % (0-5); Hematocrit 39.8 % (37-47); Hemoglobin 12.7 g/dL (12.0-15.0); Lymphocyte # 2.64 X10^3/ul (0.83-4.51); Mean Corp Hgb Conc 31.9 g/dL (32-36); Mean Corpuscular Hgb 27.6 pg (27.0-32.0); Mean Corpuscular Volume 86.5 fL (81-99); Mean Platelet Vol. 10.2 fl (6.2-12.0); Monocyte# 1.02 X10^3/uL; Monocyte% 9.3 % (0-10); NRBC Flagged by Analyzer 0 % (0-5); Neutrophil # 7.03 X10^3/uL (2.7-7.7); Neutrophil % 63.9 % (47-70); Platelet Count 299 K/mm3 (150-450); RBC Distribution Width CV 13.4 % (11.6-14.6); RBC Distribution Width SD 42.3 fl (35.1-43.9)
[2023-11-06] MEDS: 0.9% Normal Saline (1000mL) 1,000 ML 999 ML IV (13:40)
--- NOTE | 2023-11-06 15:44 | CASEMGMT ---
Emergency Department Receiving Checker Patient brought to Emergency Department due to pain and incontinence. Sw informed by therapy that patient is indicating concerns from current placement, [facility], and would like to identify an alternative placement option. Sw asked Academic Support Coordinator business services assistant, Rosina to print off SNF list. Sw provided list to patient and her partner/ fiance, Neville. Patient and Neville state that they will look up [facility] and see if this is a place that they may feel comfortable with when patient may be discharged. Sw explained process of needing a precert for patient to get approved. Patient and Neville expressed understanding. Sw indicated need to identify what the current medical plan will be for patient prior to starting precert with [facility]. Patient and Neville expressed understanding. Sw spoke to bedside RN who states that patient's MRI indicates there are concerns and patient is going to require surgery, however not sure at this time where surgery will occur. Sw followed up with patients and offered to continue to provide resources and support, as well as future discharge plan should patient remain admitted/ hospitalized. Patient agreed with plan. Aura Casiano, MARKETING ANALYTICS LEAD, DIE MAKER APPRENTICE
[2023-11-06 15:49] LABS: Mucous, Urine 0 SEEN /hpf (<or=2+)
[2023-11-06 15:54] LABS: Color, Urine Yellow (Yellow); Glucose, Dipstick Normal (Normal); Ketone-Dipstick 15 mg/dl (Negative); Leukocyte Esterase-Dipstick 25 /ul (Negative); Nitrite-Dipstick Negative (Negative); Occult Blood-Urine Negative /ul (Negative); Protein-Dipstick 15 mg/dl (Negative); Specific Gravity, Urine 1.025 (1.002-1.030); Urine Clarity Sl. Cloudy (Clear); Urine Urobilinogen 1 mg/dl (Normal)
[2023-11-06 15:56] LABS: Urine Bilirubin Dipstick 1 mg/dL (Negative)
--- NOTE | 2023-11-06 15:56 | EKG12_ITS ---
Test Reason : PRE OP Blood Pressure : / mmHG Vent. Rate : 090 BPM Atrial Rate : 000 BPM P-R Int : 000 ms QRS Dur : 092 ms QT Int : 354 ms P-R-T Axes : 000 038 015 degrees QTc Int : 433 ms Atrial fibrillation Low voltage QRS Abnormal ECG Confirmed by YOGESH WILLOUGHBY, ABDIRIZAK ([id number]), online editor MADDIE MACIAS ([id number]) on 11/07/2023 8:25:18 AM Referred By: Confirmed By:ABDIRIZAK ZUÑIGA MD
--- NOTE | 2023-11-06 16:02 | ED.RN ---
NO OLD EKG
[2023-11-06 16:05] LABS: Bacteria 2+ /hpf (None Seen); Red Blood Cells-Urine 0-5 SEEN /hpf (0-5); Squamous Epithelial Cells - UA 5-10 SEEN /hpf (5-10); White Blood Cells 0-5 SEEN /hpf (0-5)
--- NOTE | 2023-11-06 16:25 | RAD_ITS ---
INDICATION: pre-op EXAMINATION/TECHNIQUE: X-RAY - XR Chest 1 View COMPARISON: None. FINDINGS: The lungs are clear. The heart is mildly enlarged. No pleural effusion or pneumothorax. No acute osseous abnormalities. RAD/Chest 1 View (Portable) IMPRESSION: No acute radiographic abnormalities. Electronically Signed: Van Gramajo MD at 16:45 EST ,
[2023-11-06] MEDS: Ondansetron 4 MG/2 ML Vial IV (16:26)
[2023-11-06] MEDS: morphine 8 MG/ML Syringe 6 MG IV (16:26)
[2023-11-06 16:45] LABS: Partial Thromboplast Time 25.8 Seconds (24.1-36.2); Prothrombin Time (Protime)PT. 13.5 SECONDS (11.7-14.9)
--- NOTE | 2023-11-06 16:53 | PCM.HP.STD ---
HPI - General General Date of Admission: 11/06/23 Date of Service: 11/06/23 Chief Complaint: Back and leg pain and numbness HPI Narrative SHELTON RODRIGEZ, is a 38-year-old female history of mood disorder, hypertension, diabetes, HAILEY lumbar stenosis who presented to [facility] ED 11/06/2023 due to saddle numbness and tingling and weakness in both legs as well as urinary incontinence which is new. Has a history of lumbar stenosis and had epidural lumbar injection of L5 and S1 done 10/22 and was in the hospital here for 2 weeks for pain control and physical therapy and was sent from hospital to [facility]. Presently on fentanyl patches for pain, developed these new symptoms and was sent to [facility] ED for further evaluation. In ED she had MRI of lumbar spine which showed large disc protrusion at L4-5 resulting in severe spinal canal stenosis and compression of cauda equina and bilateral nerve root impingement. MRI results were discussed with patient and as well as Dr. Ronquillo with orthospine, he is comfortable with patient being managed our facility and requested hospitalist admit patient with [facility]. Of note labs drawn prior to surgery demonstrated sodium of 122 and a creatinine of 1.42. Preop EKG also showed heart rate in 90s but no P waves noted and appear to be in fib. Pt evaluated at bedside with significant other present. Patient was here for 2 weeks and was discharged to detention, had been stable except for the past 3 to 4 days has began having urinary incontinence, has not been able to have a bowel movement since the , has saddle anesthesia and has not been able to stand on her legs. Additionally has had nausea and vomiting for 3 to 4 days and has been unable to tolerate p.o. denies any fevers or chills, does note several spots of yeast infections under folds as she has been unable to get up and has been in a semirecumbent position. No chest pain or shortness of breath but has had some intermittent coughing and slightly raspy voice. [facility] Medical History (Updated 11/06/23 @ 17:[address] Luz Ortiz MD) Anxiety Diabetes High cholesterol HTN (hypertension) Lumbar stenosis Morbid obesity HAILEY (obstructive sleep apnea) Home Medications atorvastatin 10 mg tablet 10 mg PO DAILY cholesterol 03/20/23 [History Last Taken 03/20/23] cholecalciferol (vitamin D3) 25 mcg (1,000 unit) tablet 25 mcg PO DAILY 03/20/23 [History Last Taken 03/20/23] fluoxetine 40 mg capsule 40 mg PO DAILY 03/20/23 [History Last Taken 03/20/23] hydrochlorothiazide 25 mg tablet 25 mg PO DAILY 03/20/23 [History Last Taken 03/20/23] hydroxyzine HCl 25 mg tablet 12.5 mg PO TID PRN anxiety 03/20/23 [History Last Taken Unknown] lisinopril 40 mg tablet 40 mg PO DAILY 03/20/23 [History Last Taken Unknown] metformin 1,000 mg tablet 1,000 mg PO BIDAC diabetes 03/20/23 [History Last Taken 10/17/23] norethindrone (contraceptive) 0.35 mg tablet (Deblitane) 0.35 mg PO DAILY control 03/20/23 [History Last Taken 03/21/23] acetaminophen 500 mg tablet 1,000 mg (2 x 500 mg) PO Q8 #0 tabs 03/22/23 [Rx Last Taken Unknown] blood sugar diagnostic (True Metrix Glucose Test Strip) 10/18/23 [History Last Taken Unknown] diclofenac sodium 75 mg tablet,delayed release 75 mg PO Q12H 10/18/23 [History Last Taken Unknown] dulaglutide 0.75 mg/0.5 mL subcutaneous pen injector (Trulicity) 0.75 mg subcut TH 10/18/23 [History Last Taken 10/17/23] baclofen 10 mg tablet 10 mg PO Q6H PRN muscle spasm 5 days #20 tabs 10/23/23 [Rx Last Taken Unknown] buspirone 7.5 mg tablet 7.5 mg PO BID 5 days #10 tabs 10/23/23 [Rx Last Taken 03/20/23] docusate sodium 100 mg capsule 100 mg PO BID #0 caps 10/23/23 [Rx Last Taken Unknown] gabapentin 400 mg capsule 800 mg (2 x 400 mg) PO TID 5 days #30 caps 10/23/23 [Rx Last Taken Unknown] insulin lispro 100 unit/mL subcutaneous pen (Humalog KwikPen (U-100) Insulin) See Protocol subcut ACHS #0 mL 10/23/23 [Rx Last Taken Unknown] fentanyl 50 mcg/hr transdermal patch 50 mcg transdermal Q72H 1 day #5 ea 10/27/23 [Rx Last Taken Unknown] melatonin 3 mg tablet 3 mg PO QHS PRN Insomnia 11/06/23 [History Last Taken Unknown] oxycodone 5 mg tablet 10 mg PO Q4H PRN Pain Score 4-10 11/06/23 [History Last Taken Unknown] tizanidine 2 mg tablet 4 mg PO Q8H PRN spasms/musculoskeletal pain 11/06/23 [History Last Taken Unknown] Allergy/AdvReac Type Severity Reaction Status Date / Time Penicillins Allergy Unknown Other Verified 11/06/23 10:59 Family History Other Heart disease Surgical History [place] teeth extracted Social History household members: significant other housing: house Smoking Status: Former smoker alcohol intake: never substance use type: does not use ROS ROS Narrative General: Denies fever/chills HENT: Denies headache, denies stuffy nose, denies sore throat EYES: Denies changes in vision Resp: No shortness of breath but has had little bit of a cough Cardiac: Denies chest pain GI: Denies abdominal pain, has not had bowel movement since the , has had nausea and vomiting for 3 to 4 days : Denies changes in urination Extremity: Denies swelling MSK: Denies weakness Neuro: Denies any numbness/tingling Heme: Denies any bleeding or bruising Skin: Denies rashes Psychiatric: No complaints voiced Vital Signs Vital Signs Vital Signs: 11/06/23 11:00 11/06/23 13:09 11/06/23 16:20 Temperature 97.3 F L Temperature Source Temporal Pulse Rate 87 92 79 Respiratory Rate 18 18 20 H Blood Pressure 105/75 106/64 127/57 H Blood Pressure Mean 85 78 80 Pulse Ox 95 93 97 Oxygen Delivery Method Room Air Room Air 11/06/23 16:41 11/06/23 16:34 Temperature 97.7 F L 98 F Temperature Source Pulse Rate 79 109 H Respiratory Rate 12 18 Blood Pressure 127/57 H 127/57 H Blood Pressure Mean 80 80 Pulse Ox 97 99 Oxygen Delivery Method Weight Weight: 224.1 kg Body Mass Index (BMI) 82.2 Physical Exam Narrative General: Alert, oriented, no apparent distress HEENT: Atraumatic, normocephalic Eyes: Anicteric, normal conjunctiva, extraocular movements grossly intact Neck: Supple Respiratory: Clear to auscultation bilaterally, normal respiratory effort Cardiovascular: Irregular rhythm but normal rate GI: Soft, nontender, nondistended Extremities: No edema Musculoskeletal: Moving lower extremities but limited due to habitus and pain Neuro: Endorsing saddle anesthesia and altered sensation in legs Skin: Has some yeast under folds/pannus and right side of neck Psych: Cooperative, tearful at times Results Lab / Micro Data 11/06/23 11:25 11/06/23 11:25 Labs: Laboratory Results - last 24 hr 11/06/23 11:25: WBC 11.0, RBC 4.60, Hgb 12.7, Hct 39.8, MCV 86.5, MCH 27.6, MCHC 31.9 L, RDW Std Deviation 42.3, RDW Coeff of Chantal 13.4, Plt Count 299, MPV 10.2, Immature Gran % (Auto) 0.500, Neut % (Auto) 63.9, Lymph % (Auto) 24.0, [place] % (Auto) 9.3, Eos % (Auto) 1.7, Baso % (Auto) 0.6, Absolute Neuts (auto) 7.0, Absolute Lymphs (auto) 2.64, Nucleated RBC % 0, Sodium 122 L, Potassium 4.6, Chloride 85 L, Carbon Dioxide 29.0, Anion Gap 8, BUN 31 H, Creatinine 1.42 H, Estim Creat Clear Calc 102.96, Est GFR (MDRD) Af Amer 53 L, Est GFR (MDRD) Non-Af 43 L, BUN/Creatinine Ratio 21.8 H, Glucose 91, Calcium 9.0 11/06/23 15:43: Urine Color Yellow, Urine Clarity Sl. Cloudy, Urine pH 5.0, Ur Specific [place] 1.025, Urine Protein 15 H, Urine Glucose (UA) Normal, Urine Ketones 15 H, Urine Occult Blood Negative, Urine Nitrite Negative, Urine Bilirubin 1 H, Urine Urobilinogen 1 H, Ur Leukocyte Esterase 25 H, Urine RBC 0-5 SEEN, Urine WBC 0-5 SEEN, Ur Squamous Epith Cells 5-10 SEEN, Urine Bacteria 2+, Urine Mucus 0 SEEN 11/06/23 16:09: PT 13.5, INR 1.0, APTT 25.8 Imaging Radiology Impression Lumbar Spine MRI 11/06/23 11:17 IMPRESSION: Large disc extrusion with inferior migration at L4-5 resulting in critically severe spinal canal stenosis, compression of the cauda equina, and bilateral nerve root impingement. Electronically Signed: Emily Rondon MD at 15:34 EST , Chest X-Ray 11/06/23 16:25 IMPRESSION: No acute radiographic abnormalities. Electronically Signed: Van Gramajo MD at 16:45 EST , Assessment & Plan Assessment/Plan (1) Central stenosis of spinal canal: (2) Urinary incontinence: (3) Radiculopathy: (4) Inability to walk: (5) History of diabetes mellitus: (6) A-fib: (7) HAILEY (obstructive sleep apnea): (8) Morbid obesity: PLAN: Plan # L4-5 large disc protrusion resulting in severe spinal canal stenosis and compression of cauda equina -W/ saddle anesthesia and urinary incontinence -Seen on MRI -Patient to be taken to surgery with Dr. Ronquillo this PM -Pain control, holding fentanyl patches in acute setting -PT/OT #?New onset A-fib -EKG obtained preop irregular and no P waves noted -Will admit to telemetry -Obtain echocardiogram -TSH ordered -Given [id number] of 3 (female, htn, diabetes) will need to discuss AC after surgery -Not presently in RVR # CALVIN -Suspect due to volume depletion with patient's nausea and vomiting for multiple days and inability to take p.o. -IVF -Hold diclofenac and lisinopril -Decrease gabapentin to 400 3 times daily given CALVIN # Hyponatremia -Suspect that this may be due to volume depletion/dehydration given her nausea and vomiting -Trend BMP -If not improving with hydration will obtain further workup -Hold fluoxetine at this time pending improvement -Hold hydrochlorothiazide # Nausea/vomiting -Unclear etiology -Has been present for multiple days, has not had bowel movement since the which is unusual for her -Will obtain KUB when able -Bowel regimen -May need light diet and to advance as tolerated -Further workup pending signs/symptoms and problems -Also obtain respiratory panel given her cough and raspy voice in addition to the symptoms #HAILEY -Continue home NIPPV #Type 2 diabetes mellitus -Glucose checks and sliding scale insulin -Hold metformin #Morbid obesity -BMI 82.2 kg/m? -Complicates treatment, prognosis, outcomes -Recommend weight loss and lifestyle changes #Mood d/o -Holding fluoxetine given hyponatremia -Continue other home medications #HTN -Holding perioperatively -Hold HCTZ and lisinopril as above #DVT ppx: SCDs Luz Ortiz MD Charges/Coding Visit Charges Inpatient E&M: 87761 Init Hosp L2
[2023-11-06] MEDS: Lactated Ringers 1,000 ML 15 ML IV (17:00)
[2023-11-06 17:19] LABS: Internal QC Validated? YES +Cl - CLEAR BKGD; Pregnancy, Serum, hCG Quali. NEGATIVE Negative
--- NOTE | 2023-11-06 17:24 | CONS.ORTHO ---
HPI Consult Data Date of Consult: 11/06/23 HPI Narrative HPI Narrative: The patient is a 38-year-old female accompanied by her boyfriend who contributed to the medical history who presented to the ER with back pain, paresthesias in the bilateral lower extremities as well as saddle area and urinary incontinence over the past few days. She denies any history of back surgeries. She states that she has a diagnosis of a lumbar disc herniation going back to around March of last year which so far has been treated nonoperatively. She was recently admitted here for back pain and was here for about 2 weeks for pain control and physical therapy, and did receive an L5-S1 epidural steroid injection during that time on 10/22/2023. She was subsequently discharged to an [facility] where she is currently. Symptoms of saddle anesthesia and urinary continence subsequently developed and she presented to the ER today. Lumbar MRI showed a large central disc herniation at L4-5 with severe central canal stenosis. Orthospine was consulted for further evaluation and management [facility] Medical History (Updated 11/06/23 @ 17:[address] Luz Ortiz MD) Anxiety Diabetes High cholesterol HTN (hypertension) Lumbar stenosis Morbid obesity HAILEY (obstructive sleep apnea) Home Medications atorvastatin 10 mg tablet 10 mg PO DAILY cholesterol 03/20/23 [History Last Taken 03/20/23] cholecalciferol (vitamin D3) 25 mcg (1,000 unit) tablet 25 mcg PO DAILY 03/20/23 [History Last Taken 03/20/23] fluoxetine 40 mg capsule 40 mg PO DAILY 03/20/23 [History Last Taken 03/20/23] hydrochlorothiazide 25 mg tablet 25 mg PO DAILY 03/20/23 [History Last Taken 03/20/23] hydroxyzine HCl 25 mg tablet 12.5 mg PO TID PRN anxiety 03/20/23 [History Last Taken Unknown] lisinopril 40 mg tablet 40 mg PO DAILY 03/20/23 [History Last Taken Unknown] metformin 1,000 mg tablet 1,000 mg PO BIDAC diabetes 03/20/23 [History Last Taken 10/17/23] norethindrone (contraceptive) 0.35 mg tablet (Deblitane) 0.35 mg PO DAILY control 03/20/23 [History Last Taken 03/21/23] acetaminophen 500 mg tablet 1,000 mg (2 x 500 mg) PO Q8 #0 tabs 03/22/23 [Rx Last Taken Unknown] blood sugar diagnostic (True Metrix Glucose Test Strip) 10/18/23 [History Last Taken Unknown] diclofenac sodium 75 mg tablet,delayed release 75 mg PO Q12H 10/18/23 [History Last Taken Unknown] dulaglutide 0.75 mg/0.5 mL subcutaneous pen injector (Trulicity) 0.75 mg subcut TH 10/18/23 [History Last Taken 10/17/23] baclofen 10 mg tablet 10 mg PO Q6H PRN muscle spasm 5 days #20 tabs 10/23/23 [Rx Last Taken Unknown] buspirone 7.5 mg tablet 7.5 mg PO BID 5 days #10 tabs 10/23/23 [Rx Last Taken 03/20/23] docusate sodium 100 mg capsule 100 mg PO BID #0 caps 10/23/23 [Rx Last Taken Unknown] gabapentin 400 mg capsule 800 mg (2 x 400 mg) PO TID 5 days #30 caps 10/23/23 [Rx Last Taken Unknown] insulin lispro 100 unit/mL subcutaneous pen (Humalog KwikPen (U-100) Insulin) See Protocol subcut ACHS #0 mL 10/23/23 [Rx Last Taken Unknown] fentanyl 50 mcg/hr transdermal patch 50 mcg transdermal Q72H 1 day #5 ea 10/27/23 [Rx Last Taken Unknown] melatonin 3 mg tablet 3 mg PO QHS PRN Insomnia 11/06/23 [History Last Taken Unknown] oxycodone 5 mg tablet 10 mg PO Q4H PRN Pain Score 4-10 11/06/23 [History Last Taken Unknown] tizanidine 2 mg tablet 4 mg PO Q8H PRN spasms/musculoskeletal pain 11/06/23 [History Last Taken Unknown] Allergy/AdvReac Type Severity Reaction Status Date / Time Penicillins Allergy Unknown Other Verified 11/06/23 10:59 Family History Other Heart disease Surgical History [place] teeth extracted Social History household members: significant other housing: house Smoking Status: Former smoker alcohol intake: never substance use type: does not use Vital Signs Vital Signs Vital Signs: 11/06/23 11:00 11/06/23 13:09 11/06/23 16:20 Temperature 97.3 F L Temperature Source Temporal Pulse Rate 87 92 79 Respiratory Rate 18 18 20 H Blood Pressure 105/75 106/64 127/57 H Blood Pressure Mean 85 78 80 Pulse Ox 95 93 97 Oxygen Delivery Method Room Air Room Air 11/06/23 16:41 11/06/23 16:34 Temperature 97.7 F L 98 F Temperature Source Pulse Rate 79 109 H Respiratory Rate 12 18 Blood Pressure 127/57 H 127/57 H Blood Pressure Mean 80 80 Pulse Ox 97 99 Oxygen Delivery Method Weight Weight: 494 lb 0.894 oz Body Mass Index (BMI) 82.2 Physical Exam Const alert, oriented x3 and no apparent distress Constitutional Narrative: Morbidly obese General Appearance: cooperative, comfortable and well kempt HEENT normocephalic and head/scalp atraumatic Eyes EOMs intact bilaterally and conjunctivae normal Neck full ROM General: normal visual inspection Chest inspection of chest normal and palpation of chest normal Resp normal respiratory effort and normal air movement Effort and Inspection: able to speak in complete sentences Cardio regular rate, regular rhythm and peripheral pulses 2+ throughout GI soft to palpation, non-tender and non-distended Back/Spine Cervical Spine: cervical ROM normal Thoracic Spine / Upper Back: normal to inspection Lumbar Spine / Lower Back: normal to inspection Extremity normal to inspection, full ROM, normal capillary refill and no calf tenderness Skin Skin Narrative: Patient has multiple areas of skin mild breakdown secondary to morbid obesity and skin folds, most notably on the left medial thigh and a small area in the thoracic midline Neuro oriented x3, CN's II-XII intact bilaterally, moves all extremities and deep tendon reflexes 2+ bilaterally Neuro Narrative: The patient describes decreased sensation in the groin genital and rectal region as well as the bilateral posterior and medial thighs. Motor Exam: muscle tone normal throughout Lab / Micro Data 11/06/23 11:25 11/06/23 11:25 Labs: Laboratory Results - last 24 hr 11/06/23 11:25: WBC 11.0, RBC 4.60, Hgb 12.7, Hct 39.8, MCV 86.5, MCH 27.6, MCHC 31.9 L, RDW Std Deviation 42.3, RDW Coeff of Chantal 13.4, Plt Count 299, MPV 10.2, Immature Gran % (Auto) 0.500, Neut % (Auto) 63.9, Lymph % (Auto) 24.0, [place] % (Auto) 9.3, Eos % (Auto) 1.7, Baso % (Auto) 0.6, Absolute Neuts (auto) 7.0, Absolute Lymphs (auto) 2.64, Nucleated RBC % 0, Sodium 122 L, Potassium 4.6, Chloride 85 L, Carbon Dioxide 29.0, Anion Gap 8, BUN 31 H, Creatinine 1.42 H, Estim Creat Clear Calc 102.96, Est GFR (MDRD) Af Amer 53 L, Est GFR (MDRD) Non-Af 43 L, BUN/Creatinine Ratio 21.8 H, Glucose 91, Calcium 9.0 11/06/23 15:43: Urine Color Yellow, Urine Clarity Sl. Cloudy, Urine pH 5.0, Ur Specific [place] 1.025, Urine Protein 15 H, Urine Glucose (UA) Normal, Urine Ketones 15 H, Urine Occult Blood Negative, Urine Nitrite Negative, Urine Bilirubin 1 H, Urine Urobilinogen 1 H, Ur Leukocyte Esterase 25 H, Urine RBC 0-5 SEEN, Urine WBC 0-5 SEEN, Ur Squamous Epith Cells 5-10 SEEN, Urine Bacteria 2+, Urine Mucus 0 SEEN 11/06/23 16:09: PT 13.5, INR 1.0, APTT 25.8 11/06/23 16:50: Serum , Qual NEGATIVE Imaging Radiology Impression Lumbar Spine MRI 11/06/23 11:17 IMPRESSION: Large disc extrusion with inferior migration at L4-5 resulting in critically severe spinal canal stenosis, compression of the cauda equina, and bilateral nerve root impingement. Electronically Signed: Emily Rondon MD at 15:34 EST , Chest X-Ray 11/06/23 16:25 IMPRESSION: No acute radiographic abnormalities. Electronically Signed: Van Gramajo MD at 16:45 EST , Assessment & Plan Assessment/Plan (1) Central stenosis of spinal canal: (2) Cauda equina syndrome: PLAN: I had a lengthy discussion with the patient. I reviewed her imaging with her. Lumbar MRI dated 11/06/2023 shows a large central disc herniation at L4-5 with caudal extrusion behind the body of L5 causing severe central canal stenosis which I feel is contributing to her complaints. After discussing the risk benefits and alternatives and answering all of her questions I recommend an L4 and L5 laminectomy decompression with L4-5 discectomy. We discussed the procedure in detail along with expected outcome and recovery and she agrees to proceed. I did explain to her that any neurologic deficits are not guaranteed to return and that the goal of surgery was to prevent worsening of any deficits. She understands and agrees with the treatment plan.
--- NOTE | 2023-11-06 17:31 | OP.PCM_ITS ---
Report of Operation Date of Procedure: 11/06/23 Description of Surgical Findings:: Preop diagnosis: 1. Lumbar stenosis, L4-5 with spondylosis 2. Lumbar degenerative disc disease L4-5 3. Lumbar disc herniation L4-5 4. Cauda equina syndrome Postop diagnosis: 1. Lumbar stenosis, L4-5 with spondylosis 2. Lumbar degenerative disc disease L4-5 3. Lumbar disc herniation L4-5 4. Cauda equina syndrome Procedures performed: 1. None Statement of medical necessity: The patient is a 38-year-old female with int ractable back and leg pain with paresthesias and urinary incontinence consistent with cauda equina syndrome. Image studies confirm the above diagnoses. They have opted for operative intervention understanding the risk to include but not limited to infection, bleeding, damage to nerves arteries and veins, possibility of spinal fluid leak, continued pain, need for further surgery, deep vein thromb osis, pulmonary embolism, heart attack, risk of stroke or . Description of the procedure: The patient was identified in the preoperative holding area. There they received preoperative IV antibiotics and was then transferred to the operative suite. Once in the operative suite after general endotracheal anesthesia was established, the patient was positioned prone on the operating table. All bony prominences were padded accordingly. The lumbar spine was prepped and draped in a standard fashion. Bear hugger's were not turned on until the drapes were placed and sealed with Ioban. At this point anesthesia began to report labile blood pressure readings. After consulting with them it was determined that going ahead with the procedure presented too much of a risk and the surgery was canceled. The patient was subsequently transferred to the ICU on the ventilator to have an arterial line placed. I spoke with the hospitalist and recommended transfer to a larger medical facility for further management by neurosurgery. This was discussed in detail with her boyfriend and all his questions were answered. He understands and agrees with the treatment plan. Surgeon: Dane Ronquillo Type of Anesthesia: General Admit VTE Documentation VTE Present on Admission: No
--- NOTE | 2023-11-06 17:34 | SUR.PREOP ---
pt given update aware of need for surgery
[2023-11-06 17:52] LABS: Thyroid Stim Hormone (TSH) 2.04 uIU/mL (0.358-3.74); Troponin-I HS 6 pg/mL (3.0-54.0)
[2023-11-06] MEDS: fentaNYL drip 100 ML 5 MCG CONT INF (20:00)
[2023-11-06] MEDS: Norepinephrine 8 mg/250 mL 0.9% NS 9.40000000000000036 MG CONT INF (20:00)
[2023-11-06] MEDS: Etomidate 20 MG/10 ML Vial IV (20:17)
--- NOTE | 2023-11-06 20:30 | RAD_ITS ---
STUDY: X-RAY - chest and ABDOMEN/PELVIS REASON FOR EXAM: Female, 38 years old. n/v, no BM TECHNIQUE: Single AP view of the abdomen / pelvis. COMPARISON: None. FINDINGS: Bilateral lung ludwig reveal decreased inspiration with vascular crowding. There are patchy opacities in the right perihilar region, left upper lobe and left lower lobe which may indicate atelectasis versus residual infiltrates. Mild cardiomegaly. There is a nasogastric tube with the tip in the mid-distal stomach. There is nonspecific air within the stomach. The intra-abdominal structures are very limited due to obscuration from large body habitus. Degenerative disease of the spine. RAD/CXR for Line Placement IMPRESSION: Nasogastric tube as described with tip in the mid-distal stomach. Multifocal bilateral atelectasis versus residual infiltrates. Electronically Signed: Mary Solo MD at 21:35 EST ,
[2023-11-06 20:47] LABS: Base Excess -5 mmol/L (-2 to +2); Bicarbonate 20.3 mmol/L (22-26); Blood Gas Specimen Type ART; Mode AC/PC; O2 Delivery Device Adult Vent; PEEP 5; PIP 25; PO2 169 mmHG (75-100); RR 10; SITE Art Line; SO2 100 % (95-99); Total Carbon Dioxide 21 mmol/L; pCO2 37.2 mmHg (35-45); pH 7.35 (7.35-7.45)
[2023-11-06] MEDS: 0.9% Normal Saline (1000mL) 1,000 ML 75 ML IV (20:52)
--- NOTE | 2023-11-06 20:59 | PN.HOSP_ITS ---
Hospitalist Note Patient went to the OR and was intubated and proned however became hypotensive and ultimately surgery was stopped, pt evaluated post op in ICU as she remained intubated and sedated and was on peripheral levo, BP and HR improving at time of exam, transfer was recommended by surgery team so [facility] contacted and advised transfer to [facility] as they had a bed available. Spoke to surgeon and ICU [place] and [facility] and pt to be transferred, she has been accepted. Updated family in waiting room.
--- NOTE | 2023-11-06 20:59 | PCM.HOSP.N ---
Hospitalist Note Patient went to the OR and was intubated and proned however became hypotensive and ultimately surgery was stopped, pt evaluated post op in ICU as she remained intubated and sedated and was on peripheral levo, BP and HR improving at time of exam, transfer was recommended by surgery team so [facility] contacted and advised transfer to [facility] as they had a bed available. Spoke to surgeon and ICU [place] and [facility] and pt to be transferred, she has been accepted. Updated family in waiting room.
[2023-11-06] MEDS: dexMEDEtomidine 400 MCG in 0.9% Normal Saline (100mL Bag) 96 ML 28 MCG CONT INF (21:00)
[2023-11-06] MEDS: dexMEDEtomidine 1,000 MCG in 0.9% Normal Saline (250mL Bag) 240 ML 56 MCG CONT INF (22:20)
[2023-11-06] MEDS: Clindamycin 900 MG/50 ML BAG 75 MG IV (23:47)
[2023-11-06] MEDS: Nystatin Ointment 1 APPLIC TOPICAL (23:47)
[2023-11-06] MEDS: Insulin Lispro 100 UNIT/ML INSULN.PEN SC (23:57)
[2023-11-07] VITALS: BP 136/70; BP 140/74; PULSE 122; PULSE 127; RESP 20; RESP 21; TEMP 36.9; O2SAT 100; O2SAT 99
[2023-11-07 00:03] VITALS: PULSE 107; RESP 10; O2SAT 100
[2023-11-07 00:11] LABS: Bedside Glucose 217 mg/dL (74-106)
[2023-11-07 00:22] LABS: Anion Gap 10 (5-15); BUN 30 mg/dL (7-18); BUN/Creat Ratio 24.8 RATIO (10-20); Calcium,Total 8.3 mg/dL (8.5-10.1); Chloride 91 mmol/L (98-107); Creatinine, Serum 1.21 mg/dL (0.55-1.02); EST Glomerular Filtration Rate 52 mL/min (>60); Est Glom Filt Rate - Afr Amer 63 mL/min (>60); Estimated Creatinine Clearance 119.48 ml/min; Glucose 242 mg/dL (74-106); Potassium 6.1 mmol/L (3.5-5.1); Sodium Level 122 mmol/L (136-145)
[2023-11-07] MEDS: dexMEDEtomidine 1,000 MCG in 0.9% Normal Saline (250mL Bag) 240 ML 84 MCG CONT INF (01:00)
[2023-11-07] MEDS: fentaNYL drip 100 ML 20 MCG CONT INF (01:00)
--- NOTE | 2023-11-07 01:26 | NURSING ---
This RN and Bc Kim RN removed Fentanyl patch from patient's left upper arm due to being discontinued and started on fentanyl gtt. Patch was flushed in the toilet at this time to dispose of it.
[2023-11-07] MEDS: Insulin Lispro 10 UNIT in Syringe 0 ML 6 UNIT IV (01:47)
[2023-11-07] MEDS: Dextrose 50%-Water 25 GM/50 ML DISP.SYRIN IV (01:47)
--- NOTE | 2023-11-07 13:07 | PCM.DC.SUM ---
Providers Date of Admission: 11/06/23 Date of Discharge: 11/07/23 Primary Care Physician: Dr. Kavon Granda, Consultations 11/06/23 19:44 Consult: Orthopedics Routine Consulting Provider: Dane Ronquillo Reason for Consult: cauda equina compression EMERGENT Consult: Yes MD Notified: Yes Date Notified: 11/06/23 Time Notified: 17:11 Method of Notification: ED Physician Initiated Reason For Visit: COMPRESSION OF CAUDA EQUINA NERVE ROOT EMPINGEMENT Diagnosis Discharge Diagnosis (1) Central stenosis of spinal canal: Status: Acute Code(s): M48.00 - Spinal stenosis, site unspecified (2) Cauda equina syndrome: Status: Acute Code(s): G83.4 - Cauda equina syndrome Plan # L4-5 large disc protrusion resulting in severe spinal canal stenosis and compression of cauda equina #?New onset A-fib # CALVIN # Hyponatremia # Nausea/vomiting #HAILEY #Type 2 diabetes mellitus #Morbid obesity #Mood d/o #HTN Medications at Discharge Home Medications atorvastatin 10 mg tablet 10 mg PO DAILY cholesterol 03/20/23 cholecalciferol (vitamin D3) 25 mcg (1,000 unit) tablet 25 mcg PO DAILY 03/20/23 fluoxetine 40 mg capsule 40 mg PO DAILY 03/20/23 hydrochlorothiazide 25 mg tablet 25 mg PO DAILY 03/20/23 hydroxyzine HCl 25 mg tablet 12.5 mg PO TID PRN anxiety 03/20/23 lisinopril 40 mg tablet 40 mg PO DAILY 03/20/23 metformin 1,000 mg tablet 1,000 mg PO BIDAC diabetes 03/20/23 norethindrone (contraceptive) 0.35 mg tablet (Deblitane) 0.35 mg PO DAILY control 03/20/23 acetaminophen 500 mg tablet 1,000 mg (2 x 500 mg) PO Q8 #0 tabs 03/22/23 blood sugar diagnostic (True Metrix Glucose Test Strip) 10/18/23 diclofenac sodium 75 mg tablet,delayed release 75 mg PO Q12H 10/18/23 dulaglutide 0.75 mg/0.5 mL subcutaneous pen injector (Trulicity) 0.75 mg subcut TH 10/18/23 baclofen 10 mg tablet 10 mg PO Q6H PRN muscle spasm 5 days #20 tabs 10/23/23 buspirone 7.5 mg tablet 7.5 mg PO BID 5 days #10 tabs 10/23/23 docusate sodium 100 mg capsule 100 mg PO BID #0 caps 10/23/23 gabapentin 400 mg capsule 800 mg (2 x 400 mg) PO TID 5 days #30 caps 10/23/23 insulin lispro 100 unit/mL subcutaneous pen (Humalog KwikPen (U-100) Insulin) See Protocol subcut ACHS #0 mL 10/23/23 fentanyl 50 mcg/hr transdermal patch 50 mcg transdermal Q72H 1 day #5 ea 10/27/23 melatonin 3 mg tablet 3 mg PO QHS PRN Insomnia 11/06/23 oxycodone 5 mg tablet 10 mg PO Q4H PRN Pain Score 4-10 11/06/23 tizanidine 2 mg tablet 4 mg PO Q8H PRN spasms/musculoskeletal pain 11/06/23 Hospital Course Summary of Care Provided Hospital Course: Per HPI: SHELTON RODRIGEZ, is a 38-year-old female history of mood disorder, hypertension, diabetes, HAILEY lumbar stenosis who presented to [facility] ED 11/06/2023 due to saddle numbness and tingling and weakness in both legs as well as urinary incontinence which is new. Has a history of lumbar stenosis and had epidural lumbar injection of L5 and S1 done 10/22 and was in the hospital here for 2 weeks for pain control and physical therapy and was sent from hospital to [facility]. Presently on fentanyl patches for pain, developed these new symptoms and was sent to [facility] ED for further evaluation. In ED she had MRI of lumbar spine which showed large disc protrusion at L4-5 resulting in severe spinal canal stenosis and compression of cauda equina and bilateral nerve root impingement. MRI results were discussed with patient and as well as Dr. Ronquillo with orthospine, he is comfortable with patient being managed our facility and requested hospitalist admit patient with plans to take her to the OR tonight. Of note labs drawn prior to surgery demonstrated sodium of 122 and a creatinine of 1.42. Preop EKG also showed heart rate in 90s but no P waves noted and appear to be in fib. Pt evaluated at bedside with significant other present. Patient was here for 2 weeks [facility], had been stable except for the past 3 to 4 days has began having urinary incontinence, has not been able to have a bowel movement since the , has saddle anesthesia and has not been able to stand on her legs. Additionally has had nausea and vomiting for 3 to 4 days and has been unable to tolerate p.o. denies any fevers or chills, does note several spots of yeast infections under folds as she has been unable to get up and has been in a semirecumbent position. No chest pain or shortness of breath but has had some intermittent coughing and slightly raspy voice. INTERVAL HISTORY: Patient went to the OR and was intubated and proned however became hypotensive and ultimately surgery was stopped, pt evaluated post op in ICU as she remained intubated and sedated and was on peripheral levo, BP and HR improving at time of exam, transfer was recommended by surgery team so [facility] contacted and advised transfer to [facility] as they had a bed available. Spoke to surgeon and ICU [place] [facility] and pt to be transferred, she has been accepted. Updated family in waiting room. Weight / BMI Weight Weight: 224.1 kg Body Mass Index (BMI) 82.3 ABG / Lab / Microbiology Data 11/06/23 11:25 11/06/23 23:45 Laboratory: Laboratory Results - last 24 hr 11/06/23 11:25: Troponin I High Sens 6, TSH 2.04 11/06/23 15:43: Urine Color Yellow, Urine Clarity Sl. Cloudy, Urine pH 5.0, Ur Specific [place] 1.025, Urine Protein 15 H, Urine Glucose (UA) Normal, Urine Ketones 15 H, Urine Occult Blood Negative, Urine Nitrite Negative, Urine Bilirubin 1 H, Urine Urobilinogen 1 H, Ur Leukocyte Esterase 25 H, Urine RBC 0-5 SEEN, Urine WBC 0-5 SEEN, Ur Squamous Epith Cells 5-10 SEEN, Urine Bacteria 2+, Urine Mucus 0 SEEN 11/06/23 16:09: PT 13.5, INR 1.0, APTT 25.8 11/06/23 16:50: Serum , Qual NEGATIVE 11/06/23 23:45: Sodium 122 L, Potassium 6.1 H*, Chloride 91 L, Carbon Dioxide 21.0, Anion Gap 10, BUN 30 H, Creatinine 1.21 H, Estim Creat Clear Calc 119.48, Est GFR (MDRD) Af Amer 63, Est GFR (MDRD) Non-Af 52 L, BUN/Creatinine Ratio 24.8 H, Glucose 242 H, Calcium 8.3 L 11/06/23 23:52: POC Glucose 217 H Microbiology: Microbiology 11/06/23 21:19 Sputum, Induced/Lukens Gram Stain - Final 11/06/23 20:08 Mucosa - Nasopharyngeal Respiratory Panel (PCR) - Final Influenza A (Subtype H1) ABG: ABG 11/06/23 20:43 Specimen Type ART Sample Site Art Line pH 7.35 Bicarbonate Actual 20.3 L Total CO2 21 Base Excess -5 L O2 Saturation 100 H O2 % 50.0 ABG pCO2 37.2 ABG pO2 169 H Carlos Test N/A Respiration Rate 10 O2 Delivery Device Adult Vent Vent Mode AC/PC POC PEEP 5 Peak Inspir Pressure 25 Radiography Diagnostic Testing: Radiology Impression Lumbar Spine MRI 11/06/23 11:17 IMPRESSION: Large disc extrusion with inferior migration at L4-5 resulting in critically severe spinal canal stenosis, compression of the cauda equina, and bilateral nerve root impingement. Electronically Signed: Emily Rondon MD at 15:34 EST , Chest X-Ray 11/06/23 16:25 IMPRESSION: No acute radiographic abnormalities. Electronically Signed: Van Gramajo MD at 16:45 EST , Chest X-Ray 11/06/23 20:30 IMPRESSION: Nasogastric tube as described with tip in the mid-distal stomach. Multifocal bilateral atelectasis versus residual infiltrates. Electronically Signed: Mary Solo MD at 21:35 EST , Meaningful Use Info Meaningful Use Diagnoses (Choose all that apply): None applicable Discharge Plan Admission Admit Date/Time: 11/06/23 16:20 Attending Provider: Lzu Ortiz Primary Care Provider: Kavon Granda Consulting Providers: Dane Ronquillo Discharge Orders/Prescriptions Prescriptions: No Action atorvastatin 10 mg tablet 10 mg PO DAILY cholecalciferol (vitamin D3) 25 mcg (1,000 unit) tablet 25 mcg PO DAILY fluoxetine 40 mg capsule 40 mg PO DAILY hydrochlorothiazide 25 mg tablet 25 mg PO DAILY hydroxyzine HCl 25 mg tablet 12.5 mg PO TID PRN lisinopril 40 mg tablet 40 mg PO DAILY metformin 1,000 mg tablet 1,000 mg PO BIDAC norethindrone (contraceptive) [Deblitane] 0.35 mg tablet 0.35 mg PO DAILY acetaminophen 500 mg Tablet 1,000 mg PO Q8 Qty: 0 0RF Trulicity 0.75 mg/0.5 mL pen injector 0.75 mg SUBCUT TH diclofenac sodium 75 mg tablet,delayed release (DR/EC) 75 mg PO Q12H (DME) True Metrix Glucose Test Strip Strip MISCELLANEOUS Patient Comments: Test blood sugar(s) 1 times daily. gabapentin 400 mg Capsule 800 mg PO TID 5 Days Qty: 30 0RF docusate sodium 100 mg Capsule 100 mg PO BID Qty: 0 0RF insulin lispro [Humalog KwikPen Insulin] 100 unit/mL Insulin Pen See Protocol subcut ACHS Qty: 0 0RF Protocol: 4. Sliding Scale Insulin High-Med Dosing Condition: 150-199 mg/dl = 2 units Condition: 200-259 mg/dl = 4 units Condition: 260-324 mg/dl = 6 units Condition: 325-374 mg/dl = 8 units Condition: 375-409 mg/dl = 10 units Condition: 410-449 mg/dl = 11 units Condition: Greater than 449 call physician Protocol Text: - Use for Total Daily Dose of Insulin 56-80 units - Patient who are insulin resistant or septic HIGH MEDIUM DOSING ALGORITHM baclofen 10 mg tablet 10 mg PO Q6H PRN (Reason: muscle spasm) 5 Days Qty: 20 0RF buspirone 7.5 mg tablet 7.5 mg PO BID 5 Days Qty: 10 0RF fentanyl 50 mcg/hr Patch 72 Hour 50 mcg transdermal Q72H 1 Days Qty: 5 0RF tizanidine 2 mg Tablet 4 mg PO Q8H PRN (Reason: spasms/musculoskeletal pain) melatonin 3 mg Tablet 3 mg PO QHS PRN (Reason: Insomnia) oxycodone 5 mg Tablet 10 mg PO Q4H PRN (Reason: Pain Score 4-10) Referrals / Follow Up: Kavon Granda DO [Primary Care Provider] - Disposition Disposition (needs filled in before D/C Order can be placed): [facility]
== END 2023-11-07 02:00 | disposition short-term general hospital (02) | DRG 347 ==
LOC: ED 16:19 → MS3 16:48 → ACINP 18:54 → ICU 23:55
PROVIDERS: Anesthesiology; Orthopaedic Surgery; Admitting Provider Internal Medicine; Emergency Provider Emergency Medicine; PCP Internal Medicine; Visit Provider Internal Medicine
PROC: (CPT 63030; principal; 2023-11-06 17:10)
DX: M48.061 Spinal stenosis, lumbar region without neurogenic claudication (principal); E87.1 Hypo-osmolality and hyponatremia; N17.9 Acute kidney failure, unspecified; Z68.45 Body mass index [BMI] 70 or greater, adult; G83.4 Cauda equina syndrome; E11.9 Type 2 diabetes mellitus without complications; F39 Unspecified mood [affective] disorder; I48.91 Unspecified atrial fibrillation; E66.01 Morbid (severe) obesity due to excess calories; Z79.4 Long term (current) use of insulin; I10 Essential (primary) hypertension; E86.0 Dehydration; M47.26 Other spondylosis with radiculopathy, lumbar region; M51.16 Intervertebral disc disorders with radiculopathy, lumbar region; G47.33 Obstructive sleep apnea (adult) (pediatric); E78.00 Pure hypercholesterolemia, unspecified; R11.2 Nausea with vomiting, unspecified; I95.9 Hypotension, unspecified; R32 Unspecified urinary incontinence; Z79.84 Long term (current) use of oral hypoglycemic drugs; Z79.899 Other long term (current) drug therapy; Z87.891 Personal history of nicotine dependence; Z53.09 Procedure and treatment not carried out because of other contraindication
CPT/HCPCS: 31720; 71045; 72148; 76000; 80048; 81001; 82803; 82962; 84443; 84484; 84703; 85025; 85610; 85730; 87070; 87205; 87633; 93005; 94002; 94003; 99285; J7030; J7050; J7120; P9612; A4216; J2405

== ENCOUNTER 2024-01-20 18:09 | Observation (INO) | payer MEDICAID, SELFPAY ==
[2024-01-20 18:11] VITALS: BP 133/85; PULSE 103; RESP 19; TEMP 36.2; O2SAT 96; BMI 80.6
--- NOTE | 2024-01-20 18:26 | EX.ED.DYSGE1 ---
HPI History of Present Illness Chief Complaint: Weakness [facility] Medical History (Updated 11/15/23 @ 00:01 by Tristen Valles) Anxiety Diabetes High cholesterol HTN (hypertension) Lumbar stenosis Morbid obesity HAILEY (obstructive sleep apnea) Home Medications atorvastatin 10 mg tablet 10 mg PO DAILY cholesterol 03/20/23 [History Last Taken 03/20/23] cholecalciferol (vitamin D3) 25 mcg (1,000 unit) tablet 25 mcg PO DAILY 03/20/23 [History Last Taken 03/20/23] fluoxetine 40 mg capsule 40 mg PO DAILY 03/20/23 [History Last Taken 03/20/23] hydrochlorothiazide 25 mg tablet 25 mg PO DAILY 03/20/23 [History Last Taken 03/20/23] hydroxyzine HCl 25 mg tablet 12.5 mg PO TID PRN anxiety 03/20/23 [History Last Taken Unknown] lisinopril 40 mg tablet 40 mg PO DAILY 03/20/23 [History Last Taken Unknown] metformin 1,000 mg tablet 1,000 mg PO BIDAC diabetes 03/20/23 [History Last Taken 10/17/23] norethindrone (contraceptive) 0.35 mg tablet (Deblitane) 0.35 mg PO DAILY control 03/20/23 [History Last Taken 03/21/23] acetaminophen 500 mg tablet 1,000 mg (2 x 500 mg) PO Q8 #0 tabs 03/22/23 [Rx Last Taken Unknown] blood sugar diagnostic (True Metrix Glucose Test Strip) 10/18/23 [History Last Taken Unknown] diclofenac sodium 75 mg tablet,delayed release 75 mg PO Q12H 10/18/23 [History Last Taken Unknown] dulaglutide 0.75 mg/0.5 mL subcutaneous pen injector (Trulicity) 0.75 mg subcut TH 10/18/23 [History Last Taken 10/17/23] baclofen 10 mg tablet 10 mg PO Q6H PRN muscle spasm 5 days #20 tabs 10/23/23 [Rx Last Taken Unknown] buspirone 7.5 mg tablet 7.5 mg PO BID 5 days #10 tabs 10/23/23 [Rx Last Taken 03/20/23] docusate sodium 100 mg capsule 100 mg PO BID #0 caps 10/23/23 [Rx Last Taken Unknown] gabapentin 400 mg capsule 800 mg (2 x 400 mg) PO TID 5 days #30 caps 10/23/23 [Rx Last Taken Unknown] insulin lispro 100 unit/mL subcutaneous pen (Humalog KwikPen (U-100) Insulin) See Protocol subcut ACHS #0 mL 10/23/23 [Rx Last Taken Unknown] fentanyl 50 mcg/hr transdermal patch 50 mcg transdermal Q72H 1 day #5 ea 10/27/23 [Rx Last Taken Unknown] melatonin 3 mg tablet 3 mg PO QHS PRN Insomnia 11/06/23 [History Last Taken Unknown] oxycodone 5 mg tablet 10 mg PO Q4H PRN Pain Score 4-10 11/06/23 [History Last Taken Unknown] tizanidine 2 mg tablet 4 mg PO Q8H PRN spasms/musculoskeletal pain 11/06/23 [History Last Taken Unknown] Allergy/AdvReac Type Severity Reaction Status Date / Time Penicillins Allergy Unknown Other Verified 11/06/23 10:59 Family History Other Heart disease Surgical History Lutz teeth extracted Social History household members: significant other housing: house Smoking Status: Former smoker alcohol intake: never substance use type: does not use EXAM Physical Exam Const Vital Signs: 01/20/24 18:11 01/20/24 20:09 01/20/24 22:00 Temperature 97.2 F L Temperature Source Axillary Pulse Rate 103 H 81 82 Respiratory Rate 19 H 16 16 Blood Pressure 133/85 H 141/86 H 102/80 Blood Pressure Mean 101 104 87 Pulse Ox 96 97 98 Oxygen Delivery Method Room Air Room Air Room Air MDM MDM MDM Narrative Medical decision making narrative: HISTORY OF PRESENT ILLNESS: 38-year-old female presents with weakness. She states she was recently discharged from rehab 3 days ago. She has had trouble taking care of herself. She notes numbness in her private region, incontinence and difficulty with movement activities of daily living. She denies any falls or other recent trauma. Denies IV drug use. REVIEW OF SYSTEMS: Pertinent positives: Back pain Pertinent negatives: Vomiting, chest pain, fever PHYSICAL EXAM: Nursing triage notes reviewed, Vital signs reviewed Constitutional: please see mdm HENT: MMM Eyes: Pupils equal round and reactive to light, Extraocular muscles intact Neck: No stridor, no JVD, full neck ROM Lungs: Clear to auscultation, No wheezing or rales. No increased work of breathing, no conversational dyspnea, no accessory muscle use, no nasal flaring. No respiratory distress noted Heart: Regular rate and rhythm, No murmurs, No rubs and No gallops, 2+ distal pulses (radial, femoral, posterior tibial) in all extremities Abdomen: Soft, there is no tenderness, rigidity, rebound or guarding, no obvious peritoneal signs, no palpable pulsatile abdominal masses, no auscultated abdominal bruit : No CVAT Rectal: Performed with nurse Margot present showed, sat on his decreased rectal tone Extremities: No edema Rectal exam: Performed with Delilah LAURENT present shows decreased rectal tone Neuro: Patient could move bilateral lower extremities, she has sensation in the L4, L5 and S1 dermatomal distributions, she had 2+ patellar reflexes. Patient decreased saddle sensation and poor rectal tone. Skin: No rash or lesions noted MEDICAL DECISION MAKING: Chief Complaint: Leg weakness, numbness External records reviewed: Prior inpatient records reviewed: Admitted for severe back pain in October 2023 and found to have L4-L5 herniated disc causing cauda equina. Neurosurgery Dr. Ronquillo at that time. MRI of lumbar spine which showed large disc protrusion at L4-5 resulting in severe spinal canal stenosis and compression of cauda equina and bilateral nerve root impingement. Factors affecting care: Obesity, cauda equina syndrome, HAILEY, chronic back pain Social determinants of health: Morbid obesity History obtained from others: none Consults: Orthopedic surgery (Dr. Ronquillo) [facility] Narrative: Patient was initially tachycardic otherwise afebrile and nontoxic-appearing. Exam intact sensation in lower extremities, 2+ reflexes, intact movement in bilateral lower extremities, saddle anesthesia and decreased rectal tone noted. Given concerning neurologic exam (i.e. saddle anesthesia and decreased rectal tone). I ordered a stat MRI. I considered the following differential diagnosis: Space-occupying lesion of the spine, acute on chronic back pain, It was difficult to ascertain the patient symptoms were new or chronic. I suspect her weakness secondary to history of lumbar stenosis, herniated disc. Given diagnostic uncertainty I did perform an MRI to rule out acute spinal abnormalities ALL IMAGES (IF OBTAINED) HAVE BEEN PERSONALLY REVIEWED AND INTERPRETED BY MYSELF. MRI of the spine shows no obvious epidural abscess or signs of cauda equina does show postoperative fluid collection or seroma. There is no acute surgical abnormality noted. I had a discussion with the patient she stated she cannot take care of herself at home. States she cannot perform ADLs having trouble getting around and performing wound cleansing. Per the patient's fianc? he is having trouble getting her in and out of bed, getting her to eat regular meals and getting into the bathroom. They stated they would like to be admitted for PT/OT and to possibly get placed in a rehab facility. I discussed with the hospitalist Dr. Cherry who agreed to admit the patient The patient and/or family, caregivers express understanding. The patient and/or family, caregivers agrees with the plan. Shared decision making: I will have a discussion with the patient and or visitors regarding risk/benefits of further testing or admission. They will be made aware of of the risk/benefits inherent in this decision they will be given the opportunity to voice understanding. Total critical care time today provided was at least 0 [] minutes. This excludes separately billable procedures. Critical care time (if documented) is secondary to the patient having high probability of clinically significant/life threatening deterioration in the patient's condition which required my urgent intervention. Impression: 1. Weakness 2. Ambulate ambulate 3. Postop pain 4. Postop seroma 5. History of cauda equina Dispo: Admit to [facility] observation This note was generated with [employer] dictation software. It may contain incorrect words, spelling, and punctuation that were not noted in review of the chart prior to signing. Radiography Diagnostic Testing: Clinical Impression(s) from Imaging Studies Lumbar Spine MRI 01/20/24 18:41 IMPRESSION: 1. Interval postoperative changes of a RIGHT L5 laminectomy, and removal of the large RIGHT L4-5 disc herniation. No evidence of canal stenosis however small residual bulge and osteophyte deforming the anterior epidural space and the RIGHT lateral recess with potential compression of the RIGHT L5 nerve root in the RIGHT lateral recess. 2. Postoperative fluid collection/seroma in the operative defect. Mild deformity of the posterior thecal surface. No evidence of epidural abscess. 3. Mild multilevel lumbar spondylosis at remaining levels. No acutely acquired canal stenosis. 4. Stable foraminal foraminal narrowing as detailed particularly on the RIGHT at L1-2, and on the LEFT at L3-4. Electronically Signed: Leopoldo Guzman MD at 22:02 EDT , Discharge Plan Triage Chief Complaint: Weakness ED Provider: Teja Oden Dx/Rx/DC Orders Prescriptions: No Action atorvastatin 10 mg tablet 10 mg PO DAILY cholecalciferol (vitamin D3) 25 mcg (1,000 unit) tablet 25 mcg PO DAILY fluoxetine 40 mg capsule 40 mg PO DAILY hydrochlorothiazide 25 mg tablet 25 mg PO DAILY hydroxyzine HCl 25 mg tablet 12.5 mg PO TID PRN lisinopril 40 mg tablet 40 mg PO DAILY metformin 1,000 mg tablet 1,000 mg PO BIDAC norethindrone (contraceptive) [Deblitane] 0.35 mg tablet 0.35 mg PO DAILY acetaminophen 500 mg Tablet 1,000 mg PO Q8 Qty: 0 0RF Trulicity 0.75 mg/0.5 mL pen injector 0.75 mg SUBCUT TH diclofenac sodium 75 mg tablet,delayed release (DR/EC) 75 mg PO Q12H (DME) True Metrix Glucose Test Strip Strip MISCELLANEOUS Patient Comments: Test blood sugar(s) 1 times daily. gabapentin 400 mg Capsule 800 mg PO TID 5 Days Qty: 30 0RF docusate sodium 100 mg Capsule 100 mg PO BID Qty: 0 0RF insulin lispro [Humalog KwikPen Insulin] 100 unit/mL Insulin Pen See Protocol subcut ACHS Qty: 0 0RF Protocol: 4. Sliding Scale Insulin High-Med Dosing Condition: 150-199 mg/dl = 2 units Condition: 200-259 mg/dl = 4 units Condition: 260-324 mg/dl = 6 units Condition: 325-374 mg/dl = 8 units Condition: 375-409 mg/dl = 10 units Condition: 410-449 mg/dl = 11 units Condition: Greater than 449 call physician Protocol Text: - Use for Total Daily Dose of Insulin 56-80 units - Patient who are insulin resistant or septic HIGH MEDIUM DOSING ALGORITHM baclofen 10 mg tablet 10 mg PO Q6H PRN (Reason: muscle spasm) 5 Days Qty: 20 0RF buspirone 7.5 mg tablet 7.5 mg PO BID 5 Days Qty: 10 0RF fentanyl 50 mcg/hr Patch 72 Hour 50 mcg transdermal Q72H 1 Days Qty: 5 0RF tizanidine 2 mg Tablet 4 mg PO Q8H PRN (Reason: spasms/musculoskeletal pain) melatonin 3 mg Tablet 3 mg PO QHS PRN (Reason: Insomnia) oxycodone 5 mg Tablet 10 mg PO Q4H PRN (Reason: Pain Score 4-10) Primary Care Provider: Kavon Granda Referrals: Kavon Granda DO [Primary Care Provider] -
--- NOTE | 2024-01-20 18:41 | MRI_ITS ---
STUDY: MRI LUMBAR SPINE WITHOUT CONTRAST REASON FOR EXAM: Female, 38 years old. Leg weakness, numbness recent surgery TECHNIQUE: Standardized fat and water weighted pulse sequences were obtained in the sagittal and axial planes. Noncontrast images obtained. Contrast: No contrast administered COMPARISON: 11/06/2023 FINDINGS: Vertebral bodies and alignment. 1. Vertebral body height and marrow signal and alignment are unchanged. No evidence of marrow edema. 2. There are postoperative changes consistent with a RIGHT laminectomy at L5. There is fluid accumulation within the surgical defect at, with the largest collection between the facet joints measuring approximately 2.3 x 2.0 cm in axial dimension, however this communicates with a subcutaneous collection extending in the subcutaneous connective tissue to the level of the skin surface, with maximal dimensions estimated at 16.2 cm in length, 3.5 x 5.2 cm in axial dimension. 3. No evidence of epidural fluid collection, however there is deformity of the dorsal thecal surface. 4. There has been postop change and removal of previous large L4-5 disc herniation. There is however a small residual noted on the RIGHT extending into the anterior epidural space along the L5 vertebral body, with deformity of the RIGHT lateral recess and potential deformity of the L5 nerve root on the RIGHT.. 5. Normal appearance of the sacrum and sacroiliac joints. Intervertebral disks levels. T12-L1: Normal endplates. Normal disc height, hydration and morphology. Normal bilateral facet joints. Normal central canal and bilateral lateral recesses. Normal bilateral intervertebral neural foramina. L1-2: Minimal disc desiccation, mild loss disc height, no disc herniation canal or foraminal stenosis. There is a RIGHT foraminal bulge contacting the RIGHT L1 nerve root lateral to the RIGHT neural foramen. This appears stable. L2-3: No disc herniation canal or foraminal stenosis. Facet hypertrophic changes are present. L3-4: No disc herniation noted. There is no evidence central canal stenosis. There is a LEFT posterior lateral bulge extending into the neural foramen with displacement of the emerging LEFT L3 nerve root. Facet hypertrophic changes are present. L4-5: Postoperative changes of removal of previous broad-based disc protrusion. There is a residual bulge and small focal area suspected residual disc and osteophyte deforming the anterior epidural space and compressing the RIGHT lateral recess with the included RIGHT L5 nerve root. L5-S1: No disc herniation canal or foraminal stenosis. Spinal cord: Normal appearance of the spinal cord and conus. Conus is located at L1. Cauda equina has normal appearance. No evidence of cord compression or edema. No intramedullary signal abnormality noted. Paraspinous soft tissues: As detailed above MRI/Spine Lumbar (Routine) IMPRESSION: 1. Interval postoperative changes of a RIGHT L5 laminectomy, and removal of the large RIGHT L4-5 disc herniation. No evidence of canal stenosis however small residual bulge and osteophyte deforming the anterior epidural space and the RIGHT lateral recess with potential compression of the RIGHT L5 nerve root in the RIGHT lateral recess. 2. Postoperative fluid collection/seroma in the operative defect. Mild deformity of the posterior thecal surface. No evidence of epidural abscess. 3. Mild multilevel lumbar spondylosis at remaining levels. No acutely acquired canal stenosis. 4. Stable foraminal foraminal narrowing as detailed particularly on the RIGHT at L1-2, and on the LEFT at L3-4. Electronically Signed: Leopoldo Guzman MD at 22:02 EDT ,
[2024-01-20 20:09] VITALS: BP 141/86; PULSE 81; RESP 16; O2SAT 97
[2024-01-20 22:00] VITALS: BP 102/80; PULSE 82; RESP 16; O2SAT 98
--- NOTE | 2024-01-20 22:31 | HP.PCM.HOS_ITS ---
[facility] - General General Date of Admission: 01/20/24 Date of Service: 01/20/24 Chief Complaint: Can't get up and around. HPI Narrative SHELTON JOHNSON, is a 38 F with a past medical history of essential hypertension, hyperlipidemia, diabetes mellitus type 2; of unknown control on metformin and Trulicity, history of atrial fibrillation, depression, PTSD, super morbid obesity; with BMI of 80.6 this admission, history of chronic back pain with he rniated disc at L4-L5 with severe spinal canal stenosis and bilateral nerve root impingement causing cauda equina syndrome; status post spinal surgery done at [facility] in October of this year; with patient having not followed up with her spinal surgeon since that time and who was just discharged from rehabilitation 3 days ago who presents to [facility] complaining of not being able to get up and around. Ms. Johnson reports she has had trouble taking care of herself and her fianc? present at the bedside in the ER states that he can no longer care for her at home. She states she still having numbness in her private area, difficulty with movement and she is in continent of stool and urine plus she can no longer independently do her ADLs. Her fianc? returned home today to find her down on the floor but she had no obvious traumatic injury. She denies associated fever, chills, nausea, vomiting, diarrhea or constipation. In the ER she was noted to have an MRI of the L-spine that was unremarkable for acute pathologic changes and she was then subsequently diagnosed with persistent generalized weakness with ambulatory dysfunction with persistent incontinence of bowel and bladder in the setting of a history of chronic back pain with herniated disc at L4-L5 with spinal canal stenosis and bilateral nerve root impingement causing cauda equina syndrome; st atus post spinal surgery done at [facility] in October of this year with the patient having just been discharged from rehabilitation center 3 days ago and unable to care for self at home and she was then admitted to the general medical floor under observation status for stay that is expected to be less than 2 midnights. [facility] Medical History Afib Anxiety Depression Diabetes High cholesterol HTN (hypertension) Lumbar stenosis Morbid obesity HAILEY (obstructive sleep apnea) Post traumatic stress disorder (PTSD) Home Medications atorvastatin 10 mg tablet 10 mg PO DAILY cholesterol 03/20/23 [History Last Taken 03/20/23] cholecalciferol (vitamin D3) 25 mcg (1,000 unit) tablet 25 mcg PO DAILY 03/20/23 [History Last Taken 03/20/23] fluoxetine 40 mg capsule 60 mg PO DAILY 03/20/23 [History Last Taken 03/20/23] metformin 1,000 mg tablet 1,000 mg PO BIDAC diabetes 03/20/23 [History Last Taken 10/17/23] norethindrone (contraceptive) 0.35 mg tablet (Deblitane) 0.35 mg PO DAILY control 03/20/23 [History Last Taken 03/21/23] acetaminophen 500 mg tablet 1,000 mg (2 x 500 mg) PO Q8 #0 tabs 03/22/23 [Rx Last Taken Unknown] blood sugar diagnostic (True Metrix Glucose Test Strip) 10/18/23 [History Last Taken Unknown] dulaglutide 0.75 mg/0.5 mL subcutaneous pen injector (Trulicity) 0.75 mg subcut TH 10/18/23 [History Last Taken 10/17/23] docusate sodium 100 mg capsule 100 mg PO BID #0 caps 10/23/23 [Rx Last Taken Unknown] gabapentin 400 mg capsule 800 mg (2 x 400 mg) PO TID 5 days #30 caps 10/23/23 [Rx Last Taken Unknown] insulin lispro 100 unit/mL subcutaneous pen (Humalog KwikPen (U-100) Insulin) See Protocol subcut ACHS #0 mL 10/23/23 [Rx Last Taken Unknown] oxycodone 5 mg tablet 10 mg PO Q4H PRN Pain Score 4-10 11/06/23 [History Last Taken Unknown] buspirone 7.5 mg tablet 10 mg PO BID 01/20/24 [History Last Taken Unknown] furosemide 40 mg tablet (Lasix) 40 mg PO DAILY 01/20/24 [History Last Taken Unknown] methocarbamol 500 mg tablet 500 mg PO TID 01/20/24 [History Last Taken Unknown] metoprolol tartrate 25 mg tablet 12.5 mg PO BID 01/20/24 [History Last Taken Unknown] potassium chloride 10 mEq tablet,extended release 10 meq PO DAILY 01/20/24 [History Last Taken Unknown] Allergy/AdvReac Type Severity Reaction Status Date / Time Penicillins Allergy Unknown Other Verified 11/06/23 10:59 Family History (Updated 01/21/24 @ 00:26 by Pauline Abdalla) Father Heart disease Diabetes Bladder cancer Father Agent [place] poisoning Father No problems noted. Mother Uterine cancer Surgical History [place] teeth extracted Social History household members: significant other housing: house Smoking Status: Former smoker alcohol intake: never substance use type: does not use ROS ROS Narrative Review of systems: General: Patient denies fever or chills. HENT: Denies headache, denies stuffy nose, denies sore throat EYES: Denies changes in vision or discharge from eyes. Resp: Denies cough, denies shortness of breath Cardiac: Denies chest pain, palpitations or heart racing. GI: Denies abdominal pain, denies changes in bowel, denies nausea or vomiting. : Denies changes in urination but claims to have continued numbness and her private area as per HPI. Extremity: Denies swelling Musculoskeletal: Patient admits to chronic back pain that is unchanged. Neuro: Patient admits to numbness in her private areas that is persistent and difficulty ambulating but denies headache or focal neurologic weakness. Heme: Denies any bleeding or bruising Skin: Denies rashes Psychiatric: No complaints voiced related uncontrolled depression or anxiety. Endocrine: No polyuria, polydipsia or polyphagia. The rest of the 14 point ROS was negative except for positives in HPI. Vital Signs Vital Signs Vital Signs: 01/20/24 18:11 01/20/24 20:09 01/20/24 22:00 Temperature 97.2 F L Temperature Source Axillary Pulse Rate 103 H 81 82 Respiratory Rate 19 H 16 16 Blood Pressure 133/85 H 141/86 H 102/80 Blood Pressure Mean 101 104 87 Pulse Ox 96 97 98 Oxygen Delivery Method Room Air Room Air Room Air Weight Weight: 484 lb 5.689 oz Body Mass Index (BMI) 80.6 Physical Exam Const alert, oriented x3 and no apparent distress Constitutional Narrative: Patient is morbidly obese with a depressed, tearful affect General Appearance: cooperative HEENT normocephalic, head/scalp atraumatic, hearing grossly normal bilaterally and moist oral mucous membranes Eyes PERRL and EOMs intact bilaterally Neck no lymphadenopathy and supple Resp normal respiratory effort, no retractions, no use of accessory muscles and clear to auscultation bilaterally Cardio regular rate and regular rhythm GI normal to inspection, nondistended, normoactive bowel sounds, soft to palpation, non-tender and non-distended GI Narrative: Morbidly obese. Extremity normal to inspection Skin Skin Narrative: Patient has no evidence of jaundice or abscess. Neuro oriented x3, CN's II-XII intact bilaterally, moves all extremities and no focal motor deficits Sensorium / Orientation: awake, alert, oriented to person, oriented to place and oriented to time Speech: speech normal Psych Mood & Affect: depressed Results Lab / Micro Data 01/20/24 22:30 01/20/24 22:30 Imaging Radiology Impression Lumbar Spine MRI 01/20/24 18:41 IMPRESSION: 1. Interval postoperative changes of a RIGHT L5 laminectomy, and removal of the large RIGHT L4-5 disc herniation. No evidence of canal stenosis however small residual bulge and osteophyte deforming the anterior epidural space and the RIGHT lateral recess with potential compression of the RIGHT L5 nerve root in the RIGHT lateral recess. 2. Postoperative fluid collection/seroma in the operative defect. Mild deformity of the posterior thecal surface. No evidence of epidural abscess. 3. Mild multilevel lumbar spondylosis at remaining levels. No acutely acquired canal stenosis. 4. Stable foraminal foraminal narrowing as detailed particularly on the RIGHT at L1-2, and on the LEFT at L3-4. Electronically Signed: Leopoldo Guzman MD at 22:02 EDT Reading Location ID and State: [address] [place] [address] Tel , Service support , Assessment & Plan Assessment/Plan (1) Generalized weakness: (2) Ambulatory dysfunction: (3) Urinary incontinence: QUALIFIERS: Urinary Incontinence type: unspecified incontinence Qualified Code(s): R32 - Unspecified urinary incontinence (4) Bowel incontinence: QUALIFIERS: Fecal incontinence type: unspecified Qualified Code(s): R15.9 - Full incontinence of feces (5) Back pain: QUALIFIERS: Back pain laterality: unspecified Back pain location: low back pain Chronicity: chronic Sciatica presence: unspecified whether sciatica present Qualified Code(s): M54.50 - Low back pain, unspecified; G89.29 - Other chronic pain PLAN: Plan 1. Persistent generalized weakness with ambulatory dysfunction and persistent i ncontinence of bowel and bladder - Admit to general medical floor under observation status. MRI this admission shows no acute pathologic changes that would explain her symptoms. PT/OT and case management consult and treat this admission help patient hopefully get back into a rehabilitation setting. In the future this patient should probably not be admitted here until she follows up with her spinal surgeon if she has not seen him since her procedure was done. 2. History of chronic back pain with herniated disc at L4-L5 with spinal canal stenosis and bilateral nerve root impingement causing cauda equina syndrome; status post spinal surgery done at [facility] in October of this year with the patient having just been discharged from rehabilitation center 3 days ago and unable to care for self at home complicating #1 - Noted. 3. Super morbid obesity; with BMI of 80.6 this admission compounding #1 & #2 - Weight loss will be recommended. 4. Essential hypertension - Continue home regimen as previous plus give as needed IV hydralazine for systolic blood pressure greater than 160 mmHg. 5. Hyperlipidemia - Resume statin. 6. Diabetes mellitus type 2; of unknown control on metformin and Trulicity - ADA diet. Fingerstick blood sugars before every meal and at bedtime plus lowest intensity sliding scale insulin. Hold metformin. Check hemoglobin A1c to objectively assess quality of diabetic control. 7. History of atrial fibrillation - Noted. 8. Depression - Continue home medications. 9. DVT prophylaxis - Lovenox 40 mg SQ twice daily. We will hold patient's oral contraceptives as they increased risk of DVT in this patient with multiple comorbidities with risks outweigh any potential benefits at this time. Total time: Approximately 45 minutes. Charges/Coding Visit Charges OBSV E&M: 44974 Observ/hosp same date L1
[2024-01-20 22:42] LABS: Absolute Neutrophil Count 5.2 X10^3/uL (2.0-7.7); Basophil# 0.07 X10^3/uL; Basophil% 0.7 % (0-1); Eosinophil# 0.43 X10^3/uL; Eosinophils% 4.6 % (0-5); Hematocrit 37.9 % (37-47); Mean Corp Hgb Conc 31.7 g/dL (32-36); Mean Corpuscular Hgb 27.8 pg (27.0-32.0); Mean Corpuscular Volume 87.9 fL (81-99); Mean Platelet Vol. 9.7 fl (6.2-12.0); Monocyte# 0.63 X10^3/uL; Monocyte% 6.7 % (0-10); NRBC Flagged by Analyzer 0 % (0-5); Neutrophil # 5.23 X10^3/uL (2.7-7.7); Neutrophil % 55.8 % (47-70); Platelet Count 349 K/mm3 (150-450); RBC Distribution Width CV 13.8 % (11.6-14.6); RBC Distribution Width SD 44.9 fl (35.1-43.9); Red Blood Count 4.31 M/mm3 (4.2-5.4); White Blood Count 9.4 K/mm3 (4.4-11.0)
[2024-01-20 23:01] LABS: Anion Gap 7 (5-15); BUN 18 mg/dL (7-18); BUN/Creat Ratio 20.6 RATIO (10-20); Chloride 104 mmol/L (98-107); Creatinine, Serum 0.87 mg/dL (0.55-1.02); EST Glomerular Filtration Rate 76 mL/min (>60); Est Glom Filt Rate - Afr Amer 92 mL/min (>60); Estimated Creatinine Clearance 165.66 ml/min; Glucose 108 mg/dL (74-106); Potassium 3.6 mmol/L (3.5-5.1); Sodium Level 141 mmol/L (136-145)
[2024-01-20 23:49] VITALS: BP 139/91; PULSE 86; RESP 16; TEMP 36.2; O2SAT 97
[2024-01-21 00:07] VITALS: BMI 180.2
[2024-01-21 00:11] VITALS: BP 123/58; PULSE 76; RESP 16; TEMP 36.5; O2SAT 97
[2024-01-21] MEDS: 0.9% Normal Saline (1000mL) 1,000 ML 50 ML IV ×2 (00:47→20:11)
[2024-01-21] MEDS: Diclofenac 75 MG Tablet PO ×3 (01:11→21:28)
[2024-01-21 03:19] VITALS: BMI 180.2
[2024-01-21 05:42] VITALS: BP 121/80; PULSE 78; RESP 18; TEMP 36.5; O2SAT 95
[2024-01-21] MEDS: Gabapentin 400 MG Capsule 800 MG PO ×3 (05:43→21:35)
[2024-01-21 07:04] LABS: Bedside Glucose 96 mg/dL (74-106)
[2024-01-21 07:30] LABS: Absolute Neutrophil Count 3.2 X10^3/uL (2.0-7.7); Basophil# 0.06 X10^3/uL; Basophil% 0.9 % (0-1); Eosinophil# 0.35 X10^3/uL; Eosinophils% 5.4 % (0-5); Hematocrit 37.2 % (37-47); Hemoglobin 11.4 g/dL (12.0-15.0); Lymphocyte % 35.7 % (19-41); Mean Corp Hgb Conc 30.6 g/dL (32-36); Mean Corpuscular Hgb 27.6 pg (27.0-32.0); Mean Corpuscular Volume 90.1 fL (81-99); Mean Platelet Vol. 10.1 fl (6.2-12.0); Monocyte# 0.53 X10^3/uL; Monocyte% 8.2 % (0-10); NRBC Flagged by Analyzer 0 % (0-5); Neutrophil # 3.18 X10^3/uL (2.7-7.7); Neutrophil % 49.5 % (47-70); POSITIVE COUNT YES; RBC Distribution Width CV 13.8 % (11.6-14.6); RBC Distribution Width SD 45.8 fl (35.1-43.9); Red Blood Count 4.13 M/mm3 (4.2-5.4); White Blood Count 6.4 K/mm3 (4.4-11.0)
[2024-01-21 08:00] VITALS: BMI 82.6
[2024-01-21 08:14] LABS: ALB/GLOB Ratio 0.8 RATIO (0.9-2.4); AST(SGOT) 20 U/L (15-37); Alanine Aminotransfer ALT/SGPT 19 U/L (13-56); Albumin, Serum 2.8 g/dL (3.2-5.0); Alkaline Phosphatase 82 U/L (45-117); Anion Gap 7 (5-15); BUN 15 mg/dL (7-18); BUN/Creat Ratio 19.3 RATIO (10-20); Calcium,Total 8.9 mg/dL (8.5-10.1); Chloride 105 mmol/L (98-107); Creatinine, Serum 0.78 mg/dL (0.55-1.02); EST Glomerular Filtration Rate 87 mL/min (>60); Est Glom Filt Rate - Afr Amer 105 mL/min (>60); Estimated Creatinine Clearance 349.14 ml/min; Globulin 3.5 g/dL (2.2-4.2); Glucose 99 mg/dL (74-106); Magnesium 1.9 mg/dL (1.6-2.6); Phosphorus 4.9 mg/dL (2.5-4.9); Potassium 3.5 mmol/L (3.5-5.1); Protein, Total 6.3 g/dL (6.4-8.2); Sodium Level 139 mmol/L (136-145)
[2024-01-21 08:30] LABS: Differential Indicated SCAN CRITERIA MET
--- NOTE | 2024-01-21 08:30 | PN.HOSP_ITS ---
Reason for Visit Reason for Visit: Diagnoses Other chronic pain (01/20/24) Low back pain, unspecified (01/20/24) Full incontinence of feces (01/20/24) Difficulty in walking, not elsewhere classified (01/20/24) Unspecified urinary incontinence (01/20/24) Weakness (01/20/24) Subjective Subjective Still with incontinence since her surgery. Still with paresthesias in LE. Objective Data Objective Data Vital Signs: Vital Signs Temp Pulse Resp BP Pulse Ox O2 Del Method 36.5 C L 78 18 121/80 H 95 Room Air 01/21/24 05:42 01/21/24 05:42 01/21/24 05:42 01/21/24 05:42 01/21/24 05:42 01/21/24 05:42 Oxygen Delivery Method Room Air Weight: 491.2 kg Body Mass Index (BMI) 180.2 Intake & Output: Intake and Output for Last 24 Hours 01/19/24 01/20/24 01/21/24 23:59 23:59 23:59 Output Total 600 / 600 Balance -600 / -600 Lab / Micro Data 01/21/24 07:05 01/21/24 07:05 Labs: Laboratory Results - last 24 hr 01/20/24 22:30: WBC 9.4, RBC 4.31, Hgb 12.0, Hct 37.9, MCV 87.9, MCH 27.8, MCHC 31.7 L, RDW Std Deviation 44.9 H, RDW Coeff of Chantal 13.8, Plt Count 349, MPV 9.7, Immature Gran % (Auto) 0.200, Neut % (Auto) 55.8, Lymph % (Auto) 32.0, Carson % (Auto) 6.7, Eos % (Auto) 4.6, Baso % (Auto) 0.7, Absolute Neuts (auto) 5.2, Absolute Lymphs (auto) 3.00, Nucleated RBC % 0, Sodium 141, Potassium 3.6, Chloride 104, Carbon Dioxide 30.0, Anion Gap 7, BUN 18, Creatinine 0.87, Estim Creat Clear Calc 165.66, Est GFR (MDRD) Af Amer 92, Est GFR (MDRD) Non-Af 76, BUN/Creatinine Ratio 20.6 H, Glucose 108 H, Calcium 9.0 01/21/24 06:45: POC Glucose 96 01/21/24 07:05: WBC 6.4, RBC 4.13 L, Hgb 11.4 L, Hct 37.2, MCV 90.1, MCH 27.6, MCHC 30.6 L, RDW Std Deviation 45.8 H, RDW Coeff of Chantal 13.8, Plt Count TNP, MPV 10.1, Immature Gran % (Auto) 0.300, Neut % (Auto) 49.5, Lymph % (Auto) 35.7, Carson % (Auto) 8.2, Eos % (Auto) 5.4 H, Baso % (Auto) 0.9, Absolute Neuts (auto) 3.2, Absolute Lymphs (auto) 2.30, Nucleated RBC % 0, Sodium 139, Potassium 3.5, Chloride 105, Carbon Dioxide 27.0, Anion Gap 7, BUN 15, Creatinine 0.78, Estim Creat Clear Calc 349.14, Est GFR (MDRD) Af Amer 105, Est GFR (MDRD) Non-Af 87, BUN/Creatinine Ratio 19.3, Glucose 99, Calcium 8.9, Phosphorus 4.9, Magnesium 1.9, Total Bilirubin 0.70, AST 20, ALT 19, Alkaline Phosphatase 82, Total Protein 6.3 L, Albumin 2.8 L, Globulin 3.5, Albumin/Globulin Ratio 0.8 L, TSH 3.20 Radiography Diagnostic Testing: Radiology Impression Lumbar Spine MRI 01/20/24 18:41 IMPRESSION: 1. Interval postoperative changes of a RIGHT L5 laminectomy, and removal of the large RIGHT L4-5 disc herniation. No evidence of canal stenosis however small residual bulge and osteophyte deforming the anterior epidural space and the RIGHT lateral recess with potential compression of the RIGHT L5 nerve root in the RIGHT lateral recess. 2. Postoperative fluid collection/seroma in the operative defect. Mild deformity of the posterior thecal surface. No evidence of epidural abscess. 3. Mild multilevel lumbar spondylosis at remaining levels. No acutely acquired canal stenosis. 4. Stable foraminal foraminal narrowing as detailed particularly on the RIGHT at L1-2, and on the LEFT at L3-4. Electronically Signed: Leopoldo Guzman MD at 22:02 EDT , Physical Exam Const alert and no apparent distress HEENT head/scalp atraumatic and moist oral mucous membranes Resp normal respiratory effort and no retractions GI normal to inspection, nondistended, normoactive bowel sounds Neuro Neuro Narrative: MS 5/5 in LE. diminished sensation in LE bilaterally. Assessment & Plan Assessment/Plan (1) Generalized weakness: (2) Ambulatory dysfunction: (3) Urinary incontinence: QUALIFIERS: Urinary Incontinence type: unspecified incontinence Qualified Code(s): R32 - Unspecified urinary incontinence (4) Bowel incontinence: QUALIFIERS: Fecal incontinence type: unspecified Qualified Code(s): R15.9 - Full incontinence of feces (5) Back pain: QUALIFIERS: Back pain laterality: unspecified Back pain location: low back pain Chronicity: chronic Sciatica presence: unspecified whether sciatica present Qualified Code(s): M54.50 - Low back pain, unspecified; G89.29 - Other chronic pain PLAN: Plan Debility * multifactorial due to recent surgery for cauda equina, morbid obesity, poor performance status * PT OT eval and treat * CM to assist with disposition * Related with recent cauda equina and surgery. Pt is very motivated and I would feel benefit from inpatient rehabilitation services. Chronic back pain * given recent surgery an MRI lumbar spine which showed shows interval postoperative changes of a right L5 laminectomy and removal of the large RIGHT L4-5 disc herniation. No evidence of canal stenosis however small residual bulge and osteophyte deforming the anterior epidural space and the RIGHT la teral recess with potential compression of the RIGHT L5 nerve root in the RIGHT lateral recess.Postoperative fluid collection/seroma in the operative defect. Mild deformity of the posterior thecal surface. No evidence of epidural abscess. Mild multilevel lumbar spondylosis at remaining levels. No acutely acquired canal stenosis. Stable foraminal foraminal narrowing as detailed particularly on the RIGHT at L1-2, and on the LEFT at L3-4. Chronic conditions: * Super morbid obesity; with BMI of 80.6 this admission compounding #1 & #2 - Weight loss will be recommended. * Essential hypertension - Continue home regimen as previous plus give as needed IV hydralazine for systolic blood pressure greater than 160 mmHg. * hyperlipidemia - Resume statin. * Diabetes mellitus type 2; of unknown control on metformin and Trulicity - ADA diet. Fingerstick blood sugars before every meal and at bedtime plus lowest intensity sliding scale insulin. Hold metformin. Check hemoglobin A1c to objectively assess quality of diabetic control. * History of atrial fibrillation - Noted. * Depression - Continue home medications. DVT prophylaxis - Lovenox 40 mg SQ twice daily. Greater than 35 minutes of which greater than 50% of time was counseled patient at bedside about her pain, her limited recovery since surgery. Patient expressed frustration that she has not seen her surgeon as she the facility that she has been has not had transportation available for her to get to the appointments. Charges/Coding Visit Charges Inpatient E&M: 32216 Subs Hosp L2
[2024-01-21 08:31] LABS: Platelet Estimate ADEQUATE (ADEQ)
[2024-01-21] MEDS: Lisinopril 40 MG Tablet PO (09:07)
[2024-01-21] MEDS: busPIRone 15 MG TABLET 7.5 MG PO (09:07)
[2024-01-21] MEDS: Enoxaparin 40 MG/0.4 ML Syringe SC ×2 (09:07→21:27)
[2024-01-21] MEDS: Cholecalciferol (VIT D3) 25 MCG TABLET (1,000 UNITS) PO (09:07)
[2024-01-21] MEDS: Fluoxetine HCl 40 MG CAPSULE PO (09:07)
[2024-01-21 10:00] VITALS: O2SAT 97
--- NOTE | 2024-01-21 10:30 | CASEMGMT ---
SW met with patient. Introduced self and role at [facility]. Patient stated she was at [facility] recently. Patient stated she needs to go to a senior living facility for rehab. SW asked patient if she would want to return to [facility] or if she would like a list of senior living facilities that take her insurance. Patient requested a list. Patient was also concerned as she needs to follow up with her surgeon. She has not been able to as she has been in facilities and they told her they cannot transport her. Kari MADISON
[2024-01-21 11:30] VITALS: BP 118/78; PULSE 74; RESP 16; TEMP 36.5; O2SAT 96
[2024-01-21 11:36] LABS: Bedside Glucose 120 mg/dL (74-106)
--- NOTE | 2024-01-21 13:00 | CASEMGMT ---
OMEGA met with patient and her significant other Neville. Patient's SN[facility] choices [facility]. Patient and Neville asked if patient could go to an Acute Rehab Unit. Physician and therapy also felt patient would be a good rehab candidate. OMEGA let patient know [facility] Acute Rehab is full. Patient stated she would be agreeable to going back to [facility]. OMEGA let her know SW will have a referral made and let her know. Kari MADISON
--- NOTE | 2024-01-21 13:08 | CASEMGMT ---
Addendum entered by Rosina Thompson 01/21/24 15:07: [facility] declined referral. Rosina Thompson DC Planning Asst. Original Note: Discharge Planning Referral sent via [facility] to [facility]. Rosina Thompson, Discharge Planning Asst.
--- NOTE | 2024-01-21 15:10 | CASEMGMT ---
SW spoke with patient and let her know that [facility] has declined her and stated she is more appropriate for SNF level of care. Patient asked that referrals be made to [facility]. SW asked Rosina to make referrals. Kari Munguia [employer]
--- NOTE | 2024-01-21 15:16 | CASEMGMT ---
Addendum entered by Rosina Thompson 01/21/24 16:14: [facility] declined referral. SW aware. Rosina Thompson DC Planning Asst. Addendum entered by Rosina Thompson 01/21/24 15:31: [facility] has declined referral. Rosina Thompson DC Planning Asst. Original Note: Discharge Planning Referral sent via [facility] to [facility]. Rosina Thompson DC Planning Asst.
--- NOTE | 2024-01-21 16:15 | CASEMGMT ---
OMEGA notified patient and her significant other that [facility] is full and [facility] has declined patient. Their next choices are [facility] and [facility]. OMEGA asked Rosina to send referrals to both facilities. Kari MADISON
--- NOTE | 2024-01-21 16:19 | CASEMGMT ---
Addendum entered by Rsoina Thompson 01/22/24 09:17: Both [facility] and [facility] declined referral. Rosina Thompson DC Planning Asst Original Note: Discharge Planning Referral sent via [facility] to [facility] and [facility]. Rosina Thompson, Discharge Planning Asst.
--- NOTE | 2024-01-21 17:16 | NURSING ---
Report given to ANASTASIIA Chamorro on [facility], Patient to transfer to [id number]
[2024-01-21 17:25] LABS: Bedside Glucose 109 mg/dL (74-106)
--- NOTE | 2024-01-21 17:56 | NURSING ---
report called to [facility] patient left to go to [facility]
[2024-01-21 18:09] VITALS: BP 124/80; PULSE 74; RESP 18; TEMP 36.3; O2SAT 97
[2024-01-21] MEDS: Atorvastatin Calcium 10 MG Tablet PO (21:26)
[2024-01-21] MEDS: Menthol/Lanolin/Calamine/Znox 113 GM Tube 1 APPLIC TOPICAL (21:28)
[2024-01-21] MEDS: busPIRone 5 MG Tablet 10 MG PO (21:35)
[2024-01-21 21:42] VITALS: BP 137/78; PULSE 84; RESP 18; TEMP 36.6; O2SAT 96
[2024-01-21 22:50] LABS: Bedside Glucose 117 mg/dL (74-106)
[2024-01-22 04:04] VITALS: BP 103/68; PULSE 75; RESP 18; TEMP 36.5; O2SAT 97
[2024-01-22 06:00] VITALS: BMI 83.0
[2024-01-22] MEDS: Gabapentin 400 MG Capsule 800 MG PO ×3 (06:15→20:50)
[2024-01-22] MEDS: Baclofen 10 MG Tablet PO ×2 (06:18→20:50)
[2024-01-22 07:18] LABS: Bedside Glucose 102 mg/dL (74-106)
--- NOTE | 2024-01-22 08:34 | PCM.PN.HOSP ---
Reason for Visit Reason for Visit: Diagnoses Other chronic pain (01/20/24) Low back pain, unspecified (01/20/24) Full incontinence of feces (01/20/24) Difficulty in walking, not elsewhere classified (01/20/24) Unspecified urinary incontinence (01/20/24) Weakness (01/20/24) Subjective Subjective Has been walking to the bathroom. Still has no control of her bowels. Objective Data Objective Data Vital Signs: Vital Signs Temp Pulse Resp BP Pulse Ox O2 Del Method 36.5 C L 75 18 103/68 97 CPAP 01/22/24 04:04 01/22/24 04:04 01/22/24 04:04 01/22/24 04:04 01/22/24 04:04 01/22/24 04:04 Oxygen Delivery Method CPAP Weight: 225.9 kg Body Mass Index (BMI) 83.0 Intake & Output: Intake and Output for Last 24 Hours 01/20/24 01/21/24 01/22/24 23:59 23:59 23:59 Intake Total 1470 / 1970 800 / 800 Output Total 600 / 2200 2200 / 2200 Balance 870 / -230 -1400 / -1400 Lab / Micro Data 01/21/24 07:05 01/21/24 07:05 Labs: Laboratory Results - last 24 hr 01/21/24 11:18: POC Glucose 120 H 01/21/24 17:05: POC Glucose 109 H 01/21/24 21:25: POC Glucose 117 H 01/22/24 06:21: POC Glucose 102 Physical Exam Const alert and no apparent distress HEENT head/scalp atraumatic and moist oral mucous membranes Neuro Sensorium / Orientation: awake and alert Assessment & Plan Assessment/Plan (1) Generalized weakness: (2) Ambulatory dysfunction: (3) Urinary incontinence: QUALIFIERS: Urinary Incontinence type: unspecified incontinence Qualified Code(s): R32 - Unspecified urinary incontinence (4) Bowel incontinence: QUALIFIERS: Fecal incontinence type: unspecified Qualified Code(s): R15.9 - Full incontinence of feces (5) Back pain: QUALIFIERS: Back pain laterality: unspecified Back pain location: low back pain Chronicity: chronic Sciatica presence: unspecified whether sciatica present Qualified Code(s): M54.50 - Low back pain, unspecified; G89.29 - Other chronic pain PLAN: Plan Debility multifactorial due to recent surgery for cauda equina, morbid obesity, poor performance status PT OT eval and treat CM to assist with disposition Related with recent cauda equina and surgery. Pt is very motivated and I would feel benefit from inpatient rehabilitation services. Chronic back pain given recent surgery an MRI lumbar spine which showed shows interval postoperative changes of a right L5 laminectomy and removal of the large RIGHT L4-5 disc herniation. No evidence of canal stenosis however small residual bulge and osteophyte deforming the anterior epidural space and the RIGHT lateral recess with potential compression of the RIGHT L5 nerve root in the RIGHT lateral recess.Postoperative fluid collection/seroma in the operative defect. Mild deformity of the posterior thecal surface. No evidence of epidural abscess. Mild multilevel lumbar spondylosis at remaining levels. No acutely acquired canal stenosis. Stable foraminal foraminal narrowing as detailed particularly on the RIGHT at L1-2, and on the LEFT at L3-4. Chronic conditions: Super morbid obesity; with BMI of 80.6 this admission compounding #1 & #2 - Weight loss will be recommended. Essential hypertension - Continue home regimen as previous plus give as needed IV hydralazine for systolic blood pressure greater than 160 mmHg. hyperlipidemia - Resume statin. Diabetes mellitus type 2; of unknown control on metformin and Trulicity - ADA diet. Fingerstick blood sugars before every meal and at bedtime plus lowest intensity sliding scale insulin. Hold metformin. Check hemoglobin A1c to objectively assess quality of diabetic control. History of atrial fibrillation - Noted. Depression - Continue home medications. Urinary retention: This is been status post her cauda equina and surgery. Patient still has no control of her bowels. Told her that I would keep the catheter in as she does not have a control of her bowels at this time. There were that she would likely continue to have urinary retention. I told her that we could take the catheter out but would more likely have to put it back in. DVT prophylaxis - Lovenox 40 mg SQ twice daily. Charges/Coding Visit Charges Inpatient E&M: 55905 Subs Hosp L1
[2024-01-22 10:00] VITALS: BP 112/73; PULSE 83; RESP 18; TEMP 36.6; O2SAT 94
[2024-01-22] MEDS: Fluoxetine HCl 40 MG CAPSULE PO (10:35)
[2024-01-22] MEDS: Lisinopril 40 MG Tablet PO (10:35)
[2024-01-22] MEDS: Enoxaparin 40 MG/0.4 ML Syringe SC ×2 (10:35→20:50)
[2024-01-22] MEDS: busPIRone 5 MG Tablet 10 MG PO ×2 (10:35→20:49)
[2024-01-22] MEDS: Diclofenac 75 MG Tablet PO ×2 (10:35→20:52)
[2024-01-22] MEDS: Docusate Sodium 100 MG Capsule PO (10:35)
[2024-01-22] MEDS: Cholecalciferol (VIT D3) 25 MCG TABLET (1,000 UNITS) PO (10:36)
[2024-01-22] MEDS: Menthol/Lanolin/Calamine/Znox 113 GM Tube 1 APPLIC TOPICAL ×2 (11:40→20:50)
[2024-01-22 12:40] LABS: Bedside Glucose 99 mg/dL (74-106)
--- NOTE | 2024-01-22 13:14 | CASEMGMT ---
Social Work SW met with pt and discussed discharge plan. Pt has been denied acceptance at [facility], [facility], [facility], [facility], and [facility]. At this time pt is requesting that referrals be sent to [facility] and any [place] facility on her insurance list. DC printer assistant updated and to send referrals. YESSI Fine
[2024-01-22] MEDS: Furosemide 40 MG Tablet PO (13:18)
--- NOTE | 2024-01-22 13:52 | CASEMGMT ---
Discharge Planning Referral sent via [facility] to [facility], and [facility]. Rosina Thompson DC Planning Asst.
[2024-01-22 17:21] LABS: Bedside Glucose 110 mg/dL (74-106)
[2024-01-22 17:29] VITALS: BP 106/65; PULSE 73; RESP 18; TEMP 37; O2SAT 97
[2024-01-22 20:43] VITALS: BP 119/61; PULSE 83; RESP 18; TEMP 36.6; O2SAT 99
[2024-01-22] MEDS: Acetaminophen 325 MG Tablet 650 MG PO (20:49)
[2024-01-22] MEDS: Atorvastatin Calcium 10 MG Tablet PO (20:51)
[2024-01-22 23:34] LABS: Bedside Glucose 105 mg/dL (74-106)
[2024-01-23 04:00] VITALS: BP 123/64; PULSE 78; RESP 18; TEMP 36.8; O2SAT 98
[2024-01-23 06:00] VITALS: BMI 83.4
[2024-01-23] MEDS: Gabapentin 400 MG Capsule 800 MG PO ×3 (06:12→21:15)
[2024-01-23 07:05] LABS: Bedside Glucose 96 mg/dL (74-106)
[2024-01-23 08:30] VITALS: PULSE 60
[2024-01-23 09:51] VITALS: BP 109/68; PULSE 68; RESP 18; TEMP 36.5; O2SAT 95
[2024-01-23] MEDS: Fluoxetine HCl 40 MG CAPSULE PO (10:20)
[2024-01-23] MEDS: Diclofenac 75 MG Tablet PO ×2 (10:20→21:17)
[2024-01-23] MEDS: Cholecalciferol (VIT D3) 25 MCG TABLET (1,000 UNITS) PO (10:21)
[2024-01-23] MEDS: Enoxaparin 40 MG/0.4 ML Syringe SC ×2 (10:21→21:15)
[2024-01-23] MEDS: Furosemide 40 MG Tablet PO (10:21)
[2024-01-23] MEDS: busPIRone 5 MG Tablet 10 MG PO ×2 (10:22→21:16)
[2024-01-23] MEDS: Menthol/Lanolin/Calamine/Znox 113 GM Tube 1 APPLIC TOPICAL ×2 (10:22→21:17)
[2024-01-23 11:52] LABS: Bedside Glucose 100 mg/dL (74-106)
--- NOTE | 2024-01-23 11:54 | CASEMGMT ---
Discharge Planning [facility] has declined referral. Rosina Thompson DC Planning Asst.
[2024-01-23] MEDS: Lisinopril 40 MG Tablet PO (13:36)
[2024-01-23 13:38] VITALS: BP 128/75; PULSE 69; RESP 18; TEMP 36.6; O2SAT 99
--- NOTE | 2024-01-23 13:50 | PN.HOSP_ITS ---
Reason for Visit Reason for Visit: Diagnoses Other chronic pain (01/20/24) Low back pain, unspecified (01/20/24) Full incontinence of feces (01/20/24) Difficulty in walking, not elsewhere classified (01/20/24) Unspecified urinary incontinence (01/20/24) Weakness (01/20/24) Subjective Subjective Still able to walk to the bathroom. Still with limited mobility overall. Objective Data Objective Data Vital Signs: Vital Signs Temp Pulse Resp BP Pulse Ox O2 Del Method 36.6 C 69 18 128/75 H 99 Room Air 01/23/24 13:38 01/23/24 13:38 01/23/24 13:38 01/23/24 13:38 01/23/24 13:38 01/23/24 13:38 Oxygen Delivery Method Room Air Weight: 227.2 kg Body Mass Index (BMI) 83.4 Intake & Output: Intake and Output for Last 24 Hours 01/21/24 01/22/24 01/23/24 23:59 23:59 23:59 Intake Total 1470 / 1970 3715.83 / 4215.83 700 / 700 Output Total 600 / 2200 5600 / 6800 2925 / 2925 Balance 870 / -230 -1884.17 / -2584.17 -2225 / -2225 Lab / Micro Data 01/21/24 07:05 01/21/24 07:05 Labs: Laboratory Results - last 24 hr 01/22/24 17:00: POC Glucose 110 H 01/22/24 20:43: POC Glucose 105 01/23/24 06:14: POC Glucose 96 01/23/24 11:34: POC Glucose 100 Physical Exam Const alert and no apparent distress Resp normal respiratory effort and no retractions Neuro Sensorium / Orientation: awake and alert Psych affect normal Assessment & Plan Assessment/Plan (1) Generalized weakness: (2) Ambulatory dysfunction: (3) Urinary incontinence: QUALIFIERS: Urinary Incontinence type: unspecified incontinence Qualified Code(s): R32 - Unspecified urinary incontinence (4) Bowel incontinence: QUALIFIERS: Fecal incontinence type: unspecified Qualified Code(s): R15.9 - Full incontinence of feces (5) Back pain: QUALIFIERS: Back pain location: low back pain Chronicity: chronic Back pain laterality: unspecified Sciatica presence: unspecified whether sciatica present Qualified Code(s): M54.50 - Low back pain, unspecified; G89.29 - Other chronic pain PLAN: Plan Debility * multifactorial due to recent surgery for cauda equina, morbid obesity, poor performance status * PT OT eval and treat * CM to assist with disposition * Related with recent cauda equina and surgery. Pt is very motivated and I would feel benefit from inpatient rehabilitation services. Chronic back pain * given recent surgery an MRI lumbar spine which showed shows interval postoperative changes of a right L5 laminectomy and removal of the large RIGHT L4-5 disc herniation. No evidence of canal stenosis however small residual bulge and osteophyte deforming the anterior epidural space and the RIGHT lateral recess with potential compression of the RIGHT L5 nerve root in the RIGHT lateral recess.Postoperative fluid collection/seroma in the operative defect. Mild deformity of the posterior thecal surface. No evidence of ep idural abscess. Mild multilevel lumbar spondylosis at remaining levels. No acutely acquired canal stenosis. Stable foraminal foraminal narrowing as detailed particularly on the RIGHT at L1-2, and on the LEFT at L3-4. Chronic conditions: * Super morbid obesity; with BMI of 80.6 this admission compounding #1 & #2 - Weight loss will be recommended. * Essential hypertension - Continue home regimen as previous plus give as needed IV hydralazine for systolic blood pressure greater than 160 mmHg. * hyperlipidemia - Resume statin. * Diabetes mellitus type 2; of unknown control on metformin and Trulicity - ADA diet. Fingerstick blood sugars before every meal and at bedtime plus lowest intensity sliding scale insulin. Hold metformin. Check hemoglobin A1c to objectively assess quality of diabetic control. * History of atrial fibrillation - Noted. * Depression - Continue home medications. * Urinary retention: This is been status post her cauda equina and surgery. Patient still has no control of her bowels. Told her that I would keep the catheter in as she does not have a control of her bowels at this time. There were that she would likely continue to have urinary retention. I told her that we could take the catheter out but would more likely have to put it back in. DVT prophylaxis - Lovenox 40 mg SQ twice daily. Charges/Coding Visit Charges Inpatient E&M: 92660 Subs Hosp L1
--- NOTE | 2024-01-23 14:29 | CASEMGMT ---
Social Work [facility], [facility], [facility], [facility] and [facility] are unable to accept pt. [facility] is able to accept. SW met with pt and updated on this and pt is agreeable to discharge to [facility]. Phone call to admissions coordination Rose and requested precert be started at this time. Precert to be started today. Plan: [facility], pending precert YESSI Fine
[2024-01-23 16:58] LABS: Bedside Glucose 105 mg/dL (74-106)
[2024-01-23 21:00] VITALS: BP 113/78; PULSE 73; RESP 16; TEMP 36.6; O2SAT 99
[2024-01-23] MEDS: Atorvastatin Calcium 10 MG Tablet PO (21:16)
[2024-01-23 22:32] LABS: Bedside Glucose 109 mg/dL (74-106)
[2024-01-24 01:36] VITALS: BP 107/61; PULSE 80; RESP 16; TEMP 36.6; O2SAT 95
[2024-01-24 04:00] VITALS: BMI 82.9
[2024-01-24 05:53] VITALS: BP 99/57; PULSE 72; RESP 16; TEMP 36.4; O2SAT 97
[2024-01-24] MEDS: Gabapentin 400 MG Capsule 800 MG PO ×3 (06:04→21:12)
[2024-01-24 07:12] LABS: Bedside Glucose 105 mg/dL (74-106)
[2024-01-24] MEDS: Enoxaparin 40 MG/0.4 ML Syringe SC ×2 (09:33→21:12)
[2024-01-24] MEDS: busPIRone 5 MG Tablet 10 MG PO ×2 (09:33→21:12)
[2024-01-24] MEDS: Furosemide 40 MG Tablet PO (09:33)
[2024-01-24] MEDS: Docusate Sodium 100 MG Capsule PO (09:33)
[2024-01-24] MEDS: Menthol/Lanolin/Calamine/Znox 113 GM Tube 1 APPLIC TOPICAL ×2 (09:33→21:11)
[2024-01-24] MEDS: Cholecalciferol (VIT D3) 25 MCG TABLET (1,000 UNITS) PO (09:34)
[2024-01-24] MEDS: Diclofenac 75 MG Tablet PO ×2 (09:34→21:14)
[2024-01-24] MEDS: Lisinopril 40 MG Tablet PO (09:34)
[2024-01-24] MEDS: Fluoxetine HCl 40 MG CAPSULE PO (09:34)
[2024-01-24 09:59] VITALS: BP 117/62; PULSE 86; RESP 16; TEMP 36.6; O2SAT 100
--- NOTE | 2024-01-24 12:00 | CASEMGMT ---
Social Work SW called [facility], message left checking on precert. GEOVANY Fraire
[2024-01-24 14:53] VITALS: BP 116/79; PULSE 73; RESP 16; TEMP 36.6; O2SAT 95
--- NOTE | 2024-01-24 14:57 | PN.HOSP_ITS ---
Reason for Visit Reason for Visit: Diagnoses Other chronic pain (01/20/24) Low back pain, unspecified (01/20/24) Full incontinence of feces (01/20/24) Difficulty in walking, not elsewhere classified (01/20/24) Unspecified urinary incontinence (01/20/24) Weakness (01/20/24) Subjective Subjective Still able to walk but having limitations. Still with lower extremity paresthesias no sensation in the saddle region. Objective Data Objective Data Vital Signs: Vital Signs Temp Pulse Resp BP Pulse Ox O2 Del Method 36.6 C 73 16 116/79 95 Room Air 01/24/24 14:53 01/24/24 14:53 01/24/24 14:53 01/24/24 14:53 01/24/24 14:53 01/24/24 14:53 Oxygen Delivery Method Room Air Weight: 225.7 kg Body Mass Index (BMI) 82.9 Intake & Output: Intake and Output for Last 24 Hours 01/22/24 01/23/24 01/24/24 23:59 23:59 23:59 Intake Total 3715.83 / 4215.83 700 / 900 400 / 400 Output Total 5600 / 6800 3300 / 4250 2300 / 2300 Balance -1884.17 / -2584.17 -2600 / -3350 -1900 / -1900 Lab / Micro Data 01/21/24 07:05 01/21/24 07:05 Labs: Laboratory Results - last 24 hr 01/23/24 16:30: POC Glucose 105 01/23/24 21:19: POC Glucose 109 H 01/24/24 06:22: POC Glucose 105 Physical Exam Const alert and no apparent distress Constitutional Narrative: Up in chair. Nontoxic. Resp normal respiratory effort and no retractions Assessment & Plan Assessment/Plan (1) Generalized weakness: (2) Ambulatory dysfunction: (3) Urinary incontinence: QUALIFIERS: Urinary Incontinence type: unspecified incontinence Qualified Code(s): R32 - Unspecified urinary incontinence (4) Bowel incontinence: QUALIFIERS: Fecal incontinence type: unspecified Qualified Code(s): R15.9 - Full incontinence of feces (5) Back pain: QUALIFIERS: Back pain location: low back pain Chronicity: chronic Back pain laterality: unspecified Sciatica presence: unspecified whether sciatica present Qualified Code(s): M54.50 - Low back pain, unspecified; G89.29 - Other chronic pain PLAN: Plan Debility * multifactorial due to recent surgery for cauda equina, morbid obesity * PT OT eval and treat * CM to assist with disposition * Related with recent cauda equina and surgery. Pt is very motivated and I would feel benefit from rehab services. Chronic back pain * given recent surgery an MRI lumbar spine which showed shows interval postoperative changes of a right L5 laminectomy and removal of the large RIGHT L4-5 disc herniation. No evidence of canal stenosis however small residual bulge and osteophyte deforming the anterior epidural space and the RIGHT lateral recess with potential compression of the RIGHT L5 nerve root in the RIGHT lateral recess.Postoperative fluid collection/seroma in the operative defect. Mild deformity of the posterior thecal surface. No evidence of epidural abscess. Mild multilevel lumbar spondylosis at remaining levels. No acutely acquired canal stenosis. Stable foraminal foraminal narrowing as detailed particularly on the RIGHT at L1-2, and on the LEFT at L3-4. Chronic conditions: * Super morbid obesity; with BMI of 80.6 this admission compounding #1 & #2 - Weight loss will be recommended. * Essential hypertension - Continue home regimen as previous plus give as needed IV hydralazine for systolic blood pressure greater than 160 mmHg. * hyperlipidemia - Resume statin. * Diabetes mellitus type 2; of unknown control on metformin and Trulicity - ADA diet. Fingerstick blood sugars before every meal and at bedtime plus lowest intensity sliding scale insulin. Hold metformin. Check hemoglobin A1c to objectively assess quality of diabetic control. * History of atrial fibrillation - Noted. * Depression - Continue home medications. * Urinary retention: This is been status post her cauda equina and surgery. Patient still has no control of her bowels. Told her that I would keep the catheter in as she does not have a control of her bowels at this time. There were that she would likely continue to have urinary retention. I told her that we could take the catheter out but would more likely have to put it back in. DVT prophylaxis - Lovenox 40 mg SQ twice daily. Charges/Coding Visit Charges Inpatient E&M: 61449 Subs Hosp L1
--- NOTE | 2024-01-24 16:09 | PCM.TXEXTCAR ---
Diet Diet Order/Speech Therapy: 01/20/24 23:57 Diet: Consistent Carb - Calorie Controlled Food consistency:: Regular Liquid Consistency:: Regular/Thin Dietary Modifications:: Consistent Carbohydrate How many daily calories?: 1800 calorie Routine Orders/Code Status Garcia Catheter Size: 18 (Continue Garcia catheter. It is in place due to bladder incontinence from cauda equina. ) Code Status: Full Code Wound(s) coccyx: Wound Type: Pressure Injury Old IV Site: Wound Type: old IV site Therapies Weight Bearing: Full weight bearing Physical Therapy: Eval and Treat Occupational Therapy: Eval and Treat Problem/Diagnosis (1) Generalized weakness: Status: Acute Code(s): R53.1 - Weakness (2) Ambulatory dysfunction: Status: Acute Code(s): R26.2 - Difficulty in walking, not elsewhere classified (3) Urinary incontinence: Status: Acute Code(s): R32 - Unspecified urinary incontinence (4) Bowel incontinence: Status: Acute Code(s): R15.9 - Full incontinence of feces (5) Back pain: Status: Acute Code(s): M54.9 - Dorsalgia, unspecified Plan Debility multifactorial due to recent surgery for cauda equina, morbid obesity PT OT eval and treat CM to assist with disposition Related with recent cauda equina and surgery. Pt is very motivated and I would feel benefit from rehab services. Chronic back pain given recent surgery an MRI lumbar spine which showed shows interval postoperative changes of a right L5 laminectomy and removal of the large RIGHT L4-5 disc herniation. No evidence of canal stenosis however small residual bulge and osteophyte deforming the anterior epidural space and the RIGHT lateral recess with potential compression of the RIGHT L5 nerve root in the RIGHT lateral recess.Postoperative fluid collection/seroma in the operative defect. Mild deformity of the posterior thecal surface. No evidence of epidural abscess. Mild multilevel lumbar spondylosis at remaining levels. No acutely acquired canal stenosis. Stable foraminal foraminal narrowing as detailed particularly on the RIGHT at L1-2, and on the LEFT at L3-4. Chronic conditions: Super morbid obesity; with BMI of 80.6 this admission compounding #1 & #2 - Weight loss will be recommended. Essential hypertension - Continue home regimen as previous plus give as needed IV hydralazine for systolic blood pressure greater than 160 mmHg. hyperlipidemia - Resume statin. Diabetes mellitus type 2; of unknown control on metformin and Trulicity - ADA diet. Fingerstick blood sugars before every meal and at bedtime plus lowest intensity sliding scale insulin. Hold metformin. Check hemoglobin A1c to objectively assess quality of diabetic control. History of atrial fibrillation - Noted. Depression - Continue home medications. Urinary retention: This is been status post her cauda equina and surgery. Patient still has no control of her bowels. Told her that I would keep the catheter in as she does not have a control of her bowels at this time. There were that she would likely continue to have urinary retention. I told her that we could take the catheter out but would more likely have to put it back in. Allergies/Procedures Done in Hospital Allergies Penicillins Allergy (Unknown, Verified 11/06/23 10:59) Other Type of Care/Length of Stay Estimated LOS: Convalescent Care Less Than 30 days Type of Care Needed: Skilled Rehab Potential: Good Prognosis: Good Additional Orders/Day of Discharge Day of Discharge: 01/24/24 Dietary and Speech Recommendations Dietitian Recommendations/Changes: Continue 1800 CCD diet to manage blood sugars. Discharge Plan Admission Admit Date/Time: 01/20/24 22:51 Primary Reason for Your Visit: Debility Attending Provider: Alex Garcia Primary Care Provider: Kavon Granda Consulting Providers: [facility] Instructions Additional Instructions / Restrictions: Follow up with Spine surgery at [facility]. Discharge Orders/Prescriptions Prescriptions: New melatonin 3 mg Tablet 3 mg PO QHS PRN PRN (Reason: Insomnia) Qty: 0 0RF baclofen 10 mg Tablet 10 mg PO Q6H PRN PRN (Reason: muscle spasm) Qty: 0 0RF hydroxyzine HCl 10 mg Tablet 12.5 mg PO TID PRN PRN (Reason: Anxiety) Qty: 0 0RF lisinopril 40 mg Tablet 40 mg PO DAILY Qty: 0 0RF Continued atorvastatin 10 mg tablet 10 mg PO DAILY cholecalciferol (vitamin D3) 25 mcg (1,000 unit) tablet 25 mcg PO DAILY fluoxetine 40 mg capsule 60 mg PO DAILY acetaminophen 500 mg Tablet 1,000 mg PO Q8 Qty: 0 0RF Trulicity 0.75 mg/0.5 mL pen injector 0.75 mg SUBCUT TH Patient Comments: every saturday (DME) True Metrix Glucose Test Strip Strip MISCELLANEOUS Patient Comments: Test blood sugar(s) 1 times daily. gabapentin 400 mg Capsule 800 mg PO TID 5 Days Qty: 30 0RF docusate sodium 100 mg Capsule 100 mg PO BID Qty: 0 0RF furosemide [Lasix] 40 mg tablet 40 mg PO DAILY buspirone 7.5 mg tablet 10 mg PO BID metoprolol tartrate 25 mg tablet 12.5 mg PO BID potassium chloride 10 mEq tablet extended release 10 meq PO DAILY Changed oxycodone 5 mg Tablet 5 mg PO Q4H PRN (Reason: Pain Score 4-10) 3 Days Qty: 12 0RF Discontinued metformin 1,000 mg tablet 1,000 mg PO BIDAC norethindrone (contraceptive) [Deblitane] 0.35 mg tablet 0.35 mg PO DAILY insulin lispro [Humalog KwikPen Insulin] 100 unit/mL Insulin Pen See Protocol subcut ACHS Qty: 0 0RF Protocol: 4. Sliding Scale Insulin High-Med Dosing Condition: 150-199 mg/dl = 2 units Condition: 200-259 mg/dl = 4 units Condition: 260-324 mg/dl = 6 units Condition: 325-374 mg/dl = 8 units Condition: 375-409 mg/dl = 10 units Condition: 410-449 mg/dl = 11 units Condition: Greater than 449 call physician Protocol Text: - Use for Total Daily Dose of Insulin 56-80 units - Patient who are insulin resistant or septic HIGH MEDIUM DOSING ALGORITHM methocarbamol 500 mg tablet 500 mg PO TID Referrals / Follow Up: Kavon Granda DO [Primary Care Provider] - Within 2 Weeks Disposition Disposition (needs filled in before D/C Order can be placed): Senior Living Facility (3) Urinary incontinence Qualifiers: Urinary Incontinence type: unspecified incontinence Qualified Code(s): R32 - Unspecified urinary incontinence (4) Bowel incontinence Qualifiers: Fecal incontinence type: unspecified Qualified Code(s): R15.9 - Full incontinence of feces (5) Back pain Qualifiers: Back pain location: low back pain Chronicity: chronic Back pain laterality: unspecified Sciatica presence: unspecified whether sciatica present Qualified Code(s): M54.50 - Low back pain, unspecified; G89.29 - Other chronic pain
--- NOTE | 2024-01-24 16:19 | DS.PCM_ITS ---
Providers Date of Admission: 01/20/24 Primary Care Physician: Dr. Kavon Granda DO Reason For Visit: GENERALIZED WEAKNESS WITH AMBULATORY DYSFUNCTION Diagnosis Discharge Diagnosis (1) Generalized weakness: Status: Acute Code(s): R53.1 - Weakness (2) Ambulatory dysfunction: Status: Acute Code(s): R26.2 - Difficulty in walking, not elsewhere classified (3) Urinary incontinence: Status: Acute Code(s): R32 - Unspecified urinary incontinence Qualifiers: Urinary Incontinence type: unspecified incontinence Qualified Code(s): R32 - Unspecified urinary incontinence (4) Bowel incontinence: Status: Acute Code(s): R15.9 - Full incontinence of feces Qualifiers: Fecal incontinence type: unspecified Qualified Code(s): R15.9 - Full incontinence of feces (5) Back pain: Status: Acute Code(s): M54.9 - Dorsalgia, unspecified Qualifiers: Back pain location: low back pain Chronicity: chronic Back pain laterality: unspecified Sciatica presence: unspecified whether sciatica present Qualified Code(s): M54.50 - Low back pain, unspecified; G89.29 - Other chronic pain Plan Debility * multifactorial due to recent surgery for cauda equina, morbid obesity * PT OT eval and treat * CM to assist with disposition * Related with recent cauda equina and surgery. Pt is very motivated and I would feel benefit from rehab services. Chronic back pain * given recent surgery an MRI lumbar spine which showed shows interval postoperative changes of a right L5 laminectomy and removal of the large RIGHT L4-5 disc herniation. No evidence of canal stenosis however small residual bulge and osteophyte deforming the anterior epidural space and the RIGHT lateral recess with potential compression of the RIGHT L5 nerve root in the RIGHT lateral recess.Postoperative fluid collection/seroma in the operative defect. Mild deformity of the posterior thecal surface. No evidence of epidural abscess. Mild multilevel lumbar spondylosis at remaining levels. No acutely acquired canal stenosis. Stable foraminal foraminal narrowing as detailed particularly on the RIGHT at L1-2, and on the LEFT at L3-4. Chronic conditions: * Super morbid obesity; with BMI of 80.6 this admission compounding #1 & #2 - Weight loss will be recommended. * Essential hypertension - Continue home regimen as previous plus give as needed IV hydralazine for systolic blood pressure greater than 160 mmHg. * hyperlipidemia - Resume statin. * Diabetes mellitus type 2; of unknown control on metformin and Trulicity - ADA diet. Fingerstick blood sugars before every meal and at bedtime plus lowest intensity sliding scale insulin. Hold metformin. Check hemoglobin A1c to objectively assess quality of diabetic control. * History of atrial fibrillation - Noted. * Depression - Continue home medications. * Urinary retention: This is been status post her cauda equina and surgery. Patient still has no control of her bowels. Told her that I would keep the catheter in as she does not have a control of her bowels at this time. There were that she would likely continue to have urinary retention. I told her that we could take the catheter out but would more likely have to put it back in. Medications at Discharge Home Medications atorvastatin 10 mg tablet 10 mg PO DAILY cholesterol 03/20/23 cholecalciferol (vitamin D3) 25 mcg (1,000 unit) tablet 25 mcg PO DAILY 03/20/23 fluoxetine 40 mg capsule 60 mg PO DAILY 03/20/23 acetaminophen 500 mg tablet 1,000 mg (2 x 500 mg) PO Q8 #0 tabs 03/22/23 blood sugar diagnostic (True Metrix Glucose Test Strip) 10/18/23 dulaglutide 0.75 mg/0.5 mL subcutaneous pen injector (Trulicity) 0.75 mg subcut TH 10/18/23 docusate sodium 100 mg capsule 100 mg PO BID #0 caps 10/23/23 gabapentin 400 mg capsule 800 mg (2 x 400 mg) PO TID 5 days #30 caps 10/23/23 buspirone 7.5 mg tablet 10 mg PO BID 01/20/24 furosemide 40 mg tablet (Lasix) 40 mg PO DAILY 01/20/24 metoprolol tartrate 25 mg tablet 12.5 mg PO BID 01/20/24 potassium chloride 10 mEq tablet,extended release 10 meq PO DAILY 01/20/24 baclofen 10 mg tablet 10 mg PO Q6H PRN PRN muscle spasm #0 tabs 01/24/24 hydroxyzine HCl 10 mg tablet 12.5 mg (1.25 x 10 mg) PO TID PRN PRN Anxiety #0 tabs 01/24/24 lisinopril 40 mg tablet 40 mg PO DAILY #0 tabs 01/24/24 melatonin 3 mg tablet 3 mg PO QHS PRN PRN Insomnia #0 tabs 01/24/24 oxycodone 5 mg tablet 5 mg PO Q4H PRN Pain Score 4-10 3 days #12 tabs 01/24/24 Hospital Course Operations None Procedures None Summary of Care Provided Minutes Spent on Discharge: 31 Hospital Course: Patient presents with ongoing debility after surgery for cauda equina. She has had continued bladder and bowel incontinence, weakness in her lower extremities. Chemotherapy is recommending additional therapy needs. Patient has been able to walk and go to the bathroom on her own but does have limited exertion will be able to walk short distances before she needs to turn around or stop. Patient discharged to long-term facility again and hopefully she will be started this time that she may maintain at home safely. Patient does have cauda equina which she required surgery but still continues to have bowel bladder incontinence. She has yet to see her neurosurgeon/spine surgeon. Patient will continue with Garcia catheter given her ongoing urinary incontinence. Weight / BMI Weight Weight: 225.7 kg Body Mass Index (BMI) 82.9 ABG / Lab / Microbiology Data 01/21/24 07:05 01/21/24 07:05 Laboratory: Laboratory Results - last 24 hr 01/23/24 16:30: POC Glucose 105 01/23/24 21:19: POC Glucose 109 H 01/24/24 06:22: POC Glucose 105 D/C Instructions Discharge Diet: No restrictions Meaningful Use Info Meaningful Use Meaningful Use Diagnoses (Choose all that apply): None applicable Ischemic Stroke Statin Dosing Therapy Reference: STATIN DOSE THERAPY REFERENCE: * Patients > 75 years receive moderate or high dose statin therapy. * Patients 75 years or YOUNGER should receive HIGH intensity statin dose unless contraindicated. You will be required to document reason for non-treatment if statin daily dose does not meet guidelines. HIGH DOSE STATIN THERAPY DAILY Atorvastatin > than or = to 40 mg Rosuvastatin > than or = to 20 mg Amlodipine + Atorvastatin > than or = to 2.5/40 mg Ezetimibe + Simvastatin 10/80 mg Simvastatin 80mg Discharge Plan Admission Admit Date/Time: 01/20/24 22:51 Primary Reason for Your Visit: Debility Attending Provider: Alex Garcia Primary Care Provider: Kavon Granda Consulting Providers: [facility] Instructions Additional Instructions / Restrictions: Follow up with Spine surgery at [facility]. Discharge Orders/Prescriptions Prescriptions: New melatonin 3 mg Tablet 3 mg PO QHS PRN PRN (Reason: Insomnia) Qty: 0 0RF baclofen 10 mg Tablet 10 mg PO Q6H PRN PRN (Reason: muscle spasm) Qty: 0 0RF hydroxyzine HCl 10 mg Tablet 12.5 mg PO TID PRN PRN (Reason: Anxiety) Qty: 0 0RF lisinopril 40 mg Tablet 40 mg PO DAILY Qty: 0 0RF Continued atorvastatin 10 mg tablet 10 mg PO DAILY cholecalciferol (vitamin D3) 25 mcg (1,000 unit) tablet 25 mcg PO DAILY fluoxetine 40 mg capsule 60 mg PO DAILY acetaminophen 500 mg Tablet 1,000 mg PO Q8 Qty: 0 0RF Trulicity 0.75 mg/0.5 mL pen injector 0.75 mg SUBCUT TH Patient Comments: every saturday (DME) True Metrix Glucose Test Strip Strip MISCELLANEOUS Patient Comments: Test blood sugar(s) 1 times daily. gabapentin 400 mg Capsule 800 mg PO TID 5 Days Qty: 30 0RF docusate sodium 100 mg Capsule 100 mg PO BID Qty: 0 0RF furosemide [Lasix] 40 mg tablet 40 mg PO DAILY buspirone 7.5 mg tablet 10 mg PO BID metoprolol tartrate 25 mg tablet 12.5 mg PO BID potassium chloride 10 mEq tablet extended release 10 meq PO DAILY Changed oxycodone 5 mg Tablet 5 mg PO Q4H PRN (Reason: Pain Score 4-10) 3 Days Qty: 12 0RF Discontinued metformin 1,000 mg tablet 1,000 mg PO BIDAC norethindrone (contraceptive) [Deblitane] 0.35 mg tablet 0.35 mg PO DAILY insulin lispro [Humalog KwikPen Insulin] 100 unit/mL Insulin Pen See Protocol subcut ACHS Qty: 0 0RF Protocol: 4. Sliding Scale Insulin High-Med Dosing Condition: 150-199 mg/dl = 2 units Condition: 200-259 mg/dl = 4 units Condition: 260-324 mg/dl = 6 units Condition: 325-374 mg/dl = 8 units Condition: 375-409 mg/dl = 10 units Condition: 410-449 mg/dl = 11 units Condition: Greater than 449 call physician Protocol Text: - Use for Total Daily Dose of Insulin 56-80 units - Patient who are insulin resistant or septic HIGH MEDIUM DOSING ALGORITHM methocarbamol 500 mg tablet 500 mg PO TID Referrals / Follow Up: Kavon Granda DO [Primary Care Provider] - Within 2 Weeks Disposition Disposition (needs filled in before D/C Order can be placed): Group Home Facility Charges/Coding Visit Charges Inpatient E&M: 12354 Disch Hosp >30min
[2024-01-24 16:30] LABS: Bedside Glucose 113 mg/dL (74-106)
--- NOTE | 2024-01-24 16:42 | CASEMGMT ---
Social Work Pt approved to go to [facility] today. OMEGA Escobar completed the PAS/RR w/results. OMEGA faxed all discharge paperwork to [facility], set up [facility] for 9pm(first available). SW did check w/physician, he is okay w/pt leaving at 9pm. OMEGA let pt, pt's bedside RN and Rose at [facility] know time of transport. Pt and [facility] both in agreement and okay w/9pm transport. No further needs, pt to [facility], skilled, today. GEOVANY Fraire
[2024-01-24 17:12] LABS: Bedside Glucose 157 mg/dL (74-106)
--- NOTE | 2024-01-24 19:29 | NURSING ---
notified [facility] that transport called and pickup has been pushed back until 2329.
--- NOTE | 2024-01-24 20:59 | NURSING ---
transport called and asked if transport could be pushed back until the morning. called refueling ramp supervisor and pt needs to be sent tonight. Transport ETA 0100. notified pt.
[2024-01-24 21:07] VITALS: BP 107/57; PULSE 79; RESP 18; TEMP 36.8; O2SAT 99
[2024-01-24] MEDS: Atorvastatin Calcium 10 MG Tablet PO (21:13)
[2024-01-24 22:13] LABS: Bedside Glucose 96 mg/dL (74-106)
[2024-01-24 23:45] VITALS: BP 111/72; PULSE 82; RESP 18; TEMP 36.5; O2SAT 98
== END 2024-01-24 23:55 ==
LOC: ED 19:04 → PCU 23:00 → MS3 01-21 18:06
PROVIDERS: Admitting Provider Internal Medicine; Emergency Provider Emergency Medicine; PCP Internal Medicine
DX: G83.4 Cauda equina syndrome (principal); I48.91 Unspecified atrial fibrillation; E66.01 Morbid (severe) obesity due to excess calories; Z68.45 Body mass index [BMI] 70 or greater, adult; Z79.4 Long term (current) use of insulin; E11.9 Type 2 diabetes mellitus without complications; R29.898 Other symptoms and signs involving the musculoskeletal system; R53.1 Weakness; M51.16 Intervertebral disc disorders with radiculopathy, lumbar region; G89.18 Other acute postprocedural pain; Z87.891 Personal history of nicotine dependence; E78.00 Pure hypercholesterolemia, unspecified; R32 Unspecified urinary incontinence; I10 Essential (primary) hypertension; G47.33 Obstructive sleep apnea (adult) (pediatric); G89.29 Other chronic pain; R26.2 Difficulty in walking, not elsewhere classified; R15.9 Full incontinence of feces; F32.A Depression, unspecified; R33.8 Other retention of urine; Z79.899 Other long term (current) drug therapy; Z79.84 Long term (current) use of oral hypoglycemic drugs
CPT/HCPCS: 36415; 72148; 80048; 80053; 82962; 83735; 84100; 84443; 85025; 94668; 96372; 97116; 97162; 97166; 97530; 97535; 99221; 99252; 99283; J7030; A4216; G0378; G0463

== ENCOUNTER 2025-08-09 17:59 | Emergency (ER) | payer MEDICAID, SELFPAY ==
[2025-08-09] VITALS (12 sets, daily range): BP systolic 103–125; BP diastolic 53–70; PULSE 66–89; RESP 14–23; TEMP 36.5–37.2; O2SAT 96–100; BMI 61.7
[2025-08-09 19:14] LABS: Hematocrit 26.2 % (37-47); Hemoglobin 7.5 g/dL (12.0-15.0); Immature Granulocytes Count 0.020 X10^3/uL (0.0-0.0); Mean Corp Hgb Conc 28.6 g/dL (32-36); Mean Corpuscular Volume 77.7 fL (81-99); Mean Platelet Vol. 10.4 fl (6.2-12.0); NRBC Flagged by Analyzer 0 % (0-5); Platelet Count 490 K/mm3 (150-450); RBC Distribution Width CV 19.7 % (11.6-14.6); RBC Distribution Width SD 55.6 fl (35.1-43.9); Red Blood Count 3.37 M/mm3 (4.2-5.4); White Blood Count 9.6 K/mm3 (4.4-11.0)
[2025-08-09 19:33] LABS: Anion Gap 11 (5-15); BUN 15 mg/dL (4-19); BUN/Creat Ratio 22.6 RATIO (10-20); Calcium,Total 8.8 mg/dL (7.6-11.0); Carbon Dioxide 21.5 mmol/L (21.0-32.0); Chloride 106 mmol/L (98-108); Estimated Creatinine Clearance 180.72 ml/min (50-250); Glucose 98 mg/dL (70-99); Potassium 3.2 mmol/L (3.3-5.1)
--- NOTE | 2025-08-09 19:59 | EX.ED.DYSGE1 ---
HPI History of Present Illness Chief Complaint: Hypertension Informant: patient and spouse/S.O. Narrative Narrative: 40-year-old female presenting to the emergency room chief complaint of lightheadedness and hypertension. Patient states that today she was getting blood pressure readings of 200/90 systolically at home this afternoon. She states that she has been having intermittent lightheadedness blurred vision. She states that she has a history of A-fib as well as iron deficiency anemia. She has been seen hematology is supposed to have iron infusion in the beginning of August. Last hemoglobin was 8.5 on 07/26. She states that arriving here in the emergency department her blood pressure was much better at 111/54. Patient notes generalized fatigue. She denies any black or bloody stools. Because of the A-fib she states she is taking apixaban. Patient notes that recently she had her metoprolol increased and her lisinopril discontinued and spironolactone added in. She took her metoprolol this morning and her other spironolactone this afternoon. She had been on potassium supplementation. [facility] Medical History Hypokalemia Anemia Bowel incontinence Ambulatory dysfunction Afib Post traumatic stress disorder (PTSD) Depression Central stenosis of spinal canal A-fib History of diabetes mellitus Cauda equina syndrome Urinary incontinence HAILEY (obstructive sleep apnea) Lumbar stenosis Morbid obesity High cholesterol Anxiety HTN (hypertension) Diabetes Home Medications ?Medication ?Instructions ?Recorded ?Last Taken ?Type cholecalciferol (vitamin D3) 25 25 mcg PO DAILY 03/20/23 03/20/23 History mcg (1,000 unit) tablet blood sugar diagnostic (True 10/18/23 Unknown History Metrix Glucose Test Strip) apixaban 5 mg tablet (Eliquis) 5 mg PO BID 08/09/25 Unknown History atorvastatin 40 mg tablet 40 mg PO DAILY 08/09/25 Unknown History duloxetine 40 mg capsule,delayed 40 mg PO DAILY 08/09/25 Unknown History release fluoxetine 20 mg capsule 60 mg PO DAILY 08/09/25 Unknown History metoprolol succinate 25 mg 37.5 mg PO DAILY 08/09/25 Unknown History tablet,extended release 24 hr mirabegron 25 mg tablet,extended 25 mg PO DAILY 08/09/25 Unknown History release 24 hr (Myrbetriq) norethindrone (contraceptive) 0.35 0.35 mg PO DAILY 08/09/25 Unknown History mg tablet (Deblitane) pantoprazole 40 mg tablet,delayed 40 mg PO DAILY 08/09/25 Unknown History release spironolactone 25 mg tablet 25 mg PO DAILY 08/09/25 Unknown History topiramate 25 mg tablet 25 mg PO DAILY 08/09/25 Unknown History ursodiol 300 mg capsule 300 mg PO BID 08/09/25 Unknown History Allergy/AdvReac Type Severity Reaction Status Date / Time Penicillins Allergy Unknown Other Verified 08/09/25 18:01 Family History Father Heart disease Diabetes Bladder cancer Father Agent [place] poisoning Father No problems noted. Mother Uterine cancer Family History no significant family his Surgical History H/O gastric bypass [place] teeth extracted Surgical History no surgical history Social History household members: significant other housing: house Smoking Status: Former smoker alcohol intake: never substance use type: does not use ROS ROS ED ROS Narrative Generalized weakness Constitutional Constitutional ED: Denies chills, fever(s) or weight loss Eyes Eyes: Reports blurry vision; Denies change in vision or diplopia ENT ENT ED: Denies ear pain, rhinorrhea or sore throat Cardiovascular Cardiovascular: Reports other Details: Lightheadedness ; Denies chest pain, orthopnea, palpitations or racing heartbeat Respiratory/Chest Respiratory/Chest: Denies cough, dyspnea or orthopnea Gastrointestinal Gastrointestinal: Denies abdominal pain, diarrhea, nausea or vomiting Genitourinary Genitourinary ED: Denies dysuria, hematuria or urinary frequency Musculoskeletal Musculoskeletal: Denies arthralgias or myalgias Integumentary Denies abscess or rash Neurologic Neurologic: Denies headache(s) or weakness Psychiatric Psychiatric: Denies anxiety, depression, suicidal ideation or suicidal thoughts Endocrine Endocrinology: Denies polydipsia, polyphagia or polyuria Allergic/Immunologic Allergic/Immunologic ED: Denies mouth swelling, tongue swelling or urticaria EXAM Physical Exam Const Vital Signs: 08/09/25 18:01 08/09/25 18:15 08/09/25 19:00 Temperature 97.9 F Temperature Source Temporal Pulse Rate 89 74 Respiratory Rate 20 H 18 Respiratory Effort Normal Respiratory Pattern Normal Blood Pressure 111/54 L 104/64 Blood Pressure Mean 73 77 Blood Pressure Source Blood Pressure Position Blood Pressure Location Pulse Ox 98 100 Oxygen Delivery Method Room Air 08/09/25 20:00 08/09/25 20:54 08/09/25 21:00 Temperature 97.7 F L Temperature Source Oral Pulse Rate 72 78 66 Respiratory Rate 16 18 18 Respiratory Effort Respiratory Pattern Blood Pressure 106/53 L 109/65 121/64 H Blood Pressure Mean 70 79 83 Blood Pressure Source Monitor Blood Pressure Position Semi-Fowlers Blood Pressure Location Left Arm Pulse Ox 100 100 98 Oxygen Delivery Method Room Air Room Air Room Air 08/09/25 21:08 08/09/25 21:09 Temperature 97.9 F 97.9 F Temperature Source Oral Oral Pulse Rate 76 76 Respiratory Rate 17 17 Respiratory Effort Respiratory Pattern Blood Pressure 117/68 117/68 Blood Pressure Mean 84 84 Blood Pressure Source Monitor Monitor Blood Pressure Position Semi-Fowlers Semi-Fowlers Blood Pressure Location Left Arm Left Arm Pulse Ox 100 100 Oxygen Delivery Method Room Air Room Air Positive well nourished, well developed and obese General Appearance ED: well developed, NAD and pallor Nutritional Appearance: obese HEENT Reports normocephalic, head/scalp atraumatic and moist mucous membranes Eyes PERRL and EOMs intact bilaterally General Eye ED: Yes pale conjunctiva Neck no lymphadenopathy, supple and no JVD Resp normal respiratory effort and clear to auscultation bilaterally Cardio regular rate, regular rhythm and no murmurs GI normal to inspection, nondistended, normoactive bowel sounds and non-tender Palpation: soft Back/Spine no CVA tenderness and normal ROM Extremity normal to inspection General Extremety ED: Negative for edema General Extremity: Negative for edema Neuro oriented x3 and CN's II-XII intact bilaterally Sensorium / Orientation: alert Motor Exam: strength 5/5 throughout Psych mental status grossly normal Mood & Affect: Negative for depressed or tearful Skin no rashes or lesions noted and no wounds General Skin Exam: pallor MDM MDM MDM Narrative Medical decision making narrative: Differential diagnosis includes hypertensive emergency iron deficiency anemia acute blood loss anemia anemia requiring transfusion and electrolyte abnormalities cardiac dysrhythmia dehydration Basic blood work shows a white count of 9.6 hemoglobin of 7.5 platelet count of 490 MCV is 77.7 RDW at 19.7 sodium 138 potassium 3.2 glucose 98 creatinine 0.65. Patient has not been hypertensive here in the emergency department. She has never had a blood transfusion before. She does state that she did talk with her music video director about the need for transfusion but at that time she was above 8. Patient consents to blood transfusion at this time as she is at 7.5 with a cardiac history. She will be typed and crossed 1 unit transfused. Patient's blood pressures have been normal tensive here in the department. I did recommend that the patient continue her potassium supplementation. She needs to be in contact with her music video director and primary care doctor regarding tonight's visit. History & Record Review Discussion w/independent historian: Patient and Significant other Additional record(s) reviewed:: Prior outpatient record and Prior labs Lab Data Attestation: I reviewed the patient's lab results. Labs: Laboratory Results - last 24 hr 08/09/25 08/09/25 19:00 19:31 WBC 9.6 RBC 3.37 L Hgb 7.5 L Hct 26.2 L MCV 77.7 L MCH 22.3 L MCHC 28.6 L RDW Std Deviation 55.6 H RDW Coeff of Chantal 19.7 H Plt Count 490 H MPV 10.4 Immature Gran % (Auto) 0.200 Neut % (Auto) 54.9 Lymph % (Auto) 34.3 [place] % (Auto) 7.9 Eos % (Auto) 2.2 Baso % (Auto) 0.5 Absolute Neuts (auto) 5.3 Absolute Lymphs (auto) 3.30 Nucleated RBC % 0 Sodium 138 Potassium 3.2 L Chloride 106 Carbon Dioxide 21.5 Anion Gap 11 BUN 15 Creatinine 0.65 L Estim Creat Clear Calc 180.72 Est GFR (MDRD) Non-Af 113 BUN/Creatinine Ratio 22.6 H Glucose 98 Calcium 8.8 Blood Type B POSITIVE Antibody Screen NEGATIVE Crossmatch See Detail Discharge Plan Triage Chief Complaint: Hypertension ED Provider: Cody Siddiqui Dx/Rx/DC Orders Clinical Impression: Generalized weakness, Hypokalemia, Anemia requiring transfusions, Anticoagulated Instructions: Anemia, Hypokalemia Dc, ED Anemia, Iron-Deficiency (Adult) Prescriptions: No Action cholecalciferol (vitamin D3) 25 mcg (1,000 unit) tablet 25 mcg PO DAILY (DME) True Metrix Glucose Test Strip Strip MISCELLANEOUS Patient Comments: Test blood sugar(s) 1 times daily. atorvastatin 40 mg tablet 40 mg PO DAILY topiramate 25 mg tablet 25 mg PO DAILY spironolactone 25 mg tablet 25 mg PO DAILY pantoprazole 40 mg tablet,delayed release (DR/EC) 40 mg PO DAILY ursodiol 300 mg capsule 300 mg PO BID metoprolol succinate 25 mg tablet extended release 24 hr 37.5 mg PO DAILY norethindrone (contraceptive) [Deblitane] 0.35 mg tablet 0.35 mg PO DAILY fluoxetine 20 mg capsule 60 mg PO DAILY mirabegron [Myrbetriq] 25 mg tablet extended release 24 hr 25 mg PO DAILY Eliquis 5 mg tablet 5 mg PO BID duloxetine 40 mg capsule,delayed release(DR/EC) 40 mg PO DAILY Primary Care Provider: Kavon Granda Referrals: Kavon Granda DO [Primary Care Provider, Internal Medicine] Activity Restrictions/Additional Instructions: Please contact your music video director and let them know you are hemoglobin level today was 7.5 and you received a unit of packed red blood cells. Hide recommend taking supplemental potassium over the next 4 to 5 days and having your primary care doctor recheck the potassium level to see if additional supplementation is needed. Print Language: Tajik Disposition Disposition: Home, Self Care
[2025-08-10] VITALS: BP 109/75; PULSE 74; RESP 17; O2SAT 95
[2025-08-10 00:34] VITALS: BP 119/78; PULSE 78; RESP 17; TEMP 36.7; O2SAT 99
== END 2025-08-10 00:40 | disposition home or self-care (01) ==
PROVIDERS: Emergency Provider Emergency Medicine; PCP Internal Medicine; Visit Provider Emergency Medicine
DX: E87.6 Hypokalemia (principal); I48.91 Unspecified atrial fibrillation; E11.9 Type 2 diabetes mellitus without complications; R53.1 Weakness; I10 Essential (primary) hypertension; D50.9 Iron deficiency anemia, unspecified; Z87.891 Personal history of nicotine dependence; E78.00 Pure hypercholesterolemia, unspecified; Z79.01 Long term (current) use of anticoagulants; Z79.899 Other long term (current) drug therapy; E66.9 Obesity, unspecified
CPT/HCPCS: 80048; 85025; 86850; 86900; 86901; 99283; P9016; A4216